=== PATIENT | female | born 1945 | race Caucasian/White ===

== ENCOUNTER → 2017-10-15 | Outpatient (CLI) | payer MEDICARE, SELFPAY | PROVIDERS: Family Provider Internal Medicine Adolescent Medicine; Visit Provider Nurse Practitioner Family | DX: Z11.1 Encounter for screening for respiratory tuberculosis (principal) | CPT/HCPCS: 86580 ==

== ENCOUNTER → 2018-02-21 11:27 | Outpatient (POV) | payer MEDICARE, SELFPAY ==
[2018-02-21 11:43] VITALS: BP 154/71; PULSE 79; RESP 18; TEMP 36.6; O2SAT 98
--- NOTE | 2018-02-21 12:06 | HMH.PMCON ---
Assessment and Plan (1) Sacroiliitis Current visit: Yes Status: Chronic Category: Medical Code(s): M46.1 - Sacroiliitis, not elsewhere classified (2) Bursitis Current visit: Yes Status: Chronic Category: Medical Code(s): M71.9 - Bursopathy, unspecified - Assessment and plan all Dx Assessment and Plan for all problems:: We will plan a right SI joint injection along with a right greater trochanteric bursa injection. I believe that this would be beneficial to give her long-term relief of her symptoms. Patient's tried and failed physical therapy, medications, anti-inflammatories. Patient is continuing to do home stretching activities along with being active and walking. I will follow-up with this patient after her injection. Patient is not on any anticoagulation therapy. This note was dictated using voice recognition software and may contain errors or omissions HPI - Data of Consult Consult date: 02/21/18 Requesting Physician: Desire Mcdaniel APRN Primary Care Provider: Jose Patel MD Family Provider: Jose Patel MD - Consult Narrative Reason for consult: Right hip pain History of present illness: Ms. Dotson is a 72 year old female sent today for consultation in regards to her right hip pain. Patient states the pain began about a month ago. Patient rates her pain a 5 out of 10 today. Patient has tried physical therapy without much relief. Patient has also tried anti-inflammatories without much relief. Patient states all activity increases her pain while heat decreases her pain. Patient states her pain is constant it is localized over the SI joint and the greater trochanteric bursa of the right hip. Is interested in injective therapy to help with some of her pain. CC: Desire Mcdaniel APRN [facility] History I have reviewed the patient's past medical history: Yes Medical History: Reports:: Hypertension Other Medical History: Reports: Thyroid Disease, Other Laterality Cases: Right: Total Hip Replacement Other Surgeries: Yes: Cardiac Surgery, Colon Resection Amputation: No Fractures: No - *Social History Smoking Status: Never smoker Alcohol Intake: never Occupational Status: retired - Psychiatric History Expresses thoughts of harming self/others: None Suicide Plan Description: No Plan *Family Hx:: Cancer Review of Systems - Review of Systems ROS General: no recent weight change, no fever, no sleep disturbances Respiratory: no cough, no shortness of air, no recurring pulmonary infections Cardiovascular/Peripheral Vascular: No chest pain, No palpitations, no edema, no shortness of breath. Gastrointestinal: no incontinence, normal bowel movements reported Genitourinary: no incontinence Musculoskeletal: Right hip pain Psychiatric: normal mood/ affect, Neurological: [denies weakness in extremities], [denies balance issues] Meds Home Medications Medication Instructions Recorded Confirmed Type clonidine HCl 0.1 mg tablet PO 90 Days 01/24/18 History esomeprazole magnesium 40 mg PO 90 Days 01/24/18 History capsule,delayed release levothyroxine 100 mcg tablet PO 90 Days 01/24/18 History milnacipran 50 mg tablet PO 90 Days 01/24/18 History nebivolol 5 mg tablet PO 90 Days 01/24/18 History rosuvastatin 10 mg tablet PO 90 Days 01/24/18 History Allergies Allergy/AdvReac Type Severity Reaction Status Date / Time milk [From MILK (FOOD/DRUG)] Allergy Intermediate I-HIVES Verified 02/06/18 16:02 strawberry Allergy Intermediate I-HIVES Verified 02/06/18 16:02 [From STRAWBERRIES (FOOD/DRUG)] tomato Allergy Intermediate I-HIVES Verified 02/06/18 16:02 [From TOMATOES (FOOD/DRUG)] oxycodone [OXYCODONE] Allergy Mild SHUT Verified 02/06/18 16:02 EVERYTHING DOWN tramadol [TRAMADOL] Allergy Mild SHUTS Verified 02/06/18 16:02 EVERYTHING DOWN prednisone AdvReac Intermediate ANXIOUS/EBEN Verified 02/06/18 16:02 EMILY From MILK
--- NOTE | 2018-02-21 12:09 | P.CONS_ITS ---
Assessment and Plan (1) Sacroiliitis Current visit: Yes Status: Chronic Category: Medical Code(s): M46.1 - Sacroiliitis, not elsewhere classified (2) Bursitis Current visit: Yes Status: Chronic Category: Medical Code(s): M71.9 - Bursopathy, unspecified - Assessment and plan all Dx Assessment and Plan for all problems:: We will plan a right SI joint injection along with a right greater trochanteric bursa injection. I believe that this would be beneficial to give her long-term relief of her symptoms. Patient's tried and failed physical therapy, medications, anti-inflammatories. Patient is continuing to do home stretching activities along with being active and walking. I will follow-up with this patient after her injection. Patient is not on any anticoagulation therapy. This note was dictated using voice recognition software and may contain errors or omissions HPI - Data of Consult Consult date: 02/21/18 Requesting Physician: Desire Mcdaniel APRN Primary Care Provider: Jose Patel MD Family Provider: Jose Patel MD - Consult Narrative Reason for consult: Right hip pain History of present illness: Ms. Dotson is a 72 year old female sent today for consultation in regards to her right hip pain. Patient states the pain began about a month ago. Patient rates her pain a 5 out of 10 today. Patient has tried physical therapy without much relief. Patient has also tried anti-inflammatories without much relief. Patient states all activity increases her pain while heat decreases her pain. Patient states her pain is constant it is localized over the SI joint and the greater trochanteric bursa of the right hip. Is interested in injective therapy to help with some of her pain. CC: Desire Mcdaniel APRN [facility] History I have reviewed the patient's past medical history: Yes Medical History: Reports:: Hypertension Other Medical History: Reports: Thyroid Disease, Other Laterality Cases: Right: Total Hip Replacement Other Surgeries: Yes: Cardiac Surgery, Colon Resection Amputation: No Fractures: No - *Social History Smoking Status: Never smoker Alcohol Intake: never Occupational Status: retired - Psychiatric History Expresses thoughts of harming self/others: None Suicide Plan Description: No Plan *Family Hx:: Cancer Review of Systems - Review of Systems ROS General: no recent weight change, no fever, no sleep disturbances Respiratory: no cough, no shortness of air, no recurring pulmonary infections Cardiovascular/Peripheral Vascular: No chest pain, No palpitations, no edema, no shortness of breath. Gastrointestinal: no incontinence, normal bowel movements reported Genitourinary: no incontinence Musculoskeletal: Right hip pain Psychiatric: normal mood/ affect, Neurological: [denies weakness in extremities], [denies balance issues] Meds Home Medications Medication Instructions Recorded Confirmed Type clonidine HCl 0.1 mg tablet PO 90 Days 01/24/18 History esomeprazole magnesium 40 mg PO 90 Days 01/24/18 History capsule,delayed release levothyroxine 100 mcg tablet PO 90 Days 01/24/18 History milnacipran 50 mg tablet PO 90 Days 01/24/18 History nebivolol 5 mg tablet PO 90 Days 01/24/18 History rosuvastatin 10 mg tablet PO 90 Days 01/24/18 History Allergies Allergy/AdvReac Type Severity Reaction Status Date / Time milk [From MILK (FOOD/DRUG)] Alli
== END ==
PROVIDERS: Family Provider Internal Medicine Adolescent Medicine; PCP Internal Medicine Adolescent Medicine; Visit Provider Clinical Nurse Specialist Family Health
DX: M71.9 Bursopathy, unspecified (principal); M46.1 Sacroiliitis, not elsewhere classified
CPT/HCPCS: 99202

== ENCOUNTER 2018-03-08 10:05 | Outpatient (CLI) | payer MEDICARE, SELFPAY ==
[2018-03-08 10:40] VITALS: BP 131/63; PULSE 71; RESP 18; TEMP 36.8; O2SAT 98
[2018-03-08 11:30] VITALS: BP 135/67; PULSE 62; RESP 18; TEMP 36.6; O2SAT 96
[2018-03-08 12:15] VITALS: BP 134/72; PULSE 69; RESP 18; TEMP 36.5; O2SAT 95
== END 2018-03-08 12:25 | disposition home or self-care (01) ==
LOC: INF 10:06
PROVIDERS: PCP Internal Medicine Adolescent Medicine; Visit Provider Nurse Practitioner Family
DX: K90.9 Intestinal malabsorption, unspecified (principal); D50.9 Iron deficiency anemia, unspecified
CPT/HCPCS: 96365; J1756

== ENCOUNTER 2018-03-17 09:00 | Outpatient (CLI) | payer MEDICARE, SELFPAY ==
[2018-03-17 09:45] VITALS: BP 111/55; PULSE 67; RESP 16; TEMP 36.6
[2018-03-17 10:15] VITALS: BP 114/61; PULSE 64; RESP 18
== END 2018-03-17 10:30 | disposition home or self-care (01) ==
LOC: INF 09:10
PROVIDERS: Family Provider Internal Medicine Adolescent Medicine; PCP Internal Medicine Adolescent Medicine; Visit Provider Nurse Practitioner Family
DX: D50.9 Iron deficiency anemia, unspecified (principal); K90.9 Intestinal malabsorption, unspecified
CPT/HCPCS: 96365; J1756

== ENCOUNTER 2018-03-24 10:10 | Outpatient (CLI) | payer MEDICARE, SELFPAY ==
[2018-03-24 10:35] VITALS: BP 115/63; PULSE 68; RESP 20; TEMP 36.8; O2SAT 96
[2018-03-24 11:20] VITALS: BP 126/76; PULSE 63; RESP 20; TEMP 36.4; O2SAT 98
== END 2018-03-24 11:35 | disposition home or self-care (01) ==
LOC: INF 10:13
PROVIDERS: Family Provider Internal Medicine Adolescent Medicine; PCP Internal Medicine Adolescent Medicine; Visit Provider Internal Medicine Adolescent Medicine
DX: K90.9 Intestinal malabsorption, unspecified (principal); D50.9 Iron deficiency anemia, unspecified
CPT/HCPCS: 96365; J1756

== ENCOUNTER 2018-04-01 10:00 | Outpatient (CLI) | payer MEDICARE, SELFPAY ==
[2018-04-01 10:30] VITALS: BP 147/89; PULSE 68; RESP 20; TEMP 36.9; O2SAT 96
[2018-04-01 11:00] VITALS: BP 134/78; PULSE 66; RESP 20; TEMP 36.9; O2SAT 96
[2018-04-01 11:15] VITALS: BP 135/70; PULSE 68; RESP 20; TEMP 36.9; O2SAT 96
== END 2018-04-01 11:25 | disposition home or self-care (01) ==
LOC: INF 10:03
PROVIDERS: Family Provider Internal Medicine Adolescent Medicine; PCP Internal Medicine Adolescent Medicine; Visit Provider Nurse Practitioner Family
DX: K90.9 Intestinal malabsorption, unspecified (principal); D50.9 Iron deficiency anemia, unspecified
CPT/HCPCS: 96365; J1756

== ENCOUNTER → 2018-04-04 11:49 | Outpatient (POV) | payer MEDICARE, SELFPAY ==
[2018-04-04 11:57] VITALS: BP 162/81; PULSE 82; RESP 18; O2SAT 98; BMI 25.4
--- NOTE | 2018-04-04 12:01 | HMH.PAINSOAP ---
[facility] Pain Management SOAP Note Subjective:: Patient is a pleasant 72-year-old white female who presents today for follow-up after right SI joint and right trochanteric bursa region. Patient states that after the injection she did extremely well. Patient had a vacation in [place] and she was able to walk around without as much discomfort. Patient states her pain is returning and she is quite comfortable today however she is been having issues with her hip replacement. Patient is seeing her surgeon tomorrow for an evaluation. I believe that this would be beneficial. I believe that some of her pain may stem from instability in her right hip. Patient rates her pain a 7 out of 10 today. ROS General: no recent weight change, no fever, no sleep disturbances Respiratory: no cough, no shortness of air, no recurring pulmonary infections Cardiovascular/Peripheral Vascular: No chest pain, No palpitations, no edema, no shortness of breath. Gastrointestinal: no incontinence, normal bowel movements reported Genitourinary: no incontinence Musculoskeletal: Right hip pain, right SI joint pain Psychiatric: normal mood/ affect Neurological: [denies weakness in extremities], [denies balance issues] Objective:: Physical Exam General: Alert and oriented x3, no acute distress, pleasant and cooperative, [on room air] Lungs: Resps E/U, Symmetrical chest expansion, Eyes: PERRL Musculoskeletal: Flexion and extension of lumbar spine somewhat guarded secondary to pain, deep tendon reflexes normal, strength in upper and lower extremities [5/5], [abnormal gait noted] Neurological: speech clear, 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 Patient is going to call us if she needs us in the future. This note was dictated using voice recognition software and may contain errors or omissions
--- NOTE | 2018-04-04 12:04 | P.CONS_ITS ---
[facility] Pain Management SOAP Note Subjective:: Patient is a pleasant 72-year-old white female who presents today for follow-up after right SI joint and right trochanteric bursa region. Patient states that after the injection she did extremely well. Patient had a vacation in [place] and she was able to walk around without as much discomfort. Patient states her pain is returning and she is quite comfortable today however she is been having issues with her hip replacement. Patient is seeing her surgeon tomorrow for an evaluation. I believe that this would be beneficial. I believe that some of her pain may stem from instability in her right hip. Patient rates her pain a 7 out of 10 today. ROS General: no recent weight change, no fever, no sleep disturbances Respiratory: no cough, no shortness of air, no recurring pulmonary infections Cardiovascular/Peripheral Vascular: No chest pain, No palpitations, no edema, no shortness of breath. Gastrointestinal: no incontinence, normal bowel movements reported Genitourinary: no incontinence Musculoskeletal: Right hip pain, right SI joint pain Psychiatric: normal mood/ affect Neurological: [denies weakness in extremities], [denies balance issues] Objective:: Physical Exam General: Alert and oriented x3, no acute distress, pleasant and cooperative, [ on room air] Lungs: Resps E/U, Symmetrical chest expansion, Eyes: PERRL Musculoskeletal: Flexion and extension of lumbar spine somewhat guarded secondary to pain, deep tendon reflexes normal, strength in upper and lower extremities [5/5], [abnormal gait noted] Neurological: speech clear, screen handler equal, no gross sensory deficits Assessment:: Sacroiliitis and right hip pain Plan:: Patient is going to be seen by her surgeon tomorrow. Patient is going to call us if she needs us in the future. This note was dictated using voice recognition software and may contain errors or omissions
== END ==
PROVIDERS: Family Provider Internal Medicine Adolescent Medicine; PCP Internal Medicine Adolescent Medicine; Visit Provider Clinical Nurse Specialist Family Health
DX: M25.551 Pain in right hip (principal); M46.1 Sacroiliitis, not elsewhere classified
CPT/HCPCS: 99212

== ENCOUNTER 2018-04-07 09:10 | Outpatient (CLI) | payer MEDICARE, SELFPAY ==
[2018-04-07 10:10] VITALS: BP 129/73; PULSE 65; RESP 18
[2018-04-07 10:40] VITALS: BP 142/65; PULSE 58; RESP 18
== END 2018-04-07 10:55 | disposition home or self-care (01) ==
LOC: INF 09:27
PROVIDERS: Family Provider Internal Medicine Adolescent Medicine; PCP Internal Medicine Adolescent Medicine; Visit Provider Internal Medicine
DX: K90.9 Intestinal malabsorption, unspecified (principal); D50.9 Iron deficiency anemia, unspecified
CPT/HCPCS: 96365; J1756

== ENCOUNTER → 2018-06-20 09:34 | Outpatient (CLI) | payer MEDICARE, SELFPAY ==
[2018-06-20 09:48] LABS: Basophils % 0.7 % (0.1-2.0); Eosinophils # 0.2 K/mm3 (0.0-0.4); Eosinophils % 3.9 % (0.1-12.0); Hematocrit 36.6 % (37.0-47.0); Hemoglobin 11.6 g/dL (12.2-16.2); Lymphocytes # 2.4 K/mm3 (0.7-4.5); Lymphocytes % 44.7 K/mm3 (10-50); Mean Corpuscular HGB Conc 31.7 g/dL (31.8-35.4); Mean Corpuscular Hemoglobin 28.8 pg (27.0-31.2); Mean Corpuscular Volume 90.9 fl (81-99); Mean Platelet Volume 6.7 fl (7.4-10.4); Monocytes # 0.5 K/mm3 (0.1-1.0); Monocytes % 8.3 % (1.7-9.3); Neutrophils # 2.3 K/mm3 (1.8-7.8); Neutrophils % 42.4 % (37.0-80.0); Platelet Count 228 K/mm3 (142-424); Red Blood Count 4.03 M/mm3 (4.20-5.40); Red Cell Distribution Width 16.7 % (11.5-17.5); White Blood Count 5.4 K/mm3 (4.8-10.8)
[2018-06-20 10:36] LABS: Alanine Aminotransferase 34 U/L (12-78); Albumin Level 3.4 gm/dL (3.4-5.0); Albumin/Globulin Ratio 1.2 (1.1-1.8); Alkaline Phosphatase 99 U/L (46-116); Aspartate Amino Transferase 28 U/L (15-37); Bilirubin,Total 0.2 mg/dL (0.2-1.0); Blood Urea Nitrogen 26 mg/dL (7-18); Carbon Dioxide 29 mmol/L (21.0-32.0); Chloride 110 mmol/L (98-107); Creatinine,Serum 1.38 mg/dL (0.55-1.02); Estimated Glomerular Filt Rate 37 ml/min (>60); GFR (African American) 45 ML/MIN (>60); Globulin 2.9 gm/dl (1.3-3.2); Glucose 100 mg/dL (74-106); Sodium 146 mmol/L (136-145); Total Protein,Serum 6.3 gm/dL (6.4-8.2)
[2018-06-20 10:47] LABS: C-Reactive Protein < 0.2 mg/L (0.0-0.9)
[2018-06-20 12:04] LABS: Erythrocyte Sedimentation Rate 24 mm/hr (0-30)
[2018-06-21 15:27] LABS: RA Latex Turbid. <10.0 IU/mL (0.0-13.9)
== END ==
PROVIDERS: PCP Internal Medicine Adolescent Medicine; Visit Provider Internal Medicine Rheumatology
DX: M06.9 Rheumatoid arthritis, unspecified (principal); Z79.899 Other long term (current) drug therapy
CPT/HCPCS: 36415; 80053; 85025; 85651; 86140; 86431

== ENCOUNTER → 2018-06-29 12:49 | Outpatient (CLI) | payer MEDICARE, SELFPAY ==
[2018-06-29 15:06] LABS: Thyroid Stimulating Hormone 0.02 uIU/ml (0.358-3.740)
== END ==
PROVIDERS: PCP Internal Medicine Adolescent Medicine; Visit Provider Nurse Practitioner Family
DX: E03.9 Hypothyroidism, unspecified (principal)
CPT/HCPCS: 36415; 84443

== ENCOUNTER → 2018-07-06 10:48 | Outpatient (CLI) | payer MEDICARE, SELFPAY ==
[2018-07-06 11:09] LABS: Microscopic, Urine URINE MICROSCOPIC (MICROSCOPIC)
--- NOTE | 2018-07-06 11:30 | XR_ITS ---
XR chest 2V HISTORY: ITS.REASON: CAD, ORDERING PHYSICIAN: Lyudmila Maldonado PATIENT AGE: 72 years COMPARISON: 08/12/2016 FINDINGS: The cardiomediastinal silhouette and pulmonary vascularity are within normal limits. There has been prior CABG. There is evidence of old granulomatous disease. No lobar consolidation. Chronic changes are present in the lung bases. There are coronary artery stents noted. Degenerative change thoracic spine. IMPRESSION: Chronic changes, no acute finding
[2018-07-06 11:31] LABS: Appearance,Urine CLEAR (Clear); Bilirubin,Urine Negative (Negative); Blood, Urine Negative (Negative); Color,Urine YELLOW (Yellow); Glucose,Urine (UA) Negative (Negative); Ketones,Urine Negative (Negative); Leukocyte Esterase,Urine Negative (Negative); Nitrate,Urine Negative (Negative); Protein,Urine Negative (Negative); Urobilinogen,Urine 0.2 EU/dl (0.2)
[2018-07-06 11:39] LABS: INR 0.96 (0.9-1.1); Prothrombin Time 9.9 seconds (9.4-11.8)
[2018-07-06 12:18] LABS: Bacteria,Urine Trace /lpf; Hyaline Casts,Urine Occasional #/lpf (0); Mucus,Urine 3+ /lpf; WBC,Urine Occasional #/hpf (0-3)
[2018-07-06 15:03] LABS: Activated Partial Thrombo Time 26.9 seconds (23.6-34.0)
== END ==
PROVIDERS: PCP Internal Medicine Adolescent Medicine; Visit Provider Nurse Practitioner Family
DX: Z01.818 Encounter for other preprocedural examination (principal); I25.10 Atherosclerotic heart disease of native coronary artery without angina pectoris; Z01.812 Encounter for preprocedural laboratory examination
CPT/HCPCS: 36415; 71046; 81001; 85610; 85730

== ENCOUNTER → 2018-07-08 06:04 | Outpatient (CLI) | payer MEDICARE, SELFPAY ==
--- NOTE | 2018-07-08 06:07 | NM_ITS ---
History and Indications: Coronary artery disease, history of MA, bypass surgery, hypertension, hyperlipidemia, preop cardiovascular risk assessment Procedure: Patient received a 0.4 mg of Lexiscan, resting heart rate was 63 beats prominent, resting blood pressure 154/78, with Lexiscan maximum heart rate achieved was 86 bpm which is less than 85% of the maximum predicted heart rate and a blood pressure 156/74. With Lexiscan patient denied any complained of chest pain or shortness of breath. Electrocardiogram: Resting electrocardiogram showed sinus rhythm, with Lexiscan there is less than 1.[address] segment depression noted from the baseline EKG. The EKG portion of the Lexiscan Myoview is nondiagnostic. Cardiac stress and resting SPECT images: Cardiac stress and rest SPECT images were obtained using technetium 99 Myoview 31.0 mCi at stress and 10.2 mCi at rest. Gated SPECT further analysis of segmental wall motion and calculation of the ejection fraction also done. Cardiac stress and rest SPECT images small area of fixed defect involving the anteroseptal and anteroapical wall consistent with area of prior myocardial scarring, either derived ejection fraction is 63% with moderate anteroseptal and anteroapical wall hypokinesis. Right ventricle is normal size and contractility. Conclusion: 1. The EKG portion of the Lexiscan Myoview is nondiagnostic. 2. Scintigraphic evidence of small area of myocardial scarring involving the anteroapical and anteroseptal wall as described above without significant vicky-infarct ischemia., Computer derived ejection fraction is 53% with segmental wall motion abnormality described above, right ventricle is normal size and contractility. 3. Abnormal Lexiscan Myoview study.
--- NOTE | 2018-07-08 06:07 | CA_ITS ---
PROCEDURE: 2-D M-mode and color Doppler study INDICATIONS FOR THE TEST: Chest pain COPD Heart Murmur Tobacco Smoking Palpitations Fatigue Syncope Edema Hypertension+Diabetes Mellitus Rheumatic Fever SOB STRANGE Obesity Hyperlipidemia+ Family History HD Additional History preop clearance for hip replacement, hx of CABG, hx PR 2002 1 cardiac stent PATIENT INFORMATION HEIGHT: 63 WEIGHT: 141 GENDER: Female B/P: 145/76 2-D/M-MODE INTERPRETATION: 2-D MEASUREMENTS OBSERVED VALUES IN CMS Right Ventricular Dimension (RVDd) 2.0 Interventricular Septum (Thickness)(IVsd) 0.5 Left Ventricular Internal Dimensions(LVIDd) 3.3 Left Ventricular Posterior Wall (Thickness)(LVPWd) 0.5 Aortic Root 2.7 Aortic Cusp Separation 2.0 Left Atrial Dimensions (LAD) 2.6 2D 1. Left atrium is qualitatively mildly enlarged, left ventricle is normal size, mild qualitative concentric left ventricular hypertrophy, visually estimated ejection fraction approximately 45-50%, there is mild hypokinesis involving the distal septum. 2. The right atrium and right ventricle are normal size and contractility. 3. The aortic valve is minimally thickened and fibrosed leaflet continue to display mobility. 4. The mitral valve has dense mitral annular calcification. 5. The tricuspid valve is grossly normal. 6. The pulmonic valve is poorly visualized. 7. No significant pericardial effusion noted. DOPPLER INTERROGATION: Doppler interrogation of the aortic, mitral and tricuspid valvular presence of mild mitral and tricuspid regurgitation, tricuspid regurgitation jet velocity insufficient for calculation of the right ventricular systolic pressure, grade 1 diastolic dysfunction seen with tissue Doppler evidence of raised left atrial pressure. CONCLUSION: 1. Mildly enlarged left atrium, normal left ventricular size, mild concentric left ventricular hypertrophy, visually estimated ejection fraction approximately 45-50% with segmental wall motion abnormality described above, grade 1 diastolic dysfunction seen with tissue Doppler evidence of raised left atrial pressure. 2. Mild mitral and tricuspid regurgitation 3. No significant pericardial effusion noted.
--- NOTE | 2018-07-08 09:23 | HMH.ITSHM ---
asa synthroid bystilic nexium vit d3 crestor
== END ==
PROVIDERS: Family Provider Internal Medicine Adolescent Medicine; PCP Internal Medicine Adolescent Medicine; Visit Provider Internal Medicine Cardiovascular Disease
DX: I25.10 Atherosclerotic heart disease of native coronary artery without angina pectoris (principal)
CPT/HCPCS: 78452; 93017; 93306; A9502; J2785

== ENCOUNTER → 2018-12-28 11:21 | Outpatient (CLI) | payer MEDICARE, SELFPAY ==
[2018-12-28 12:13] LABS: Basophils % 0.5 % (0.1-2.0); Eosinophils # 0.1 K/mm3 (0.0-0.4); Eosinophils % 1.7 % (0.1-12.0); Hematocrit 34.4 % (37.0-47.0); Hemoglobin 11.3 g/dL (12.2-16.2); Lymphocytes # 1.9 K/mm3 (0.7-4.5); Lymphocytes % 36.4 % (10-50); Mean Corpuscular HGB Conc 32.7 g/dL (31.8-35.4); Mean Corpuscular Hemoglobin 29.1 pg (27.0-31.2); Mean Platelet Volume 6.7 fl (7.4-10.4); Monocytes # 0.4 K/mm3 (0.1-1.0); Monocytes % 7.9 % (1.7-9.3); Neutrophils # 2.8 K/mm3 (1.8-7.8); Neutrophils % 53.5 % (37.0-80.0); Platelet Count 235 K/mm3 (142-424); Red Blood Count 3.87 M/mm3 (4.20-5.40); Red Cell Distribution Width 16.1 % (11.5-17.5); White Blood Count 5.2 K/mm3 (4.8-10.8)
[2018-12-28 12:58] LABS: Alanine Aminotransferase 28 U/L (12-78); Albumin Level 3.7 gm/dL (3.4-5.0); Albumin/Globulin Ratio 1.3 (1.1-1.8); Alkaline Phosphatase 114 U/L (46-116); Anion Gap 10.5 mEq/L (5-15); Aspartate Amino Transferase 32 U/L (15-37); Bilirubin,Total 0.3 mg/dL (0.2-1.0); Blood Urea Nitrogen 21 mg/dL (7-18); Calcium 8.9 mg/dL (8.5-10.1); Carbon Dioxide 30 mmol/L (21.0-32.0); Chloride 104 mmol/L (98-107); Creatinine,Serum 1.15 mg/dL (0.55-1.02); Estimated Glomerular Filt Rate 46 ml/min (>60); GFR (African American) 56 ML/MIN (>60); Globulin 2.9 gm/dl (1.3-3.2); Glucose 83 mg/dL (74-106); Potassium 4.5 mmoL/L (3.5-5.1); Sodium 140 mmol/L (136-145); Total Protein,Serum 6.6 gm/dL (6.4-8.2)
[2018-12-28 13:04] LABS: C-Reactive Protein < 0.2 mg/L (0.0-0.9)
[2018-12-28 14:28] LABS: Erythrocyte Sedimentation Rate 13 mm/hr (0-30)
[2018-12-31 03:42] LABS: QuantiFERON-TB Gold Plus Negative (Negative)
== END ==
PROVIDERS: Visit Provider Internal Medicine Rheumatology
DX: M06.00 Rheumatoid arthritis without rheumatoid factor, unspecified site (principal)
CPT/HCPCS: 36415; 80053; 85025; 85651; 86140; 86480

== ENCOUNTER → 2019-04-07 10:14 | Outpatient (CLI) | payer MEDICARE, SELFPAY ==
[2019-04-07 10:38] LABS: Basophils % 0.5 % (0.1-2.0); Eosinophils # 0.2 K/mm3 (0.0-0.4); Eosinophils % 3.3 % (0.1-12.0); Hematocrit 35.2 % (37.0-47.0); Hemoglobin 11.1 g/dL (12.2-16.2); Lymphocytes # 1.2 K/mm3 (0.7-4.5); Lymphocytes % 20.8 % (10-50); Mean Corpuscular HGB Conc 31.6 g/dL (31.8-35.4); Mean Corpuscular Volume 88.6 fl (81-99); Mean Platelet Volume 6.9 fl (7.4-10.4); Monocytes # 0.5 K/mm3 (0.1-1.0); Monocytes % 8.4 % (1.7-9.3); Platelet Count 288 K/mm3 (142-424); Red Blood Count 3.98 M/mm3 (4.20-5.40); Red Cell Distribution Width 13.4 % (11.5-17.5)
[2019-04-07 11:11] LABS: Erythrocyte Sedimentation Rate 69 mm/hr (0-30)
[2019-04-07 11:47] LABS: Alanine Aminotransferase 26 U/L (12-78); Albumin Level 3.4 gm/dL (3.4-5.0); Albumin/Globulin Ratio 1.2 (1.1-1.8); Alkaline Phosphatase 110 U/L (46-116); Anion Gap 14.6 mEq/L (5-15); Aspartate Amino Transferase 25 U/L (15-37); Bilirubin,Total 0.3 mg/dL (0.2-1.0); Blood Urea Nitrogen 12 mg/dL (7-18); Calcium 8.7 mg/dL (8.5-10.1); Carbon Dioxide 28 mmol/L (21.0-32.0); Chloride 105 mmol/L (98-107); Creatinine,Serum 1.12 mg/dL (0.55-1.02); Estimated Glomerular Filt Rate 48 ml/min (>60); GFR (African American) 58 ML/MIN (>60); Globulin 2.8 gm/dl (1.3-3.2); Glucose 97 mg/dL (74-106); Potassium 4.6 mmoL/L (3.5-5.1); Sodium 143 mmol/L (136-145); Total Protein,Serum 6.2 gm/dL (6.4-8.2)
[2019-04-07 11:50] LABS: C-Reactive Protein < 0.2 mg/L (0.0-0.9)
== END ==
PROVIDERS: Visit Provider Internal Medicine Rheumatology
DX: M06.9 Rheumatoid arthritis, unspecified (principal)
CPT/HCPCS: 36415; 80053; 85025; 85651; 86140

== ENCOUNTER → 2019-09-08 08:25 | Outpatient (CLI) | payer MEDICARE, SELFPAY ==
[2019-09-08 09:11] LABS: Basophils % 0.6 % (0.1-2.0); Eosinophils # 0.2 K/mm3 (0.0-0.4); Eosinophils % 4.3 % (0.1-12.0); Hematocrit 32.5 % (37.0-47.0); Hemoglobin 10.3 g/dL (12.2-16.2); Lymphocytes # 1.4 K/mm3 (0.7-4.5); Lymphocytes % 34.2 % (10-50); Mean Corpuscular HGB Conc 31.8 g/dL (31.8-35.4); Mean Corpuscular Hemoglobin 29.4 pg (27.0-31.2); Mean Corpuscular Volume 92.2 fl (81-99); Mean Platelet Volume 7.6 fl (7.4-10.4); Monocytes # 0.4 K/mm3 (0.1-1.0); Monocytes % 9.7 % (1.7-9.3); Neutrophils # 2.1 K/mm3 (1.8-7.8); Neutrophils % 51.2 % (37.0-80.0); Platelet Count 276 K/mm3 (142-424); Red Blood Count 3.52 M/mm3 (4.20-5.40); Red Cell Distribution Width 16.5 % (11.5-17.5); White Blood Count 4.1 K/mm3 (4.8-10.8)
[2019-09-08 09:41] LABS: Erythrocyte Sedimentation Rate 40 mm/hr (0-30)
[2019-09-08 10:58] LABS: Alanine Aminotransferase 24 U/L (12-78); Albumin Level 3.7 gm/dL (3.4-5.0); Albumin/Globulin Ratio 1.4 (1.1-1.8); Alkaline Phosphatase 90 U/L (46-116); Anion Gap 9.7 mEq/L (5-15); Aspartate Amino Transferase 28 U/L (15-37); Bilirubin,Total 0.3 mg/dL (0.2-1.0); Blood Urea Nitrogen 19 mg/dL (7-18); Calcium 8.7 mg/dL (8.5-10.1); Carbon Dioxide 30 mmol/L (21.0-32.0); Chloride 106 mmol/L (98-107); Creatinine,Serum 1.21 mg/dL (0.55-1.02); Estimated Glomerular Filt Rate 43 ml/min (>60); GFR (African American) 52 ML/MIN (>60); Globulin 2.7 gm/dl (1.3-3.2); Glucose 86 mg/dL (74-106); Potassium 4.7 mmoL/L (3.5-5.1); Sodium 141 mmol/L (136-145); Total Protein,Serum 6.4 gm/dL (6.4-8.2)
[2019-09-08 11:00] LABS: C-Reactive Protein < 0.2 mg/dL (0.0-0.9)
[2019-09-08 11:12] LABS: Chol/HDL Ratio 2.3 (1-3.5); Cholesterol 189 mg/dL (140-200); HDL Cholesterol 84 mg/dL (29-89); LDL Cholesterol 96 mg/dL (0-130); Thyroid Stimulating Hormone 10.02 uIU/ml (0.358-3.740); Triglycerides 47 mg/dL (30-200); VLDL Cholesterol 9 mg/dL (0-40)
[2019-09-11 06:36] LABS: Vitamin B12 329 pg/mL (232-1245)
== END ==
PROVIDERS: Visit Provider Nurse Practitioner Family
DX: I25.10 Atherosclerotic heart disease of native coronary artery without angina pectoris (principal); I10 Essential (primary) hypertension; E78.5 Hyperlipidemia, unspecified; E03.9 Hypothyroidism, unspecified; E53.8 Deficiency of other specified B group vitamins; D50.9 Iron deficiency anemia, unspecified; M06.00 Rheumatoid arthritis without rheumatoid factor, unspecified site; Z51.81 Encounter for therapeutic drug level monitoring
CPT/HCPCS: 36415; 80053; 80061; 82607; 84443; 85025; 85651; 86140

== ENCOUNTER → 2019-09-18 15:52 | Outpatient (CLI) | payer MEDICARE, SELFPAY ==
--- NOTE | 2019-09-18 15:56 | XR_ITS ---
PROCEDURE: XR CHEST 2V CLINICAL HISTORY: COUGH,RALES,FEVER,CHILLS, Cough, rales, fever, chills COMPARISON: CXR1 CHEST-PORTABLE from 08/12/2016 ABDPELW/O CT ABD PELVIS W/O CONTRAST from 09/24/2016 CXR2V XR chest 2V from 07/06/2018 FINDINGS: Prior CABG. Normal heart size Old granulomatous disease. Patchy density is present in the right infrahilar region. This had a similar appearance on 07/06/2018 somewhat more prominent on today's study and may represent an area of infiltrate superimposed upon chronic changes. No acute bony abnormalities. IMPRESSION: Patchy density right lung base slightly more prominent from the previous exam and may represent an area of infiltrate upon chronic changes. Dictated by: Luan Alexis MD 09/18/2019 17:12 Electronically signed by Luan Alexis MD in [place] 09/18/2019 17:12
== END ==
PROVIDERS: PCP Nurse Practitioner Family; Visit Provider Nurse Practitioner Family
DX: R05 Cough (principal); R09.89 Other specified symptoms and signs involving the circulatory and respiratory systems; R50.9 Fever, unspecified; D89.9 Disorder involving the immune mechanism, unspecified
CPT/HCPCS: 71046

== ENCOUNTER → 2019-10-04 10:23 | Outpatient (CLI) | payer MEDICARE, SELFPAY ==
--- NOTE | 2019-10-04 10:25 | MM_ITS ---
PROCEDURE: MM DIG SCREENING MAMM BI W/CAD CLINICAL INDICATION: SCREENING There is no personal or family history of breast cancer. COMPARISON: [facility]B DIGITAL MAMM-SCREEN BILATERAL from 06/14/2012 [facility]B DIG MAMM-SCREEN JAYE from 08/20/2014 DMSB DIG MAMM-SCREEN JAYE W/CAD from 05/04/2017 TECHNIQUE: Standard CC and MLO images were obtained. R2 CAD reviewed. FINDINGS: Prominent diffuse fibroglandular densities are seen throughout both breasts. There is a stable area of increased glandular elements axillary tail right breast. Otherwise the findings are bilateral and symmetrical. There is no new or suspicious lesion in either breast and no suspicious microcalcifications. IMPRESSION: Moderate diffuse breast density with no suspicious lesions seen BI-RAD Category: 2 Benign Finding(s) FOLLOW-UP: 1YR 1 Year Follow-up (A letter has been sent to the patient regarding results of the study.) Dictated by: Dr. Arthur Ferguson MD 10/05/2019 18:[address] Arthur Ferguson MD in [place] 10/05/2019 18:54
== END ==
PROVIDERS: PCP Internal Medicine Adolescent Medicine; Visit Provider Nurse Practitioner Family
DX: Z12.31 Encounter for screening mammogram for malignant neoplasm of breast (principal)
CPT/HCPCS: 77067

== ENCOUNTER → 2020-08-22 09:53 | Outpatient (CLI) | payer MEDICARE, SELFPAY ==
--- NOTE | 2020-08-22 09:56 | XR_ITS ---
PROCEDURE: XR DEXA AXIAL SKELETON CLINICAL HISTORY: POST-MENOPAUSAL COMPARISON: CR BONE3 BONE DENSITOMETRY(HIP:LT SPINE from 05/04/2017 FINDINGS: The left forearm BMD is 0.601 with a T-score of -1.5. The left hip BMD is 0.593 with a T-score of -2.3. The lumbar spine BMD is 1.097 with a T-score of 0.5. Previously the lowest density was in the left hip with T-score of -1.8. IMPRESSION: This patient is considered osteopenic according to the World Health Organization criteria. Bone density is between 10 and 25 percent below young normal. Fracture risk is moderate. Treatment is advised. Based on these results a follow-up exam is recommended in 2 year. Dictated by: Luan Alexis MD 08/23/2020 08:16 Luan Alexis MD in [place] 08/23/2020 08:16
== END ==
PROVIDERS: PCP Internal Medicine Adolescent Medicine; Visit Provider Internal Medicine Adolescent Medicine
DX: Z13.820 Encounter for screening for osteoporosis (principal); Z78.0 Asymptomatic menopausal state
CPT/HCPCS: 77080

== ENCOUNTER → 2020-09-06 15:47 | Outpatient (CLI) | payer MEDICARE, SELFPAY ==
--- NOTE | 2020-09-06 15:49 | MM_ITS ---
PROCEDURE: MM DIG SCREENING MAMM BI W/CAD Referring Doctor: Tyler Avelar Patient Age:75Y CLINICAL INDICATION: SCREENING 75-year-old female difficult position No hormones. No new complaints but noncontributory family history . 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 R2 CAD reviewed. Bilateral digital breast tomosynthesis included. Additional axillary CC views both breast included as well as a nipple profile MLO view left 75-year-old female difficult position MLO views due to arthritis. Patient could not tolerate leaning into the machine FINDINGS: Moderate density breast. No new dominant or new suspicious mass. No suspicious calcifications. CAD computer review highlights no new areas of concern. Areas of mild asymmetry appears similar to previous studies Right breast no new areas of significant concern Small area of density in the tail of the right breast is been seen on multiple previous studies dating back to 2013, 2012 appears reasonably stable. Most compatible with a small intramammary lymph node Left breast.: No new area of significant concern . Subtle and minor asymmetric areas of density appear stable IMPRESSION: Stable bilateral mammogram. No new areas of significant concern . Moderately dense breast Bilateral follow-up 1 year recommended BI-RAD Category: 2 Benign Finding(s) FOLLOW-UP: 1YR 1 Year Follow-up (A letter has been sent to the patient regarding results of the study.) Dictated by: Lenny Moreno MD 09/18/2020 10:40 Lenny Moreno MD in [place] 09/18/2020 10:40
== END ==
PROVIDERS: PCP Internal Medicine Adolescent Medicine; Visit Provider Internal Medicine Adolescent Medicine
DX: Z12.31 Encounter for screening mammogram for malignant neoplasm of breast (principal)
CPT/HCPCS: 77063; 77067

== ENCOUNTER 2021-06-16 08:58 | Emergency (ER) | payer MEDICARE, SELFPAY ==
[2021-06-16 09:00] VITALS: BP 137/82; PULSE 76; RESP 18; TEMP 36.9; O2SAT 99; BMI 23.3
--- NOTE | 2021-06-16 09:28 | HMH.EDUTC ---
[facility] [place] Disposition Clinical Impression: Canker sore, Encounter for laboratory testing for COVID-19 virus Disposition: Home, Self-Care Condition on Discharge: Good Instructions: DI for Aphthous Ulcers (Canker Sores), Aphthous Ulcers, Sore Throat, DI for COVID-19 (Suspected or Confirmed ), Preventing the Spread of Coronavirus Discharge Instructions Additional Instructions: *Monitor Temp, Over the counter Motrin or Tylenol as directed/as needed Tylenol every 4 hours and Motrin every 6 hours (as long as your family doctor has told you that you can take it) for fever or pa-in. and straight to ER if unable to lower temp less than 101.0 after medication given *Warm salt water gargles may help to soothe the throat *Throat Lozenges *Warm fluids like tea with honey may help to soothe the throat cstilwill PRACTICE BASIC PRECAUTIONS ?Wash your hands often with soap and water for at least 20 seconds. If soap and water are not available, cleanyour hands with an alcohol-based hand lawn service manager that contains at least 60% to 95% alcohol, covering all surfacesof your hands and rubbing them together until they feel dry. Soap and water should be used if hands are visiblydirty. Avoid touching your eyes, nose, and mouth with unwashed hands. ?Cover your coughs and sneezes. ?Cover your mouth and nose with a tissue when you cough or sneeze and throw used tissues in a lined trashcan; immediately wash your hands with soap and water for at least 20 seconds or clean your hands with analcohol-based hand lawn service manager that contains at least 60 to 95% alcohol, covering all surfaces of your hands andrubbing them together until they feel dry. Soap and water should be used if hands are visibly dirty. Your throat swab was sent for culture. Those results are typically sent to your primary care. Be sure to follow up in 2-3 days with your family doctor/primary care physician if no improvement so they can review those result and treat if necessary. If you don?t have a primary care doctor, I recommend you get one but in the mean time, you will have to return to a walk in clinic Follow up IMMEDIATELY for new or worsening symptoms or no Noticeable improvement over the next 48-72 hours. 911 for difficulty breathing or swallowing You were tested for today for COVID19 your test result should be back in the next 24-48 hours, Check the [facility] Portal to see if your test results are back in the next 48 it may say detected that means your result is positive and not detected if your results are Negative You was given handout instructions on how log on and see your results. If you do not have internet access you may call the [facility] for your results [phone] You was given a handout with instructions for Self Quarantine and Self isolation for while you wait on test results and what to do if they are positive If you are positive the Health Dept will be contacting you also Make sure to take your Vitamins Vit. C Vit D and Zinc if you can take them Referrals: Jose Patel MD [Primary Care Provider] - As needed Time of Disposition: 09:36 Medical Decision Making - Adrián Inquiry Pt receiving controlled substance: No Adrián was queried for this patient: No Vital Signs: 06/16/21 09:00 Temperature 98.4 F Temperature Source Oral Pulse Rate [Right Brachial] 76 Respiratory Rate 18 Blood Pressure [Right Arm] 137/82 Blood Pressure Mean [Right Arm] 100 Blood Pressure Source [Right Arm] Automatic Cuff Blood Pressure Position [Right Arm] Sitting 02 Sat by Pulse Oximetry 99 Oxygen Delivery Method Room Air - Lab Data Lab results reviewed: Yes: I reviewed the patient's lab results. Orders (Tests/Meds): ORDERS Category Date Time Status Covid-19 Nasal PCR ([facility]) Routine Lab 06/16/21 09:10 Received [facility] [place] HPI - General Stated complaint: covid test Time Seen by Provider: 06/16/21 09:28 Mode of Arrival: Ambulatory Source of Information: Patient Limitations: No Limitations Descr
[2021-06-16 09:38] VITALS: BP 137/82; PULSE 76; RESP 18; TEMP 36.9; O2SAT 99
[2021-06-16 21:17] LABS: UTC Strep Screen (Rapid) Negative (Negative)
== END 2021-06-16 09:42 | disposition home or self-care (01) ==
PROVIDERS: Emergency Provider Nurse Practitioner; PCP Internal Medicine Adolescent Medicine
DX: K12.0 Recurrent oral aphthae (principal); Z20.822 Contact with and (suspected) exposure to COVID-19; I25.10 Atherosclerotic heart disease of native coronary artery without angina pectoris; I10 Essential (primary) hypertension; Z96.641 Presence of right artificial hip joint
CPT/HCPCS: G0463; 87880; 99203; U0003

== ENCOUNTER → 2021-09-15 10:32 | Outpatient (CLI) | payer MEDICARE, SELFPAY ==
[2021-09-15 11:34] LABS: Basophils % 0.5 % (0.1-2.0); Eosinophils # 0.1 K/mm3 (0.0-0.4); Eosinophils % 1.4 % (0.1-12.0); Hematocrit 36.8 % (37.0-47.0); Hemoglobin 11.9 g/dL (12.2-16.2); Lymphocytes # 1.9 K/mm3 (0.7-4.5); Lymphocytes % 33.9 % (10-50); Mean Corpuscular HGB Conc 32.4 g/dL (31.8-35.4); Mean Corpuscular Hemoglobin 29.3 pg (27.0-31.2); Mean Corpuscular Volume 90.5 fl (81-99); Mean Platelet Volume 7.5 fl (7.4-10.4); Monocytes # 0.5 K/mm3 (0.1-1.0); Monocytes % 8.8 % (1.7-9.3); Neutrophils # 3.1 K/mm3 (1.8-7.8); Neutrophils % 55.4 % (37.0-80.0); Platelet Count 281 K/mm3 (142-424); Red Blood Count 4.06 M/mm3 (4.20-5.40); Red Cell Distribution Width 15.1 % (11.5-17.5); White Blood Count 5.5 K/mm3 (4.8-10.8)
[2021-09-15 12:29] LABS: Alanine Aminotransferase 7 U/L (12-78); Albumin Level 4.3 g/dl (3.5-5.0); Albumin/Globulin Ratio 1.9 (1.1-1.8); Alkaline Phosphatase 68 U/L (38-126); Anion Gap 10.2 mEq/L (5-15); Aspartate Amino Transferase 31 U/L (14-36); Bilirubin,Total 0.5 mg/dl (0.2-1.3); Blood Urea Nitrogen 16 mg/dl (7-17); Calcium 9.4 mg/dl (8.4-10.2); Carbon Dioxide 29 mmol/L (22.0-30.0); Chloride 101 mmol/L (98-107); Estimated Glomerular Filt Rate 54 ml/min (>60); GFR (African American) 65 ML/MIN (>60); Globulin 2.3 g/dL (1.3-3.2); Glucose 93 mg/dl (74-100); Potassium 4.2 mmoL/L (3.5-5.1); Sodium 136 mmol/L (136-145); Total Protein,Serum 6.6 g/dl (6.3-8.2)
[2021-09-15 12:31] LABS: Erythrocyte Sedimentation Rate 16 mm/hr (0-30)
[2021-09-15 12:35] LABS: C-Reactive Protein 1.3 mg/L (0-4)
[2021-09-15 12:42] LABS: Amphetamine/Metha Screen,Urine Negative ng/ml (<1000)
[2021-09-15 12:43] LABS: Barbiturates Screen,Urine Negative ng/ml (<200)
[2021-09-15 12:44] LABS: Benzodiazepines Screen,Urine Negative ng/ml (<200); Cannabinoid Screen,Urine Negative ng/ml (<50)
[2021-09-15 12:45] LABS: Cocaine Screen,Urine Negative ng/ml (<300)
[2021-09-15 12:46] LABS: Methadone Screen,Urine Negative ng/ml (<300); Opiate Screen,Urine Negative ng/ml (<300)
[2021-09-15 12:47] LABS: Phencyclidine Screen,Urine Negative ng/ml (<25)
== END ==
PROVIDERS: Visit Provider Internal Medicine Rheumatology
DX: M06.00 Rheumatoid arthritis without rheumatoid factor, unspecified site (principal); Z79.899 Other long term (current) drug therapy
CPT/HCPCS: 36415; 80053; 80305; 85025; 85651; 86140

== ENCOUNTER → 2021-10-02 10:37 | Outpatient (CLI) | payer MEDICARE, SELFPAY ==
--- NOTE | 2021-10-02 10:40 | MM_ITS ---
PROCEDURE INFORMATION: Exam: MG Bilateral Screening 3D Mammography Exam date and time: 10/02/2021 10:40 AM Age: 76 years old Clinical indication: Encounter for screening mammogram for malignant neoplasm of breast TECHNIQUE: Imaging protocol: Bilateral screening tomosynthesis and 2D mammography including computer-aided detection (CAD) when performed. COMPARISON: 1. MG MM DIG SCREENING MAMM BI W/CAD 09/06/2020 3:54 PM 2. MG MM DIG SCREENING MAMM BI W/CAD 10/04/2019 10:37 AM FINDINGS: MAMMOGRAPHY: Breast composition: The breast tissue is composed of scattered areas of fibroglandular density. Mass: None. Architectural distortion: None. Calcifications: No suspicious calcifications. Asymmetric density: None. Skin thickening: None. Axillary adenopathy: The left axilla is not visualized due to the patient's inability to cooperate with the examination. No axillary adenopathy on right IMPRESSION: No mammographic evidence of malignancy. Annual screening is recommended unless otherwise clinically indicated. ASSESSMENT: BI-RADS Category 1: Negative
== END ==
PROVIDERS: PCP Internal Medicine Adolescent Medicine; Visit Provider Internal Medicine Adolescent Medicine
DX: Z12.31 Encounter for screening mammogram for malignant neoplasm of breast (principal)
CPT/HCPCS: 77063; 77067

== ENCOUNTER → 2022-01-21 09:07 | Outpatient (CLI) | payer MEDICARE, SELFPAY ==
--- NOTE | 2022-01-21 09:20 | XR_ITS ---
FINAL REPORT TECHNIQUE: Bone mineral density was calculated of the lumbar spine, left hip and left forearm. CLINICAL HISTORY: . post menopausal FINDINGS: Using L1-4, the bone mineral density of the spine is 1.202 g/cm2, corresponding to T-score of 1.4. Note that these values may be falsely elevated secondary to hypertrophic change. Using the left hip, the bone mineral density of the femoral neck is 0.642 g/cm2, corresponding to a T-score of -1.9. Using the distal1/3 of the left forearm, the bone mineral density of the femoral neck is 0.586 g/cm2, corresponding to a T-score of -1.8. NOTE: T-score: Standard deviation compared with peak bone mass of young adult mean. *Following the recommendations of the International Society of Bone densitometry, classification of hip BMD is based on the lower of two T-scores; total hip or femoral neck. IMPRESSION: Diminished bone mineral density of the left hip and left forearm consistent with osteopenia. Reviewed, Interpreted and Dictated by Aquiles Deluca III, MD Transcribed by Grecia Chowdhury Authenticated by Aquiles Deluca III, MD on 01/21/2022 11:30:16 AM [facility]
== END ==
PROVIDERS: PCP Nurse Practitioner Family; Visit Provider Nurse Practitioner Family
DX: Z78.0 Asymptomatic menopausal state (principal)
CPT/HCPCS: 77080

== ENCOUNTER → 2022-04-09 10:01 | Outpatient (CLI) | payer MEDICARE, SELFPAY ==
[2022-04-09 10:24] LABS: Microscopic, Urine URINE MICROSCOPIC (MICROSCOPIC)
[2022-04-09 10:46] LABS: Basophils % 0.4 % (0.1-2.0); Eosinophils # 0.1 K/mm3 (0.0-0.4); Eosinophils % 1.4 % (0.1-12.0); Hematocrit 35.6 % (37.0-47.0); Hemoglobin 11.9 g/dL (12.2-16.2); Lymphocytes # 2.1 K/mm3 (0.7-4.5); Lymphocytes % 52.7 % (10-50); Mean Corpuscular HGB Conc 33.4 g/dL (31.8-35.4); Mean Corpuscular Volume 89.8 fl (81-99); Mean Platelet Volume 7.3 fl (7.4-10.4); Monocytes # 0.4 K/mm3 (0.1-1.0); Monocytes % 9.1 % (1.7-9.3); Neutrophils # 1.5 K/mm3 (1.8-7.8); Neutrophils % 36.4 % (37.0-80.0); Platelet Count 241 K/mm3 (142-424); Red Blood Count 3.96 M/mm3 (4.20-5.40); Red Cell Distribution Width 14.5 % (11.5-17.5); White Blood Count 4.1 K/mm3 (4.8-10.8)
[2022-04-09 10:48] LABS: MANUAL DIFFERENTIAL MANUAL DIFFERENTIAL (MANUAL DIFF)
[2022-04-09 11:05] LABS: Appearance,Urine CLEAR (Clear); Blood, Urine TRACE-I (Negative); Color,Urine YELLOW (Yellow); Glucose,Urine (UA) Negative (Negative); Ketones,Urine TRACE (Negative); Leukocyte Esterase,Urine TRACE (Negative); Nitrate,Urine Negative (Negative); Protein,Urine Negative (Negative); Specific Gravity, Urine >= 1.030 (1.005-1.030); Urobilinogen,Urine 0.2 EU/dl (0.2)
[2022-04-09 11:09] LABS: Alanine Aminotransferase 20 U/L (12-78); Albumin Level 3.9 g/dl (3.5-5.0); Albumin/Globulin Ratio 1.8 (1.1-1.8); Alkaline Phosphatase 79 U/L (38-126); Anion Gap 9.8 mEq/L (5-15); Aspartate Amino Transferase 44 U/L (14-36); Bilirubin,Total 0.2 mg/dl (0.2-1.3); Blood Urea Nitrogen 21 mg/dl (7-17); Calcium 9.6 mg/dl (8.4-10.2); Carbon Dioxide 30 mmol/L (22.0-30.0); Chloride 104 mmol/L (98-107); Estimated Glomerular Filt Rate 54 ml/min (>60); GFR (African American) 65 ML/MIN (>60); Globulin 2.2 g/dL (1.3-3.2); Glucose 79 mg/dl (74-100); Potassium 4.8 mmoL/L (3.5-5.1); Sodium 139 mmol/L (136-145); Total Protein,Serum 6.1 g/dl (6.3-8.2)
[2022-04-09 11:13] LABS: Bilirubin,Urine 1+ (Negative)
[2022-04-09 11:14] LABS: C-Reactive Protein 1.4 mg/L (0-4)
[2022-04-09 11:28] LABS: Erythrocyte Sedimentation Rate 19 mm/hr (0-30)
[2022-04-09 11:35] LABS: Bacteria,Urine 1+ /lpf; WBC,Urine Occasional #/hpf (0-3)
[2022-04-09 13:10] LABS: Eosinophils % 2 % (0-3); Lymphocytes % 52 % (10-50); Monocytes % 8 % (2-9); Neutrophils % 38 % (42-76); Platelet Estimate Normal; Total Cells Counted 50
[2022-04-09 13:11] LABS: RBC Morphology Normal
== END ==
PROVIDERS: PCP Internal Medicine Adolescent Medicine; Visit Provider Internal Medicine Rheumatology
DX: M06.00 Rheumatoid arthritis without rheumatoid factor, unspecified site (principal); R60.9 Edema, unspecified; Z51.81 Encounter for therapeutic drug level monitoring
CPT/HCPCS: 36415; 80053; 81001; 85007; 85025; 85651; 86140

== ENCOUNTER 2022-07-22 10:03 | Emergency (ER) | payer MEDICARE, SELFPAY ==
[2022-07-22 10:15] VITALS: BP 138/84; PULSE 97; RESP 18; TEMP 37; O2SAT 97; BMI 25.7
[2022-07-22 10:40] VITALS: BP 131/86; PULSE 103; RESP 19; TEMP 36.7; O2SAT 99; BMI 25.7
[2022-07-22 10:41] LABS: Adenovirus,PCR Not Detected (NotDetected); Bordetella Pertussis Not Detected (NotDetected); Chlamydophila Pneumoniae, PCR Not Detected (NotDetected); Coronavirus 229E Not Detected (NotDetected); Coronavirus NL63 Not Detected (NotDetected); Coronavirus OC43 Not Detected (NotDetected); Coronovirus HKU1,PCR Not Detected (NotDetected); Human Metapneumovirus Not Detected (NotDetected); Influenza A, PCR Not Detected (NotDetected); Influenza AH1, 2009 Not Detected (NotDetected); Influenza AH1, PCR Not Detected (NotDetected); Influenza AH3,PCR Not Detected (NotDetected); Influenza B, PCR Not Detected (NotDetected); Mycoplasma Pneumoniae, PCR Not Detected (NotDetected); Parainfluenza 1, PCR Not Detected (NotDetected); Parainfluenza 2, PCR Not Detected (NotDetected); Parainfluenza 3, PCR Not Detected (NotDetected); Parainfluenza 4, PCR Not Detected (NotDetected); Respiratory Syncytial Virus Not Detected (NotDetected); Rhinovirus/Enterovirus Not Detected (NotDetected)
--- NOTE | 2022-07-22 10:44 | EXP.UTC ---
Discharge Plan Disposition Patient Disposition: Home, Self-Care Condition: Good Prescriptions Prescriptions: New ondansetron 4 mg tablet,disintegrating 4 mg PO Q8H PRN (Reason: nausea and vomiting) Qty: 10 0RF cefdinir 300 mg capsule 300 mg PO BID 7 Days Qty: 14 0RF No Action levothyroxine 100 mcg tablet 100 mcg PO DAILY 90 Days Label Comments: esomeprazole magnesium 40 mg capsule,delayed release(DR/EC) 40 mg PO DAILY 90 Days Label Comments: rosuvastatin 10 mg tablet 10 mg PO DAILY 90 Days Label Comments: nebivolol 5 mg tablet 10 mg PO DAILY 90 Days Label Comments: cholecalciferol (vitamin D3) 1,000 unit capsule 1,000 unit PO DAILY calcium carbonate [Calcium 600] 600 mg calcium (1,500 mg) tablet 600 mg PO BID glucosamine-chondroitin 900 mg tablet PO cetirizine [Zyrtec] 10 MG tablet 10 mg PO DAILY Referrals Follow up/Referrals: Jose Patel MD [Primary Care Provider] - See instructions Activity Restrictions/Add. Instructions Additional Instructions/Restrictions: *Monitor Temp, Over the counter Motrin or Tylenol as directed/as needed Tylenol every 4 hours and Motrin every 6 hours (as long as your family doctor has told you that you can take it) for fever or pain. and straight to ER if unable to lower temp less than 101.0 after medication given *Warm salt water gargles may help to soothe the throat *Throat Lozenges? *Warm fluids like tea with honey may help to soothe the throat? *Sleep elevated *Humidifier/Vaporizer Drink extra fluids with and between meals. If you have difficulty drinking, try very small amounts of water or suck on ice chips. ? Avoid fruit juices, as these do not replace minerals and can actually increase diarrhea. ? Children and adults can use sports drinks to replenish electrolytes. Younger children and infants should use products formulated for children, like oral rehydration solutions. ? Eat food in small amounts and let your stomach recover. ? Get lots of rest. You may feel tired or weak. ? No greasy or fried foods for the next 24-48 hours BRAT diet Bananas Rice Apples and Pilger ? Make sure to drink plenty of liquids ? Return if needed ? Straight to ER if any life threatening symptoms ? Zofran as prescribed ? You was given an outpatient order for diarrhea panel, please collect specimen and bring back to outpatient lab then call back to the [facility] or follow up with family doctor for results ? Follow up with family doctor in the next 48-72 hours if no improvement or any worsening of symptoms Follow up IMMEDIATELY for new or worsening symptoms or no Noticeable improvement over the next 48-72 hours. 911 for difficulty breathing or swallowing You were tested for today for COVID19 your test result should be back in the next 24-48 hours, you may check your results on the [facility] My Health Portal Make sure to take your Vitamins Vit. C Vit D and Zinc if you can take them Clinical Impressions Clinical Impression: Sinusitis Qualifiers: Sinusitis location: unspecified location Chronicity: unspecified Qualified Code(s): J32.9 - Chronic sinusitis, unspecified Instructions Patient Instructions: DI for Sinusitis, DI for Viral Syndrome Discharge ED Provider: Val Shepard [facility] HPI General Stated complaint: Diarrea, bodyaches, nausea Mode of Arrival: Ambulatory Source of Information: Patient Limitations: No Limitations Time Seen by Provider: 07/22/22 10:45 Description of Symptoms (Recalled from Triage Doc. by RN): pt comes in today with c/o diarrhea, nausea, body aches, fever. symptoms began last night. HEENT Symptoms (Recalled from RN notes): Yes Resp Symptoms (Recalled from RN notes): No Skin Symptoms (Recalled from RN notes): No MS Symptoms (Recalled from RN notes): No Functional Status (Recalled
[2022-07-22 10:51] LABS: UTC Influenza A Antigen Negative (Negative); UTC Influenza B Antigen Negative (Negative)
[2022-07-22 11:19] VITALS: BP 131/86; PULSE 103; RESP 19; TEMP 36.7
[2022-07-22 15:56] LABS: Coronavirus 19, PCR Detected (NotDetected)
== END 2022-07-22 11:19 | disposition home or self-care (01) ==
PROVIDERS: Emergency Provider Nurse Practitioner; PCP Internal Medicine Adolescent Medicine
DX: J32.9 Chronic sinusitis, unspecified (principal); R19.7 Diarrhea, unspecified; R50.9 Fever, unspecified; M79.10 Myalgia, unspecified site; R11.2 Nausea with vomiting, unspecified; Z79.899 Other long term (current) drug therapy; Z88.5 Allergy status to narcotic agent; Z88.6 Allergy status to analgesic agent; Z88.8 Allergy status to other drugs, medicaments and biological substances; Z91.011 Allergy to milk products; Z91.012 Allergy to eggs; Z91.018 Allergy to other foods
CPT/HCPCS: 87581; 87632; 87798; 87804; 99213; C9803; G0463; U0003; U0005

== ENCOUNTER → 2022-07-24 09:45 | Outpatient (CLI) | payer MEDICARE, SELFPAY ==
[2022-07-24 09:54] LABS: Campylobacter Not Detected (NotDetected); Cryptosporidium Not Detected (NotDetected); Cyclospora Cayetanesis Not Detected (NotDetected); Entamoeba histolytica Not Detected (NotDetected); Enteroaggregative E coli Not Detected (NotDetected); Enteropathogenic E coli Not Detected (NotDetected); Enterotoxigenic E coli Not Detected (NotDetected); Giardia lamblia Not Detected (NotDetected); Plesimonas Shigalloides, PCR Not Detected (NotDetected); Salmonella, PCR Not Detected (NotDetected); Shiga-like toxin E coli Not Detected (NotDetected); Shigella Enterovasive E coli Not Detected (NotDetected); Vibrio Cholerae Not Detected (NotDetected); Vibrio, PCR Not Detected (NotDetected); Yersinia Entercolitica, PCR Not Detected (NotDetected)
[2022-07-24 09:55] LABS: Adenovirus F 40/41, stool Not Detected (NotDetected); Astrovirus Not Detected (NotDetected); Norovirus Not Detected (NotDetected); Rotavirus A Not Detected (NotDetected); Sapovirus Not Detected (NotDetected)
[2022-07-24 12:42] LABS: Clostridium Difficile A/B, PCR Detected (NotDetected)
== END ==
PROVIDERS: PCP Internal Medicine Adolescent Medicine; Visit Provider Nurse Practitioner
DX: R19.7 Diarrhea, unspecified (principal); A04.72 Enterocolitis due to Clostridium difficile, not specified as recurrent
CPT/HCPCS: 87506

== ENCOUNTER → 2022-08-24 12:21 | Outpatient (CLI) | payer MEDICARE, SELFPAY ==
[2022-08-24 12:38] LABS: Basophils # 0.1 K/mm3 (0-0.2); Basophils % 0.6 % (0.1-2.0); Eosinophils # 0.2 K/mm3 (0.0-0.4); Hematocrit 36.7 % (37.0-47.0); Lymphocytes # 1.4 K/mm3 (0.7-4.5); Lymphocytes % 16.4 % (10-50); Mean Corpuscular HGB Conc 32.6 g/dL (31.8-35.4); Mean Corpuscular Hemoglobin 30.2 pg (27.0-31.2); Mean Corpuscular Volume 92.6 fl (81-99); Mean Platelet Volume 7.6 fl (7.4-10.4); Monocytes # 0.5 K/mm3 (0.1-1.0); Neutrophils # 6.4 K/mm3 (1.8-7.8); Platelet Count 305 K/mm3 (142-424); Red Blood Count 3.96 M/mm3 (4.20-5.40); Red Cell Distribution Width 14.7 % (11.5-17.5); White Blood Count 8.5 K/mm3 (4.8-10.8)
[2022-08-24 12:58] LABS: Chloride 102 mmol/L (98-107); Potassium 4.8 mmoL/L (3.5-5.1); Sodium 139 mmol/L (136-145)
[2022-08-24 13:01] LABS: Alanine Aminotransferase 15 U/L (12-78); Albumin Level 4.2 g/dl (3.5-5.0); Albumin/Globulin Ratio 1.7 (1.1-1.8); Alkaline Phosphatase 106 U/L (38-126); Anion Gap 12.8 mEq/L (5-15); Aspartate Amino Transferase 41 U/L (14-36); Bilirubin,Total 0.2 mg/dl (0.2-1.3); Blood Urea Nitrogen 13 mg/dl (7-17); Carbon Dioxide 29 mmol/L (22.0-30.0); Estimated Glomerular Filt Rate 61 ml/min (>60); GFR (African American) 73 ML/MIN (>60); Globulin 2.5 g/dL (1.3-3.2); Total Protein,Serum 6.7 g/dl (6.3-8.2)
[2022-08-24 13:02] LABS: Calcium 9.6 mg/dl (8.4-10.2); Glucose 103 mg/dl (74-100)
[2022-08-24 13:14] LABS: Erythrocyte Sedimentation Rate 36 mm/hr (0-30)
== END ==
PROVIDERS: PCP Internal Medicine Adolescent Medicine; Visit Provider Internal Medicine Rheumatology
DX: M06.00 Rheumatoid arthritis without rheumatoid factor, unspecified site (principal)
CPT/HCPCS: 36415; 80053; 85025; 85651; 86140

== ENCOUNTER → 2022-10-02 13:07 | Outpatient (CLI) | payer MEDICARE, SELFPAY ==
--- NOTE | 2022-10-02 13:10 | XR_ITS ---
FINAL REPORT CLINICAL HISTORY: knee pain FINDINGS: RIGHT KNEE Three views of the right knee were obtained. There is mild irregularity of the lateral trochlea, a small fracture is not excluded. The bony alignment is normal. There are mild degenerative changes. There is a moderate joint effusion. No localized soft tissue abnormality is identified. IMPRESSION: Mild irregularity of the lateral trochlea, a small fracture is excluded. Mild degenerative change and a moderate joint effusion. Reviewed, Interpreted and Dictated by Aquiles Deluca III, MD Transcribed by Grecia Chowdhury Authenticated and [facility]
== END ==
PROVIDERS: PCP Internal Medicine Adolescent Medicine; Visit Provider Orthopaedic Surgery
DX: M25.561 Pain in right knee (principal)
CPT/HCPCS: 73562

== ENCOUNTER → 2023-01-16 11:31 | Outpatient (CLI) | payer MEDICARE, SELFPAY ==
[2023-01-16 12:06] LABS: Basophils % 0.3 % (0.1-2.0); Eosinophils # 0.1 K/mm3 (0.0-0.4); Eosinophils % 1.5 % (0.1-12.0); Hematocrit 37.2 % (37.0-47.0); Hemoglobin 11.8 g/dL (12.2-16.2); Lymphocytes # 1.4 K/mm3 (0.7-4.5); Lymphocytes % 19.3 % (10-50); Mean Corpuscular HGB Conc 31.8 g/dL (31.8-35.4); Mean Corpuscular Volume 94.4 fl (81-99); Mean Platelet Volume 7.4 fl (7.4-10.4); Monocytes # 0.5 K/mm3 (0.1-1.0); Monocytes % 6.5 % (1.7-9.3); Neutrophils # 5.1 K/mm3 (1.8-7.8); Neutrophils % 72.4 % (37.0-80.0); Platelet Count 282 K/mm3 (142-424); Red Blood Count 3.94 M/mm3 (4.20-5.40); Red Cell Distribution Width 14.1 % (11.5-17.5); White Blood Count 7.1 K/mm3 (4.8-10.8)
[2023-01-16 12:24] LABS: Chloride 101 mmol/L (98-107)
[2023-01-16 12:25] LABS: Potassium 4.3 mmoL/L (3.5-5.1); Sodium 136 mmol/L (136-145)
[2023-01-16 12:27] LABS: Blood Urea Nitrogen 19 mg/dl (7-17); Estimated Glomerular Filt Rate 48 ml/min (>60); GFR (African American) 58 ML/MIN (>60)
[2023-01-16 12:34] LABS: C-Reactive Protein 1.8 mg/L (0-4)
[2023-01-16 13:04] LABS: Erythrocyte Sedimentation Rate 45 mm/hr (0-30)
[2023-01-16 14:41] LABS: Alanine Aminotransferase 23 U/L (12-78); Albumin Level 4.1 g/dl (3.5-5.0); Albumin/Globulin Ratio 1.7 (1.1-1.8); Alkaline Phosphatase 82 U/L (38-126); Anion Gap 11.3 mEq/L (5-15); Aspartate Amino Transferase 43 U/L (14-36); Bilirubin,Total 0.4 mg/dl (0.2-1.3); Carbon Dioxide 28 mmol/L (22.0-30.0); Globulin 2.4 g/dL (1.3-3.2); Glucose 82 mg/dl (74-100); Total Protein,Serum 6.5 g/dl (6.3-8.2)
[2023-01-16 14:42] LABS: Calcium 8.9 mg/dl (8.4-10.2)
== END ==
PROVIDERS: PCP Internal Medicine Adolescent Medicine; Visit Provider Internal Medicine Rheumatology
DX: M06.00 Rheumatoid arthritis without rheumatoid factor, unspecified site (principal)
CPT/HCPCS: 36415; 80053; 85025; 85651; 86140

== ENCOUNTER → 2023-02-17 10:28 | Outpatient (CLI) | payer MEDICARE, SELFPAY ==
[2023-02-17 10:55] LABS: Basophils % 0.4 % (0.1-2.0); Eosinophils # 0.1 K/mm3 (0.0-0.4); Eosinophils % 1.2 % (0.1-12.0); Hematocrit 35.5 % (37.0-47.0); Hemoglobin 11.4 g/dL (12.2-16.2); Lymphocytes # 1.9 K/mm3 (0.7-4.5); Lymphocytes % 27.6 % (10-50); Mean Corpuscular HGB Conc 32.2 g/dL (31.8-35.4); Mean Corpuscular Hemoglobin 30.3 pg (27.0-31.2); Mean Corpuscular Volume 93.9 fl (81-99); Mean Platelet Volume 8.2 fl (7.4-10.4); Monocytes # 0.7 K/mm3 (0.1-1.0); Monocytes % 9.6 % (1.7-9.3); Neutrophils # 4.3 K/mm3 (1.8-7.8); Neutrophils % 61.2 % (37.0-80.0); Platelet Count 353 K/mm3 (142-424); Red Blood Count 3.78 M/mm3 (4.20-5.40); Red Cell Distribution Width 16.3 % (11.5-17.5); White Blood Count 7.1 K/mm3 (4.8-10.8)
[2023-02-17 11:19] LABS: Alanine Aminotransferase 26 U/L (12-78); Albumin/Globulin Ratio 1.7 (1.1-1.8); Alkaline Phosphatase 70 U/L (38-126); Anion Gap 11.6 mEq/L (5-15); Aspartate Amino Transferase 40 U/L (14-36); Bilirubin,Total 0.5 mg/dl (0.2-1.3); Blood Urea Nitrogen 26 mg/dl (7-17); Calcium 9.1 mg/dl (8.4-10.2); Carbon Dioxide 29 mmol/L (22.0-30.0); Chloride 101 mmol/L (98-107); Estimated Glomerular Filt Rate 31 ml/min (>60); GFR (African American) 38 ML/MIN (>60); Globulin 2.3 g/dL (1.3-3.2); Glucose 73 mg/dl (74-100); Potassium 3.6 mmoL/L (3.5-5.1); Sodium 138 mmol/L (136-145); Total Protein,Serum 6.3 g/dl (6.3-8.2)
[2023-02-17 11:30] LABS: Erythrocyte Sedimentation Rate 35 mm/hr (0-30)
[2023-02-17 11:50] LABS: C-Reactive Protein 1.4 mg/L (0-4)
== END ==
PROVIDERS: PCP Internal Medicine Adolescent Medicine; Visit Provider Internal Medicine Rheumatology
DX: Z51.81 Encounter for therapeutic drug level monitoring (principal)
CPT/HCPCS: 36415; 80053; 80306; 85025; 85651; 86140

== ENCOUNTER → 2023-02-25 06:44 | Outpatient (CLI) | payer MEDICARE, SELFPAY ==
--- NOTE | 2023-02-25 | CA_ITS ---
APPROVED REPORT Exam: Pharmacologic Technologist: Yaquelin Henson, Ht: 5 ft 2 in Wt: 146 lbs BSA: 1.67 m2 HR: 54 bpm BP: 167/65 mmHg Indications: CP, CAD Medical History Medications: Calcium,,,,, ZYRTEC,,,,, Vit D3,,,,, Cefdinir,,,,, Esomeprazole,,,,, RoSUVASTATIN,,,,, LevothROXINE,,,,, ONdansetron,,,,, NeBivolol,,,,, GlUCOsamine-CHONDROITIN,,,,, Stress Test Details Test: LEXISCAN Reason for pharmacologic stress test: physical limitation. HR Resting HR: 59 bpm Max Heart Rate (APMHR): 142.058864 bpm Max HR Achieved: 79 bpm Target HR (85% APMHR): 120.730594 bpm % of APMHR: 55.63 Recovery HR: 67 bpm BP Resting BP: 167.0/65.0 mmHg Max BP: 177.0/79.0 mmHg Recovery BP: 170.0/72.0 mmHg ECG Resting ECG: sinus lucrecia non-specific ST abns Clinical Exercise duration: 04:00 min Highest Stage Achieved: Exercise capacity: 1.0 METs Stress ECG Conclusion Symptoms: SOA, stomach pain, head discomfort. No CP. Arrhythmias/Ectopy: None ST-T Changes: No significant changes. Conclusion: Unremarkable Lexiscan stress. Myoview images reported separately. Test Summary REST . . . . . . . Resting REST 04:04 . . 59 . 167/ 65 . . Stage 1 01:00 . . 71 . . . . Stage 2 01:00 . . 77 . 175/ 87 . . Stage 3 01:00 . . 75 . 175/ 86 . . Stage 4 01:00 . . 73 . 168/ 77 . Stop exercise at 04:00 RECOVERY 01:00 . . 69 . . . . RECOVERY 02:00 . . 73 . 177/ 79 . . RECOVERY 03:00 . . 66 . 170/ 72 . . RECOVERY 03:18 . . 72 . 170/ 72 . . Electronically signed by : John Betancourt MD 02/25/2023 10:29:43
--- NOTE | 2023-02-25 07:09 | NM_ITS ---
APPROVED REPORT Exam: Nuclear Stress Test Indication: chest pain Patient Location: Outpatient Stress Tech: Yaquelin Reinoso [place] Tech:Moira Curtis JARRETTNarayan RT(R)(N) Ht: 5 ft 2 in Wt: 146 lbs Bra Size: 36b HR: 59 bpm BP: 167/65 mmHg BSA: 1.67 m2 TID: 0.90 BMI: 26.7 History: chest pain Procedure: Patient received 0.4 mg of intravenous Lexiscan, resting heart rate 59 bpm, resting blood pressure 167/65 mmHg, with Lexiscan maximum heart rate achieved was 79 bpm which is 85 % of the maximum predicted heart rate and blood pressure was 177/79 mmHg. With Lexiscan, patient denied any complaint of chest pain. The patient was not able to lay on her belly for the prone images. Cardiac Stress and Resting SPECT Images: Cardiac Stress and Resting SPECT images were obtained using technetium 99m Myoview 32.9 mCi stress and 10.98 mCi at rest. Stress images reveal severely decreased myocardial activity in the anterior apical wall while rest images reveal no significant change Gated images calculated ejection fraction of 68% with normal wall motion Conclusion: Large anterior wall defect which does not reverse however appears to be well beyond that of breast attenuation Normal ejection fraction with normal wall motion Medical correlation is advised due to the discordance in the large anterior defect and the normal wall motion Electronically signed by : John Betancourt MD 02/25/2023 13:53:18
== END ==
PROVIDERS: PCP Internal Medicine Adolescent Medicine; Visit Provider Nurse Practitioner Family
DX: I20.8 Other forms of angina pectoris (principal)
CPT/HCPCS: 78452; 93017; A9502; J2785

== ENCOUNTER → 2023-04-28 13:09 | Outpatient (CLI) | payer MEDICARE, SELFPAY ==
[2023-04-28 13:36] LABS: Basophils % 0.3 % (0.1-2.0); Eosinophils # 0.2 K/mm3 (0.0-0.4); Eosinophils % 2.8 % (0.1-12.0); Hematocrit 35.4 % (37.0-47.0); Hemoglobin 11.1 g/dL (12.2-16.2); Lymphocytes # 1.1 K/mm3 (0.7-4.5); Lymphocytes % 14.1 % (10-50); Mean Corpuscular HGB Conc 31.4 g/dL (31.8-35.4); Mean Corpuscular Hemoglobin 28.4 pg (27.0-31.2); Mean Corpuscular Volume 90.4 fl (81-99); Mean Platelet Volume 7.6 fl (7.4-10.4); Monocytes # 0.5 K/mm3 (0.1-1.0); Neutrophils % 76.7 % (37.0-80.0); Platelet Count 271 K/mm3 (142-424); Red Blood Count 3.91 M/mm3 (4.20-5.40); Red Cell Distribution Width 14.5 % (11.5-17.5); White Blood Count 7.8 K/mm3 (4.8-10.8)
[2023-04-28 13:52] LABS: Chloride 108 mmol/L (98-107)
[2023-04-28 13:53] LABS: Sodium 139 mmol/L (136-145)
[2023-04-28 13:55] LABS: Alanine Aminotransferase 25 U/L (12-78); Alkaline Phosphatase 89 U/L (38-126); Aspartate Amino Transferase 54 U/L (14-36); Bilirubin,Total 0.6 mg/dl (0.2-1.3); Blood Urea Nitrogen 21 mg/dl (7-17); Carbon Dioxide 22 mmol/L (22.0-30.0); Estimated Glomerular Filt Rate 48 ml/min (>60); GFR (African American) 58 ML/MIN (>60)
[2023-04-28 13:56] LABS: Albumin Level 4.3 g/dl (3.5-5.0); Albumin/Globulin Ratio 1.7 (1.1-1.8); Calcium 9.3 mg/dl (8.4-10.2); Globulin 2.5 g/dL (1.3-3.2); Glucose 101 mg/dl (74-100); Total Protein,Serum 6.8 g/dl (6.3-8.2)
[2023-04-28 14:01] LABS: C-Reactive Protein 0.4 mg/L (0-4)
[2023-04-28 15:14] LABS: Erythrocyte Sedimentation Rate 16 mm/hr (0-30)
== END ==
PROVIDERS: PCP Internal Medicine Adolescent Medicine; Visit Provider Internal Medicine Rheumatology
DX: Z79.899 Other long term (current) drug therapy (principal); M06.00 Rheumatoid arthritis without rheumatoid factor, unspecified site
CPT/HCPCS: 36415; 80053; 85025; 85651; 86140

== ENCOUNTER → 2023-08-18 08:35 | Outpatient (CLI) | payer MEDICARE, SELFPAY ==
--- NOTE | 2023-08-18 08:39 | XR_ITS ---
FINAL REPORT CLINICAL HISTORY: hetal knee pain COMPARISON: None FINDINGS: Three views of the right knee reveal no evidence of fracture or dislocation. The bony alignment is normal. There is moderate degenerative change with moderate narrowing of the lateral compartment. A small joint effusion is present. No localized soft tissue abnormality is identified. IMPRESSION: Moderate degenerative change with moderate narrowing of the lateral compartment and a small joint effusion. Reviewed, Interpreted and Dictated by Aquiles Deluca III, MD Transcribed by Marlys George Authenticated and [facility]
--- NOTE | 2023-08-18 08:39 | XR_ITS ---
FINAL REPORT CLINICAL HISTORY: hetal knee pain COMPARISON: None FINDINGS: Three views of the right knee reveal no evidence of fracture or dislocation. The bony alignment is normal. Mild degenerative changes present. There is a small joint effusion present. Mild vascular calcifications are noted. IMPRESSION: Mild degenerative change of the right knee with a small joint effusion. Reviewed, Interpreted and Dictated by Aquiles Deluca III, MD Transcribed by Marlys George Authenticated and [facility]
== END ==
PROVIDERS: PCP Internal Medicine Adolescent Medicine; Visit Provider Orthopaedic Surgery
DX: G89.29 Other chronic pain (principal); M25.561 Pain in right knee; M25.562 Pain in left knee
CPT/HCPCS: 73562

== ENCOUNTER → 2023-09-14 13:41 | Outpatient (CLI) | payer MEDICARE, SELFPAY ==
[2023-09-14 14:41] LABS: Basophils % 0.1 % (0.1-2.0); Eosinophils # 0.1 K/mm3 (0.0-0.4); Eosinophils % 1.5 % (0.1-12.0); Hematocrit 28.6 % (37.0-47.0); Hemoglobin 9.1 g/dL (12.2-16.2); Lymphocytes % 14.7 % (10-50); Mean Corpuscular HGB Conc 31.8 g/dL (31.8-35.4); Mean Corpuscular Hemoglobin 26.4 pg (27.0-31.2); Mean Platelet Volume 8.3 fl (7.4-10.4); Monocytes # 0.4 K/mm3 (0.1-1.0); Monocytes % 6.3 % (1.7-9.3); Neutrophils # 5.3 K/mm3 (1.8-7.8); Neutrophils % 77.4 % (37.0-80.0); Platelet Count 300 K/mm3 (142-424); Red Blood Count 3.45 M/mm3 (4.20-5.40); White Blood Count 6.9 K/mm3 (4.8-10.8)
[2023-09-14 15:22] LABS: Iron 38 ug/dL (37-170)
[2023-09-14 15:31] LABS: Total Iron Binding Capacity 508 ug/dL (265-497)
[2023-09-14 15:57] LABS: Ferritin 13.3 ng/ml (11.1-264)
== END ==
PROVIDERS: PCP Internal Medicine Adolescent Medicine; Visit Provider Internal Medicine Medical Oncology
DX: D50.0 Iron deficiency anemia secondary to blood loss (chronic) (principal)
CPT/HCPCS: 36415; 82728; 83540; 83550; 85025

== ENCOUNTER 2023-09-20 10:23 | Outpatient (CLI) | payer MEDICARE, SELFPAY ==
[2023-09-20 10:39] VITALS: BP 160/65; PULSE 68; RESP 18; TEMP 36.6; O2SAT 100
[2023-09-20 11:20] VITALS: BP 161/84; PULSE 63; RESP 18
== END 2023-09-20 11:20 | disposition home or self-care (01) ==
LOC: INF 10:24
PROVIDERS: PCP Internal Medicine Adolescent Medicine; Visit Provider Internal Medicine Medical Oncology
DX: D50.9 Iron deficiency anemia, unspecified (principal)
CPT/HCPCS: 96365; J1756

== ENCOUNTER 2023-09-27 09:45 | Outpatient (CLI) | payer MEDICARE, SELFPAY ==
[2023-09-27 10:15] VITALS: BP 154/84; PULSE 72; RESP 18; O2SAT 99
[2023-09-27 10:45] VITALS: BP 151/85; PULSE 76; RESP 18; O2SAT 97
== END 2023-09-27 11:00 | disposition home or self-care (01) ==
LOC: INF 09:46
PROVIDERS: PCP Internal Medicine Adolescent Medicine; Visit Provider Internal Medicine Medical Oncology
DX: D50.9 Iron deficiency anemia, unspecified (principal)
CPT/HCPCS: 96365; J1756

== ENCOUNTER 2023-09-29 11:17 | Day surgery (SDC) | payer MEDICARE, SELFPAY ==
[2023-09-29] VITALS (8 sets, daily range): BP systolic 117–175; BP diastolic 53–83; PULSE 56–81; RESP 16–19; TEMP 36.7; O2SAT 95–100; BMI 26.5
--- NOTE | 2023-09-29 13:33 | P.PNANES_ITS ---
[facility] Disclaimer: The information contained in this section may have been updated after the patient was seen, as this information can be updated by other users. 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 Family History Other No significant family history Social History Smoking Status: Never smoker alcohol intake: never substance use type: denies use current occupational status: retired Travel in the last 8 weeks: None household members: family housing: house current occupational exposures/hazards: No caffeine: No [facility] Anesthesia Checklist Patient Identification Patient Identification: Arm Band and Verbal (Name & ) Structural Data Admitted From: Home Planned Operative Procedure/s: egd/Colonoscopy Consent for Planned Operative Procedure(s) Verified: Yes Verified Documents: Surgical Consent and History and Physical NPO Status Verified Time NPO: 08:00 Chart Verification Results Verified: CBC, BMP and ECG (STEVO Persusion study) Additional verifications Patient : No Anesthesia Reactions: No Hx Blood Transfusions: No Blood Transfusion Reaction: No Cardiovascular Assessment Heart Sounds: S1 & S2 Pulse Rhythm: Irregular Peripheral Edema: No Airway Assessment Mallampati Score:: Class II C-Spine Mobility Assessed: Yes TMJ Mobility Assessed: Yes Dentition: Good Dentition (Nothing loose per pt.) Neurological Assessment Level of Consciousness: Awake, Alert, Appropriate and Follows Commands Hx Seizures: No Numbness or tingling in extremities: No Anesthesia Plan Anesthesia Risk discussed: Yes Anesthesia Plan: Verified ASA Class: III Anesthesia Type: MAC
--- NOTE | 2023-09-29 14:06 | HMH.SCOPE ---
Procedure: Date: 09/29/23 Patient Date of :: 1945 Procedure Performed:: Colonoscopy Indications:: Anemia Performing Provider:: Santy Covington MD Referring Provider:: MD Kaushik Oliver MD (hematology) Sedation:: See RN records Procedure:: After placing the patient in the left lateral decubitus position, the colonoscopy was gently inserted into the rectum and under direct visualization advanced to the sigmoid colon. Color, texture, mucosa, and anatomy of the colon were carefully examined with the scope. Findings:: At 45-50 cm there was diffusely spreading adenomatous appearing mucosa. The anatomy within this area seemed unusual and the mucosa also had an edematous appearance creating a smaller caliber lumen. The pediatric colonoscope was unable to pass through this area. Biopsies were obtained. Recommendations:: Await pathology results CT abdomen and pelvis with po and iv contrast Complications:: See RN records Estimated blood obtained (mL): 0 Colonoscopy Component Colonoscopy Component Was a colonoscopy performed during today's procedure?: Yes Recommended follow up colonoscopy of at least 10 years?: No If no, follow up colonoscopy recommended in ___ years?: n/a Reason for not recommending >/= 10 yr follow-up interval?: n/a. Colonoscopy was diagnostic
--- NOTE | 2023-09-29 14:12 | HMH.SCOPE ---
Procedure: Date: 09/29/23 Patient Date of :: 1945 Procedure Performed:: EGD Indications:: Anemia Performing Provider:: Santy Covington MD Referring Provider:: MD Kaushik Oliver MD (hematology) Sedation:: See RN records Procedure:: The gastroscope was gently passed through the incisoral orifice into the oral cavity and under direct visualization the esophagus was intubated. The endoscope was passed down the esophagus, through the stomach, and into the duodenum. Color, texture, mucosa, and anatomy of the esophagus, stomach, and duodenum were carefully examined with the scope. Findings:: Oropharynx: normal Esophagus: normal EG Junction: intact at 32 cm Cardia: small hiatal hernia Fundus: normal Body: minimal gastritis. biopsies obtained Antrum: minimal gastritis. biopsies obtained Duodenal bulb: normal Duodenum (second and third portion): normal. Biopsies obtained Recommendations:: Await pathology results Move forward to colonoscopy for evaluation of anemia Complications:: None Estimated blood obtained (mL): 0 Colonoscopy Component Colonoscopy Component Was a colonoscopy performed during today's procedure?: No
--- NOTE | 2023-09-29 14:13 | EXP.ANES.I ---
[facility] Anesthesia Record Part I Anesthesia Record I Intake, IV Amount: 400 Hydration: Adequate Estimated blood loss (mL): 1 Urine output (mL): 0 Blood Products used (#): none Blood Pressure: 117/53 SaO2: 98 Pulse Rate: 80 Airway Patency: Patent Respiratory Rate: 16 Temperature: 98.0 F Patient is:: Drowsy and Stable Stable to PACU at:: 14:09
--- NOTE | 2023-09-29 14:50 | P.PNANES_ITS ---
[facility] Anesthesia Record Part I Anesthesia Record I Intake, IV Amount: 400 Hydration: Adequate Estimated blood loss (mL): 1 Urine output (mL): 0 Blood Products used (#): none Blood Pressure: 117/53 SaO2: 98 Pulse Rate: 80 Airway Patency: Patent Respiratory Rate: 16 Temperature: 98.0 F Patient is:: Awake, Drowsy and Stable Stable to PACU at:: 14:09
== END 2023-09-29 14:45 | disposition home or self-care (01) ==
PROVIDERS: PCP Internal Medicine Adolescent Medicine; Visit Provider Internal Medicine
PROC: 0DJ08ZZ Inspection of Upper Intestinal Tract, Via Natural or Artificial Opening Endoscopic (ICD-10-PCS; CPT 43235; principal; 2023-09-29 12:30)
DX: D64.9 Anemia, unspecified (principal); K44.9 Diaphragmatic hernia without obstruction or gangrene; K31.9 Disease of stomach and duodenum, unspecified; K56.699 Other intestinal obstruction unspecified as to partial versus complete obstruction
CPT/HCPCS: 43239; 45378; 88305

== ENCOUNTER 2023-10-04 09:35 | Outpatient (CLI) | payer MEDICARE, SELFPAY ==
--- NOTE | 2023-10-04 09:41 | CT_ITS ---
FINAL REPORT TECHNIQUE: After the administration of oral and intravenous contrast, axial images were obtained through the abdomen and pelvis by computed tomography. The study was performed with techniques to keep radiation dose as low as reasonably achievable, (ALARA). Individual dose reduction techniques using automated exposure control or adjustment of mA and/or kV according to the patient's size were employed. CLINICAL HISTORY: abn colonoscopy( at 40-45 cm there was diffusely spreading adenomatous appearing mucosa, The anatomy within the area seemed unusual and the mucosa also had an edematous appearance creating a smaller caliber lumen, The pediatric colonscope was unable to pass through this area. LLQ abd pain COMPARISON: None. FINDINGS: Abdomen: There is scarring at the lung bases. The liver parenchyma is homogeneous. The gallbladder is present. The spleen, pancreas, adrenals and kidneys appear unremarkable. The aorta is normal in caliber. There is no free fluid or adenopathy. There is a large amount of stool in the sigmoid colon. Normally positioned of the colon is not seen. There are several loops of stool impacted distal colon seen. The proximal colon is not well-visualized. Impacted loops measure up to 6.3 cm in diameter. Pelvis: The appendix is not identified. The urinary bladder is unremarkable. There is no free fluid or adenopathy. Right hip prosthesis is noted. IMPRESSION: Impacted distal colon and more proximal colon not well-visualized. Anatomy is unclear. Gastrografin contrasted enema may be of value to better define the underlying anatomy. Reviewed, Interpreted and Dictated by Bertrand Madera MD Transcribed by Dina Castillo Authenticated and [facility]
[2023-10-04 10:46] LABS: Blood Urea Nitrogen 16 mg/dl (7-17); Estimated Glomerular Filt Rate 48 ml/min (>60); GFR (African American) 58 ML/MIN (>60)
[2023-10-04 11:31] VITALS: BP 150/51; PULSE 68; RESP 18; TEMP 36.6; O2SAT 98
[2023-10-04 12:15] VITALS: BP 151/69; PULSE 71; RESP 18; O2SAT 98
== END 2023-10-04 12:15 | disposition home or self-care (01) ==
PROVIDERS: PCP Internal Medicine Adolescent Medicine; Visit Provider Internal Medicine
DX: R10.32 Left lower quadrant pain (principal); R93.3 Abnormal findings on diagnostic imaging of other parts of digestive tract
CPT/HCPCS: 36415; 74177; 82565; 84520; 96365; J1756; Q9967

== ENCOUNTER 2023-10-08 09:57 | Outpatient (CLI) | payer MEDICARE, SELFPAY ==
[2023-10-08] MEDS: SODIUM CHLORIDE 0.9% 50ML BAG 50 ML IV (10:08)
[2023-10-08] MEDS: SODIUM CHLORIDE 0.9% 10ML FLUSH SYRINGE 10 ML IV (10:08)
[2023-10-08] MEDS: IRON SUCROSE COMPLEX 200 MG in 0.9 % SODIUM CHLORIDE 100 ML 220 MG IV (10:08)
[2023-10-08 10:15] VITALS: BP 138/74; PULSE 72; RESP 18; TEMP 36.8; O2SAT 98
[2023-10-08 10:45] VITALS: BP 141/68; PULSE 75
== END 2023-10-08 10:50 | disposition home or self-care (01) ==
LOC: INF 09:57
PROVIDERS: PCP Nurse Practitioner Family; Visit Provider Internal Medicine Medical Oncology
DX: D50.9 Iron deficiency anemia, unspecified (principal)
CPT/HCPCS: 96365; J1756

== ENCOUNTER 2023-10-13 10:37 | Outpatient (CLI) | payer MEDICARE, SELFPAY ==
[2023-10-13] MEDS: IRON SUCROSE COMPLEX 200 MG in 0.9 % SODIUM CHLORIDE 100 ML 220 MG IV (10:57)
[2023-10-13] MEDS: SODIUM CHLORIDE 0.9% 50ML BAG 50 ML IV (10:57)
[2023-10-13] MEDS: SODIUM CHLORIDE 0.9% 10ML FLUSH SYRINGE 10 ML IV (10:58)
[2023-10-13 11:19] VITALS: BP 129/62; PULSE 72; RESP 16; TEMP 36.7; O2SAT 98
[2023-10-13 11:35] VITALS: BP 139/70; PULSE 75; RESP 16; TEMP 36.7; O2SAT 98
== END 2023-10-13 11:40 | disposition home or self-care (01) ==
LOC: INF 10:38
PROVIDERS: Visit Provider Internal Medicine Medical Oncology
DX: D50.9 Iron deficiency anemia, unspecified (principal)
CPT/HCPCS: 96365; J1756

== ENCOUNTER 2024-01-19 09:04 | Outpatient (CLI) | payer MEDICARE, SELFPAY ==
--- NOTE | 2024-01-19 09:08 | XR_ITS ---
FINAL REPORT CLINICAL HISTORY: Rt Hip Pain-- hip replaced on Rt side in 2002 FINDINGS: Right hip Three views were obtained. There is no acute fracture or dislocation. Patient is status post right hip arthroplasty and ORIF of the proximal femur. There is a chronic fracture of the greater trochanter. IMPRESSION: Degenerative and postsurgical changes. Reviewed, Interpreted and Dictated by Aquiles Deluca III, MD Transcribed by Christina Chaudhari Authenticated and . [facility]
== END 2024-01-19 23:59 ==
LOC: RAD 09:06
PROVIDERS: PCP Internal Medicine Adolescent Medicine; Visit Provider Orthopaedic Surgery
DX: M25.551 Pain in right hip (principal)
CPT/HCPCS: 73502

== ENCOUNTER 2024-03-02 16:00 | Outpatient (RCR) | payer MEDICARE, SELFPAY ==
--- NOTE | 2024-01-28 10:53 | HMH.PTOPEV ---
PT Outpatient Evaluation Rehab PT Outpatient Evaluation Start: 01/28/24 09:31 Freq: Status: Active Protocol: Document 01/28/24 09:31 JAMAL (Rec: 01/28/24 10:52 JAMAL [id number]) E-signed By Blaine Cowan, PT Outpatient Therapy Subjective History Subjective History Patient is a 78 year old female presenting to outpatient PT with reports R hip pain radiating to R gastroc starting approx 3 months ago. Referred with the diagnosis of R hip greater trochanteric bursitis. No specific mechanism of injury to report. Symptoms also consistent with RLE sciatica. Patient S/P R hip proximal femur fracture requiring R TREE approx 21 years ago. Comorbidities include hx of RA /OA, stent placement and colon resection cancer relatated. New diagnosis of cancer in past 12 Yes months? Chief Complaint Pain Symptom Type Throb,Sharp Symptoms Relieved By Rest/Positioning,Heat,Ice,OTC Meds Symptoms Aggravated By Sitting,Standing,Bending/ Stooping,Physical Activity, Walking,Lifting Prior Functional Limitations Standing,Walking Current Functional Limitations Lifting,Housework,Standing, Walking,Bending/Stooping Symptom Description Constant but Variable Level of pain today (0-10) 0 Pain scale - at its best (0-10) 0 Pain scale - at its worst (0-10) 7 Hip/Knee Eval Gait Observation General Gait Pattern Observation Antalgic Gait,Decrease Weight Bear (R) Palpation Tenderness right Knee Palpation Overall Comment R greater trochanter 3/4 Hip Palpation Findings Tenderness MMT Hip Flexion Strength Grade 4 Good Hip Abduction Strength Grade 4 Good Hip Adduction Strength Grade 4 Good Hip Extension Strength Grade 4- Good- Hip External Rotation Strength Grade 3+ Fair+ Hip Internal Rotation Strength Grade 3+ Fair+ Knee Extension Strength Grade 5 Normal Knee Flexion Strength Grade 5 Normal ROM Hip Flexion w/Knee Flexed Active Range 93 of Motion (degrees) Hip Abduction Active Range of Motion ( 34 degrees) Hip Extension Active Range of Motion ( 6 degrees) Hip External Rotation Passive Range of WNL Motion (degrees) Hip Internal Rotation Passive Range of 6 Motion (degrees) Hip ROM Limitations Soft Tissue Tightness Knee ROM Reason Not Measured Within Functional Limits Special Tests Hip 90-90 Straight Leg Raise Test Positive Right Sciatic Nerve Tension Test Positive Right Hip Trendelenburg Test Negative Right Lower Extremity Functional Index Activities Today, do you or would you have any difficulty at all with: a.Any of your usual work, housework or No difficulty school activities b. Your usual hobbies, recreational or A little bit of difficulty sporting activities c. Getting into or out of the bath Moderate difficulty d. Walking between rooms No difficulty e. Putting on your shoes or socks Moderate difficulty f. Squatting A little bit of difficulty g. Lifting an object, like a bag of A little bit of difficulty groceries from the floor h. Performing light activities around A little bit of difficulty your home i. Performing heavy activities around Moderate difficulty your home j. Getting into or out of a car A little bit of difficulty k. Walking 2 blocks Moderate difficulty l. Walking a mile Quite a bit of difficulty m. Going up or down 10 stairs (about 1 Quite a bit of difficulty flight of stairs) n. Standing for 1 hour Quite a bit of difficulty o. Sitting for 1 hour A little bit of difficulty p. Running on even ground Moderate difficulty q. Running on uneven ground Quite a bit of difficulty r. Making sharp turns while running fast Quite a bit of difficulty s. Hopping Quite a bit of difficulty t. Rolling over in bed No difficulty LEFI Score Lower Extremity Functional Index Score 46 Outpatient Therapy Assessment Impairments Problems/Impairmments Palpation Tenderness,Impaired Range of Motion,Impaired Strength,Impaired Gait Pattern ,Impaired Walking,Impaired Standing,Impaired Driving, Impaired Lifting,Impaired Household Care,Impaired Stair Climbing,Impaired Incline Stepping,Impaired Stepping on Uneven Surface,Impaired Squatting,Impaired Balance, Subjective C/O Pain Prognosis Rehab Potential Good Clinical Impression Consistent with Diagnosis Yes Consistent with R GT bursitis Short Term Goals Number of Weeks 2 Decrease Subjective C/O Pain Yes Patient to be Ind w/ HEP Yes Correction Goals Number of Weeks 4-6 Decreased Palpation Tenderness Yes: 1/4 Increase Range of Motion Yes: R hip WNL Increase Strength Yes: 5/5 grossly R hip Increase Ability to Walk Yes: 30 min without difficulty Increase Ability to Stand Yes: Improve Ability For Household Care Yes Improve Ability to Climb Stairs Yes: 1 flight without difficulty Improve LEFI Score Yes: >60 Decrease Subjective C/O Pain Yes: 2/10 at worst Outpatient Therapy Plan of Care Treatment Plan May Include Therapeutic Exercise Including Home Yes Exercise Program Manual Therapy Techniques Yes Neuromuscular Re-education Yes Therapeutic Activities to Return to Yes Previous Functional/Work Level Gait Training Yes ADL/Self Care Education Yes Mechanical Traction Yes Dry Needling Yes Thermal Modalities Yes Electrical Stimulation Yes Ultrasound/Phonophoresis Yes Iontophoresis Yes Massage Yes Eval/Re-Eval Yes Aquatic Therapy Yes Frequency Times per week 2x/week Duration Number of Weeks 4-6 Addendums This patient is a candidate for social No or vocational rehab? Patient/Guardian verbally acknowledges Yes understanding of treatment program and consents to further treatment? Patient/Guardian verbally acknowledges Yes understanding of diagnosis, prognosis and goals for treatment? Eval Complexity PT Charges 82640 - Moderate Complexity Shoulder/Elbow Eval Shoulder Objective Measurements Elbow Objective Measurements PHYSICIAN CERTIFICATION: I certify the specified therapy services for Bibiana Dotson are required, authorized, and reviewed every 30 days.
== END 2024-03-02 17:00 | disposition home or self-care (01) ==
LOC: PT 16:00
PROVIDERS: Visit Provider Orthopaedic Surgery
DX: M70.61 Trochanteric bursitis, right hip (principal)
CPT/HCPCS: 97010; 97035; 97110; 97163; 97530

== ENCOUNTER 2024-05-08 09:16 | Outpatient (CLI) | payer MEDICARE, SELFPAY ==
[2024-05-08 09:41] LABS: Basophils % 0.3 % (0.1-2.0); Eosinophils # 0.3 K/mm3 (0.0-0.4); Eosinophils % 3.2 % (0.1-12.0); Hematocrit 39.8 % (37.0-47.0); Lymphocytes # 1.3 K/mm3 (0.7-4.5); Mean Corpuscular HGB Conc 32.6 g/dL (31.8-35.4); Mean Corpuscular Hemoglobin 33.2 pg (27.0-31.2); Mean Platelet Volume 8.3 fl (7.4-10.4); Monocytes # 0.4 K/mm3 (0.1-1.0); Monocytes % 5.2 % (1.7-9.3); Neutrophils # 6.5 K/mm3 (1.8-7.8); Neutrophils % 76.4 % (37.0-80.0); Platelet Count 310 K/mm3 (142-424); Red Cell Distribution Width 15.3 % (11.5-17.5); White Blood Count 8.5 K/mm3 (4.8-10.8)
[2024-05-08 10:17] LABS: Alanine Aminotransferase 33 U/L (12-78); Albumin Level 4.1 g/dl (3.5-5.0); Albumin/Globulin Ratio 1.7 (1.1-1.8); Alkaline Phosphatase 85 U/L (38-126); Anion Gap 9.8 mEq/L (5-15); Aspartate Amino Transferase 41 U/L (14-36); Bilirubin,Total 0.6 mg/dl (0.2-1.3); Blood Urea Nitrogen 21 mg/dl (7-17); Calcium 9.6 mg/dl (8.4-10.2); Carbon Dioxide 26 mmol/L (22.0-30.0); Chloride 108 mmol/L (98-107); Estimated Glomerular Filt Rate 60 ml/min (>60); GFR (African American) 73 ML/MIN (>60); Globulin 2.4 g/dL (1.3-3.2); Glucose 108 mg/dl (74-100); Potassium 3.8 mmoL/L (3.5-5.1); Sodium 140 mmol/L (136-145); Total Protein,Serum 6.5 g/dl (6.3-8.2)
[2024-05-08 12:44] LABS: Erythrocyte Sedimentation Rate 23 mm/hr (0-30)
[2024-05-08 15:33] LABS: C-Reactive Protein < 0.3 mg/L (0-4)
== END 2024-05-08 23:59 | disposition home or self-care (01) ==
LOC: LAB 09:17
PROVIDERS: PCP Internal Medicine Adolescent Medicine; Visit Provider Internal Medicine Rheumatology
DX: D84.821 Immunodeficiency due to drugs (principal); I73.89 Other specified peripheral vascular diseases; M06.09 Rheumatoid arthritis without rheumatoid factor, multiple sites; M19.90 Unspecified osteoarthritis, unspecified site; M54.31 Sciatica, right side; M06.00 Rheumatoid arthritis without rheumatoid factor, unspecified site
CPT/HCPCS: 36415; 80053; 85025; 85651; 86140

== ENCOUNTER 2024-10-14 11:24 | Outpatient (CLI) | payer MEDICARE, SELFPAY ==
[2024-10-14 11:49] LABS: Basophils # 0.1 K/mm3 (0-0.2); Basophils % 0.8 % (0.1-2.0); Eosinophils # 0.3 K/mm3 (0.0-0.4); Eosinophils % 3.8 % (0.1-12.0); Hematocrit 34.4 % (37.0-47.0); Hemoglobin 10.9 g/dL (12.2-16.2); Lymphocytes # 2.1 K/mm3 (0.7-4.5); Lymphocytes % 24.7 % (10-50); Mean Corpuscular HGB Conc 31.7 g/dL (31.8-35.4); Mean Corpuscular Hemoglobin 26.9 pg (27.0-31.2); Mean Corpuscular Volume 84.9 fl (81-99); Mean Platelet Volume 8.5 fl (7.4-10.4); Monocytes # 0.9 K/mm3 (0.1-1.0); Monocytes % 10.8 % (1.7-9.3); Neutrophils % 59.7 % (37.0-80.0); Platelet Count 300 K/mm3 (142-424); Red Blood Count 4.05 M/mm3 (4.20-5.40); Red Cell Distribution Width 13.5 % (11.5-17.5); White Blood Count 8.3 K/mm3 (4.8-10.8)
[2024-10-14 12:14] LABS: Erythrocyte Sedimentation Rate 47 mm/hr (0-30)
[2024-10-14 13:29] LABS: Chloride 103 mmol/L (98-107); Potassium 4.5 mmoL/L (3.5-5.1); Sodium 136 mmol/L (136-145)
[2024-10-14 13:32] LABS: Alanine Aminotransferase 18 U/L (12-78); Albumin/Globulin Ratio 1.6 (1.1-1.8); Alkaline Phosphatase 105 U/L (38-126); Anion Gap 10.5 mEq/L (5-15); Aspartate Amino Transferase 40 U/L (14-36); Bilirubin,Total 0.4 mg/dl (0.2-1.3); Blood Urea Nitrogen 20 mg/dl (7-17); Calcium 9.8 mg/dl (8.4-10.2); Carbon Dioxide 27 mmol/L (22.0-30.0); Estimated Glomerular Filt Rate 43 ml/min (>60); GFR (African American) 52 ML/MIN (>60); Globulin 2.5 g/dL (1.3-3.2); Glucose 118 mg/dl (74-100); Total Protein,Serum 6.5 g/dl (6.3-8.2)
[2024-10-14 13:37] LABS: C-Reactive Protein 1.2 mg/L (0-4)
== END 2024-10-14 23:59 | disposition home or self-care (01) ==
LOC: LAB 11:25
PROVIDERS: PCP Internal Medicine Adolescent Medicine; Visit Provider Internal Medicine Rheumatology
DX: M06.09 Rheumatoid arthritis without rheumatoid factor, multiple sites (principal)
CPT/HCPCS: 36415; 80053; 85025; 85651; 86140

== ENCOUNTER 2025-02-22 11:41 | Observation (INO) | payer MEDICARE, SELFPAY ==
[2025-02-22] VITALS (16 sets, daily range): BP systolic 106–174; BP diastolic 42–96; PULSE 70–100; RESP 12–20; TEMP 36.4–37.4; O2SAT 94–100; BMI 26.5
--- NOTE | 2025-02-22 11:45 | ECG_ITS ---
APPROVED REPORT Exam: Resting ECG HR:95 bpm ECG Measurements Heart Rate 95 AXES IL 143 P 65 QRSd 94 QRS 41 QT 374 T 28 QTc 426 Conclusion SINUS RHYTHM POSSIBLE LEFT ATRIAL ENLARGEMENT [-0.1mV P-WAVE IN V1/V2] POSSIBLE SEPTAL MYOCARDIAL INFARCTION , OF INDETERMINATE AGE [30 ms Q WAVE IN V1/V2] MODERATE T-WAVE ABNORMALITY, CONSIDER ANTERIOR ISCHEMIA [-0.1+ mV T-WAVE IN V3/V4] No acute STEMI Electronically signed by : DAMARI BENNETT, 02/23/2025 09:55:38
[2025-02-22 12:07] LABS: Immature Granulocytes # 0.03 10^3uL; Immature Granulocytes % 0.3 %; Lymphocytes # 1.1 K/mm3 (0.7-4.5); Lymphocytes % 11.4 % (10-50); Mean Corpuscular HGB Conc 33.3 g/dL (31.8-35.4); Mean Corpuscular Hemoglobin 29.1 pg (27.0-31.2); Mean Corpuscular Volume 87.4 fl (81-99); Monocytes # 1.4 K/mm3 (0.1-1.0); Neutrophils # 7.4 K/mm3 (1.8-7.8); Neutrophils % 74.3 % (37.0-80.0); Nucleated Red Blood Cells # 0 10^3/uL; Nucleated Red Blood Cells % 0 %; Platelet Count 282 K/mm3 (142-424); Red Blood Count 4.12 M/mm3 (4.20-5.40); Red Cell Distribution Width 14.5 % (11.5-17.5); Red Cell Distribution Width-SD 45.7 fL
--- NOTE | 2025-02-22 12:07 | PC.NURSE ---
on the phone with Dr. Betancourt. Dr. Betancourt stated it wasnt a STEMI but he did want the laboratory veterinarian activated at this time for a cath.
[2025-02-22] MEDS: ACETAMINOPHEN 500MG TAB 1000 MG PO (12:13)
[2025-02-22] MEDS: ASPIRIN 81MG CHEWABLE TABLET 324 MG PO (12:13)
[2025-02-22] MEDS: NITROGLYCERIN 0.4MG SL TABLET 0.4 MG SL (12:13)
[2025-02-22 12:14] LABS: Alanine Aminotransferase 34 U/L (12-78); Albumin Level 4.8 g/dl (3.5-5.0); Albumin/Globulin Ratio 1.9 (1.1-1.8); Alkaline Phosphatase 92 U/L (38-126); Aspartate Amino Transferase 44 U/L (14-36); Bilirubin,Total 0.4 mg/dl (0.2-1.3); Blood Urea Nitrogen 34 mg/dl (7-17); Calcium 9.1 mg/dl (8.4-10.2); Carbon Dioxide 27 mmol/L (22.0-30.0); Chloride 102 mmol/L (98-107); Creatinine Clearance Estimated 26 mL/min (50-200); Estimated Glomerular Filt Rate 27 ml/min (>60); GFR (African American) 33 ML/MIN (>60); Globulin 2.5 g/dL (1.3-3.2); Glucose 82 mg/dl (74-100); Lipase 275 U/L (23-300); Sodium 139 mmol/L (136-145); Total Protein,Serum 7.3 g/dl (6.3-8.2)
[2025-02-22] MEDS: BELLADONNA ALKALOIDS 60 ML ML PO (12:14)
--- NOTE | 2025-02-22 12:15 | PC.NURSE ---
pt placed in a gown and shaved at this time.
[2025-02-22 12:28] LABS: Troponin I < 0.01 ng/ml (0.00-0.034)
--- NOTE | 2025-02-22 12:46 | IR_ITS ---
APPROVED REPORT Patient Location: Inpatient Area Captain: Kaushik Fajardo, RT (R) PROCEDURES Left heart catheterization Left ventriculogram Selective coronary angiogram Left internal mammary angiography INDICATION History of coronary bypass surgery, Acute coronary syndrome Informed consent was obtained prior to the procedure. COMPLICATIONS NONE Estimated Blood Loss: LESS THAN 10 ML TECHNIQUE One percent lidocaine used to anesthetize the right groin. The right femoral artery was accessed via the Seldinger technique and a 5 Greek sheath was placed in the right femoral artery. A JL 4, JR4 catheter were used to perform left heart catheterization, left ventriculogram selective coronary angiography as well as left internal mammary artery. At the end the procedure the apparatus was removed the groin is reprepped closure change sheath was removed and hemostasis was achieved using Perclose device patient was transferred to the postop putting in stable addition ANGIOGRAPHIC RESULTS The left main artery Widely patent The left anterior descending artery Has a stent in the ostial proximal segment which has concentric 50% in-stent restenosis followed by additional 70% mid vessel stenoses. Competitive flow was identified from the left internal mammary artery The circumflex artery Large codominant tortuous with minimal 10 and 20% plaque The right coronary artery Codominant with proximal 20 and 30% stenoses mid vessel 30% stenosis The HALL ventriculogram reveals Normal 65% The left ventricular end-diastolic pressure 10 mmHg Left internal mammary artery is widely patent into a large and widely patent LAD IMPRESSION Patent coronary arteries as described above Normal ejection fraction Normal LVEDP PLAN 1. Evaluation of noncardiac symptoms 2. IV fluids to reduce risk of contrast nephropathy Electronically signed by : John Betancourt MD 02/22/2025 13:22:01
[2025-02-22 12:58] LABS: Activated Partial Thrombo Time 22.8 seconds (22.8-30.6); INR 0.94 (0.9-1.1); Prothrombin Time 10.6 seconds (10.1-12.5)
[2025-02-22] MEDS: HEPARIN 1,000 UNITS/500ML NS (CATH LAB) 3000 UNIT IV (13:01)
[2025-02-22] MEDS: 0.9 % SODIUM CHLORIDE 500 ML 25 ML IV (13:01)
[2025-02-22] MEDS: LIDOCAINE 1% 10ML MDV 10 ML IJ (13:01)
[2025-02-22] MEDS: diphenhydrAMINE 50MG/ML VIAL 50 MG IV (13:02)
[2025-02-22 13:09] LABS: D-Dimer 0.98 ug/mL (0.0-0.5)
[2025-02-22] MEDS: MIDAZOLAM HCL 1MG/ML 5ML VIAL 1 MG IV (13:13)
--- NOTE | 2025-02-22 13:41 | P.CONCA_ITS ---
History of Present Illness History of Present Illness Consult date: 02/22/25 Requesting physician: Caren Valenzuela Consult reason: chest pain Chief complaint: chest pain History of present illness: This patient is an 87-year-old female with a history of hypertension, hyperlipidemia, CAD status post stenting and CABG presenting to the emergency department for evaluation with complaints of chest pain. Patient had severe, crushing chest pain that started about 10 minutes prior to arrival. This is in the substernal aspect of the chest. It is worse with bending over and got worse on the way here to the hospital. Associated with shortness of breath. Denies nausea, vomiting or clamminess. She took nitro before coming to the ED with some improvement in chest pain but it has not resolved. Denies edema. Denies fever, chills, nausea, vomiting, diarrhea, PND or orthopnea. [facility] Disclaimer: The information contained in this section may have been updated after the patient was seen, as this information can be updated by other users. Medical History Abnormal electrocardiogram [ECG] [EKG] Unstable angina Abnormal colonoscopy Arthritis Vitamin D deficiency Hyperlipemia Hypertension Primary osteoarthritis of left knee Chronic pain of left knee Primary osteoarthritis of right knee Chronic pain of right knee Bursitis Surgical History H/O total shoulder replacement History of total hip replacement Family History Other No significant family history Social History Smoking Status: Never smoker alcohol intake: never substance use type: denies use current occupational status: retired Travel in the last 8 weeks?: None household members: family housing: house current occupational exposures/hazards: No caffeine: No Have you lived/traveled outside [place] in past 30 days?: No Contact w/someone who lives/traveled outside US past 30 days?: No Exposure to someone with infectious disease in past 14 days?: No Do you have a fever (greater than 100.4 F or 38 C)?: No Have you tested positive for COVID-19?: No Exposed to someone with COVID-19 in past 14 days?: No Do you have a sore throat?: No Do you have a cough?: No Do you have any weakness?: No Do you have any diarrhea?: No Are you experiencing any unusual bleeding?: No Do you have any muscle aches/pain?: No Do you have any abdominal pain?: No Are you experiencing loss of taste or smell?: No Review of Systems Review of Systems Review of systems:: pertinent systems reviewed and negative unless documented below Constitutional Constitutional: Reports system reviewed and no additional complaints, except as documented Eyes Eyes: Reports system reviewed and no additional complaints, except as documented ENT Ears, Nose, Mouth, and Throat: Reports system reviewed and no additional complaints, except as documented *Cardiovascular Cardiovascular: Reports system reviewed and no additional complaints, except as documented, Reports chest pain, Reports chest pain at rest, Reports chest pain with activity, Reports dyspnea, Reports dyspnea on exertion and Denies leg edema *Respiratory Respiratory: Reports system reviewed and no additional complaints, except as documented, Reports dyspnea and Reports dyspnea on exertion *Gastrointestinal Gastrointestinal: Reports system reviewed and no additional complaints, except as documented *Genitourinary Genitourinary: Reports system reviewed and no additional complaints, except as documented *Musculoskeletal Musculoskeletal: Reports system reviewed and no additional complaints, except as documented Integumentary/Breasts Skin/Breast: Reports system reviewed and no additional complaints, except as documented *Neurologic Neurologic: Reports system reviewed and no additional complaints, except as documented Psychiatric Psychiatric: Reports system reviewed and no additional complaints, except as documented Endocrine Endocrine: Reports system reviewed and no additional complaints, except as documented Hematologic/Lymphatic Hematologic/Lymphatic: Reports system reviewed and no additional complaints, except as documented Allergic/Immunologic Allergic/Immunologic: Reports system reviewed and no additional complaints, except as documented Exam Data for Last 24 hours Vital signs and Labs for Last 24 Hours: Temp Pulse Resp BP Pulse Ox O2 Del Method 98.0 F 92 H 18 156/90 H 99 Room Air 02/22/25 12:41 02/22/25 13:25 02/22/25 13:25 02/22/25 13:25 02/22/25 13:25 02/22/25 13:25 Laboratory Results - last 24 hr 02/22/25 11:53: WBC 10.0, RBC 4.12 L, Hgb 12.0 L, Hct 36.0 L, MCV 87.4, MCH 29.1, MCHC 33.3, RDW 14.5, Plt Count 282, MPV 9.0, Neut % (Auto) 74.3, Lymph % (Auto) 11.4, [place] % (Auto) 14.0 H, Eos % (Auto) 0.0 L, Baso % (Auto) 0.0 L, Neut # (Auto) 7.4, Lymph # (Auto) 1.1, [place] # (Auto) 1.4 H, Eos # (Auto) 0.0, Baso # (Auto) 0.0, PT 10.6, INR 0.94, APTT 22.8, D-Dimer 0.98 H, Sodium 139, Potassium 3.0 L, Chloride 102, Carbon Dioxide 27, Anion Gap 13.0, BUN 34 H, Creatinine 1.80 H, Estimated Creat Clear 26, Estimated GFR 27 L, Est GFR ( Amer) 33 L, Glucose 82, Calcium 9.1, Total Bilirubin 0.4, AST 44 H, ALT 34, Alkaline Phos phatase 92, Troponin I < 0.01, Total Protein 7.3, Albumin 4.8, Globulin 2.5, Albumin/Globulin Ratio 1.9 H, Lipase 275 I & O for Last 24 hours: Intake & Output 02/19/25 02/20/25 02/21/25 02/22/25 23:59 23:59 23:59 23:59 Weight 145 lb Constitutional Constitutional: no acute distress and average body habitus *Routine HEENT Exam Head: Present normocephalic and atraumatic ENT: Present mucous membranes moist *Routine Neck Exam Neck: Present supple, full ROM and normal carotid upstroke; Absent JVD, carotid bruit or lymphadenopathy *Routine Respiratory Exam Respiratory: Present CTA bilaterally, normal respiratory effort, able to speak in complete sentences and symmetric chest movement *Routine Cardiovascular Exam Cardiovascular: Present RRR, Normal S1 and Normal S2; Absent murmur or gallop *Routine Abdominal Exam Abdominal: Present soft and normoactive bowel sounds; Absent tenderness, distended or organomegaly *Routine Extremities Exam Extremities: Present full ROM, pulses intact and normal capillary refill; Absent cyanosis, clubbing or edema *Routine Skin Exam Skin: Present intact and warm; Absent erythema *Routine Neurological Exam Neurological: Present alert, oriented X3 and CN II-XII intact; Absent sensory deficit or motor deficit Routine Psychiatric Exam Psychiatric: Present normal affect Meds Home Medications and Allergies Home Medications ?Medication ?Instructions ?Recorded ?Confirmed ?Type esomeprazole magnesium 40 mg 40 mg PO DAILY GERD 90 days 01/24/18 02/22/25 Hi story capsule,delayed release nebivolol 5 mg tablet 10 mg PO DAILY blood pressure 90 01/24/18 02/22/25 History days calcium carbonate 500 mg PO BID GERD 06/29/18 02/22/25 History cholecalciferol (vitamin D3) 25 1,000 unit PO DAILY Supplement 06/29/18 02/22/25 History mcg (1,000 unit) capsule levothyroxine 75 mcg tablet 1 mcg PO DAILY 09/14/23 02/22/25 History (Synthroid) ascorbic acid (vitamin C) 1,000 mg 1 g PO DAILY 09/22/23 02/22/25 History capsule aspirin 81 mg tablet,delayed 81 mg PO DAILY 09/22/23 02/22/25 History release (Adult Aspirin Regimen) amlodipine 2.5 mg tablet 2.5 mg PO DAILY 02/22/25 02/22/25 History methylprednisolone 4 mg tablets in 4 mg PO BID 02/22/25 02/22/25 History a dose pack (Medrol (Oziel)) milnacipran 50 mg tablet (Savella) 50 mg PO DAILY 02/22/25 02/22/25 History tramadol 50 mg tablet 50 mg PO Q6 no 02/22/25 02/22/25 History New Prescriptions to Start Prescriptions: Allergies Allergy/AdvReac Type Severity Reaction Status Date / Time hydrocodone Allergy Intermediate Hives Verified 02/22/25 14:31 milk (From MILK (FOOD/DRUG)) Allergy Intermediate I-HIVES Verified 09/28/24 10:25 strawberry (From Allergy Intermediate I-HIVES Verified 09/28/24 10:25 STRAWBERRIES (FOOD/DRUG)) tomato (From TOMATOES Allergy Intermediate I-HIVES Verified 09/28/24 10:25 (FOOD/DRUG)) oxycodone (OXYCODONE) Allergy Mild SHUT Verified 09/28/24 10:25 EVERYTHING DOWN hydroxychloroquine (From Allergy Other Verified 02/22/25 14:32 Plaquenil) pregabalin (From Lyrica) Allergy Swelling Verified 02/22/25 14:32 of Lip/Tongue/Throat prednisone AdvReac Intermediate ANXIOUS/EBEN Verified 09/28/24 10:25 EMILY clopidogrel AdvReac Migraine Verified 02/22/25 14:32 From MILK (FOOD/DRUG) Allergy Intermediate I-HIVES Uncoded 09/28/24 10:25 From STRAWBERRIES (FOOD/DRUG) Allergy Intermediate I-HIVES Uncoded 09/28/24 10:25 From TOMATOES (FOOD/DRUG) Allergy Intermediate I-HIVES Uncoded 09/28/24 10:25 EGGS (FOOD) Allergy Unknown I-HIVES Uncoded 09/28/24 10:25 Assessment and Plan *Assessment and plan (1) Unstable angina: Status: Acute Category: Medical Code(s): I20.0 - Unstable angina (2) Abnormal electrocardiogram [ECG] [EKG]: Status: Acute Category: Medical Code(s): R94.31 - Abnormal electrocardiogram [ECG] [EKG] (3) Hyperlipemia: Status: Acute Qualifiers: Hyperlipidemia type: mixed hyperlipidemia Qualified Code(s): E78.2 - Mixed hyperlipidemia Category: Medical Code(s): E78.5 - Hyperlipidemia, unspecified (4) Hypertension: Status: Acute Qualifiers: Hypertension type: primary hypertension Qualified Code(s): I10 - Essential (primary) hypertension Category: Medical Code(s): I10 - Essential (primary) hypertension (5) CAD in [place] artery: Status: Acute Category: Medical Code(s): I25.10 - Atherosclerotic heart disease of [place] coronary artery without angina pectoris Plan Plan: 1. The patient is having CP consistent with unstable angina. EKG is highly abnormal worrisome for left main disease. Will plan to proceed with left heart cath with R radial access to evaluate for CAD. 2. The patient is educated on the risks and benefits of proceeding with LHC with R radial access. The patient verbalized understanding and is agreeable in proceeding with the procedure. 3. NPO in preparation for LHC. 4. BP is high. restart Bystolic 10 mg daily. 5. Add norvasc 5 mg daily for HTN. 6. start Aspirin 81 mg daily. 7. LDL goal is < 55. increase crestor to 20 mg PO QHS. lipid panel in the morning. 8. echo to evaluate LV function due to CP. 9. further recommendations will be made pending reesults of [facility]. Thank you for the opportunity to help participate in the care of this patient. All recommendations and orders are per Dr Betancourt. Addendum: [facility] shows: The left main artery Widely patent The left anterior descending artery Has a stent in the ostial proximal segment which has concentric 50% in-stent restenosis followed by additional 70% mid vessel stenoses. Competitive flow was identified from the left internal mammary artery The circumflex artery Large codominant tortuous with minimal 10 and 20% plaque The right coronary artery Codominant with proximal 20 and 30% stenoses mid vessel 30% stenosis The HALL ventriculogram reveals Normal 65% The left ventricular end-diastolic pressure 10 mmHg Left internal mammary artery is widely patent into a large and widely patent LAD IMPRESSION Patent coronary arteries as described above Normal ejection fraction Normal LVEDP PLAN 1. Evaluation of noncardiac symptoms 2. IV fluids to reduce risk of contrast nephropathy non cardiac CP. elevated d-dimer. CTA chest to rule out PE.
--- NOTE | 2025-02-22 13:49 | CA_ITS ---
APPROVED REPORT EXAM: Comprehensive 2D, Doppler, and color-flow Echocardiogram Short Piece Handler: Lynette Ziegler RT(R) Ht: 5 ft 2 in Wt: 145lbs BSA: 1.67 BP: 156/90 mmHg Indications: angina, abn EKG, HTN, hyperlipidemia, CAD, hgb 12, hx CABG. Had left heart cath today with right groin access, unable to roll or move from supine position. Limited scanning 2D Dimensions LA Volume 29.60 mL LA Volume Index 17.72 mL/m2 (M/F) 16-34 M-Mode Dimensions RVDd 2.14 cm (0.9-2.6) LA Diam 3.70 cm (1.9-4.0) LVDd 5.14 cm (3.5-5.7) LVDs 3.60 cm (3.5-5.7) IVSd 0.46 cm (0.6-1.1) PWd 0.57 cm (0.6-1.1) EF (Teich) 56.90% FS 30.00% EDV (Teich) 126.10 mL ESV (Teich) 54.40 mL LV Diastology E Decel Time 160 (160-240 msec) E/A Ratio 0.8 Aortic Valve AO VTI 40.7 (18-25 cm) Mitral Valve MV E Max Joseph. 111.0 (40-130 cm/s) MV A Velocity 147.0 (40-130 cm/s) E/A Ratio 0.76 MV PHT 47.0 ms Tricuspid Valve TR P. Velocity 271.00 cm/s Left Ventricle The left ventricle is normal size. The left ventricular systolic function is normal. The left ventricular ejection fraction is within the normal range. There is increased overall thickness. There is normal LV segmental wall motion. Diastolic function is indeterminate. LVEF is 60%. Right Ventricle The right ventricle is normal size. The right ventricular systolic function is normal. Atria Left atrium is moderately dilated. Right atrium is mildly dilated. There is no Doppler evidence of interatrial shunt. Aortic Valve The aortic valve is mildly thickened. Trace aortic regurgitation. There is no aortic valvular stenosis. Mitral Valve The mitral valve is normal in structure. No evidence of mitral valve stenosis. Mild mitral regurgitation. Tricuspid Valve Tricuspid valve is grossly normal in structure and function. Mild tricuspid regurgitation. RVSP is 30-35 mmHg. Pulmonic Valve The pulmonary valve is not well-visualized. Great Vessels The aortic root is normal in size. IVC is normal in size and collapses >50% with inspiration. Pericardium There is no pericardial effusion. Other Information Study Quality: Technically Difficult Conclusion Technically difficult study due to poor acoustic windows. Normal biventricular systolic function. Biatrial dilation. Mild MR, mild TR. Electronically signed by : Delia Lam MD 02/25/2025 20:26:41
[2025-02-22] MEDS: IOPAMIDOL-370 (76%);100ML BOTTLE 50 ML IV (13:56)
--- NOTE | 2025-02-22 13:56 | [facility].EDCP ---
Discharge Plan Disposition Patient Disposition: Admitted Condition: Fair Clinical Impressions Clinical Impression: ACS (acute coronary syndrome), ABBY (acute kidney injury), Hypertension Discharge ED Provider: Caren Valenzuela HPI General Chief Complaint: Chest Pain Stated Complaint: chest pain Time Seen by Provider: 02/22/25 11:45 Mode of Arrival: Ambulatory Source of Information: Patient Description of Symptoms (Recalled from ER Triage Doc. by RN): Patient reports chest pain that started approx 10 minutes prior to arrival. States that she did take two nitro sprays and had relief with that but then the pain came back. History of Present Illness HPI narrative: This patient is an 87-year-old female with a history of hypertension, hyperlipidemia, CAD status post stenting and CABG presenting to the emergency department for evaluation with concern for chest pain. Patient had severe crushing chest pain that started 10 minutes prior to arrival when bending over and got worse on the way here. She took nitro with some improvement and now feels little bit better, but the pain is still there. She was well prior to this with no concerns or complaints. No other symptoms noted at this time. Related Data Home Medications ?Medication ?Instructions ?Recorded ?Confirmed esomeprazole magnesium 40 mg 40 mg PO DAILY GERD 90 days 01/24/18 09/28/24 capsule,delayed release nebivolol 5 mg tablet 10 mg PO DAILY blood pressure 90 01/24/18 09/28/24 days rosuvastatin 10 mg tablet 10 mg PO DAILY Cholesterol 90 days 01/24/18 09/28/24 cetirizine 10 mg tablet (Zyrtec) 10 mg PO DAILY ALLERGIES 03/17/18 09/28/24 antiarthritic combination no.2 900 1 mg PO DAILY 06/29/18 09/28/24 mg tablet (glucosamine-chondroitin) calcium carbonate (Calcium 600) 600 mg PO BID GERD 06/29/18 09/28/24 cholecalciferol (vitamin D3) 25 1,000 unit PO DAILY Supplement 06/29/18 09/28/24 mcg (1,000 unit) capsule empagliflozin 10 mg tablet 10 mg PO DAILY 06/23/23 09/28/24 (Jardiance) upadacitinib 15 mg tablet,extended 1 mg PO DAILY 06/23/23 09/28/24 release 24 hr (Rinvoq) levothyroxine 75 mcg tablet 1 mcg PO DAILY 09/14/23 09/28/24 (Synthroid) ascorbic acid (vitamin C) 1,000 mg 1 g PO DAILY 09/22/23 09/28/24 capsule aspirin 81 mg tablet,delayed 81 mg PO DAILY 09/22/23 09/28/24 release (Adult Aspirin Regimen) clonidine HCl 0.2 mg tablet 0.2 mg PO HS PRN * 09/22/23 09/28/24 mecobalamin (vitamin B12) 1,000 1,000 mcg sublingual DAILY 09/22/23 09/28/24 mcg disintegrating tablet,sublingual Previous Rx's ?Medication ?Instructions ?Recorded azithromycin 250 mg tablet See Rx Instructions PO .COMPLEX #6 09/22/23 tabs methylprednisolone 4 mg tablets in 4 mg PO DAILY #21 tabs 10/13/23 a dose pack (Medrol (Oziel)) cyclobenzaprine 10 mg tablet 10 mg PO TID PRN muscle spasm #30 11/10/23 tabs Allergies Allergy/AdvReac Type Severity Reaction Status Date / Time milk (From MILK (FOOD/DRUG)) Allergy Intermediate I-HIVES Verified 09/28/24 10:25 strawberry (From Allergy Intermediate I-HIVES Verified 09/28/24 10:25 STRAWBERRIES (FOOD/DRUG)) tomato (From TOMATOES Allergy Intermediate I-HIVES Verified 09/28/24 10:25 (FOOD/DRUG)) oxycodone (OXYCODONE) Allergy Mild SHUT Verified 09/28/24 10:25 EVERYTHING DOWN prednisone AdvReac Intermediate ANXIOUS/EBEN Verified 09/28/24 10:25 EMILY From MILK (FOOD/DRUG) Allergy Intermediate I-HIVES Uncoded 09/28/24 10:25 From STRAWBERRIES (FOOD/DRUG) Allergy Intermediate I-HIVES Uncoded 09/28/24 10:25 From TOMATOES (FOOD/DRUG) Allergy Intermediate I-HIVES Uncoded 09/28/24 10:25 EGGS (FOOD) Allergy Unknown I-HIVES Uncoded 09/28/24 10:25 [facility] [facility] [facility] Disclaimer: The information contained in this section may have been updated after the patient was seen, as this information can be updated by other users. Medical History Abnormal electrocardiogram [ECG] [EKG] Unstable angina Abnormal colonoscopy Arthritis Vitamin D deficiency Hyperlipemia Hypertension Primary osteoarthritis of left knee Chronic pain of left knee Primary osteoarthritis of right knee Chronic pain of right knee Bursitis Surgical History H/O total shoulder replacement History of total hip replacement Family History Other No significant family history Social History Smoking Status: Never smoker alcohol intake: never substance use type: denies use current occupational status: retired Travel in the last 8 weeks?: None household members: family housing: house current occupational exposures/hazards: No caffeine: No Have you lived/traveled outside [place] in past 30 days?: No Contact w/someone who lives/traveled outside US past 30 days?: No Exposure to someone with infectious disease in past 14 days?: No Do you have a fever (greater than 100.4 F or 38 C)?: No Have you tested positive for COVID-19?: No Exposed to someone with COVID-19 in past 14 days?: No Do you have a sore throat?: No Do you have a cough?: No Do you have any weakness?: No Do you have any diarrhea?: No Are you experiencing any unusual bleeding?: No Do you have any muscle aches/pain?: No Do you have any abdominal pain?: No Are you experiencing loss of taste or smell?: No Other Medical History Have you received the Flu Vaccine for this season: Yes Have you received the Pneumonia Vaccine: Yes ROS Obtained: Yes All systems reviewed & no additional complaints except as documented Physical Exam General General appearance: alert and in no apparent distress Head Head exam: atraumatic and normocephalic Eye Eye exam: Present normal appearance, PERRL and EOMI ENT ENT exam: Present normal exam, normal oropharynx, mucous membranes moist and normal external ear exam Neck Neck exam: Present normal inspection, full ROM and trachea midline; Absent tenderness Chest Chest inspection: Present normal inspection and symmetric chest wall rise; Absent tenderness Respiratory Respiratory exam: Present normal lung sounds bilaterally; Absent respiratory distress, wheezes, stridor or accessory muscle use Cardiovascular Cardiovascular exam: Present regular rate and normal rhythm Abdominal Exam Abdominal exam: Present soft; Absent distention, tenderness or guarding Extremities Exam Extremities exam: Present normal inspection, full ROM and normal capillary refill; Absent tenderness or edema Back Exam Back exam: Present normal inspection and full ROM; Absent tenderness Neurological Exam Neurological exam: Present alert, oriented X3, CN II-XII intact and normal gait; Absent motor sensory deficit Psychiatric Psychiatric exam: Present normal affect and normal mood Skin Skin exam: Present warm and dry HEART Score HEART Score HEART Score assessment performed?: Yes History (anamnesis): Highly suspicious ECG: Significant ST-deviation Age: >65 years Risk factors: Atherosclerosis history Troponin: </= normal limit HEART Score: 8 Critical Care Critical Care Time Critical Care Time: Yes Attestation: On 02/22/25, the high probability of a clinically significant, sudden or life threatening deterioration of the following system(s) required my full and direct attention, intervention and personal management. The time I documented below is in addition to time spent performing reported procedures but includes the following listed in this critical care notation. Total Time Total Critical Care Time: 35 Medical Decision Making Adrián Inquiry Pt receiving controlled substance: No Vital Signs Vital Signs: 02/22/25 11:46 02/22/25 11:57 02/22/25 12:00 Temperature 98.0 F Temperature Source Oral Pulse Rate 82 81 Pulse Rate [Radial] 100 H Respiratory Rate 18 16 12 Blood Pressure 156/87 H 145/83 H Blood Pressure [Right Arm] 174/96 H Blood Pressure Mean [Right Arm] 122 Blood Pressure Source Blood Pressure Source [Right Arm] Automatic Cuff Blood Pressure Position Blood Pressure Position [Right Arm] Sitting 02 Sat by Pulse Oximetry 97 97 98 Oxygen Delivery Method Room Air Room Air Room Air 02/22/25 12:41 Temperature 98.0 F Temperature Source Oral Pulse Rate 100 H Pulse Rate [Radial] Respiratory Rate 18 Blood Pressure 174/96 H Blood Pressure [Right Arm] Blood Pressure Mean [Right Arm] Blood Pressure Source Automatic Cuff Blood Pressure Source [Right Arm] Blood Pressure Position Sitting Blood Pressure Position [Right Arm] 02 Sat by Pulse Oximetry Oxygen Delivery Method Room Air Lab Data Labs: Lab Results 02/22/25 11:53: WBC 10.0, RBC 4.12 L, Hgb 12.0 L, Hct 36.0 L, MCV 87.4, MCH 29.1, MCHC 33.3, RDW 14.5, Plt Count 282, MPV 9.0, Neut % (Auto) 74.3, Lymph % (Auto) 11.4, [place] % (Auto) 14.0 H, Eos % (Auto) 0.0 L, Baso % (Auto) 0.0 L, Neut # (Auto) 7.4, Lymph # (Auto) 1.1, [place] # (Auto) 1.4 H, Eos # (Auto) 0.0, Baso # (Auto) 0.0, PT 10.6, INR 0.94, APTT 22.8, D-Dimer 0.98 H, Sodium 139, Potassium 3.0 L, Chloride 102, Carbon Dioxide 27, Anion Gap 13.0, BUN 34 H, Creatinine 1.80 H, Estimated Creat Clear 26, Estimated GFR 27 L, Est GFR ( Amer) 33 L, Glucose 82, Calcium 9.1, Total Bilirubin 0.4, AST 44 H, ALT 34, Alkaline Phosphatase 92, Troponin I < 0.01, Total Protein 7.3, Albumin 4.8, Globulin 2.5, Albumin/Globulin Ratio 1.9 H, Lipase 275 02/22/25 11:53 02/22/25 11:53 Response Orders (Tests/Meds): ED MEDICATIONS Generic Name Dose Route Start Last Admin Trade Name Freq PRN Reason Stop Dose Admin Amlodipine Besylate 5 mg 02/22/25 14:00 Amlodipine 5mg Tablet PO 03/24/25 13:59 DAILY [facility] Aspirin 81 mg 02/23/25 09:00 Aspirin Ec 81mg Tablet PO 03/25/25 08:59 DAILY [facility] Atorvastatin Calcium 40 mg 02/22/25 21:00 Atorvastatin 40mg Tablet PO 03/24/25 20:59 HS [facility] Carvedilol 12.5 mg 02/22/25 14:00 Carvedilol 12.5mg Tablet PO 03/24/25 13:59 BID [facility] Diazepam 5 mg 02/22/25 12:51 Diazepam 5mg Tablet PO 02/23/25 00:51 ONCE PRN Anxiety Fentanyl Citrate 50 mcg 02/22/25 12:51 Fentanyl 100mcg/2ml Vial IV 02/23/25 00:51 Q3MINP PRN Sedation Fentanyl Citrate 25 mcg 02/22/25 12:51 Fentanyl 100mcg/2ml Vial IV 02/23/25 00:51 Q3MINP PRN Sedation Flumazenil 0.2 mg 02/22/25 12:51 Flumazenil 0.1mg/Ml 5ml Vial IV 02/23/25 00:51 NEEDED PRN Sedation Heparin Sodium (Porcine) 5,000 unit 02/22/25 12:51 Heparin 1,000 Units/Ml 10ml Vial ([facility]) IV 02/22/25 16:51 NEEDED PRN [facility] [employer] Hydralazine HCl 20 mg 02/22/25 12:51 Hydralazine 20mg/Ml Vial IV 02/22/25 16:51 ONCE PRN sbp>160 Adenosine 180 mg/ Sodium 90 mls @ 355.163 mls/hr 02/22/25 12:51 Chloride IV 02/22/25 16:51 ONCE PRN fractional flow reserve 180 MCG/KG/MIN Adenosine 90 mg/ Sodium 90 mls @ 710.327 mls/hr 02/22/25 12:51 Chloride IV 02/22/25 16:51 ONCE PRN fractional flow reserve 180 MCG/KG/MIN Sodium Chloride 1,000 mls @ 25 mls/hr 02/22/25 13:00 02/22/25 13:01 Sod Chloride 0.9% 500ml Bag IV 02/23/25 12:51 25 mls/hr .Q25H SHAB[facility]IR Administration Iopamidol 50 ml 02/22/25 13:55 02/22/25 13:56 Iopamidol-370 (76%);100ml Bottle IV 02/22/25 13:56 50 ml ONCE ONE Administration Labetalol HCl 20 mg 02/22/25 12:51 Labetalol 20mg/4ml Syringe IV 02/22/25 16:51 ONCE PRN sbp>160 Lorazepam 1 mg 02/22/25 12:51 Lorazepam 2mg/Ml Vial IV 02/23/25 00:51 ONCE PRN Anxiety Midazolam HCl 1 mg 02/22/25 12:51 Midazolam 2mg/2ml Vial IV 02/23/25 00:51 Q3MINP PRN Sedation Midazolam HCl 1 mg 02/22/25 12:51 02/22/25 13:13 Midazolam Hcl 1mg/Ml 5ml Vial IV 02/23/25 00:51 4 mg Q3MINP PRN Administration Sedation Naloxone HCl 0.4 mg 02/22/25 12:51 Naloxone 0.4mg/Ml Vial IV 02/23/25 00:51 Q5MINP PRN Decreased Respirations Nitroglycerin 800 mcg 02/22/25 12:51 Nitroglycerin 800mcg/8ml Syr ([facility]) IA 02/22/25 16:51 NEEDED PRN [facility] [employer] Ondansetron HCl 4 mg 02/22/25 12:51 Ondansetron 4mg/2ml Vial IV 02/23/25 00:51 NEEDED PRN Nausea Promethazine HCl 25 mg 02/22/25 12:51 Promethazine Hcl 25mg/Ml 1ml Vial IV 02/23/25 00:51 NEEDED PRN Nausea And Vomiting Protamine Sulfate 50 mg 02/22/25 12:51 Protamine Sulfate 50mg/5ml Vial ([facility]) IV 02/22/25 16:51 ONCE PRN act>200 Sodium Chloride 10 ml 02/22/25 12:51 Sodium Chloride 0.9% 10ml Flush Syringe IV 03/24/25 12:50 NEEDED PRN Maintain IV Site Sodium Chloride 10 ml 02/22/25 12:51 Sodium Chloride 0.9% 10ml Vial IV 03/24/25 12:50 NEEDED PRN to Dilute Lorazepam inj Discontinued Medications Generic Name Dose Route Start Last Admin Trade Name Freq PRN Reason Stop Dose Admin Acetaminophen 1,000 mg 02/22/25 11:48 02/22/25 12:13 Acetaminophen 500mg Tab PO 02/22/25 11:49 1,000 mg ONCE ONE Administration Aspirin 324 mg 02/22/25 11:47 02/22/25 12:13 Aspirin 81mg Chewable Tablet PO 02/22/25 11:48 324 mg ONCE ONE Administration Belladonna Alkaloids 60 ml 02/22/25 11:48 02/22/25 12:14 Belladonna Alkaloids 60 Ml Ml PO 02/22/25 11:49 60 ml ONCE ONE Administration Diphenhydramine HCl 50 mg 02/22/25 12:51 02/22/25 13:02 Diphenhydramine 50mg/Ml Vial IV 02/22/25 12:52 50 mg ONCE ONE Administration Heparin Sodium/Sodium Chloride 3,000 unit 02/22/25 12:51 02/22/25 13:01 Heparin 1,000 Units/500ml Ns ([facility]) IV 02/22/25 12:52 3,000 unit ONCE ONE Administration Lidocaine HCl 10 ml 02/22/25 12:51 02/22/25 13:01 Lidocaine 1% 10ml Mdv IJ 02/22/25 12:52 10 ml ONCE ONE Administration Lidocaine HCl 10 ml 02/22/25 12:51 Lidocaine 1% 5ml Pf Vial IJ 02/22/25 12:52 ONCE ONE Morphine Sulfate 4 mg 02/22/25 12:51 Morphine 4mg/Ml Syringe IV 02/22/25 12:52 ONCE ONE Nitroglycerin 0.4 mg 02/22/25 11:48 02/22/25 12:13 Nitroglycerin 0.4mg Sl Tablet SL 02/22/25 11:49 0.4 mg ONCE ONE Administration Sodium Chloride 25 ml 02/22/25 12:51 Sodium Chloride 0.9% 25ml Bag IV 02/22/25 12:52 ONCE ONE Verapamil HCl 2.5 mg 02/22/25 12:51 Verapamil 2.5mg/Ml 2ml Vial IV 02/22/25 12:52 ONCE ONE ORDERS Category Date Time Status Cardiology Consult [Consult to Cardiology] [CONS] Cons 02/22/25 12:10 Active Routine Basic Metabolic Panel Stat Lab 02/22/25 12:51 Ordered Complete Blood Count Auto Diff Stat Lab 02/22/25 11:53 Completed Complete Blood Count Auto Diff Stat Lab 02/22/25 12:51 Ordered Comprehensive Metabolic Panel Stat Lab 02/22/25 11:53 Completed D-Dimer Stat Lab 02/22/25 11:53 Completed HIV Combo Stat Lab 02/22/25 11:53 Received Hepatitis C Ab Qual. W/ RFX Stat Lab 02/22/25 11:53 Received Lipase Stat Lab 02/22/25 11:53 Completed PT INR [Prothrombin Time INR] Stat Lab 02/22/25 11:53 Completed PTT [Activated Partial Thrombo Time] Stat Lab 02/22/25 11:53 Completed Trop I [Troponin I] Stat Lab 02/22/25 11:53 Completed Troponin I Q3H Lab 02/22/25 15:00 Ordered Troponin I Q3H Lab 02/22/25 18:00 Ordered ECG Data Tracing #1: Attestation: I reviewed this ECG and interpreted as documented below: ECG Narrative: Normal sinus rhythm with ventricular rate of [address] depressions in the anteroseptal leads with reciprocal change in lead II. ECG initial impression date: 05/08/25 ECG initial impression time: 11:45 MDM Narrative Medical Decision Narrative: In summary, this patient is a 79-year-old female presenting to the Emergency Department for evaluation of chest pain. Differential diagnoses considered include but are not limited to ACS, NV, PE, costochondritis, esophagitis, hypertensive urgency. Ruling out the most morbid conditions drove assessment. It should be noted patient's history includes extensive cardiovascular history which may or may not be at goal therapy. This complicates all aspects of care by increasing patient's risk for morbidity. On exam, the patient is lying in bed in no acute distress. Vitals are reassuring on cardiac telemetry with the exception of hypertension. Cardiopulmonary exam is benign. EKG obtained demonstrates significant ST deviation without STEMI, but I did send immediately to Dr. Betancourt for recommendations. He recommended after interactive discussion based on symptoms and EKG that the patient go emergently for catheterization. She was given oral aspirin and nitro, lab work was sent, and she was transported to [facility] in stable condition. Workup was pending at time of transportation to [facility]. I had an interactive discussion with the hospitalist who accepted the patient for admission post cath
--- NOTE | 2025-02-22 15:27 | P.HP_ITS ---
History of Present Illness *History of present illness: Bibiana Dotson is a 79-year-old female with medical history significant for CABG/CAD with stent, hypertension, hypothyroidism, rheumatoid arthritis, GERD who presented with midsternal chest pain with radiation to the left chest. She was taken to the [facility] without needing a stent. Of note, patient started amlodipine 2.5 mg 2 days ago prior to chest pain starting. She has not had chest pains like this in more than a year. Denies shortness of breath, fever/chills, abdominal pain, diarrhea constipation. D-dimer 0.98. Other workup unremarkable. Case discussed with ED provider and decision was made to admit patient for further monitoring of chest pain. [facility] Disclaimer: The information contained in this section may have been updated after the patient was seen, as this information can be updated by other users. Medical History (Updated 02/24/25 @ 13:15 by Jeremy Zimmerman MD) Elevated d-dimer CAD in [place] artery Abnormal electrocardiogram [ECG] [EKG] Unstable angina Abnormal colonoscopy Arthritis Vitamin D deficiency Hyperlipemia Hypertension Primary osteoarthritis of left knee Chronic pain of left knee Primary osteoarthritis of right knee Chronic pain of right knee Bursitis Surgical History (Updated 02/22/25 @ 16:22 by Jackie Ortiz RN) Hx of CABG H/O total shoulder replacement History of total hip replacement Family History Other No significant family history Social History Smoking Status: Never smoker alcohol intake: never substance use type: denies use current occupational status: retired Travel in the last 8 weeks?: None household members: family housing: house current occupational exposures/hazards: No caffeine: No Other Medical History Have you received the Flu Vaccine for this season: Yes Have you received the Pneumonia Vaccine: Yes Review of Systems *Neurologic Neurologic: Reports system reviewed and no additional complaints, except as documented Meds Home Medications and Allergies Home Medications ?Medication ?Instructions ?Recorded ?Confirmed ?Type esomeprazole magnesium 40 mg 40 mg PO DAILY 90 days 01/24/18 02/22/25 History capsule,delayed release calcium carbonate 500 mg PO BID GERD 06/29/18 02/22/25 History cholecalciferol (vitamin D3) 25 1,000 unit PO DAILY Supplement 06/29/18 02/22/25 History mcg (1,000 unit) capsule ascorbic acid (vitamin C) 1,000 mg 1 g PO DAILY 09/22/23 02/22/25 History capsule aspirin 81 mg tablet,delayed 81 mg PO DAILY 09/22/23 02/22/25 History release (Adult Aspirin Regimen) furosemide 20 mg tablet 20 mg PO BIDP PRN Fluid 02/22/25 02/22/25 History hydroxyzine pamoate 25 mg capsule 25 mg PO TID 02/22/25 02/22/25 History levothyroxine 100 mcg tablet 100 mcg PO DAILY 02/22/25 02/22/25 History (Synthroid) methylprednisolone 4 mg tablets in 4 mg PO BID 02/22/25 02/22/25 History a dose pack (Medrol (Oziel)) milnacipran 50 mg tablet (Savella) 50 mg PO DAILY 02/22/25 02/22/25 History rosuvastatin 20 mg tablet 20 mg PO HS 02/22/25 02/22/25 History tramadol 50 mg tablet 50 mg PO Q6HP PRN Pain, Moderate 02/22/25 02/22/25 History carvedilol 12.5 mg tablet 12.5 mg PO BID 30 days #60 tabs 02/23/25 Rx doxycycline hyclate 100 mg tablet 100 mg PO BID 5 days #9 tabs 02/23/25 Rx New Prescriptions to Start Prescriptions: carvedilol Jeremy Zimmerman doxycycline hyclate Jeremy Zimmerman Allergies Allergy/AdvReac Type Severity Reaction Status Date / Time hydrocodone Allergy Intermediate Hives Verified 02/22/25 14:31 milk (From MILK (FOOD/DRUG)) Allergy Intermediate I-HIVES Verified 09/28/24 10:25 strawberry (From Allergy Intermediate I-HIVES Verified 09/28/24 10:25 STRAWBERRIES (FOOD/DRUG)) tomato (From TOMATOES Allergy Intermediate I-HIVES Verified 09/28/24 10:25 (FOOD/DRUG)) oxycodone (OXYCODONE) Allergy Mild SHUT Verified 09/28/24 10:25 EVERYTHING DOWN egg Allergy Hives Verified 02/22/25 15:32 hydroxychloroquine (From Allergy Other Verified 02/22/25 14:32 Plaquenil) Milk Containing Products Allergy Hives Verified 02/22/25 15:32 (Dairy) pregabalin (From Lyrica) Allergy Swelling Verified 02/22/25 14:32 of Lip/Tongue/Throat prednisone AdvReac Intermediate ANXIOUS/EBEN Verified 09/28/24 10:25 EMILY clopidogrel AdvReac Migraine Verified 02/22/25 14:32 Exam Data for Last 24 hours Vital signs and Labs for Last 24 Hours: Temp Pulse Resp BP Pulse Ox O2 Del Method 97.6 F 78 16 146/89 H 96 Room Air 02/22/25 14:10 02/22/25 14:40 02/22/25 14:40 02/22/25 14:40 02/22/25 14:53 02/22/25 14:57 Laboratory Results - last 24 hr 02/22/25 11:53: WBC 10.0, RBC 4.12 L, Hgb 12.0 L, Hct 36.0 L, MCV 87.4, MCH 29.1, MCHC 33.3, RDW 14.5, Plt Count 282, MPV 9.0, Neut % (Auto) 74.3, Lymph % (Auto) 11.4, [place] % (Auto) 14.0 H, Eos % (Auto) 0.0 L, Baso % (Auto) 0.0 L, Neut # (Auto) 7.4, Lymph # (Auto) 1.1, [place] # (Auto) 1.4 H, Eos # (Auto) 0.0, Baso # (Auto) 0.0, PT 10.6, INR 0.94, APTT 22.8, D-Dimer 0.98 H, Sodium 139, Potassium 3.0 L, Chloride 102, Carbon Dioxide 27, Anion Gap 13.0, BUN 34 H, Creatinine 1.80 H, Estimated Creat Clear 26, Estimated GFR 27 L, Est GFR ( Amer) 33 L, Glucose 82, Calcium 9.1, Total Bilirubin 0.4, AST 44 H, ALT 34, Alkaline Phosphatase 92, Troponin I < 0.01, Total Protein 7.3, Albumin 4.8, Globulin 2.5, Albumin/Globulin Ratio 1.9 H, Lipase 275 I & O for Last 24 hours: Intake & Output 02/19/25 02/20/25 02/21/25 02/22/25 23:59 23:59 23:59 23:59 Weight 65.9 kg Constitutional Constitutional: no acute distress *Routine HEENT Exam Head: Present normocephalic Eye: Present EOMI and PERRL ENT: Present mucous membranes moist *Routine Neck Exam Neck: Present supple; Absent lymphadenopathy *Routine Respiratory Exam Respiratory: Present CTA bilaterally *Routine Cardiovascular Exam Cardiovascular: Present RRR *Routine Abdominal Exam Abdominal: Present soft and normoactive bowel sounds; Absent tenderness *Routine Rectal Exam Rectal:: deferred *Routine Genitalia Exam Genitalia:: deferred *Routine Extremities Exam Extremities: Absent cyanosis, clubbing or edema *Routine Skin Exam Skin: Present warm; Absent rash *Routine Neurological Exam Neurological: Present alert and oriented X3 Assessment and Plan *Assessment and plan (1) Chest pain: Status: Acute Category: Medical Code(s): R07.9 - Chest pain, unspecified Plan Bibiana Dotson is a 79-year-old female with medical history significant for CABG/CAD with stent, hypertension, hypothyroidism, rheumatoid arthritis, GERD who presented with midsternal chest pain with radiation to the left chest. She was taken to the [facility] without needing a stent. Of note, patient started amlodipine 2.5 mg 2 days ago prior to chest pain starting. She has not had chest pains like this in more than a year. Denies shortness of breath, fever/chills, abdominal pain, diarrhea constipation. D-dimer 0.98, TSH less than 0.02. Other workup unremarkable. Case discussed with ED provider and decision was made to admit patient for further monitoring of chest pain. #Chest pain #Suspected coronary steal syndrome #History of CABG, CAD with stent #Elevated D-dimer ? Patient presented with midsternal chest pain with radiation to left chest. Improved with nitroglycerin. ? Troponins normal, EKG without acute ischemic changes. ? Cardiology consulted, s/p LHC without need for stent. There was noted to be competitive flow in the LAD. ? Symptoms and findings on LHC raise concern for coronary steal syndrome in the setting of recent start of vasodilatory effects of amlodipine. For may be further supported by improvement with nitroglycerin. ? Will hold off on amlodipine for now and discuss further with cardiology tomorrow. ? D-dimer elevated, cardiology consulted for CTA chest tomorrow. ? Continue carvedilol 12.5 mg twice daily, Protonix 40 mg, rosuvastatin 20 mg. Follow-up ECHO. ? Continuous cardiac telemetry. #ABBY on CKD ? Initial creatinine 1.8, improved to 1.3 after gentle fluids. Baseline around 1.0. ? Caution with nephrotoxins, and renally dose meds. #Hypothyroidism ? Continue home levothyroxine 100 mcg. ? Follow-up TFTs. Full code DVT prophylaxis: Lovenox 40 mg
[2025-02-22 15:38] LABS: Hematocrit 31.7 % (37.0-47.0); Immature Granulocytes # 0.02 10^3uL; Immature Granulocytes % 0.4 %; Lymphocytes # 0.6 K/mm3 (0.7-4.5); Lymphocytes % 11.8 % (10-50); Mean Corpuscular HGB Conc 33.1 g/dL (31.8-35.4); Mean Corpuscular Hemoglobin 29.1 pg (27.0-31.2); Mean Corpuscular Volume 87.8 fl (81-99); Mean Platelet Volume 8.8 fl (7.4-10.4); Monocytes # 0.6 K/mm3 (0.1-1.0); Monocytes % 10.5 % (1.7-9.3); Neutrophils # 4.2 K/mm3 (1.8-7.8); Neutrophils % 77.3 % (37.0-80.0); Nucleated Red Blood Cells # 0 10^3/uL; Nucleated Red Blood Cells % 0 %; Platelet Count 198 K/mm3 (142-424); Red Blood Count 3.61 M/mm3 (4.20-5.40); Red Cell Distribution Width 14.4 % (11.5-17.5); White Blood Count 5.4 K/mm3 (4.8-10.8)
[2025-02-22 15:54] LABS: Anion Gap 5.9 mEq/L (5-15); Blood Urea Nitrogen 33 mg/dl (7-17); Calcium 8.1 mg/dl (8.4-10.2); Carbon Dioxide 29 mmol/L (22.0-30.0); Chloride 106 mmol/L (98-107); Creatinine Clearance Estimated 29 mL/min (50-200); Estimated Glomerular Filt Rate 31 ml/min (>60); GFR (African American) 38 ML/MIN (>60); Glucose 99 mg/dl (74-100); Sodium 138 mmol/L (136-145)
[2025-02-22 16:06] LABS: Potassium 2.9 mmoL/L (3.5-5.1)
[2025-02-22] MEDS: POTASSIUM CHLORIDE 20MEQ TAB 40 MEQ PO ×3 (16:29→23:51)
[2025-02-22 16:57] LABS: Hemoglobin 10.7 g/dL (12.2-16.2)
[2025-02-22 19:49] LABS: HIV Combo NEGATIVE (Negative)
[2025-02-22 19:51] LABS: Hepatitis C Ab Qual. W/ RFX NEGATIVE (Negative)
[2025-02-22] MEDS: ATORVASTATIN 40MG TABLET 40 MG PO (21:24)
[2025-02-22] MEDS: CARVEDILOL 12.5MG TABLET 12.5 MG PO (21:24)
[2025-02-23] VITALS: PULSE 65
[2025-02-23 04:00] VITALS: BP 147/66; PULSE 65; RESP 18; TEMP 36.6; O2SAT 98; BMI 27.5
--- NOTE | 2025-02-23 04:56 | PC.NURSE ---
Pt is A&Ox4. Pt cath site dressing to right groin remains intact and no bleeding noted to gauze. Pt has a NSR on telemetry. Pt denies pain and needs when asked and has slept well this shift.
[2025-02-23 06:15] LABS: Basophils % 0.2 % (0.1-2.0); Eosinophils % 0.2 % (0.1-12.0); Hematocrit 30.8 % (37.0-47.0); Hemoglobin 10.1 g/dL (12.2-16.2); Immature Granulocytes # 0.02 10^3uL; Immature Granulocytes % 0.3 %; Lymphocytes # 1.1 K/mm3 (0.7-4.5); Lymphocytes % 18.8 % (10-50); Mean Corpuscular HGB Conc 32.8 g/dL (31.8-35.4); Mean Corpuscular Hemoglobin 29.3 pg (27.0-31.2); Mean Corpuscular Volume 89.3 fl (81-99); Mean Platelet Volume 9.3 fl (7.4-10.4); Monocytes # 0.9 K/mm3 (0.1-1.0); Monocytes % 14.7 % (1.7-9.3); Neutrophils % 65.8 % (37.0-80.0); Nucleated Red Blood Cells # 0 10^3/uL; Nucleated Red Blood Cells % 0 %; Platelet Count 186 K/mm3 (142-424); Red Blood Count 3.45 M/mm3 (4.20-5.40); Red Cell Distribution Width 14.7 % (11.5-17.5); Red Cell Distribution Width-SD 47.3 fL; White Blood Count 6.1 K/mm3 (4.8-10.8)
[2025-02-23 06:17] LABS: Hemoglobin A1C 5.4 % (4.0-6.0)
--- NOTE | 2025-02-23 06:21 | PC.NURSE ---
Pt dressing was reinforced due to bleeding at drain site. Pt c/o increased incision pain. Contacted Dr. Pires, new orders for Morphine 1mg IV.
[2025-02-23 06:24] LABS: Alanine Aminotransferase 24 U/L (12-78); Alkaline Phosphatase 67 U/L (38-126); Anion Gap 5.9 mEq/L (5-15); Aspartate Amino Transferase 36 U/L (14-36); Bilirubin,Total 0.3 mg/dl (0.2-1.3); Calcium 8.5 mg/dl (8.4-10.2); Carbon Dioxide 25 mmol/L (22.0-30.0); Chloride 114 mmol/L (98-107); Glucose 98 mg/dl (74-100); HDL Cholesterol 64 mg/dl (40-60); Magnesium 1.7 mg/dl (1.6-2.3); Potassium 4.9 mmoL/L (3.5-5.1); Sodium 140 mmol/L (136-145)
[2025-02-23 06:25] LABS: Albumin Level 3.4 g/dl (3.5-5.0); Albumin/Globulin Ratio 1.5 (1.1-1.8); Blood Urea Nitrogen 34 mg/dl (7-17); Chol/HDL Ratio 1.9 (1-3.5); Cholesterol 124 mg/dl (140-200); Creatinine Clearance Estimated 37 mL/min (50-200); Estimated Glomerular Filt Rate 39 ml/min (>60); GFR (African American) 48 ML/MIN (>60); Globulin 2.3 g/dL (1.3-3.2); Total Protein,Serum 5.7 g/dl (6.3-8.2); Triglycerides 65 mg/dl (30-150); VLDL Cholesterol 13 mg/dL (0-40)
[2025-02-23 06:34] LABS: Direct LDL Cholesterol 43.62 mg/dL (100-129)
[2025-02-23 06:40] LABS: T4 (Thyroxine) 7.6 ug/dl (5.53-11.0)
[2025-02-23 06:54] LABS: Thyroid Stimulating Hormone < 0.02 uIU/mL (0.465-4.68)
[2025-02-23 08:00] VITALS: BP 136/53; PULSE 70; PULSE 76; RESP 16; TEMP 36.7
--- NOTE | 2025-02-23 08:09 | EXP.CARD.PN ---
Subjective Subjective Date: 02/23/25 Time: 07:40 Principal diagnosis: chest pain Interval history: This is an 79-year-old female who presented to the emergency department with chest pain. She also had an abnormal EKG. The patient was taken to the [facility] and found to have widely patent coronary artery disease, normal LVEDP and normal EF. Her chest pain is noncardiac in nature. This morning she states that her chest pain and pressure have resolved. She denies any shortness of breath. She denies any fever, chills, nausea, vomiting, diarrhea, PND or orthopnea. She states she is unsure why she had the chest pain but she is feeling much better today and she is ready to be discharged home. Exam Data for Last 24 hours Vital signs and Labs for Last 24 Hours: Temp Pulse Resp BP Pulse Ox O2 Del Method 97.9 F 65 18 147/66 H 98 Room Air 02/23/25 04:00 02/23/25 04:00 02/23/25 04:00 02/23/25 04:00 02/23/25 04:00 02/23/25 06:39 Laboratory Results - last 24 hr 02/22/25 11:53: WBC 10.0, RBC 4.12 L, Hgb 12.0 L, Hct 36.0 L, MCV 87.4, MCH 29.1, MCHC 33.3, RDW 14.5, Plt Count 282, MPV 9.0, Neut % (Auto) 74.3, Lymph % (Auto) 11.4, [place] % (Auto) 14.0 H, Eos % (Auto) 0.0 L, Baso % (Auto) 0.0 L, Neut # (Auto) 7.4, Lymph # (Auto) 1.1, [place] # (Auto) 1.4 H, Eos # (Auto) 0.0, Baso # (Auto) 0.0, PT 10.6, INR 0.94, APTT 22.8, D-Dimer 0.98 H, Sodium 139, Potassium 3.0 L, Chloride 102, Carbon Dioxide 27, Anion Gap 13.0, BUN 34 H, Creatinine 1.80 H, Estimated Creat Clear 26, Estimated GFR 27 L, Est GFR ( Amer) 33 L, Glucose 82, Calcium 9.1, Total Bilirubin 0.4, AST 44 H, ALT 34, Alkaline Phosphatase 92, Troponin I < 0.01, Total Protein 7.3, Albumin 4.8, Globulin 2.5, Albumin/Globulin Ratio 1.9 H, Lipase 275, HCV Ab BETTY w/Rflx PCR Qn Negative, HIV Ag/Ab Combo Qual Negative 02/22/25 15:31: WBC 5.4 D, RBC 3.61 L, Hgb 10.7 L D, Hct 31.7 L, MCV 87.8, MCH 29.1, MCHC 33.1, RDW 14.4, Plt Count 198 D, MPV 8.8, Neut % (Auto) 77.3, Lymph % (Auto) 11.8, [place] % (Auto) 10.5 H, Eos % (Auto) 0.0 L, Baso % (Auto) 0.0 L, Neut # (Auto) 4.2, Lymph # (Auto) 0.6 L, [place] # (Auto) 0.6, Eos # (Auto) 0.0, Baso # (Auto) 0.0, Sodium 138, Potassium 2.9 L*, Chloride 106, Carbon Dioxide 29, Anion Gap 5.9, BUN 33 H, Creatinine 1.60 H, Estimated Creat Clear 29, Estimated GFR 31 L, Est GFR ( Amer) 38 L, Glucose 99 D, Calcium 8.1 L 02/23/25 05:18: WBC 6.1, RBC 3.45 L, Hgb 10.1 L, Hct 30.8 L, MCV 89.3, MCH 29.3, MCHC 32.8, RDW 14.7, Plt Count 186, MPV 9.3, Neut % (Auto) 65.8, Lymph % (Auto) 18.8, [place] % (Auto) 14.7 H, Eos % (Auto) 0.2, Baso % (Auto) 0.2, Neut # (Auto) 4.0, Lymph # (Auto) 1.1, [place] # (Auto) 0.9, Eos # (Auto) 0.0, Baso # (Auto) 0.0, Sodium 140, Potassium 4.9 D, Chloride 114 H, Carbon Dioxide 25, Anion Gap 5.9, BUN 34 H, Creatinine 1.30 H, Estimated Creat Clear 37, Estimated GFR 39 L, Est GFR ( Amer) 48 L D, Glucose 98, Hemoglobin A1c 5.4, Calcium 8.5, Magnesium 1.7, Total Bilirubin 0.3, AST 36, ALT 24 D, Alkaline Phosphatase 67, Total Protein 5.7 L, Albumin 3.4 L D, Globulin 2.3, Albumin/Globulin Ratio 1.5, Triglycerides 65, Cholesterol 124 L, LDL Cholesterol Direct 43.62 L, VLDL Cholesterol 13, HDL Cholesterol 64 H, Cholesterol/HDL Ratio 1.9, TSH < 0.02 L, Thyroxine (T4) 7.6 I & O for Last 24 hours: Intake & Output 02/20/25 02/21/25 02/22/25 02/23/25 23:59 23:59 23:59 23:59 Intake Total 240 / 240 Output Total 0 / 0 0 / 0 Balance 240 / 240 0 / 0 Weight 145 lb 4.554 oz 149 lb 11.2 oz Constitutional Constitutional: no acute distress and average body habitus *Routine HEENT Exam Head: Present normocephalic and atraumatic ENT: Present mucous membranes moist *Routine Neck Exam Neck: Present supple, full ROM and normal carotid upstroke; Absent JVD, carotid bruit or lymphadenopathy *Routine Respiratory Exam Respiratory: Present CTA bilaterally, normal respiratory effort, able to speak in complete sentences and symmetric chest movement *Routine Cardiovascular Exam Cardiovascular: Present RRR, Normal S1 and Normal S2; Absent murmur or gallop *Routine Abdominal Exam Abdominal: Present soft and normoactive bowel sounds; Absent tenderness, distended or organomegaly *Routine Extremities Exam Extremities: Present full ROM, pulses intact and normal capillary refill; Absent cyanosis, clubbing or edema *Routine Skin Exam Skin: Present intact and warm; Absent erythema *Routine Neurological Exam Neurological: Present alert, oriented X3 and CN II-XII intact; Absent sensory deficit or motor deficit Routine Psychiatric Exam Psychiatric: Present normal affect Progress Note: A&P Assessment and plan (1) CAD in [place] artery: Status: Acute (2) Abnormal electrocardiogram [ECG] [EKG]: Status: Acute (3) Hyperlipemia: Status: Acute (4) Hypertension: Status: Acute (5) Elevated d-dimer: Status: Acute Assessment and Plan Assessment and Plan for All Diagnoses:: Plan: 1. The patient was having chest pain and underwent left cardiac catheterization she was found to have patent coronary artery disease. Continue aspirin 81 mg daily. 2. The patient's blood pressure was elevated on admission. We have changed her Bystolic to carvedilol. Her blood pressure is under better control today. Continue carvedilol for hypertension. 3. The patient states that she had been started on amlodipine approximately 2 days prior to the onset of symptoms. It is unlikely that the amlodipine is the cause of her chest pain but it could be so we will discontinue the amlodipine for now. 4. Her LDL goal is less than 55. Her LDL is 43. She is on a statin. 5. Her renal function is improved today. Her creatinine is down to 1.3. 6. The patient's potassium was low on admission but this is now normal. 7. The patient is anemic. We do recommend follow-up with hematology. Can be done on an outpatient basis. 8. The patient has an elevated D-dimer. Will get a CTA of the chest to rule out PE. 9. The patient is stable for discharge home today from a cardiac standpoint as long as CTA chest is negative for PE. She will need to follow-up in cardiology clinic in 1 to 2 weeks on an outpatient basis. 10. The patient can be discharged on the following cardiac medications once she is stable for discharge: Aspirin 81 mg daily, Nexium 40 mg p.o. daily, Lasix 20 mg twice daily as needed for fluid, carvedilol 12.5 mg p.o. twice daily, Crestor 20 mg p.o. nightly. Thank you for the opportunity to help participate in the care of this patient. All recommendations and orders are per Dr. Lam.
--- NOTE | 2025-02-23 08:26 | HMH.PHAINT1 ---
Pharmacy Intervention Comments: HOME MEDICATION LIST VERIFIED USING LIST FROM OUTPATIENT PHARMACY AND PT INTERVIEW
--- NOTE | 2025-02-23 08:27 | CT_ITS ---
FINAL REPORT TECHNIQUE: Axial imaging of the chest is obtained after the administration of contrast. 3-D MIP reformatted images were also obtained and reviewed per PE protocol. CLINICAL HISTORY: elevated d dimer FINDINGS: The pulmonary arteries are well filled. There is no evidence of pulmonary embolus. There is no aortic dissection. Heart size is normal. There is no mediastinal, hilar, or axillary lymphadenopathy. There is bilateral lower lobe atelectasis. There is a 4 mm left upper lobe nodule well-seen on series 3, image 29. Right middle lobe nodule measures 11 mm well-seen on series 3, image 44. Patchy groundglass right lower lobe opacities are identified. There is a 4 mm right lower lobe nodule on image 59. There is no pleural or pericardial effusion. Limited evaluation of the upper abdomen is without acute abnormality. No acute osseous abnormality. IMPRESSION: No evidence of pulmonary embolism or aortic dissection. Patchy groundglass right lower lobe opacities, could be infectious or inflammatory. Bilateral noncalcified nodules. Right middle lobe nodule is greater than 1 cm. Consider PET/CT. Reviewed, Interpreted and Dictated by aBrbara Platt MD Transcribed by Christina Chaudhari Authenticated and [facility]
[2025-02-23] MEDS: 0.9 % SODIUM CHLORIDE 50 ML VIAL IV (09:03)
[2025-02-23] MEDS: IOPAMIDOL-370 (76%);100ML BOTTLE 80 ML IV (09:03)
[2025-02-23] MEDS: SODIUM CHLORIDE 0.9% 10ML SYR (RAD ONLY) 10 ML IV (09:03)
[2025-02-23] MEDS: LEVOTHYROXINE 100MCG (0.1MG) TAB 100 MCG PO (09:14)
[2025-02-23] MEDS: CARVEDILOL 12.5MG TABLET 12.5 MG PO (09:14)
[2025-02-23] MEDS: MAGNESIUM SULFATE IN WATER 2 GM/50 ML PIGGYBACK IV ×2 (09:14→10:05)
[2025-02-23] MEDS: ASPIRIN EC 81MG TABLET 81 MG PO (09:14)
[2025-02-23 10:17] LABS: Free T4 (Free Thyroxine) 1.41 ng/dl (0.78-2.19)
[2025-02-23 10:36] LABS: Ferritin 20.5 ng/ml (11.1-264)
--- NOTE | 2025-02-23 11:51 | EXP.DC.SUM ---
General Admission date:: 02/22/25 HPI HPI HPI: Bibiana Dotson is a 79-year-old female with medical history significant for CABG/CAD with stent, hypertension, hypothyroidism, rheumatoid arthritis, GERD who presented with midsternal chest pain with radiation to the left chest. She was taken to the [facility] without needing a stent. Of note, patient started amlodipine 2.5 mg 2 days ago prior to chest pain starting. She has not had chest pains like this in more than a year. Denies shortness of breath, fever/chills, abdominal pain, diarrhea constipation. D-dimer 0.98. Other workup unremarkable. Case discussed with ED provider and decision was made to admit patient for further monitoring of chest pain. Hospital Course Hospital Course Hospital Course: Bibiana Dotson is a 79-year-old female with medical history significant for CABG/CAD with stent, hypertension, hypothyroidism, rheumatoid arthritis, GERD who presented with midsternal chest pain with radiation to the left chest. She was taken to the [facility] without needing a stent. Of note, patient started amlodipine 2.5 mg 2 days ago prior to chest pain starting. She has not had chest pains like this in more than a year. Denies shortness of breath, fever/chills, abdominal pain, diarrhea constipation. D-dimer 0.98. Other workup unremarkable. Case discussed with ED provider and decision was made to admit patient for further monitoring of chest pain. #Chest pain #History of CABG, CAD with stent #Elevated D-dimer #Suspected bibasilar community-acquired pneumonia ? Patient presented with midsternal chest pain with radiation to left chest. Improved with nitroglycerin. ? Troponins normal, EKG without acute ischemic changes. ? Cardiology consulted, s/p [facility] without need for stent. There was noted to be competitive flow in the LAD. ? Patient started amlodipine 2 days prior to chest pain started, initially raising concern for coronary steal syndrome in the setting competitive flow in LAD. Discussed with Dr. Betancourt, he stated there was good flow down the [place] graft so this would not suggest coronary steal syndrome. ? CTA chest did not show PE, but did show bibasilar opacities concerning for pneumonia. Discharged with doxycycline for 5 days. ? ECHO did not show acute findings. ? Discontinue amlodipine. Started carvedilol 12.5 mg twice daily (discontinued Nebivolol), Protonix 40 mg, rosuvastatin 20 mg. #ABBY on CKD ? Initial creatinine 1.8, improved to 1.3 after gentle fluids. Baseline around 1.0. ? Caution with nephrotoxins, and renally dose meds. #Hypothyroidism #Low TSH ? TSH very less than 0.02, will hold off on changing levothyroxine 100 mcg as patient has had thyroid ablation now dependent on levothyroxine. TSH may be artificially low due to acute stress in the hospital. Recommended following up with PCP repeating TSH. ? Continue home levothyroxine 100 mcg. ? Will need repeat TFTs in 1 to 2 weeks. Total time spent on discharge: 32 minutes on chart review, counseling, documentation, and direct care with patient. Exam Data for Last 24 hours Vital signs and Labs for Last 24 Hours: Temp Pulse Resp BP Pulse Ox O2 Del Method 98.1 F 76 16 136/53 L 98 Room Air 02/23/25 08:00 02/23/25 08:00 02/23/25 08:00 02/23/25 08:00 02/23/25 04:00 02/23/25 10:37 Laboratory Results - last 24 hr 02/22/25 11:53: WBC 10.0, RBC 4.12 L, Hgb 12.0 L, Hct 36.0 L, MCV 87.4, MCH 29.1, MCHC 33.3, RDW 14.5, Plt Count 282, MPV 9.0, Neut % (Auto) 74.3, Lymph % (Auto) 11.4, [place] % (Auto) 14.0 H, Eos % (Auto) 0.0 L, Baso % (Auto) 0.0 L, Neut # (Auto) 7.4, Lymph # (Auto) 1.1, [place] # (Auto) 1.4 H, Eos # (Auto) 0.0, Baso # (Auto) 0.0, PT 10.6, INR 0.94, APTT 22.8, D-Dimer 0.98 H, Sodium 139, Potassium 3.0 L, Chloride 102, Carbon Dioxide 27, Anion Gap 13.0, BUN 34 H, Creatinine 1.80 H, Estimated Creat Clear 26, Estimated GFR 27 L, Est GFR ( Amer) 33 L, Glucose 82, Calcium 9.1, Total Bilirubin 0.4, AST 44 H, ALT 34, Alkaline Phosphatase 92, Troponin I < 0.01, Total Protein 7.3, Albumin 4.8, Globulin 2.5, Albumin/Globulin Ratio 1.9 H, Lipase 275, HCV Ab BETTY w/Rflx PCR Qn Negative, HIV Ag/Ab Combo Qual Negative 02/22/25 15:31: WBC 5.4 D, RBC 3.61 L, Hgb 10.7 L D, Hct 31.7 L, MCV 87.8, MCH 29.1, MCHC 33.1, RDW 14.4, Plt Count 198 D, MPV 8.8, Neut % (Auto) 77.3, Lymph % (Auto) 11.8, [place] % (Auto) 10.5 H, Eos % (Auto) 0.0 L, Baso % (Auto) 0.0 L, Neut # (Auto) 4.2, Lymph # (Auto) 0.6 L, [place] # (Auto) 0.6, Eos # (Auto) 0.0, Baso # (Auto) 0.0, Sodium 138, Potassium 2.9 L*, Chloride 106, Carbon Dioxide 29, Anion Gap 5.9, BUN 33 H, Creatinine 1.60 H, Estimated Creat Clear 29, Estimated GFR 31 L, Est GFR ( Amer) 38 L, Glucose 99 D, Calcium 8.1 L 02/23/25 05:18: WBC 6.1, RBC 3.45 L, Hgb 10.1 L, Hct 30.8 L, MCV 89.3, MCH 29.3, MCHC 32.8, RDW 14.7, Plt Count 186, MPV 9.3, Neut % (Auto) 65.8, Lymph % (Auto) 18.8, [place] % (Auto) 14.7 H, Eos % (Auto) 0.2, Baso % (Auto) 0.2, Neut # (Auto) 4.0, Lymph # (Auto) 1.1, [place] # (Auto) 0.9, Eos # (Auto) 0.0, Baso # (Auto) 0.0, Sodium 140, Potassium 4.9 D, Chloride 114 H, Carbon Dioxide 25, Anion Gap 5.9, BUN 34 H, Creatinine 1.30 H, Estimated Creat Clear 37, Estimated GFR 39 L, Est GFR ( Amer) 48 L D, Glucose 98, Hemoglobin A1c 5.4, Calcium 8.5, Magnesium 1.7, Ferritin 20.5 D, Total Bilirubin 0.3, AST 36, ALT 24 D, Alkaline Phosphatase 67, Total Protein 5.7 L, Albumin 3.4 L D, Globulin 2.3, Albumin/Globulin Ratio 1.5, Triglycerides 65, Cholesterol 124 L, LDL Cholesterol Direct 43.62 L, VLDL Cholesterol 13, HDL Cholesterol 64 H, Cholesterol/HDL Ratio 1.9, TSH < 0.02 L, Free T4 1.41, Thyroxine (T4) 7.6 I & O for Last 24 hours: Intake & Output 02/20/25 02/21/25 02/22/25 02/23/25 23:59 23:59 23:59 23:59 Intake Total 240 / 240 340 / 340 Output Total 0 / 0 0 / 0 Balance 240 / 240 340 / 340 Weight 65.9 kg 67.903 kg Constitutional Constitutional: no acute distress and average body habitus *Routine HEENT Exam Head: Present normocephalic and atraumatic ENT: Present mucous membranes moist *Routine Neck Exam Neck: Present supple, full ROM and normal carotid upstroke; Absent JVD, carotid bruit or lymphadenopathy *Routine Respiratory Exam Respiratory: Present CTA bilaterally, normal respiratory effort, able to speak in complete sentences and symmetric chest movement *Routine Cardiovascular Exam Cardiovascular: Present RRR, Normal S1 and Normal S2; Absent murmur or gallop *Routine Abdominal Exam Abdominal: Present soft and normoactive bowel sounds; Absent tenderness, distended or organomegaly *Routine Extremities Exam Extremities: Present full ROM, pulses intact and normal capillary refill; Absent cyanosis, clubbing or edema *Routine Skin Exam Skin: Present intact and warm; Absent erythema *Routine Neurological Exam Neurological: Present alert, oriented X3 and CN II-XII intact; Absent sensory deficit or motor deficit Routine Psychiatric Exam Psychiatric: Present normal affect Results Data Completed and Pending Labs on day of discharge: Labs from last 24 hours 02/23/25 02/22/25 02/22/25 05:18 15:31 11:53 WBC 6.1 5.4 D 10.0 RBC 3.45 L 3.61 L 4.12 L Hgb 10.1 L 10.7 L D 12.0 L Hct 30.8 L 31.7 L 36.0 L MCV 89.3 87.8 87.4 MCH 29.3 29.1 29.1 MCHC 32.8 33.1 33.3 RDW 14.7 14.4 14.5 Plt Count 186 198 D 282 MPV 9.3 8.8 9.0 Neut % (Auto) 65.8 77.3 74.3 Lymph % (Auto) 18.8 11.8 11.4 [place] % (Auto) 14.7 H 10.5 H 14.0 H Eos % (Auto) 0.2 0.0 L 0.0 L Baso % (Auto) 0.2 0.0 L 0.0 L Neut # (Auto) 4.0 4.2 7.4 Lymph # (Auto) 1.1 0.6 L 1.1 [place] # (Auto) 0.9 0.6 1.4 H Eos # (Auto) 0.0 0.0 0.0 Baso # (Auto) 0.0 0.0 0.0 PT 10.6 INR 0.94 APTT 22.8 D-Dimer 0.98 H Sodium 140 138 139 Potassium 4.9 D 2.9 L* 3.0 L Chloride 114 H 106 102 Carbon Dioxide 25 29 27 Anion Gap 5.9 5.9 13.0 BUN 34 H 33 H 34 H Creatinine 1.30 H 1.60 H 1.80 H Estimated Creat Clear 37 29 26 Estimated GFR 39 L 31 L 27 L Est GFR ( Amer) 48 L D 38 L 33 L Glucose 98 99 D 82 Hemoglobin A1c 5.4 Calcium 8.5 8.1 L 9.1 Magnesium 1.7 Ferritin 20.5 D Total Bilirubin 0.3 0.4 AST 36 44 H ALT 24 D 34 Alkaline Phosphatase 67 92 Troponin I < 0.01 Total Protein 5.7 L 7.3 Albumin 3.4 L D 4.8 Globulin 2.3 2.5 Albumin/Globulin Ratio 1.5 1.9 H Triglycerides 65 Cholesterol 124 L LDL Cholesterol Direct 43.62 L VLDL Cholesterol 13 HDL Cholesterol 64 H Cholesterol/HDL Ratio 1.9 Lipase 275 TSH < 0.02 L Free T4 1.41 Thyroxine (T4) 7.6 HCV Ab BETTY w/Rflx PCR Qn Negative HIV Ag/Ab Combo Qual Negative DS: Diagnosis Discharge Diagnosis (1) CAD in [place] artery: Status: Acute Code(s): I25.10 - Atherosclerotic heart disease of [place] coronary artery without angina pectoris (2) Abnormal electrocardiogram [ECG] [EKG]: Status: Acute Code(s): R94.31 - Abnormal electrocardiogram [ECG] [EKG] (3) Hyperlipemia: Status: Acute Code(s): E78.5 - Hyperlipidemia, unspecified Qualifiers: Hyperlipidemia type: mixed hyperlipidemia Qualified Code(s): E78.2 - Mixed hyperlipidemia (4) Hypertension: Status: Acute Code(s): I10 - Essential (primary) hypertension Qualifiers: Hypertension type: primary hypertension Qualified Code(s): I10 - Essential (primary) hypertension (5) Elevated d-dimer: Status: Acute Code(s): R79.89 - Other specified abnormal findings of blood chemistry Meds Home Medications and Allergies Home Medications ?Medication ?Instructions ?Recorded ?Confirmed ?Type esomeprazole magnesium 40 mg 40 mg PO DAILY 90 days 01/24/18 02/22/25 History capsule,delayed release calcium carbonate 500 mg PO BID GERD 06/29/18 02/22/25 History cholecalciferol (vitamin D3) 25 1,000 unit PO DAILY Supplement 06/29/18 02/22/25 History mcg (1,000 unit) capsule ascorbic acid (vitamin C) 1,000 mg 1 g PO DAILY 09/22/23 02/22/25 History capsule aspirin 81 mg tablet,delayed 81 mg PO DAILY 09/22/23 02/22/25 History release (Adult Aspirin Regimen) furosemide 20 mg tablet 20 mg PO BIDP PRN Fluid 02/22/25 02/22/25 History hydroxyzine pamoate 25 mg capsule 25 mg PO TID 02/22/25 02/22/25 History levothyroxine 100 mcg tablet 100 mcg PO DAILY 02/22/25 02/22/25 History (Synthroid) methylprednisolone 4 mg tablets in 4 mg PO BID 02/22/25 02/22/25 History a dose pack (Medrol (Oziel)) milnacipran 50 mg tablet (Savella) 50 mg PO DAILY 02/22/25 02/22/25 History rosuvastatin 20 mg tablet 20 mg PO HS 02/22/25 02/22/25 History tramadol 50 mg tablet 50 mg PO Q6HP PRN Pain, Moderate 02/22/25 02/22/25 History carvedilol 12.5 mg tablet 12.5 mg PO BID 30 days #60 tabs 02/23/25 Rx doxycycline hyclate 100 mg tablet 100 mg PO BID 5 days #9 tabs 02/23/25 Rx New Prescriptions to Start Prescriptions: carvedilol Jeremy Zimmerman doxycycline hyclate RosieJeremy leblanc Allergies Allergy/AdvReac Type Severity Reaction Status Date / Time hydrocodone Allergy Intermediate Hives Verified 02/22/25 14:31 milk (From MILK (FOOD/DRUG)) Allergy Intermediate I-HIVES Verified 09/28/24 10:25 strawberry (From Allergy Intermediate I-HIVES Verified 09/28/24 10:25 STRAWBERRIES (FOOD/DRUG)) tomato (From TOMATOES Allergy Intermediate I-HIVES Verified 09/28/24 10:25 (FOOD/DRUG)) oxycodone (OXYCODONE) Allergy Mild SHUT Verified 09/28/24 10:25 EVERYTHING DOWN egg Allergy Hives Verified 02/22/25 15:32 hydroxychloroquine (From Allergy Other Verified 02/22/25 14:32 Plaquenil) Milk Containing Products Allergy Hives Verified 02/22/25 15:32 (Dairy) pregabalin (From Lyrica) Allergy Swelling Verified 02/22/25 14:32 of Lip/Tongue/Throat prednisone AdvReac Intermediate ANXIOUS/EBEN Verified 09/28/24 10:25 EMILY clopidogrel AdvReac Migraine Verified 02/22/25 14:32 Discharge Plan Disposition Patient Disposition: Home, Self-Care Condition: Fair Follow up Plan Follow up with: Sherron Browne APRN [Nurse Practitioner] - 03/08/25 10:30 am () Jose Patel MD [Primary Care Provider] - 02/28/25 2:30 pm Prescriptions/Medication Reconciliation: New carvedilol 12.5 mg Tablet 12.5 mg PO BID 30 Days Qty: 60 0RF doxycycline hyclate 100 mg Tablet 100 mg PO BID 5 Days Qty: 9 0RF Continued esomeprazole magnesium 40 mg capsule,delayed release(DR/EC) 40 mg PO DAILY 90 Days Patient Comments: cholecalciferol (vitamin D3) 1,000 unit capsule 1,000 unit PO DAILY calcium carbonate 600 mg calcium (1,500 mg) tablet 500 mg PO BID aspirin [Adult Aspirin Regimen] 81 mg tablet,delayed release (DR/EC) 81 mg PO DAILY ascorbic acid (vitamin C) 1,000 mg capsule 1 g PO DAILY tramadol 50 mg tablet 50 mg PO Q6HP PRN (Reason: Pain, Moderate) Savella 50 mg Tablet 50 mg PO DAILY methylprednisolone [Medrol (Oziel)] 4 mg tablets,dose pack 4 mg PO BID Rx Instructions: Take as directed. one at breakfast and one at bedtime levothyroxine [Synthroid] 100 mcg tablet 100 mcg PO DAILY rosuvastatin 20 mg tablet 20 mg PO HS furosemide 20 mg tablet 20 mg PO BIDP PRN (Reason: Fluid) hydroxyzine pamoate 25 mg capsule 25 mg PO TID Patient Comments: TAKE ONE CAPSULE BY MOUTH THREE TIMES DAILY FOR ITCHING Discontinued amlodipine 2.5 mg Tablet 2.5 mg PO DAILY nebivolol [Bystolic] 20 mg tablet 20 mg PO DAILY Problem Reconciliation Problems Reviewed?: Yes Patient Discharge Instructions Additional Instructions: Please follow-up with your PCP within 2 weeks to recheck thyroid labs. Print Language: Wolof Providers Primary Care Provider: Jose Patel Admvi Provider: John Betancourt Attending Provider: Jeremy Zimmerman
[2025-02-23] MEDS: DOXYCYCLINE HYCL 100 MG TABLET PO (11:55)
[2025-02-23 12:00] VITALS: BP 145/72; PULSE 68; RESP 18; TEMP 36.5; O2SAT 97
--- NOTE | 2025-02-26 10:58 | SW/DCPLANNER ---
Spoke with patient on the phone. Patient stated that she is doing well. Patient stated that she is aware of her upcoming appointments. Patient stated that she was able to get her new medicine picked up from clinic pharmacy. Patient stated that she has no concerns or questions at this time. Dona Cr
== END 2025-02-23 13:30 | disposition home or self-care (01) ==
LOC: ER 12:20 → CATHLAB 12:28 → 2ND 13:26
PROVIDERS: Admitting Provider Internal Medicine; Emergency Provider Emergency Medicine; PCP Internal Medicine Adolescent Medicine; Visit Provider Student in an Organized Health Care Education/Training Program
PROC: 4A023N7 Measurement of Cardiac Sampling and Pressure, Left Heart, Percutaneous Approach (ICD-10-PCS; CPT 93452; principal; 2025-02-22 12:35)
DX: I25.110 Atherosclerotic heart disease of native coronary artery with unstable angina pectoris (principal); I12.9 Hypertensive chronic kidney disease with stage 1 through stage 4 chronic kidney disease, or unspecified chronic kidney disease; R94.31 Abnormal electrocardiogram [ECG] [EKG]; R79.89 Other specified abnormal findings of blood chemistry; R07.9 Chest pain, unspecified; Z95.1 Presence of aortocoronary bypass graft; E55.9 Vitamin D deficiency, unspecified; N17.9 Acute kidney failure, unspecified; N18.9 Chronic kidney disease, unspecified; E03.9 Hypothyroidism, unspecified; J18.9 Pneumonia, unspecified organism; E78.5 Hyperlipidemia, unspecified; Z79.899 Other long term (current) drug therapy; Z88.5 Allergy status to narcotic agent; Z88.8 Allergy status to other drugs, medicaments and biological substances; Z95.5 Presence of coronary angioplasty implant and graft; Z79.82 Long term (current) use of aspirin; Z91.011 Allergy to milk products; Z91.018 Allergy to other foods; Z91.012 Allergy to eggs
CPT/HCPCS: 36415; 71275; 80048; 80053; 80061; 82728; 83036; 83690; 83735; 84436; 84439; 84443; 84484; 85025; 85378; 85610; 85730; 86803; 87389; 93005; 93306; 93459; 99152; 99291; C1725; C1760; C1769; C1894; G0378; J1200; J1644; J3475; Q9967

== ENCOUNTER 2025-02-27 17:22 | Outpatient (CLI) | payer MEDICARE, SELFPAY ==
--- NOTE | 2025-02-27 17:30 | MR_ITS ---
PROCEDURE INFORMATION: Exam: MR Lumbar Spine Without Contrast Exam date and time: 02/27/2025 5:29 PM Age: 79 years old Clinical indication: Low back pain; Lower back pain with pain going into right hip and knee; Additional info: Lumbar forminal stenosis TECHNIQUE: Imaging protocol: Magnetic resonance imaging of the lumbar spine without contrast. COMPARISON: CT ABDOMEN PELVIS W CON 04/10/2023 10:56 FINDINGS: Bones/joints: Bone marrow edema in the endplates of L2-L4 are most likely related to [place] type degenerative changes. Spinal cord: Visualized cord, conus medullaris and cauda equina are unremarkable without compression. L1-L2: Disc bulge combines with facet hypertrophy to produce moderate spinal stenosis, moderate left subarticular recess stenosis, mild right and moderate left neural foraminal stenosis. L2-L3: Disc bulge combines with facet and ligamentum flavum hypertrophy to produce moderate spinal stenosis, moderate left subarticular recess stenosis, and moderate left neural foraminal stenosis. L3-L4: Disc bulge combines with ligamentum flavum and facet hypertrophy to produce severe spinal stenosis, moderate to severe bilateral subarticular recess stenosis, and bilateral severe neural foraminal stenosis. L4-L5: Disc bulge combines with ligamentum flavum and facet hypertrophy to produce severe spinal stenosis, severe bilateral subarticular recess stenosis, and moderate bilateral neural foraminal stenosis. Bilateral facet joint effusions, likely degenerative. L5-S1: Disc bulge effacing the ventral aspect of the thecal sac. Mild right neural foraminal stenosis. Bilateral facet joint effusions, likely degenerative. Soft tissues: Unremarkable. IMPRESSION: No acute findings. Multilevel degenerative changes producing up to severe spinal stenosis at L3-L4 and L4-L5. Please see details above.
== END 2025-02-27 23:59 | disposition home or self-care (01) ==
LOC: RAD 17:23
PROVIDERS: PCP Internal Medicine Adolescent Medicine; Visit Provider Internal Medicine Adolescent Medicine
DX: M48.061 Spinal stenosis, lumbar region without neurogenic claudication (principal); M47.816 Spondylosis without myelopathy or radiculopathy, lumbar region; M99.73 Connective tissue and disc stenosis of intervertebral foramina of lumbar region; M99.63 Osseous and subluxation stenosis of intervertebral foramina of lumbar region
CPT/HCPCS: 72148

== ENCOUNTER 2025-02-28 11:01 | Outpatient (POV) | payer MEDICARE, SELFPAY ==
[2025-02-28 12:05] VITALS: BP 154/70; PULSE 70; RESP 18; O2SAT 97; BMI 26.6
--- NOTE | 2025-02-28 12:52 | EXP.PAIN.OV ---
HPI Data of Consult Patient: new to practice Consult date: 02/28/25 Requesting Physician: Caren Otero APRN Primary Care Provider: Jose Patel MD Reason for consult: Low back pain, right hip pain, right knee pain History of present illness: Ms. Dotson is a 79 year old female who presents today as a new patient. She is a referral from Dr. Patel's office. Today she rates her pain an 8 out of 10. Patient states her pain is all across her low back and right hip as well as some chronic right knee pain. Patient does state that she had a right hip replacement in the past. Patient states this is a fairly constant aching, throbbing sensation that does interfere with her ability perform activities of daily living such as cooking and cleaning. Patient states she has had this pain for about 2 years unrelated to any specific trauma or injury. Patient has tried oral medication, heat and ice and topicals with minimal relief. Patient has been to physical therapy but felt like it made no difference. Patient has also been seeing chiropractor therapy over the last 2 years however has not noticed much improvement. Patient does state the pain is worse with prolonged positioning such as sitting or standing and that she frequently has to change positions due to the worsening pain. Patient denies any injections in the back or surgery in the back. Patient has had some injections for her hip and right knee including gel injections. Patient does state that she has recently had an MRI however she has not been given the results of it. Patient is asking if we can review over the findings at today's visit. Patient does state that she is not having any radiating symptoms into her legs currently. Her Adrián has been reviewed and is appropriate. Pain at rest (0-10 scale): 8 Has patient had previous pain injection?: No Conservative treatment options previously tried: Home exercise plan (Longer than 12 weeks), Physical Therapy (Previous no change) and Chiropractor (Previous no change) cc:: CC: Caren Otero APRN [facility] Disclaimer: The information contained in this section may have been updated after the patient was seen, as this information can be updated by other users. 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: No Exposed to someone with COVID-19 in past 14 days?: No Do you have a sore throat?: No Do you have a cough?: No Do you have any weakness?: No Are you experiencing any nausea/vomitting?: No Do you have any diarrhea?: No Are you experiencing any unusual bleeding?: No Do you have any muscle aches/pain?: No Do you have any abdominal pain?: No Are you experiencing loss of taste or smell?: No Review of Systems Review of Systems Review of systems:: pertinent systems reviewed and negative unless documented below Review of systems (narrative): Review of Systems: General: No recent weight changes, no fever, no sleep disturbances Respiratory: No cough, no shortness of air, no recurring pulmonary infections Cardiovascular/peripheral vascular: No chest pain, no palpitations, no edema, no shortness of breath Gastrointestinal: No new onset incontinence, normal bowel movements reported Genitourinary: No new onset incontinence Musculoskeletal: Low back pain, right hip pain, right knee pain Psychiatric: [Normal mood/affect] Neurological: [Denies weakness in extremities], [denies balance issues] Meds Home Medications and Allergies Home Medications ?Medication ?Instructions ?Recorded ?Confirmed ?Type esomeprazole magnesium 40 mg 40 mg PO DAILY 90 days 01/24/18 02/28/25 History capsule,delayed release calcium carbonate 500 mg PO BID GERD 06/29/18 02/28/25 History cholecalciferol (vitamin D3) 25 1,000 unit PO DAILY Supplement 06/29/18 02/28/25 History mcg (1,000 unit) capsule ascorbic acid (vitamin C) 1,000 mg 1 g PO DAILY 09/22/23 02/28/25 History capsule aspirin 81 mg tablet,delayed 81 mg PO DAILY 09/22/23 02/28/25 History release (Adult Aspirin Regimen) furosemide 20 mg tablet 20 mg PO BIDP PRN Fluid 02/22/25 02/28/25 History hydroxyzine pamoate 25 mg capsule 25 mg PO TID 02/22/25 02/28/25 History levothyroxine 100 mcg tablet 100 mcg PO DAILY 02/22/25 02/28/25 History (Synthroid) milnacipran 50 mg tablet (Savella) 50 mg PO DAILY 02/22/25 02/28/25 History rosuvastatin 20 mg tablet 20 mg PO HS 02/22/25 02/28/25 History tramadol 50 mg tablet 50 mg PO Q6HP PRN Pain, Moderate 02/22/25 02/28/25 History carvedilol 12.5 mg tablet 12.5 mg PO BID 30 days #60 tabs 02/23/25 02/28/25 Rx doxycycline hyclate 100 mg tablet 100 mg PO BID 5 days #9 tabs 02/23/25 02/28/25 Rx New Prescriptions to Start Prescriptions: Allergies Allergy/AdvReac Type Severity Reaction Status Date / Time hydrocodone Allergy Intermediate Hives Verified 02/22/25 14:31 milk (From MILK (FOOD/DRUG)) Allergy Intermediate I-HIVES Verified 09/28/24 10:25 strawberry (From Allergy Intermediate I-HIVES Verified 09/28/24 10:25 STRAWBERRIES (FOOD/DRUG)) tomato (From TOMATOES Allergy Intermediate I-HIVES Verified 09/28/24 10:25 (FOOD/DRUG)) oxycodone (OXYCODONE) Allergy Mild SHUT Verified 09/28/24 10:25 EVERYTHING DOWN egg Allergy Hives Verified 02/22/25 15:32 hydroxychloroquine (From Allergy Other Verified 02/22/25 14:32 Plaquenil) Milk Containing Products Allergy Hives Verified 02/22/25 15:32 (Dairy) pregabalin (From Lyrica) Allergy Swelling Verified 02/22/25 14:32 of Lip/Tongue/Throat prednisone AdvReac Intermediate ANXIOUS/EBEN Verified 09/28/24 10:25 EMILY clopidogrel AdvReac Migraine Verified 02/22/25 14:32 Objective Vital signs: Pulse Resp BP Pulse Ox O2 Del Method 70 18 154/70 H 97 Room Air 02/28/25 12:05 02/28/25 12:05 02/28/25 12:05 02/28/25 12:05 02/28/25 12:05 Narrative: Physical Exam: General: Alert and oriented x3, no acute distress, pleasant and cooperative Lungs: Respirations even and unlabored, symmetrical chest expansion Eyes: PERRL Musculoskeletal: Flexion and extension of lumbar [spine] somewhat guarded secondary to pain, [antalgic gait noted] point tenderness along right SI with positive right Helene's, Edgar's, Gaenslen's, compression and distraction exam Neurological: Speech clear, no gross sensory deficit Assessment and Plan *Assessment and plan (1) Degenerative disc disease: Status: Acute Category: Medical (2) Sacroiliitis: Status: Acute Category: Medical Code(s): M46.1 - Sacroiliitis, not elsewhere classified (3) Chronic pain of right knee: Status: Acute Category: Medical Code(s): M25.561 - Pain in right knee; G89.29 - Other chronic pain (4) Right hip pain: Status: Resolved Category: Medical Code(s): M25.551 - Pain in right hip Plan Patient is experiencing worsening pain along the low back and right hip. They did have limited range of motion of the lumbar spine along with point tenderness along her right SI joint and a positive right Helene's, Edgar's, Gaenslen's, compression and distraction exam. I did discuss with the patient that I do believe they would benefit from right SI injections. Risk and benefits were discussed with the patient and they would like to proceed forward with this option. Patient has tried and failed conservative therapy including, oral medications, heat and ice, topicals, and continued at home stretching exercise for longer than 12 weeks that was physician guided. Patient has had this pain for longer than 2 years. Patient has also done physical therapy and chiropractor therapy with no additional changes. If the patient does get significant relief following these injections we will see in the future if they would benefit from a second set with the possibility of SI fusion at a later date. This will be a diagnostic injection with less than 1 mL solution to be injected. Patient will be scheduled for right SI injection under fluoroscopy. I will order the patient a compounded cream. I did also review of her her most up-to-date MRI and send her with a copy. Patient has been instructed to contact the clinic with any concerns before the next appointment. Dr. Rodriguez has reviewed this note and agrees with this plan of care. This note was dictated using voice recognition software and make contain errors or omissions. All injections are used with Lidocaine or Bupivacaine and dexamethasone.
== END 2025-02-28 23:59 | disposition home or self-care (01) ==
PROVIDERS: PCP Internal Medicine Adolescent Medicine; Visit Provider Nurse Practitioner Family
DX: M46.1 Sacroiliitis, not elsewhere classified (principal); M25.561 Pain in right knee; G89.29 Other chronic pain; M25.551 Pain in right hip; Z96.641 Presence of right artificial hip joint; Z73.89 Other problems related to life management difficulty
CPT/HCPCS: 99202; G0463

== ENCOUNTER 2025-03-16 11:11 | Outpatient (CLI) | payer MEDICARE, SELFPAY ==
--- NOTE | 2025-03-16 11:17 | XR_ITS ---
FINAL REPORT CLINICAL HISTORY: KNEE PAIN,RIGHT COMPARISON: 08/18/2023 FINDINGS: RIGHT KNEE: There is no acute fracture or dislocation. There is mild narrowing of the lateral compartment. Small osteophytes are present on the posterior aspect of the patella. A small joint effusion is present. IMPRESSION: Mild degenerative change without acute bony abnormality. Reviewed, Interpreted and Dictated by Bretrand Madera MD Transcribed by Marlys George Authenticated and [facility]
== END 2025-03-16 23:59 | disposition home or self-care (01) ==
LOC: RAD 11:11
PROVIDERS: PCP Internal Medicine Adolescent Medicine; Visit Provider Internal Medicine Adolescent Medicine
DX: M17.11 Unilateral primary osteoarthritis, right knee (principal)
CPT/HCPCS: 73562

== ENCOUNTER 2025-03-27 10:22 | Day surgery (SDC) | payer MEDICARE, SELFPAY ==
[2025-03-27 10:35] VITALS: BP 145/71; PULSE 68; RESP 16; O2SAT 93; BMI 26.3
[2025-03-27] MEDS: LIDOCAINE 1% 5ML PF VIAL 5 ML (10:47)
[2025-03-27] MEDS: DEXAMETHASONE 10MG/ML 1ML VIAL 10 MG (10:47)
[2025-03-27] MEDS: BUPIVACAINE 0.25% 10ML INJ 25 MG IJ (10:47)
[2025-03-27 10:51] VITALS: BP 145/71; PULSE 68; RESP 18; O2SAT 93
[2025-03-27 10:53] VITALS: BP 145/71; PULSE 68; RESP 18; O2SAT 93
--- NOTE | 2025-03-27 10:56 | P.PCN_ITS ---
Procedure Date: 03/27/25 Time: 10:45 Anesthesiologist:: Radu Light CRNA Complications:: None Pre-procedure Diagnosis:: Right sacroiliitis Post-procedure Diagnosis:: Same Indications for Procedure:: Patient very pleasant 79-year-old female who comes our clinic today for right sacroiliac joint injection cortisone local anesthetic. Patient describes low lumbar back pain off the midline to the right. Right posterior hip pain. Difficulty transitioning from sitting to standing. She also reports difficulty with ambulation due to the right posterior hip pain. She rates her pain 7/10. Procedure Details:: Procedure: Right sacroliliac joint injection under fluoroscopy Informed consent was obtained and the risk and benefits of the procedure were explained to the patient.~ The patient was taken to the procedure room and noninvasive monitors were placed including noninvasive blood pressure cuff and pulse oximeter.~ The patient was placed prone on the procedure table.~ The~ right hip was cleansed using Betadine as a cleansing solution.~ C-arm fluorosocpy was used to view the right SI joint.~ The skin and subcutaneous tissues were anesthetized using Lidocaine 1.5% and a 25-gauge needle.~ After this, a 22-gauge spinal needle was inserted under fluoroscopic guidance into the inferior aspect of the right SI joint.~ Omnipaque dye was injected and a good spread was seen throughout the joint.~ After this, approximately 5 mL of bupi vacaine 0.25% and Depo-Medrol 40 mg was incrementally injected into the sacroiliac joint.~ The patient tolerated the procedure well with no complications.~ The patient was observed in the Pain Clinic, then discharged home neurologically intact.~ Plan and Disposition:: Patient was discharged without incident.
[2025-03-27 11:01] VITALS: BP 133/66; PULSE 63; RESP 16; O2SAT 95
== END 2025-03-27 11:01 | disposition home or self-care (01) ==
PROVIDERS: PCP Internal Medicine Adolescent Medicine; Visit Provider Nurse Anesthetist, Certified Registered
DX: M46.1 Sacroiliitis, not elsewhere classified (principal); I25.10 Atherosclerotic heart disease of native coronary artery without angina pectoris; I25.110 Atherosclerotic heart disease of native coronary artery with unstable angina pectoris; E55.9 Vitamin D deficiency, unspecified; I10 Essential (primary) hypertension; E78.5 Hyperlipidemia, unspecified; G89.29 Other chronic pain; M25.562 Pain in left knee; M25.561 Pain in right knee; Z95.1 Presence of aortocoronary bypass graft; Z96.619 Presence of unspecified artificial shoulder joint; Z96.649 Presence of unspecified artificial hip joint; Z79.899 Other long term (current) drug therapy; Z79.82 Long term (current) use of aspirin; Z79.890 Hormone replacement therapy; Z88.6 Allergy status to analgesic agent; Z91.012 Allergy to eggs; Z91.011 Allergy to milk products; Z88.8 Allergy status to other drugs, medicaments and biological substances; Z91.018 Allergy to other foods
CPT/HCPCS: G0260; J0665; J1100; J2003

== ENCOUNTER 2025-04-12 13:08 | Outpatient (POV) | payer MEDICARE, SELFPAY ==
--- OUTSIDE RECORDS SUMMARY | 2025-04-12 13:14 | XMS_ITS | Encounter Summary ---
Author Organization Healthcare Address [address] [place] [address] Care Team Providers Care Telegraph Service Clerk Name Role Phone Jose Patel MD Primary Care Provider [phone] Encounter Details Date Type Department Care Team (Latest Contact Info) Description 03/12/2025 Travel Social History Tobacco Use Types Packs/Day Years Used Date Smoking Tobacco: Never Assessed Comments Unknown Sex and Gender Information Value Date Recorded Sex Assigned at Not on file Legal Sex Female 7:39 PM EDT Gender Identity Not on file Sexual Orientation Not on file documented as of this encounter Plan of Treatment Upcoming Encounters Date Type Department Care Team (Late st Contact Info) Description 03/26/2026 2:00 PM EDT Ovarian Cancer Screening [facility] [address] [facility] [address] [place] [id number] documented as of this encounter Visit Diagnoses Not on filedocumented in this encounter Care Teams Telegraph Service Clerk Relationship Specialty Start Date End Date Jose Patel MD [address] [place] [address] [place] [address] PCP - General 05/27/21 documented as of this encounter
--- OUTSIDE RECORDS SUMMARY | 2025-04-12 13:14 | XMS_ITS | Data Portability ---
Author Organization [facility] Address [address] [place] [id number] Assessment Encounter Date Assessment Date Assessment LastModified by Organization Details LastModified Time 07/11/2024 07/11/2024 Ms. Dotson is a 78-year-old female referred to us for: 1) chronic idiopathic constipation 2) flatulence - continue fiber supplement but switch to something less bloating such as Citrucel to bulk stool and help alleviate straining - prescribed Linzess 72 mcg ( samples given) instructed patient that she may initially have diarrhea up until about 2 weeks after starting it. I recommend MiraLax bowel cleanse prior to starting to help alleviate some of the initial constipation (5 packet samples of MiraLax given 2 mixed in 32 oz Gatorade) -Ingest 20 to 30 g of insoluble fiber per day -Drink 6-8 glasses of water daily to ensure adequate hydration -Refrain from straining or lingering (eg reading) on the toilet. -Practice regular physical exercise -Limit intake of fatty foods and alcohol, which can exacerbate constipation 3) colorectal cancer screening - last colonoscopy 3 years ago without polyps - guidelines do not recommend any more screening colonoscopies after age 75 f/u 4-8 weeks [email or web address] Not available 07/11/2024 23:18:50 10/03/2024 10/03/2024 Colorectal cancer screening - last colonoscopy 3 years ago without polyps - guidelines do not recommend any more screening colonoscopies after age 75 She would like to follow up as needed. [email or web address] Not available 10/03/2024 16:51:27 Plan of Treatment Reminders Order Date Submit Date Provider Last Modified By Organization Details Last Modified Time Details Appointments None recorded. Lab None recorded. Referral None recorded. Procedures None recorded. Surgeries None recorded. Imaging None recorded. Medication Orders Linzess 72 mcg capsule 024 024 [facility], [address] [place] [address], [phone], 4 12:00:51 Patient TargetsNo targets recorded. Patient InstructionsNo instructions recorded. Reason for Referral None Reported. Medical Equipment None Reported. Allergies Allergen ID Allergen Name Allergen Category Reaction Reaction Severity Criticality Documentation Date Start Date Code Code System Note Provider Name and Address Organization Details Recorded Time 856218 Lyrica medicatio n Not available Not available Not available 07/11/2024 22676 1 RxNorm Sanna Covarrubias man RUSTAM [facility] & [place] 4 11:16:58 [id number] prednison e medicatio n Not available Not available Not available 07/11/2024 8640 RxNorm Sanna Covarrubias man RUSTAM Mccord [facility] & [place] 4 11:17:23 [id number] Oxycontin medicatio n Not available Not available Not available 07/11/2024 96541 6 RxNorm Sanna conway RUSTAM [facility] & [place] 4 11:17:32 [id number] Xeljanz medicatio n Not available Not available Not available 07/11/2024 88762 42 RxNorm Sanna conway RUSTAM [facility] & [place] 4 11:17:58 Medications Name Sig Start Date Stop Date Status Note LastModified by Organization Details LastModified Time cyclobenzap rine 10 mg tablet TAKE 1 TABLET BY MOUTH THREE TIMES DAILY NEEDED FOR MUSCLE SPASM active Not Available Not Available No t Available clonidine HCl 0.1 mg tablet TAKE ONE TABLET BY MOUTH TWICE DAILY 10/01 completed Not Available Not Available Not Available cetirizine 10 mg tablet TAKE ONE TABLET BY MOUTH EVERY DAY active Not Available Not Available No t Available Synthroid 100 mcg tablet TAKE ONE TABLET BY MOUTH EVERY DAY active Not Available Not Available No t Available methylpredn isolone 4 mg tablet TAKE ONE TABLET BY MOUTH EVERY DAY --TAKE WITH FOOD-- 10/01 completed Not Available Not Available Not Available clindamycin HCl 150 mg capsule TAKE ONE CAPSULE BY MOUTH EVERY 6 HOURS FOR 7 DAYS -- FINISH ALL MEDICINE -- 10/01 completed Not Available Not Available Not Available cyanocobala min (vit B-12) 1,000 mcg tablet TAKE ONE TABLET BY MOUTH EVERY DAY 10/01 completed Not Available Not Available Not Available valsartan 80 mg tablet TAKE ONE TABLET BY MOUTH EVERY DAY 10/01 completed Not Available Not Available Not Available Nexium 40 mg capsule,del ayed release Take 1 capsule every day by oral route. active Not Available Not Available No t Available amlodipine 2.5 mg tablet TAKE ONE TABLET BY MOUTH EVERY DAY 10/01 completed Not Available Not Available Not Available potassium chloride ER 10 mEq tablet,exte nded release TAKE ONE TABLET BY MOUTH EVERY DAY active Not Available Not Available No t Available acetaminoph en 300 mg-codeine 30 mg tablet TAKE ONE TABLET BY MOUTH EVERY 4 TO 6 HOURS NEEDED MAY CAUSE DROWSINES S active Not Available Not Available No t Available clopidogrel 75 mg tablet TAKE ONE TABLET BY MOUTH EVERY DAY 10/01 completed Not Available Not Available Not Available chlorthalid one 25 mg tablet TAKE ONE TABLET BY MOUTH EVERY DAY 10/01 completed Not Available Not Available Not Available amlodipine 5 mg tablet TAKE ONE TABLET BY MOUTH EVERY DAY 10/01 completed Not Available Not Available Not Available aspirin 81 mg tablet,karen yed release TAKE ONE TABLET BY MOUTH EVERY DAY active Not Available Not Available No t Available tramadol 50 mg tablet TAKE ONE TABLET BY MOUTH EVERY 6 HOURS NEEDED MAY CAUSE DROWSINES S active Not Available Not Available No t Available meclizine 25 mg tablet TAKE ONE TABLET BY MOUTH ONCE DAILY NEEDED active Not Available Not Available No t Available lidocaine 5 % topical patch APPLY 1 PATCH TOPICALLY TO THE AFFECTED AREA ONCE DAILY AND LEAVE IN PLACE FOR 12 HOURS, THEN REMOVE AND LEAVE OFF FOR 12 HOURS active Not Available Not Available No t Available Synthroid 75 mcg tablet TAKE ONE TABLET BY MOUTH EVERY DAY active Not Available Not Available No t Available betamethaso ne dipropionat e 0.05 % topical cream APPLY TOPICALLY TO THE AFFECTED AREA(S) TWICE DAILY active Not Available Not Available No t Available Tylenol 325 mg tablet Take 2 tablets every 6 hours by oral route. active Not Available Not Available No t Available furosemide 20 mg tablet TAKE ONE TABLET BY MOUTH TWICE DAILY NEEDED active Not Available Not Available No t Available gabapentin 100 mg capsule TAKE 1 CAPSULE BY MOUTH THREE TIMES DAILY MAXIMUM DAILY AMOUNT 300 MG 10/01 completed Not Available Not Available Not Available methylpredn isolone 4 mg tablets in a dose pack TAKE ACCORDING TO PACKAGE INSTRUCTI ONS --TAKE WITH FOOD-- -- FINISH ALL MEDICINE -- 10/01 completed Not Available Not Available Not Available diltiazem 60 mg tablet TAKE ONE TABLET BY MOUTH TWICE DAILY 10/01 completed Not Available Not Available Not Available Asprin Ec Low Dose 81 mg tablet,karen yed release Take 1 tablet every day by oral route. active Not Available Not Available No t Available valsartan 40 mg tablet TAKE ONE TABLET BY MOUTH EVERY DAY 10/01 completed Not Available Not Available Not Available rosuvastati n 20 mg tablet TAKE ONE TABLET BY MOUTH EVERY DAY AT BEDTIME active Not Available Not Available No t Available Crestor 10 mg tablet Take 1 tablet every day by oral route. active Not Available Not Available No t Available chlorhexidi ne gluconate 0.12 % mouthwash FILL SUPPLIED CUP (1/2 OUNCE); SWISH IN MOUTH FOR 30 SECONDS TWICE DAILY (AFTER BREAKFAST & BEFORE BEDTIME). SWISH THEN EXPEL REMAINDER OR USE DIRECTED 10/01 completed Not Available Not Available Not Available Synthroid active Not Available Not Apurva ilable Not Available FeroSul 325 mg (65 mg iron) tablet TAKE ONE TABLET BY MOUTH EVERY DAY active Not Available Not Available No t Available Bystolic 20 mg tablet TAKE ONE TABLET BY MOUTH EVERY DAY active Not Available Not Available No t Available Savella 100 mg tablet TAKE ONE TABLET BY MOUTH TWICE DAILY active Not Available Not Available No t Available Jardiance 10 mg tablet TAKE ONE TABLET BY MOUTH EVERY DAY 10/01 completed Not Available Not Available Not Available vit C 1,000 mg-multivit -minerals-M SM 1,000 mg oral efferv powder pack Take by oral route. 10/01 completed Not Available Not Available Not Available Metamucil 0.4 gram capsule Take by oral route. 10/01 completed Not Available Not Available Not Available Linzess 72 mcg capsule TAKE ONE CAPSULE BY MOUTH EVERY DAY 10/01 completed Not Available Not Available Not Available Rinvoq 15 mg tablet,exte nded release 10/03 completed Not Available Not Available Not Available Vitals Date Recorded Body weight Body mass index (BMI) Body height Body temperature Oxygen saturation Oxygen saturation in Arterial blood by Pulse oximetry Heart rate Heart rate Systolic blood pressure Diastolic blood pressure Provider Name and Address Organization Details Last Updated DateTime 4 24489.6 4 g 26.8 kg/m2 157.48 cm 97.6 [degF] 100 % 100 % 61 /min 68 /min 128 mm[Hg] 73 mm[Hg] Sanna Covarrubias [facility] & [place] 11:16:02 Date Recorded Body height Body mass index (BMI) Body weight Oxygen saturation Oxygen saturation in Arterial blood by Pulse oximetry Heart rate Heart rate Body temperature Systolic blood pressure Diastolic blood pressure Provider Name and Address Organization Details Last Updated DateTime 4 157.48 cm 26.4 kg/m2 52110.1 g 100 % 100 % 79 /min 78 /min 97.6 [degF] 156 mm[Hg] 82 mm[Hg] [facility] [place] [facility] [place] 11:20:17 Social History Question Answer Notes LastModified by [employer] Details LastModified Time Tobacco Smoking Status Never Smoker Sanna Covarrubias [facility] & [place] 07/11/2024 11:20:27 What Is Your Level Of Caffeine Consumption? Moderate [email or web address] Information not available 07/11/2024 Sex: Female Functional Status Question Answer Note LastModified by [employer] Details LastModified Time Do you use any illicit or recreational drugs? No [email or web address] Information not available 07/11/2024 Do you or have you ever used any other forms of tobacco or nicotine? No [email or web address] Information not available 07/11/2024 What is your level of alcohol consumption? None [email or web address] Information not available 07/11/2024 Mental Status None recorded. Family History Nothing Reported. Medical History No medical history recorded. Gynecological HistoryNo gynecological history recorded. Obstetrics History GPAL:G 0 P 0 0 0 0 Past Encounters Encounter ID Performer Location Encounter Start Date Encounter Closed Date Diagnosis/Indication Diagnosis SNOMED-CT Code Diagnosis ICD10 Code Diagnosis Note [id number] JUANI MILAN NP [facility] [address] [place] [address] 07/11/2024 10:56:44 07/11/2024 11:55:31 Chronic idiopathic constipation 35565359 K59.04 Flatulence symptom 29421 8004 R14.3 Screening for malignant neoplasm of colon 419926436 Z12.11 [id number] ELLI CAREY NP [facility] [address] [place] [address] 10/03/2024 11:05:29 10/03/2024 11:39:35 Chronic idiopathic constipation 65597817 K59.04 Recommend docusate sodium OTC daily to twice daily, adjusting to avoid loose stools. Advised she adjust citrucel dose as well. Stressed adequate water intake. Health Concerns Section Related Observation LastModified by Organization Detai ls LastModified Time None Recorded Concern Status LastModified by Organization Details LastModified Time None Recorded Advance Directives Directive None Recorded Payers Insurance Date Sequence Insurance Name Policy Number Policy Rios Covered Member ID Rios Member ID Guarantor Name 07/11/2024 2 [employer] (PPO) Bibiana Dotson [id number] Bibiana Dotson 09/30/2024 1 [employer] (MEDICARE REPLACEMENT/A DVANTAGE - PPO) Bibiana Dotson [id number] Bibiana Dotson Notes Date Note Type Note Provider Name and Address Organization Details Recorded Time 07/11/2024 text/html Current ( Gama Milan): Ms. Dotson is a 78-year-old female referred to us by Dr. Mccarthy for inflammatory bowel Syndrome. patient reports she saw Dr. Yo in the past for constipation and was prescribed a medication. On review of different constipation medication she thinks that it was Linzess. she reports multiple days without bowel movements, increased flatulence with foul odor and hard pebble stool. She does have occasional diarrhea that we will leave it occur at night. She is currently taking Metamucil. She denies any blood in her stool. No issues with dysphagia, abdominal pain, unintentional weight loss, nausea or vomiting. JUANI MILAN NP [address] [facility], [place], [address], [place] - [facility] - [place] & [place] 07/11/2024 23:19:20 10/03/2024 text/html PREVIOUS (07/11/2024 Rachel Milan): Ms. Dotson is a 78-year-old female referred to us by Dr. Mccarthy for inflammatory bowel Syndrome. patient reports she saw Dr. Yo in the past for constipation and was prescribed a medication. On review of different constipation medication she thinks that it was Linzess. she reports multiple days without bowel movements, increased flatulence with foul odor and hard pebble stool. She does have occasional diarrhea that we will leave it occur at night. She is currently taking Metamucil. She denies any blood in her stool. No issues with dysphagia, abdominal pain, unintentional weight loss, nausea or vomiting. CURRENT: Ms. Dotson is a 79 yr old female here today for follow up.At her last visit it was recommended she complete Miralax bowel cleanse prior to starting Linzess 72 mcg daily. She says 3 days into using Linzess she was experiencing severe diarrhea, including nocturnal symptoms. She restarted 1 week later with the same outcome. She occasionally takes a small dose of Miralax, but is very sensitive and prone to diarrhea. She takes Citrucel every other day. her bowels currently move daily. She reports hard pieces of stool that are painful to pass and require straining. No abdominal pain or blood in stool. She recently increased her water intake to 5 glasses per day. She is leaving for [place] and will be gone for 3 months. ELLI CAREY, MARY [address] [facility], [place], [address], [place] - [facility] - [place] & [place] 10/03/2024 16:51:41 OBGyn Episode No OBEpisode recorded.
--- OUTSIDE RECORDS SUMMARY | 2025-04-12 13:14 | XMS_ITS | Clinical Summary ---
Author Organization [facility] Address [address] [place] [address] Care Team Providers Care Handbag Operator Name Role Phone Jose Patel MD Primary Care Provider [phone] Encounters Date Type Department Care Team Description 03/12/2025 Travel from Last 3 Months Social History Tobacco Use Types Packs/Day Years Used Date Smoking Tobacco: Never Assessed Comments Unknown Sex and Gender Information Value Date Recorded Sex Assigned at Not on file Legal Sex Female 7:39 PM EDT Gender Identity Not on file Sexual Orientation Not on file Plan of Treatment Upcoming Encounters Date Type Department Care Team (Late st Contact Info) Description 03/26/2026 2:00 PM EDT Ovarian Cancer Screening [facility] [address] [place] [id number] Health Maintenance Due Date Last Done Comments [facility]-Bone Density Scan 1944 [facility]-Depression Screening 1944 [facility]-Medicare Annual Wellness (AWV) 1945 [facility]-/Child/Adol SDOH Screenings 1944 [facility]- SDOH Screenings 1962 [facility]-Adult SDOH Screenings 1962 [facility]-Pneumococcal Vaccine: 50+ Years (1 of 1 - PCV) 1994 [facility]-DTaP,Tdap,and Td Vaccines (1 - Tdap) 12/20/1996 12/19/1996 [id number] Vaccine (2023- season) 2024 09/08/2022, 12/10/2020, 11/14/2020 [facility]-Hepatitis A Vaccines Aged Out 09/28/2018 No longer eligible based on patient's age to complete this topic [facility]-Zoster Vaccines Completed 12/28/2018, 8 [facility]-Diabetes: Hemoglobin A1C Discontinued 03/25/2023, 07/08/2020 [facility]-RSV Vaccine: 60+ Years or Completed 09/01/2023 [facility]-Influenza Vaccine Completed 08/30/2024 , 08/26/2023, 07/03/2022, Additional history exists HPV Vaccines Aged Out No longer eligi ble based on patient's age to complete this topic [facility]-HIB Vaccines Aged Out No longer e ligible based on patient's age to complete this topic [facility]-IPV Vaccines Aged Out No longer e ligible based on patient's age to complete this topic [facility]-Rotavirus Vaccines Aged Out No lo nger eligible based on patient's age to complete this topic Insurance [facility] MEDICARE Care Teams Handbag Operator Relationship Specialty Start Date End Date Jose Patel MD [address] [place] [address] [place] [id number] PCP - General 05/27/21
[2025-04-12 13:18] VITALS: BP 134/81; PULSE 66; RESP 14; O2SAT 96; BMI 25.6
--- NOTE | 2025-04-12 14:03 | EXP.PAIN.SOA ---
[facility] Disclaimer: The information contained in this section may have been updated after the patient was seen, as this information can be updated by other users. 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 Today she rates her pain a 7 out of 10. Patient states that it did help with this injection however she did not notice a huge amount of improvement. She states she is still having right hip pain however does state the back is a little bit better. Patient denies any new falls or injuries. She does state the pain is worse with certain positions and that it is interfering with her ability perform activities of daily living such as cooking and cleaning. Patient was ordered compounded cream at our last visit however she states she never heard anything additionally from this pharmacy. She states that she had tried calling them back but never got another phone call. Her Adrián has been reviewed and is appropriate. Review of Systems: General: No recent weight changes, no fever, no sleep disturbances Respiratory: No cough, no shortness of air, no recurring pulmonary infections Cardiovascular/peripheral vascular: No chest pain, no palpitations, no edema, no shortness of breath Gastrointestinal: No new onset incontinence, normal bowel movements reported Genitourinary: No new onset incontinence Musculoskeletal: Right hip pain Psychiatric: [Normal mood/affect] Neurological: [Denies weakness in extremities], [denies balance issues] Pain at rest (0-10 scale): 7 Objective Objective:: Physical Exam: General: Alert and oriented x3, no acute distress, pleasant and cooperative Lungs: Respirations even and unlabored, symmetrical chest expansion Eyes: PERRL Musculoskeletal: Flexion and extension of right hip somewhat guarded secondary to pain, [antalgic gait noted] point tenderness along right greater trochanteric bursa Neurological: Speech clear, no gross sensory deficit Has patient had previous pain injection?: Yes Percent improvement in pain since last injection: Moderate Conservative treatment options previously tried: Home exercise plan Length of treatment: Longer than 12 weeks Meds Home Medications and Allergies Home Medications ?Medication ?Instructions ?Recorded ?Confirmed ?Type esomeprazole magnesium 40 mg 40 mg PO DAILY 90 days 01/24/18 04/12/25 History capsule,delayed release calcium carbonate 500 mg PO BID GERD 06/29/18 04/12/25 History cholecalciferol (vitamin D3) 25 1,000 unit PO DAILY Supplement 06/29/18 04/12/25 History mcg (1,000 unit) capsule ascorbic acid (vitamin C) 1,000 mg 1 g PO DAILY 09/22/23 04/12/25 History capsule aspirin 81 mg tablet,delayed 81 mg PO DAILY 09/22/23 04/12/25 History release (Adult Aspirin Regimen) furosemide 20 mg tablet 20 mg PO BIDP PRN Fluid 02/22/25 04/12/25 History hydroxyzine pamoate 25 mg capsule 25 mg PO TID 02/22/25 04/12/25 History levothyroxine 100 mcg tablet 100 mcg PO DAILY 02/22/25 04/12/25 History (Synthroid) milnacipran 50 mg tablet (Savella) 50 mg PO DAILY 02/22/25 04/12/25 History rosuvastatin 20 mg tablet 20 mg PO HS 02/22/25 04/12/25 History tramadol 50 mg tablet 50 mg PO Q6HP PRN Pain, Moderate 02/22/25 04/12/25 History carvedilol 12.5 mg tablet 12.5 mg PO BID 30 days #60 tabs 02/23/25 04/12/25 Rx doxycycline hyclate 100 mg tablet 100 mg PO BID 5 days #9 tabs 02/23/25 04/12/25 Rx New Prescriptions to Start Prescriptions: Allergies Allergy/AdvReac Type Severity Reaction Status Date / Time hydrocodone Allergy Intermediate Hives Verified 04/05/25 10:17 milk (From MILK (FOOD/DRUG)) Allergy Intermediate I-HIVES Verified 04/05/25 10:17 strawberry (From Allergy Intermediate I-HIVES Verified 04/05/25 10:17 STRAWBERRIES (FOOD/DRUG)) tomato (From TOMATOES Allergy Intermediate I-HIVES Verified 04/05/25 10:17 (FOOD/DRUG)) oxycodone (OXYCODONE) Allergy Mild SHUT Verified 04/05/25 10:17 EVERYTHING DOWN egg Allergy Hives Verified 04/05/25 10:17 hydroxychloroquine (From Allergy Other Verified 04/05/25 10:17 Plaquenil) Milk Containing Products Allergy Hives Verified 04/05/25 10:17 (Dairy) pregabalin (From Lyrica) Allergy Swelling Verified 04/05/25 10:17 of Lip/Tongue/Throat prednisone AdvReac Intermediate ANXIOUS/EBEN Verified 04/05/25 10:17 EMILY clopidogrel AdvReac Migraine Verified 04/05/25 10:17 Assessment and Plan *Assessment and plan (1) Greater trochanteric bursitis of right hip: Status: Acute Category: Medical Code(s): M70.61 - Trochanteric bursitis, right hip Plan Patient did not have point tenderness along her SI joint during today's visit. I did discuss however that she did have very limited range of motion of her right hip with point tenderness along her bursa that is consistent with bursitis. I did discuss risk and benefits of proceeding forward with a greater trochanteric bursa injection. She does state that she would be interested in this option. Patient has continued conservative therapy including oral medication, heat and ice, topicals, at home stretching exercise for longer than 12 weeks. Patient will be scheduled for a right bursa injection under fluoroscopy. Patient has had chronic low back and hip pain for longer than 3 months. I will also reach out to the pharmacy and see about getting the compound cream ordered for her. Patient agrees with this plan of care. Patient has been instructed to contact the clinic with any concerns before the next appointment. Dr. Rodriguez has reviewed this note and agrees with this plan of care. This note was dictated using voice recognition software and make contain errors or omissions. All injections are used with Lidocaine, Bupivacaine and dexamethasone. Occasionally urine drug screen is needed to verify patient's compliance with our office pain contract. This is ordered based off specific treatments related to chronic pain with the potential to abuse certain medications.
== END 2025-04-12 23:59 | disposition home or self-care (01) ==
LOC: SC.PAIN 13:10
PROVIDERS: PCP Internal Medicine Adolescent Medicine; Visit Provider Nurse Practitioner Family
DX: M70.61 Trochanteric bursitis, right hip (principal); Z96.641 Presence of right artificial hip joint
CPT/HCPCS: 99212; G0463

== ENCOUNTER 2025-04-19 14:47 | Outpatient (CLI) | payer MEDICARE, SELFPAY ==
--- NOTE | 2025-04-19 14:50 | MR_ITS ---
PROCEDURE INFORMATION: Exam: MR Right Lower Extremity Joint Without Contrast; Hip Exam date and time: 04/19/2025 3:34 PM Age: 79 years old Clinical indication: Prior surgery; Surgery date: 6+ months; Surgery type: Tang; Right hip pain when walking; Additional info: RT knee osteo/rt hip pain TECHNIQUE: Imaging protocol: Magnetic resonance imaging of the right lower extremity joint without contrast. Exam focused on the hip. COMPARISON: MR LUMBAR SPINE WO CON 02/27/2025 5:29 PM FINDINGS: Bones/joints: Orthopedic hardware in the right hip severely limits evaluation. Osseous alignment of the right hip appears grossly normal. Partially visualized lumbar scoliosis. Degenerative changes noted in the lower lumbar spine. Mild degenerative changes of the left hip. Labrum: Not adequately visualized TENDONS: Tendons of iliopsoas group: Grossly unremarkable Tendons of medial compartment of thigh: Grossly unremarkable Tendons of lateral rotators of hip: Grossly unremarkable Tendons of gluteal group: Grossly unremarkable Soft tissues: Grossly unremarkable IMPRESSION: Studies poorly limited by the presence of orthopedic hardware of the right hip. No gross abnormality demonstrated about the hip. Scoliosis and degenerative changes of the lower lumbar spine partially visualized.
--- OUTSIDE RECORDS SUMMARY | 2025-04-19 14:50 | XMS_ITS | Encounter Summary ---
Author Organization [employer] ([place], [place], [place], [place]) Address [address] [place] [address] Care Team Providers Care Scaling Machine Operator Name Role Phone Jose Patel MD Primary Care Provider [phone] Encounter Details Date Type Department Care Team (Late st Contact Info) Description 03/17/2019 Transcribed Document [facility] Family Medicine [address] [place] [address] ProviderJudi MD [address] [place] [address] Social History Tobacco Use Types Packs/Day Years Used Date Smoking Tobacco: Never Assessed Comments Unknown Sex and Gender Information Value Date Recorded Sex Assigned at Not on file Legal Sex Female 5:32 PM CDT Gender Identity Not on file Sexual Orientation Not on file documented as of this encounter Miscellaneous Notes * Cerner Conversion Note - Judi ProviderMD - 03/17/2019 10:00 AM CDT Pain Assessment Entered On: 03/17/2019 14:34 EDT Performed On: 03/17/2019 10:30 EDT by ERBECCA ARAGON RN Intervention Information: acetaminophen Performed by REBECCA ARAGON RN on 03/17/2019 09:30:00 EDT acetaminophen,650mg Oral Pain Assessment Pain Comment : pre-med REBECCA ARAGON RN - 03/17/2019 14:33 EDT documented in this encounter Plan of Treatment Not on file documented as of this encounter Visit Diagnoses Not on filedocumented in this encounter Care Teams Scaling Machine Operator Relationship Specialty Start Date End Date Jose Patel MD [address] [place] [address] PCP - General Adolescent Medicine 08/03/22 documented as of this encounter
--- OUTSIDE RECORDS SUMMARY | 2025-04-19 14:50 | XMS_ITS | Clinical Summary ---
Author Organization Healthcare Address [address] [place] [address] Care Team Providers Care Dopster Name Role Phone Jose Patel MD Primary Care Provider [phone] Encounters Date Type Department Care Team Description [...] Care Team (Late st Contact Info) Description 04/23/2025 1:00 PM EDT Office Visit [facility] [address] [place] [address] Edmond Hayden MD [address] [place] [address] 03/26/2026 2:00 PM EDT Ovarian Cancer Screening [facility] [address] [facility] [place] [address] Health Maintenance Due Date Last Done Comments [facility]-Bone Density Scan 1944 [facility]-Depression Screening 1944 [facility]-Medicare Annual Wellness (AWV) 1944 [facility]-/Child/Adol SDOH Screenings 1944 [facility]- SDOH Screenings 1962 [facility]-Adult SDOH Screenings 1962 [facility]-Pneumococcal Vaccine: 50+ Years (1 of 1 - PCV) 1994 [facility]-DTaP,Tdap,and Td Vaccines (1 - Tdap) 12/20/1996 12/19/1996 [id number] Vaccine (4 - season) 2024 09/08/2022, 12/10/2020, 11/14/2020 [facility]-Influenza Vaccine (#1) 06/18/202508/30, 08/26/2023, 07/03/2022, Additional history exists [facility]-Hepatitis A Vaccines Aged Out 09/28/2018 No longer eligible based on patient's age to complete this topic [facility]-Zoster Vaccines Completed 12/28/2018, 8 [facility]-Diabetes: Hemoglobin A1C Discontinued 03/25/2023, 07/08/2020 [facility]-RSV Vaccine: 60+ Years or Completed 09/01/2023 HPV Vaccines Aged Out No longer eligi [...] patient's age to complete this topic Insurance [facility] MEDICARE Care Teams Dopster Relationship Specialty Start Date End Date Jose Patel MD [address] [facility] [address] [place] [address] PCP - General 05/27/21
--- OUTSIDE RECORDS SUMMARY | 2025-04-19 14:50 | XMS_ITS | Referral Summary ---
Author Organization [employer] ([place], [place], [place], [place]) Address [address] [place] [address] Care Team Providers Care Licensed Practical Nurse Name Role Phone Jose Patel MD Primary Care Provider [phone] Allergies Active Allergy Reactions Criticality Noted Date Comments Hydrocodone Other (See Comments) 07/28/2017 Oxycodone Other (See Comments),Hives High 7 Prednisone Other (See Comments) 07/28/2017 Pregabalin Swelling High 07/08/2020 Medications cholecalciferol, vitamin D3, 25 mcg (1,000 unit) capsule Take 3 capsules (3,000 Units total) by mouth daily. Active acetaminophen (TYLENOL) 325 MG tablet Take 2 tablets (650 mg total) by mouth. Active aspirin 81 MG EC tablet Take 1 tablet (81 mg total) by mouth. Active calcium carbonate/vitamin D3 (CALTRATE 600 + D ORAL) Take by mouth. Active cloNIDine HCL (CATAPRES) 0.1 MG tablet Take 1 tablet (0.1 mg total) by mouth daily. Active esomeprazole (NexIUM) 40 MG capsule Take 1 capsule (40 mg total) by mouth daily. Active meclizine (ANTIVERT) 25 MG tablet Take 1 tablet (25 mg total) by mouth 3 (three) times daily as needed. Active milnacipran (Savella) 100 mg Tab Take 1 tablet (100 mg total) by mouth 2 (two) times daily. Active chlorthalidone (HYGROTON) 25 MG tablet Take by mouth. 3 Active clopidogreL (PLAVIX) 75 mg tablet Take 1 tablet (75 mg total) by mouth daily. 3 Active Jardiance 10 mg tablet Take 1 tablet (10 mg total) by mouth daily. 3 Active valsartan (DIOVAN) 40 MG tablet Take 1 tablet (40 mg total) by mouth daily. 3 Active Synthroid 75 mcg tablet Take 1 tablet (75 mcg total) by mouth daily. 3 Active Bystolic 20 mg Tab Take 1 tablet (20 mg total) by mouth daily. 3 Active rosuvastatin (CRESTOR) 20 MG tablet Take 1 tablet (20 mg total) by mouth daily. 3 Active amoxicillin-clavula john (AUGMENTIN) 875-125 mg per tablet Take 1 tablet by mouth. 3 Active traMADoL (ULTRAM) 50 mg tabletIndications:F ibromyalgia,Other osteoarthritis involving multiple joints Take 1 tablet (50 mg total) by mouth 2 (two) times daily as needed for Pain. Max Daily Amount: 100 mg 60 tablet 4 Active Rinvoq 15 mg [id number]:Oth er specified rheumatoid arthritis, multiple sites (HCC) TAKE 1 TABLET BY MOUTH DAILY 30 tablet 5 4 Active Active Problems No known active problems Social History Tobacco Use Types Packs/Day Years Used Date Smoking Tobacco: Never Smokeless Tobacco: Never Tobacco Cessation:Counseling Given: Not Answered Alcohol Use Standard Drinks/Week Comments Not Currently 0 (1 standard drink = 0.6 oz pur e alcohol) Food Insecurity Answer Date Recorded Food run out past 12 months Not on file 10/18 Food did not last past 12 months Not on file 10/28/2023 Employment Answer Date Recorded Help finding and keeping a job Not on file 0 10/28/2023 Family and Community Support Answer Kirk e Recorded Help with Day to Day Activities Not on file 10/28/2023 Feeling Lonely or Isolated Not on file 10/28 Educational Attainment Answer Date Tomasz rded Speak language other than Telugu at home Not on file 10/28/2023 Want help with school or training Not on file 10/28/2023 Substance Use Answer Date Recorded Used prescription meds for non-medical reasons N ot on file 10/28/2023 Used illegal drugs past 12 months Not on file 10/28/2023 Comments Unknown Sex and Gender Information Value Date Recorded Sex Assigned at Not on file Legal Sex Female 5:32 PM CDT Gender Identity Not on file Sexual Orientation Not on file Last Filed Vital Signs Vital Sign Reading Time Taken Comments Blood Pressure 144/84 07/27/2023 4:05 PM EDT Pulse 75 07/27/2023 4:05 PM EDT Temperature 36.6 C (97.9 F) 01/19/2023 11:34 AM EDT Respiratory Rate 16 07/27/2023 4:05 PM EDT Oxygen Saturation 96% 07/27/2023 4:05 PM EDT Inhaled Oxygen Concentration - - Weight 65.8 kg (145 lb) 10/28/2023 2:11 PM EST Height 157.5 cm (5' 2 ) 10/28/2023 2:11 PM EST Body Mass Index 26.52 10/28/2023 2:11 PM EST Plan of Treatment Not on file Insurance [address] MEDICARE PFFS [facility] MEDICARE PPO Care Teams Licensed Practical Nurse Relationship Specialty Start Date End Date Jose Patel MD [address] [facility] [address] [place] [address] (work) PCP - General Adolescent Medicine 08/03/22
--- OUTSIDE RECORDS SUMMARY | 2025-04-19 14:50 | XMS_ITS | Encounter Summary ---
Author Organization [employer] ([place], [place], [place], [place]) Address [address] [place] [address] Care Team Providers Care Spanish Speaking Nanny Name Role Phone Jose Patel MD Primary Care Provider [phone] Reason for Visit * Reason Comments Medication Refill Encounter Details Date Type Department Care Team (Late st Contact Info) Description 02/01/2024 Refill [facility] Rheumatology [address] [place] [address] Sheree Reese MD [address] [place] [address] [address] [place] [address] Fibromyalgia; Other osteoarthritis involving multiple joints Social History Tobacco Use Types Packs/Day Years Used Date Smoking Tobacco: Never Smokeless Tobacco: Never Alcohol Use Standard Drinks/Week Comments Not Currently [...] Date Tomasz rded Speak language other than Kenyan at home Not on file 10/28/2023 Want [...] as of this encounter Plan of Treatment Not on file documented as of this encounter Visit Diagnoses Diagnosis Fibromyalgia Unspecified myalgia and myositis Other osteoarthritis involving multiple joints documented in this encounter Care Teams Spanish Speaking Nanny Relationship Specialty Start Date End Date Jose Patel MD [address] [place] [address] PCP - General Adolescent Medicine 08/03/22 documented as of this encounter
--- OUTSIDE RECORDS SUMMARY | 2025-04-19 14:50 | XMS_ITS | Encounter Summary ---
Author Organization [facility] [facility] ([place], [place], [place], [place]) Address [address] [place] [address] Care Team Providers Care Equipment Validation Engineer Name Role Phone Jose Patel MD Primary Care Provider [phone] Encounter Details Date Type Department Care Team (Late st Contact Info) Description 03/17/2019 Transcribed Document [facility] Family Medicine [facility] [place] [address] ProviderJudi MD [address] [place] [id number] Social History Tobacco Use Types Packs/Day Years Used Date Smoking Tobacco: Never Assessed Comments Unknown Sex and Gender Information Value Date Recorded Sex Assigned at Not on file Legal Sex Female 5:32 PM CDT Gender Identity Not on file Sexual Orientation Not on file documented as of this encounter Miscellaneous Notes * Cerner Conversion Note - Historical ProviderMD - 03/17/2019 2:47 PM CDT Nursing Discharge Summary Entered On: 03/17/2019 14:48 EDT Performed On: 03/17/2019 14:47 EDT by REBECCA ARAGON RN Discharge Documentation Discharge Date/Time : 03/17/2019 14:47 EDT Patient Disposition, General : Discharge Discharge To : Home with ambulatory/outpatient follow-up Mode Of Departure, General Discharge : Ambulatory Accompanied By, Discharge : Unaccompanied IV Discontinued : Yes IV Therapy Comment : no complications Personal Belongings With Patient : Yes Discharge Instructions Reviewed With, Opportunity For Questions Given : Patient Teaching Method : Printed materials Teaching Evaluation : Verbalizes understanding Education Comment : Return in 2 weeks. Force fluids. Take Tylenol and Benadryl as needed for achiness. Call 911 for any chest pain, shortnes of breath, signs of a stroke or syncope REBECCA ARAGON RN - 03/17/2019 14:47 EDT documented in this encounter Plan of Treatment Not on file documented as of this encounter Visit Diagnoses Not on filedocumented in this encounter Care Teams Equipment Validation Engineer Relationship Specialty Start Date End Date Jose Patel MD [address] [place] [address] PCP - General Adolescent Medicine 08/03/22 documented as of this encounter
--- OUTSIDE RECORDS SUMMARY | 2025-04-19 14:50 | XMS_ITS | Encounter Summary ---
Author Organization [employer] ([place], [place], [place], [place]) Address [address] [place] [address] Care Team Providers Care Beaming Machine Operator Name Role Phone Jose Patel MD Primary Care Provider [phone] Encounter Details Date Type Department Care Team (Late st Contact Info) Description 03/31/2019 Transcribed Document [facility] [place] [facility] [place] [address] ProviderJudi MD [address] [place] [id number] Social History Tobacco Use Types Packs/Day Years Used Date Smoking Tobacco: Never Assessed Comments Unknown Sex and Gender Information Value Date Recorded Sex Assigned at Not on file Legal Sex Female 5:32 PM CDT Gender Identity Not on file Sexual Orientation Not on file documented as of this encounter Miscellaneous Notes * Cerner Conversion Note - Historical ProviderMD - 03/31/2019 1:20 PM CDT Nursing Discharge Summary Entered On: 03/31/2019 13:21 EDT Performed On: 03/31/2019 13:20 EDT by REBECCA ARAGON lead software developer Documentation Discharge Date/Time : 03/31/2019 13:20 EDT Patient Disposition, General : Discharge Discharge To : Home with ambulatory/outpatient follow-up Mode Of Departure, General Discharge : Ambulatory Accompanied By, Discharge : Unaccompanied IV Discontinued : Yes IV Therapy Comment : no complications Personal Belongings With Patient : Yes Discharge Instructions Reviewed With, Opportunity For Questions Given : Patient Teaching Evaluation : Verbalizes understanding Education Comment : Return in 6 months REBECCA ARAGON RN - 03/31/2019 13:20 EDT Electronically signed by [facility] Conversion Compensation Manager Cerner at 02/03/2023 6:34 PM CDT documented in this encounter Plan of Treatment Not on file documented as of this encounter Visit Diagnoses Not on filedocumented in this encounter Care Teams Beaming Machine Operator Relationship Specialty Start Date End Date Jose Patel MD [address] [place] [address] PCP - General Adolescent Medicine 08/03/22 documented as of this encounter
--- OUTSIDE RECORDS SUMMARY | 2025-04-19 14:50 | XMS_ITS | Clinical Summary ---
Author Organization [employer] ([place], [place], [place], [place]) Address [address] [place] [address] Care Team Providers Care Molding Process Technician Name Role Phone Jose Patel MD Primary Care Provider [phone] Allergies Active Allergy Reactions Criticality Noted Date [...] 60 tablet 4 Active Rinvoq 15 mg [id number]:Oth er specified rheumatoid arthritis, multiple sites (HCC) TAKE 1 TABLET BY MOUTH DAILY 30 tablet 5 4 Active Active Problems No known active problems Family History Medical History Relation Name Comments COPD Father Cancer Mother Arthritis Other family history Asthma Other family history Diabetes Other family history Hypertension Other family history Relation Name Status Comments Father Mother Other family history Social History Tobacco Use Types Packs/Day Years [...] Date Tomasz rded Speak language other than Tamazight at home Not on file 10/28/2023 Want [...] 10/28/2023 2:11 PM EST Plan of Treatment Health Maintenance Due Date Last Done Comments Medicare Initial AWV [id number] DXA SCAN 1945 Depression Screening (12+) 1956 Pneumococcal 50+ years (1 of 1 - PCV) 1994 DTAP/TDAP/TD VACCINES (2 - T d or Tdap) 12/19/2006 12/19/1996 Respiratory Syncytial Virus (RSV) Adult or (1 - 1-dose 75+ series) 2019 COVID-19 VACCINE (4 - 2023-2 5 season) 2024 09/08/2022, 12/10/2020, 11/14/2020 Falls Risk Screening 10/18/2024 Tobacco Cessation Counseling and Screening (12+) 10/28/2024 10/28/2023 Influenza Vaccine (#1) 2025 3, 07/03/2022, 07/03/2022, Additional history exists Shingles Vaccine (Zoster) Completed 12/28/2018, 08/2018 Insurance [facility] MEDICARE PFFS [employer] MEDICARE PPO Care Teams Molding Process Technician Relationship Specialty Start Date End Date Jose Patel MD [address] [facility] [address] [place] [address] PCP - General Adolescent Medicine 08/03/22
--- OUTSIDE RECORDS SUMMARY | 2025-04-19 14:50 | XMS_ITS | Data Portability ---
Author Organization [place] [facility] Address [address] [place] [address] Assessment Encounter Date Assessment Date Assessment LastModified [...] would like to follow up as needed. [email or web address] Not available 10/03/2024 16:51:27 Plan of Treatment Reminders Order Date Submit Date Provider Last Modified By Organization Details Last Modified Time Details Appointments None recorded. Lab None recorded. Referral None recorded. Procedures None recorded. Surgeries None recorded. Imaging None recorded. Medication Orders Linzess 72 mcg capsule 024 024 [facility], [address] [place] [address], [id number], 4 12:00:51 Patient TargetsNo targets recorded. Patient InstructionsNo instructions recorded. Reason for Referral None Reported. Medical Equipment None Reported. Allergies Allergen ID Allergen Name Allergen Category Reaction Reaction Severity Criticality Documentation Date Start Date Code Code System Note Provider Name and Address Organization Details Recorded Time 272564 Lyrica medicatio n Not available Not available Not available 07/11/2024 24308 1 RxNorm Sanna Covarrubias man [place] [facility] & [place] 4 11:16:58 362012 prednison e medicatio n Not available Not available Not available 07/11/2024 8640 RxNorm Sanna Covarrubias man [place] [facility] & [place] 4 11:17:23 218326 Oxycontin medicatio n Not available Not available Not available 07/11/2024 86216 6 RxNorm Sanna conway [place] [facility] & [place] 4 11:17:32 [id number] Xeljanz medicatio n Not available Not available Not available 07/11/2024 65565 42 RxNorm Sanna conway [place] [facility] & [place] 4 11:17:58 Medications Name Sig Start Date [...] Pulse oximetry Heart rate Heart rate Systolic And Diastolic Provider Name and Address Organization Details Last Updated DateTime 4 86184.6 4 g 26.8 kg/m2 157.48 cm 97.6 [degF] 100 % 100 % 61 /min 68 /min 128/73 mm[Hg] Sanna Covarrubias [facility] 11:16:02 Date Recorded Body height Body mass index (BMI) Body weight Oxygen saturation Oxygen saturation in Arterial blood by Pulse oximetry Heart rate Heart rate Body temperature Systolic And Diastolic Provider Name and Address Organization Details Last Updated DateTime 4 157.48 cm 26.4 kg/m2 94239.1 g 100 % 100 % 79 /min 78 /min 97.6 [degF] 156/82 mm[Hg] Hanane Bangura [facility] & [place] 4 11:20:17 Social History Question Answer Notes LastModified by [employer] Details LastModified Time Tobacco Smoking Status Never Smoker Sanna Covarrubias [facility] 07/11/2024 11:20:27 What Is Your Level Of Caffeine Consumption? Moderate [email or web address] Information not available 07/11/2024 Sex: Female Functional Status Question Answer Note LastModified by [employer] Details LastModified Time Do you use any illicit or recreational drugs? No [email or web address] Information not available 07/11/2024 Do you or have you ever used any other forms of tobacco or nicotine? No [email or web address] Information not available 07/11/2024 What is your level of alcohol consumption? None [email or web address] Information not available 07/11/2024 Mental Status None recorded. Family History Nothing Reported. Medical History No medical history recorded. Gynecological HistoryNo gynecological history recorded. Obstetrics History GPAL:G 0 P 0 0 0 0 Past Encounters Encounter ID Performer Location Encounter Start Date Encounter Closed Date Diagnosis/Indication Diagnosis SNOMED-CT Code Diagnosis ICD10 Code Diagnosis Note [id number] JUANI MILAN NP [facility] [address] [place] [address] 07/11/2024 10:56:44 07/11/2024 11:55:31 Chronic idiopathic constipation 51006901 K59.04 Flatulence symptom 00445 8004 R14.3 Screening for malignant neoplasm of colon 935256396 Z12.11 [id number] ELLI CAREY NP [facility] [address] [place] [address] 10/03/2024 11:05:29 10/03/2024 11:39:35 Chronic idiopathic constipation 09238292 K59.04 Recommend docusate sodium OTC daily to [...] Name 07/11/2024 2 [employer] (PPO) Bibiana Dotson [id number] Bibiana Dotson 09/30/2024 1 [employer] (MEDICARE REPLACEMENT/A DVANTAGE - PPO) Bibiana Dotson [id number] Bibiana Dotson Notes Date Note Type Note [...] nausea or vomiting. JUANI MILAN NP [address] [facility], [place], [address], [facility] 07/11/2024 23:19:20 10/03/2024 text/html PREVIOUS (07/11/2024 VNaomie Milan): Ms. Dotson is a 78-year-old female [...] glasses per day. She is leaving for [place] and will be gone for 3 months. ELLI CAREY, MARY [address], [place], [address], [place] - [facility] - [place] & [place] 10/03/2024 16:51:41 OBGyn Episode No OBEpisode recorded.
--- OUTSIDE RECORDS SUMMARY | 2025-04-19 14:50 | XMS_ITS | Encounter Summary ---
Author Organization [employer] ([place], [place], [place], [place]) Address [address] [place] [address] Care Team Providers Care Flood Control Engineer Name Role Phone Jose Patel MD Primary Care Provider [phone] Encounter Details Date Type Department Care Team (Late st Contact Info) Description 03/31/2019 Transcribed Document [facility] [place] [address] ProviderJudi MD [address] [place] [address] Social History Tobacco Use Types Packs/Day Years Used Date Smoking Tobacco: Never Assessed Comments Unknown Sex and Gender Information Value Date Recorded Sex Assigned at Not on file Legal Sex Female 5:32 PM CDT Gender Identity Not on file Sexual Orientation Not on file documented as of this encounter Miscellaneous Notes * Cerner Conversion Note - Historical ProviderMD - 03/31/2019 8:00 AM CDT Outpatient Visit History Entered On: 03/31/2019 8:38 EDT Performed On: 03/31/2019 8:00 EDT by REBECCA ARAGON RN Vital Measurements Temperature Source : Temporal artery scanning Temperature Mode : Fahrenheit Temperature, Fahrenheit : 98.9 Deg F Clinical Temperature, C : 37.2 Deg C Peripheral Pulse Rate : 73 bpm Respiratory Rate : 20 Breaths/Min Blood Pressure Location : Arm, right upper Blood Pressure Source : Non-Invasive BP Device Blood Pressure Position : Sitting Systolic Blood Pressure : 119 mmHg Diastolic Blood Pressure : 60 mmHg Oxygen Saturation : 98 % Oxygen Therapy Mode : Room air REBECCA ARAGON RN - 03/31/2019 8:34 EDT Height and Weight, Clinical Dosing Height Source : Chart Height Entry Format : [place] Height, Feet : 5 ft(Converted to: 152 cm, 60 Inch) Height, Inches : 3 Inch(Converted to: 0 ft 3 Inch, 7.62 cm) Clinical Height : 160.02 cm Weight Source : Standing scale Weight Entry Format : [place] Clinical Dosing Weight : 64.55 kg Weight, Pounds : 142 lb Body Surface Area (BSA) : 1.67 m2 Body Mass Index : 25.2 kg/m2 (HI) [place] Body Weight : 52 kg REBECCA ARAGON RN - 03/31/2019 8:34 EDT Quick Look Assessment Level of Consciousness : Alert Affect/Behavior : Calm Orientation : Oriented x 4 Skin Temperature : Warm Skin Description : Dry REBECCA ARAGON RN - 03/31/2019 8:34 EDT Health Histories Smoking Status : Never (less than 100 in lifetime; none in last 30 days) Smokeless Tobacco Status : Never REBECCA ARAGON RN - 03/31/2019 8:34 EDT Social History (As Of: 03/31/2019 08:38:25 EDT) Tobacco: Never (less than 100 in lifetime) Smoking Status. (Last Updated: 07/08/2018 16:42:31 EDT by Christine Lomax Rn) Alcohol: Alcohol Use History No. (Last Updated: 07/08/2018 16:42:35 EDT by Christine Lomax Rn) Substance Abuse: Drug Use Hx: No. (Last Updated: 07/08/2018 16:42:39 EDT by Christine Lomax Rn) Advance Directive Patient has Advance Directive *Q : Yes, Advance Directive on file Advance Directive Type : Living will Copy Advance Directive Verified/on Chart : No REBECCA ARAGON RN - 03/31/2019 8:34 EDT Psychosocial History Does Someone Depend on You for Care? : No Do You Have a History of the Following? : Patient denies history Currently in Unsafe Situation : No Tried to Harm Yourself in the Past? : No Thoughts of Harming/Killing Yourself : No REBECCA ARAGON RN - 03/31/2019 8:34 EDT Fall Risk Scales ABCs Fall Injury Risk Identification : None CARMICHAEL Hx Falls Immediate/Within 3 Months : No Carmichael Secondary Diagnosis : No CARMICHAEL Use of Ambulatory Aid : None CARMICHAEL IV Therapy or IV Access : No Carmichael Gait/Transferring : Normal, bedrest, immobile Carmichael Mental Status : Oriented to own ability Carmichael Fall Risk Score : 0 CARMICHAEL Fall Scale Risk Level : 0-24 Low Risk [place] Fall Interventions : Adequate lighting, Bed in low position, Call device within reach, Frequent orientation to call device, Frequent orientation to surroundings, Hourly comfort/safety rounds, Non-slip footwear, Personal items within reach, Reinforced to call for assistance before getting out of bed, Room free of clutter/spills, Wheels locked, Wires/Cords secured REBECCA ARAGON RN - 03/31/2019 8:34 EDT Pain Assessment Pain Assessment : Initial assessment Intensity : 8 Location : Other: all over' REBECCA ARAGON RN - 03/31/2019 8:34 EDT Electronically signed by Valentina [facility] Conversion 3D Animator Cerner at 02/03/2023 6:32 PM CDT documented in this encounter Plan of Treatment Not on file documented as of this encounter Visit Diagnoses Not on filedocumented in this encounter Care Teams Flood Control Engineer Relationship Specialty Start Date End Date Jose Patel MD [address] [place] [address] PCP - General Adolescent Medicine 08/03/22 documented as of this encounter
--- OUTSIDE RECORDS SUMMARY | 2025-04-19 14:50 | XMS_ITS | Encounter Summary ---
Author Organization [employer] ([place], [place], [place], [place]) Address [address] [place] [address] Care Team Providers Care Heavy Equipment Sales Associate Name Role Phone Jose Patel MD Primary Care Provider [phone] Encounter Details Date Type Department Care Team (Late st Contact Info) Description 03/17/2019 Transcribed Document [facility] Family Medicine [address] [place] [address] ProviderJudi MD [address] [place] [address] Social History Tobacco Use Types Packs/Day Years Used Date Smoking Tobacco: Never Assessed Comments Unknown Sex and Gender Information Value Date Recorded Sex Assigned at Not on file Legal Sex Female 5:32 PM CDT Gender Identity Not on file Sexual Orientation Not on file documented as of this encounter Miscellaneous Notes * Cerner Conversion Note - Historical ProviderMD - 03/17/2019 9:02 AM CDT Outpatient Visit History Entered On: 03/17/2019 9:04 EDT Performed On: 03/17/2019 9:02 EDT by REBECCA ARAGON RN Vital Measurements Temperature Source : Temporal artery scanning Temperature Mode : Fahrenheit Temperature, Fahrenheit : 97.2 Deg F Clinical Temperature, C : 36.2 Deg C Peripheral Pulse Rate : 61 bpm Respiratory Rate : 20 Breaths/Min Blood Pressure Location : Arm, right upper Blood Pressure Source : Non-Invasive BP Device Blood Pressure Position : Supine Systolic Blood Pressure : 131 mmHg Diastolic Blood Pressure : 61 mmHg Oxygen Saturation : 100 % Oxygen Therapy Mode : Room air REBECCA ARAGON RN - 03/17/2019 9:02 EDT Height and Weight, Clinical Dosing Height Source : Chart Height Entry Format : [place] Height, Feet : 5 ft(Converted to: 152 cm, 60 Inch) Height, Inches : 3 Inch(Converted to: 0 ft 3 Inch, 7.62 cm) Clinical Height : 160.02 cm Weight Source : Standing scale Weight Entry Format : [place] Clinical Dosing Weight : 65 kg Weight, Pounds : 143 lb Body Surface Area (BSA) : 1.68 m2 Body Mass Index : 25.4 kg/m2 (HI) [place] Body Weight : 52 kg REBECCA ARAGON RN - 03/17/2019 9:02 EDT Quick Look Assessment Level of Consciousness : Alert Affect/Behavior : Calm Orientation : Oriented x 4 Skin Temperature : Warm Skin Description : Dry REBECCA ARAGON RN - 03/17/2019 9:02 EDT Health Histories Smoking Status : Never (less than 100 in lifetime; none in last 30 days) Smokeless Tobacco Status : Never REBECCA ARAGON RN - 03/17/2019 9:02 EDT Social History (As Of: 03/17/2019 09:04:57 EDT) Tobacco: Never (less than 100 in lifetime) Smoking Status. (Last Updated: 07/08/2018 16:42:31 EDT by Christine Lomax Rn) Alcohol: Alcohol Use History No. (Last Updated: 07/08/2018 16:42:35 EDT by Christine Lomax Rn) Substance Abuse: Drug Use Hx: No. (Last Updated: 07/08/2018 16:42:39 EDT by Christine Lomax Rn) Advance Directive Patient has Advance Directive *Q : Yes, Advance Directive not with the patient Advance Directive Type : Living will Copy Advance Directive Verified/on Chart : No REBECCA ARAGON RN - 03/17/2019 9:02 EDT Psychosocial History Does Someone Depend on You for Care? : No Do You Have a History of the Following? : Patient denies history Currently in Unsafe Situation : No Tried to Harm Yourself in the Past? : No Thoughts of Harming/Killing Yourself : No REBECCA ARAGON RN - 03/17/2019 9:02 EDT Fall Risk Scales ABCs Fall Injury [...] Scale Risk Level : 0-24 Low Risk [place] Fall Interventions : Adequate lighting, Assistive devices within reach, Bed in low position, Call device within reach, Frequent orientation to call device, Frequent orientation to surroundings, Hourly comfort/safety rounds, Non-slip footwear, Personal items within reach, Reinforced to call for assistance before getting out of bed, Room free of clutter/spills, Wheels locked, Wires/Cords secured REBECCA ARAGON RN - 03/17/2019 9:02 EDT Pain Assessment Pain Assessment : Initial assessment Intensity : 6 Location : Hands, bilateral REBECCA ARAGON RN - 03/17/2019 9:02 EDT documented in this encounter Plan of Treatment Not on file documented as of this encounter Visit Diagnoses Not on filedocumented in this encounter Care Teams Heavy Equipment Sales Associate Relationship Specialty Start Date End Date Jose Patel MD [address] [place] [address] PCP - General Adolescent Medicine 08/03/22 documented as of this encounter
--- OUTSIDE RECORDS SUMMARY | 2025-04-19 14:50 | XMS_ITS | Encounter Summary ---
Author Organization Healthcare Address [address] [place] [address] Care Team Providers Care Hairspring Assembler Name Role Phone Jose Patel MD Primary Care Provider [phone] Encounter Details Date Type Department Care Team [...] [facility] [address] [place] [place] [address] Edmond Hayden MD [address] [place] [address] 03/26/2026 2:00 PM EDT Ovarian Cancer Screening [facility] [address] [place] [address] documented as of this encounter Visit Diagnoses Not on filedocumented in this encounter Care Teams Hairspring Assembler Relationship Specialty Start Date End Date Jose Patel MD [address] [place] [address] PCP - General 05/27/21 documented as of this encounter
== END 2025-04-19 23:59 | disposition home or self-care (01) ==
LOC: RAD 14:48
PROVIDERS: PCP Internal Medicine Adolescent Medicine; Visit Provider Internal Medicine Adolescent Medicine
DX: M41.86 Other forms of scoliosis, lumbar region (principal); M47.816 Spondylosis without myelopathy or radiculopathy, lumbar region; Z98.890 Other specified postprocedural states; M25.551 Pain in right hip; M17.11 Unilateral primary osteoarthritis, right knee
CPT/HCPCS: 73721

== ENCOUNTER 2025-04-24 08:22 | Outpatient (CLI) | payer MEDICARE, SELFPAY ==
--- OUTSIDE RECORDS SUMMARY | 2025-04-23 13:00 | XMS_ITS | Encounter Summary ---
Author Organization [facility] Address [address] [place] [address] Care Team Providers Care Sports Athletic Trainer Name Role Phone Jose Patel MD Primary Care Provider [phone] Reason for Visit * Consultation (Routine) - Closed Specialty Diagnoses / Procedures Referred By Contact Referred To Contact Physical Medicine and Rehabilitation Diagnoses Osteoarthritis of right knee Leona Null [address] [place] [address] Phone: tel:[phone] fax:[phone] [facility] [address] [place] [address] Phone: tel: fax: Referral ID Status Reason Start Date Expiration Date V isits Requested Visits Authorized [id number] Closed Specialty Services Required 04/11/2025 10/11/2026 1 1 Encounter Details Date Type Department Care Team (Late st Contact Info) Description 04/23/2025 1:00 PM EDT Office Visit [facility] [address] [place] [place] [address] Edmond Hayden MD [address] [place] [address] Chronic pain of right knee (Primary Dx) Social History Tobacco Use Types Packs/Day Years Used Date Smoking Tobacco: Never Assessed PHQ-2 Answer Date Recorded Patient Health Questionnaire-2 Score 0 04/23/2025 Comments Unknown Sex and Gender Information Value Date Recorded Sex Assigned at Not on file Legal Sex Female 7:39 PM EDT Gender Identity Not on file Sexual Orientation Not on file documented as of this encounter Last Filed Vital Signs Vital Sign Reading Time Taken Comments Blood Pressure 181/72 04/23/2025 12:45 PM EDT Pulse 62 04/23/2025 12:45 PM EDT Temperature - - Respiratory Rate 12 04/23/2025 12:45 PM EDT Oxygen Saturation 99% 04/23/2025 12:45 PM EDT Inhaled Oxygen Concentration - - Weight 64.4 kg (142 lb) 04/23/2025 12:45 PM EDT Height 157.5 cm (5' 2 ) 04/23/2025 12:45 PM EDT Body Mass Index 25.97 04/23/2025 12:45 PM EDT documented in this encounter Functional Status * Over the past 2 weeks, how often have you been bothered by any of the following problems? Question Answer Date of Assessment Author Little interest or pleasure in doing things Not at all 04/23/2025 12:55 PM DREAT Yaquelin Ivey Feeling down, depressed, or hopeless Not at all 04/23/2025 12:55 PM EDT Yaquelin Ivey Patient Health Questionnaire -2 Score 0 04/23/2025 12:55 PM EDT Yaquelin Ivey * Calculated C-SSRS Risk Score (Lifetime/Recent) Answer Date of Assessment Author No Risk Indicated 04/23/2025 12:55 PM DREAT Yaquelin Ivey * Question Answer Date of Assessment Author 1. Wish to be (Past 1 Month) No 025 12:55 PM EDYaquelin Sevilla 2. Non-Specific Active Suici miguel Thoughts (Past 1 Month) No 04/23/2025 12:55 PM EDT Edwina Ivey 6. Suicidal Behavior (Lifetime) No 12:55 PM EDT Yaquelin Ivey documented as of this encounter Miscellaneous Notes * Patient Instructions - Edmond Hayden MD - 04/23/2025 1:00 PM EDT Bring the radiologist's report of your right knee MRI at a follow-up appointment with Dr. Hayden * Progress Notes - Edmond Hayden MD - 04/23/2025 1:00 PM EDT [facility] Physical Medicine and Rehabilitation Patient Identifiers Name: Bibiana Falcon (Age): 1945 (79 y.o.) Sex: Female Visit Information Physician: Edmond Hayden MD Date of Service: 04/23/2025 Location: [facility] Encounter Type: New HPI Chronic, progressive R knee pain: Onset approximately 2 years ago without an inciting event. Standing, walking, stairs are painful. PT at [facility] ? increased pain. s/p CSI x 2 and NATY x 2 without lasting relief. Tylenol, tramadol, diclofenac have not provided relief. Believes pain is elevating blood pressure. MR R Knee scheduled for 04/24/2025. Also with chronic LBP and chronic R hip pain for which she sees other providers, has had injections. The patient's [id number]-[id number] was present and acted as independent historian. History Medications: Current Outpatient Medications Medication Instructions acetaminophen (Tylenol) 325 MG tablet Take 2 tablets every 6 hours by oral route. aspirin 81 mg, Daily betamethasone dipropionate 0.05 % EX cream APPLY TOPICALLY TO THE AFFECTED AREA(S) TWICE DAILY Bystolic 20 mg, Daily cetirizine (ZYRTEC) 10 mg, Daily chlorthalidone (HYGROTON) 25 mg, Daily cholecalciferol (VITAMIN D-3) 3,000 Units, ZZ Daily RT furosemide (LASIX) 20 mg, 2 times daily PRN hydrALAZINE (Apresoline) 25 MG tablet take one tablet by mouth three times daily with food lidocaine (Lidoderm) 5 % patch APPLY 1 PATCH TOPICALLY TO THE AFFECTED AREA ONCE DAILY AND LEAVE INPLACE FOR 12 HOURS, THEN REMOVE AND LEAVE OFF FOR 12 HOURS meclizine (Antivert) 25 MG tablet TAKE ONE TABLET BY MOUTH ONCE DAILY NEEDED NexIUM 40 mg nitroglycerin (NitrolinguaL) 0.4 MG/SPRAY spray 1 spray ondansetron ODT (Zofran-ODT) 4 MG disintegrating tablet DISSOLVE ONE TABLET BY MOUTH THREE TIMES DAILY FOR 5 DAYS NEEDED Rinvoq 15 MG tablet sustained-release 24 hour rosuvastatin (CRESTOR) 10 mg Savella 100 mg, 2 times daily Synthroid 100 mcg, Daily traMADol (Ultram) 50 MG tablet TAKE ONE TABLET BY MOUTH EVERY 6 HOURS NEEDED MAY CAUSE DROWSINESS Medical: Past Medical History[1] Surgical: Surgical History[2] Allergies: Hydrocodone, Oxycodone, Pregabalin, Prednisone, Amlodipine, Hydrocodone- acetaminophen, and Tofacitinib Family: Family History[3] Physical Examination Vitals: HR: 62 bpm BP: (!) 181/72 mmHg RR: 12 breaths/min SaO2: 99 % Height: 157.5 cm (5' 2 ) Weight: 64.4 kg (142 lb) BMI: 25.97 No gross deformity or asymmetry. Sensation to light touch intact B. Patellar reflex 2+ B. Achilles reflex trace B. KE, KF, ADF, APF 4/5 B. Palpation of medial joint line painful R. Palpation of lateral joint painful R. Palpation of periarticular soft tissue painful R. Periarticular soft tissue without hypertrophy B. Effusion or edema absent B. Valgus stress negative R. Varus stress with laxity on R. Passive knee flexion with notable grinding at lateral aspect near lateral joint line and fibular head. Data I reviewed an outpatient clinical note dated 04/05/2025 by AZUL Ramesh of [facility]. It pertains to the primary complaint. I reviewed the radiologist's report of a XR R Knee dated 03/16/2025 performed at [facility]. Selected findings: There is mild narrowing of the lateral compartment. Small osteophytes are present on the posterior aspect of the patella. A small joint effusion is present. Assessment & Plan Chronic, progressive R knee pain of unknown etiology - suspecting fibular head dislocation / subluxation vs severe lateral compartment OA (although not evidenced on XR 03/16/2025). -- f/u after obtaining MR R Knee 04/24/2025. Notice The purpose of this document is for inter-professional communication (i.e., the patient is not the intended audience). [1] No past medical history on file. [2] No past surgical history on file. [3] No family history on file. documented in this encounter Plan of Treatment Upcoming Encounters Date Type Department Care Team (Late st Contact Info) Description 03/26/2026 2:00 PM EDT Ovarian Cancer Screening [facility] [address] [facility] [place] [address] documented as of this encounter Visit Diagnoses Diagnosis Chronic pain of right knee- Primary documented in this encounter Additional Health Concerns Assessment Noted Time A Body Mass Index follow-up plan has been documented for the patient 04/23/2025 1:18 PM EDT documented as of this encounter Care Teams Sports Athletic Trainer Relationship Specialty Start Date End Date Jose Patel MD [address] [place] [address] PCP - General 05/27/21 documented as of this encounter
--- NOTE | 2025-04-24 08:25 | MR_ITS ---
FINAL REPORT CLINICAL HISTORY: RT KNEE OSTEO/RT HIP PAIN. pain lateral and anterior around patella. symptoms [id number]. no injury. instability and pops COMPARISON: None FINDINGS: Multi planar MR imaging was performed of the right knee. There is edema noted throughout the anterior cruciate ligament, although the fibers of the ACL appear intact. The posterior cruciate ligament is intact. The quadriceps and patellar tendons are intact. There are complex tears of the posterior and the anterior horn of the lateral meniscus, with a tear of the posterior horn of the medial meniscus as well which extends to the margin. The medial and lateral collateral ligaments appear intact. The medial and lateral retinacula appear intact. There are multiple osteochondral lesions noted in the lateral femoral condyle and lateral tibial plateau, measuring up to 5 mm in size. A small to moderate joint effusion is noted. IMPRESSION: Edema is noted throughout the anterior cruciate ligament, although the fibers appear intact. Complex tears of the posterior and anterior horns of the lateral meniscus, as well as a tear of the posterior horn of the medial meniscus which extends to the joint margin. Multiple medial compartment osteochondral lesions as described. Reviewed, Interpreted and Dictated by Bertrand Madera MD Transcribed by Marlys George Authenticated and [facility]
--- OUTSIDE RECORDS SUMMARY | 2025-04-24 08:26 | XMS_ITS | Encounter Summary ---
Author Organization Healthcare Address [address] [id number] Care Team Providers Care Human Resources Vice President Name Role Phone Jose Patel MD Primary Care Provider [phone] Encounter Details Date Type Department Care Team (Latest Contact Info) Description 04/23/2025 Travel Social History Tobacco Use Types Packs/Day Years Used Date Smoking Tobacco: Never Assessed PHQ-2 Answer Date Recorded Patient Health Questionnaire-2 Score 0 04/23/2025 Comments Unknown Sex and Gender Information Value Date Recorded Sex Assigned at Not on file Legal Sex Female 7:39 PM EDT Gender Identity Not on file Sexual Orientation Not on file documented as of this encounter Functional Status * Over the past 2 weeks, how often have you been bothered by any of the following problems? Question Answer Date of Assessment Author Little interest or pleasure in doing things Not at all 04/23/2025 12:55 PM Yaquelin Caruso Feeling down, depressed, or hopeless Not at all 04/23/2025 12:55 PM Yaquelin Caruso Patient Health Questionnaire -2 Score 0 04/23/2025 12:55 PM Yaquelin Caruso * Calculated C-SSRS Risk Score (Lifetime/Recent) Answer Date of Assessment Author No Risk Indicated 04/23/2025 12:55 PM Yaquelin Caruso * Question Answer Date of Assessment Author 1. Wish to be (Past 1 Month) No 025 12:55 PM Yaquelin Caruso 2. Non-Specific Active Suici miguel Thoughts (Past 1 Month) No 04/23/2025 12:55 PM Edwina Caruso 6. Suicidal Behavior (Lifetime) No 12:55 PM EDT Yaquelin Ivey documented as of this encounter Plan of Treatment Upcoming Encounters Date Type Department Care Team (Late st Contact Info) Description 03/26/2026 2:00 PM EDT Ovarian Cancer Screening [facility] [address] [facility] [place] [address] documented as of this encounter Visit Diagnoses Not on filedocumented in this encounter Additional Health Concerns Assessment Noted Time A Body Mass Index follow-up plan has been documented for the patient 04/23/2025 1:18 PM EDT documented as of this encounter Care Teams Human Resources Vice President Relationship Specialty Start Date End Date Jose Patel MD [address] [place] [address] PCP - General 05/27/21 documented as of this encounter
--- OUTSIDE RECORDS SUMMARY | 2025-04-24 08:26 | XMS_ITS | Clinical Summary ---
Author Organization [employer] ([place], [place], [place], [place]) Address [address] [place] [address] Care Team Providers Care Psychiatry Teacher Name Role Phone Jose Patel MD Primary Care Provider [phone] Allergies Active Allergy Reactions Criticality Noted Date [...] 60 tablet 4 Active Rinvoq 15 mg [id number]:Oth er specified rheumatoid arthritis, multiple sites (HCC) [...] Date Tomasz rded Speak language other than Turkmen at home Not on file 10/28/2023 Want [...] Shingles Vaccine (Zoster) Completed 12/28/2018, 08/2018 Insurance [facility] MEDICARE PFFS [employer] MEDICARE PPO Care Teams Psychiatry Teacher Relationship Specialty Start Date End Date Jose Patel MD [address] [facility] [address] [place] [address] PCP - General Adolescent Medicine 08/03/22
--- OUTSIDE RECORDS SUMMARY | 2025-04-24 08:27 | XMS_ITS | Clinical Summary ---
Author Organization [facility] Address [address] [place] [address] Care Team Providers Care Brim Stretcher Name Role Phone Jose Patel MD Primary Care Provider [phone] Allergies Active Allergy Reactions Criticality Noted Date Comments Amlodipine Nausea 06/01/2024 Hydrocodone Hallucinations,Other - please document in the comment field High 07/28/2017 Hydrocodone-Acetaminoph en Rash Low 08/14/2016 Per patient and family, patient had a rash reaction after taking APAP-hydrocodone Oxycodone Hives,Other - please document in the comment field High 07/28/2017 Prednisone Hallucinations,Other - please document in the comment field,Unknown - Patient states they do not know rxn details Medium 08/13/2016 agitation Pregabalin Other - please document in the comment field,Swelling High 07/08/2020 Tofacitinib Other - please document in the comment field Low 04/23/2025 Medications acetaminophen (Tylenol) 325 MG tablet Take 2 tablets every 6 hours by oral route. Active aspirin 81 MG EC tablet Take 1 tablet by mouth daily. Active betamethasone dipropionate 0.05 % EX cream APPLY TOPICALLY TO THE AFFECTED AREA(S) TWICE DAILY Active cetirizine (ZyrTEC) 10 MG tablet Take 1 tablet by mouth daily. Active chlorthalidone (Hygroton) 25 MG tablet Take 1 tablet by mouth daily. 4 Active cholecalciferol (Vitamin D3) 25 MCG (1000 UT) capsule Take 3 capsules by mouth 1 time each day. Active NexIUM [address] capsule Take 1 capsule by mouth. Active furosemide (Lasix) 20 MG tablet Take 1 tablet by mouth 2 times a day as needed. Active hydrALAZINE (Apresoline) 25 MG tablet take one tablet by mouth three times daily with food 5 Active Synthroid 100 MCG tablet Take 1 tablet by mouth daily. Active lidocaine (Lidoderm) 5 % patch APPLY 1 PATCH TOPICALLY TO THE AFFECTED AREA ONCE DAILY AND LEAVE IN PLACE FOR 12 HOURS, THEN REMOVE AND LEAVE OFF FOR 12 HOURS Active meclizine (Antivert) 25 MG tablet TAKE ONE TABLET BY MOUTH ONCE DAILY NEEDED Active milnacipran (Savella) 100 mg tablet Take 1 tablet by mouth 2 times a day. Active Bystolic 20 MG tablet Take 1 tablet by mouth daily. Active nitroglycerin (NitrolinguaL) 0.4 MG/SPRAY spray Place 1 spray under the tongue. 4 Active ondansetron ODT (Zofran-ODT) 4 MG disintegrating tablet DISSOLVE ONE TABLET BY MOUTH THREE TIMES DAILY FOR 5 DAYS NEEDED 5 Active rosuvastatin (Crestor) 10 MG tablet Take 1 tablet by mouth. Active traMADol (Ultram) 50 MG tablet TAKE ONE TABLET BY MOUTH EVERY 6 HOURS NEEDED MAY CAUSE DROWSINESS Active Rinvoq 15 MG tablet sustained-release 24 hour 5 Active Active Problems Problem Noted Date Diagnosed Date Chronic pain of right knee 04/23/2025 Encounters Date Type Department Care Team Description 04/23/2025 1:00 PM EDT Office Visit [facility] [address] [place] [address] Edmond Hayden MD Chronic pain of right knee (Primary Dx) 04/23/2025 Travel 03/12/2025 Travel from Last 3 Months Social [...] Mass Index 25.97 04/23/2025 12:45 PM EDT Plan of Treatment Upcoming Encounters Date Type Department Care Team (Late st Contact Info) Description 03/26/2026 2:00 PM EDT Ovarian Cancer Screening [facility] [address] [facility] [place] [address] Health Maintenance Due Date Last Done Comments [facility]-Bone Density Scan 1944 [facility]-Medicare Annual Wellness (AWV) 1944 [facility]-/Child/Adol SDOH Screenings 1944 [facility]- SDOH Screenings 1962 [facility]-Adult SDOH Screenings 1962 [facility]-Pneumococcal Vaccine: 50+ Years (1 of 1 - PCV) 1994 [facility]-DTaP,Tdap,and Td Vaccines (1 - Tdap) 12/20/1996 12/19/1996 [id number] Vaccine (2023- season) 2024 09/08/2022, 12/10/2020, 11/14/2020 [facility]-Influenza Vaccine (#1) 06/18/202508/30, 08/26/2023, 07/03/2022, Additional history exists [facility]-Depression Screening 04/23/2026 04/23/2025 [facility]-Hepatitis A Vaccines Aged Out 09/28/2018 No longer eligible based on patient's age to complete this topic [facility]-Zoster Vaccines Completed 12/28/2018, 8 [facility]-Diabetes: Hemoglobin A1C Discontinued 03/25/2023, 07/08/2020 [facility]-RSV Vaccine: 60+ Years or Completed 09/01/2023 [facility]-Obesity Intervention Completed 04/23/2025 HPV Vaccines Aged Out No longer eligi [...] patient's age to complete this topic Insurance [facility] MEDICARE Care Teams Brim Stretcher Relationship Specialty Start Date End Date Jose Patel MD [address] [facility] [address] [place] [address] PCP - General 05/27/21
--- OUTSIDE RECORDS SUMMARY | 2025-04-24 08:27 | XMS_ITS | Encounter Summary ---
Author Organization [employer] ([place], [place], [place], [place]) Address [address] [place] [address] Care Team Providers Care Broom Stitcher Name Role Phone Jose Patel MD Primary Care Provider [phone] Encounter Details Date Type Department Care Team (Late st Contact Info) Description 03/17/2019 Transcribed Document [facility] [place] [address] [place] [address] ProviderJudi MD [address] [place] [address] Social History Tobacco Use Types [...] Source : Chart Height Entry Format : [place] Height, Feet : 5 ft(Converted to: 152 cm, 60 Inch) Height, Inches : 3 Inch(Converted to: 0 ft 3 Inch, 7.62 cm) Clinical Height : 160.02 cm Weight Source : Standing scale Weight Entry Format : [place] Clinical Dosing Weight : 65 kg Weight, Pounds : 143 lb Body Surface Area (BSA) : 1.68 m2 Body Mass Index : 25.4 kg/m2 (HI) [place] Body Weight : 52 kg REBECCA ARAGON [...] Scale Risk Level : 0-24 Low Risk [place] Fall Interventions : Adequate lighting, Assistive devices [...] on filedocumented in this encounter Care Teams Broom Stitcher Relationship Specialty Start Date End Date Jose Patel MD [address] [place] [address] PCP - General Adolescent Medicine 08/03/22 documented as of this encounter
--- OUTSIDE RECORDS SUMMARY | 2025-04-24 08:27 | XMS_ITS | Encounter Summary ---
Author Organization [employer] ([place], [place], [place], [place]) Address [address] [place] [address] Care Team Providers Care Advertising Material Distributor Name Role Phone Jose Patel MD Primary Care Provider [phone] Encounter Details Date Type Department Care Team (Late st Contact Info) Description 03/17/2019 Transcribed Document [facility] [place] [facility] [address] ProviderJudi MD [address] [place] [id number] Social History Tobacco Use Types Packs/Day Years [...] on filedocumented in this encounter Care Teams Advertising Material Distributor Relationship Specialty Start Date End Date Jose Patel MD [address] [place] [address] PCP - General Adolescent Medicine 08/03/22 documented as of this encounter
--- OUTSIDE RECORDS SUMMARY | 2025-04-24 08:27 | XMS_ITS | Encounter Summary ---
Author Organization Healthcare Address [address] [place] [address] Care Team Providers Care Electric Crane Operator Name Role Phone Jose Patel MD Primary Care Provider [phone] Encounter Details Date Type Department Care Team [...] 03/26/2026 2:00 PM EDT Ovarian Cancer Screening [facility] [address] [facility] [place] [address] documented as of this encounter Visit Diagnoses Not on filedocumented in this encounter Care Teams Electric Crane Operator Relationship Specialty Start Date End Date Jose Patel MD [address] [place] [address] PCP - General 05/27/21 documented as of this encounter
--- OUTSIDE RECORDS SUMMARY | 2025-04-24 08:27 | XMS_ITS | Encounter Summary ---
Author Organization [employer] ([place], [place], [place], [place]) Address [address] [place] [address] Care Team Providers Care Applications Programmer Name Role Phone Jose Patel MD Primary Care Provider [phone] Reason for Visit * Reason Comments Medication Refill Encounter Details Date Type Department Care Team (Late st Contact Info) Description 02/01/2024 Refill [facility] Rheumatology [address] [place] [address] Sheree Reese MD [address] [place] [address] [address] [place] [address] Fibromyalgia; Other osteoarthritis involving multiple joints Social [...] Date Tomasz rded Speak language other than Congolese at home Not on file 10/28/2023 Want [...] joints documented in this encounter Care Teams Applications Programmer Relationship Specialty Start Date End Date Jose Patel MD [address] [place] [address] PCP - General Adolescent Medicine 08/03/22 documented as of this encounter
--- OUTSIDE RECORDS SUMMARY | 2025-04-24 08:27 | XMS_ITS | Encounter Summary ---
Author Organization [employer] ([place], [place], [place], [place]) Address [address] [place] [address] Care Team Providers Care Environmental Resource Specialist Name Role Phone Jose Patel MD Primary Care Provider [phone] Encounter Details Date Type Department Care Team (Late st Contact Info) Description 03/31/2019 Transcribed Document [facility] [place] [facility] [place] [address] ProviderJudi MD [address] [place] [address] Social History Tobacco Use Types Packs/Day [...] Source : Chart Height Entry Format : [place] Height, Feet : 5 ft(Converted to: 152 cm, 60 Inch) Height, Inches : 3 Inch(Converted to: 0 ft 3 Inch, 7.62 cm) Clinical Height : 160.02 cm Weight Source : Standing scale Weight Entry Format : [place] Clinical Dosing Weight : 64.55 kg Weight, Pounds : 142 lb Body Surface Area (BSA) : 1.67 m2 Body Mass Index : 25.2 kg/m2 (HI) [place] Body Weight : 52 kg REBECCA ARAGON [...] Scale Risk Level : 0-24 Low Risk Bypro Fall Interventions : Adequate lighting, Bed in [...] 03/31/2019 8:34 EDT Electronically signed by Valentina [facility] Conversion Lens Blank Gauger Cerner at 02/03/2023 6:32 PM CDT documented in this encounter Plan of Treatment Not on file documented as of this encounter Visit Diagnoses Not on filedocumented in this encounter Care Teams Environmental Resource Specialist Relationship Specialty Start Date End Date Jose Patel MD [address] [place] [address] PCP - General Adolescent Medicine 08/03/22 documented as of this encounter
--- OUTSIDE RECORDS SUMMARY | 2025-04-24 08:27 | XMS_ITS | Encounter Summary ---
Author Organization [employer] ([place], [place], [place], [place]) Address [address] [place] [address] Care Team Providers Care Nba Player Name Role Phone Jose Patel MD Primary Care Provider [phone] Encounter Details Date Type Department Care Team (Late st Contact Info) Description 03/17/2019 Transcribed Document [facility] [place] [address] [place] [address] ProviderJudi MD [address] [place] [address] Social History Tobacco Use Types Packs/Day [...] EDT Performed On: 03/17/2019 10:30 EDT by REBECCA ARAGON RN Intervention Information: acetaminophen Performed by REBECCA ARAGON RN on 03/17/2019 09:30:00 EDT acetaminophen,650mg Oral Pain Assessment Pain Comment : pre-med REBECCA ARAGON RN - 03/17/2019 14:33 EDT documented in this encounter Plan of Treatment Not on file documented as of this encounter Visit Diagnoses Not on filedocumented in this encounter Care Teams Nba Player Relationship Specialty Start Date End Date Jose Patel MD [address] [place] [address] PCP - General Adolescent Medicine 08/03/22 documented as of this encounter
--- OUTSIDE RECORDS SUMMARY | 2025-04-24 08:27 | XMS_ITS | Data Portability ---
Author Organization [place] [facility] Address [address] [place] [id number] Assessment Encounter Date Assessment Date Assessment LastModified [...] would like to follow up as needed. [email or web address] Not available 10/03/2024 16:51:27 Plan of Treatment Reminders Order Date Submit Date Provider Last Modified By Organization Details Last Modified Time Details Appointments None recorded. Lab None recorded. Referral None recorded. Procedures None recorded. Surgeries None recorded. Imaging None recorded. Medication Orders Linzess 72 mcg capsule 024 024 [facility], [address] [place] [address], [id number], 4 12:00:51 Patient TargetsNo targets recorded. Patient InstructionsNo instructions recorded. Reason for Referral None Reported. Medical Equipment None Reported. Allergies Allergen ID Allergen Name Allergen Category Reaction Reaction Severity Criticality Documentation Date Start Date Code Code System Note Provider Name and Address Organization Details Recorded Time 587585 Lyrica medicatio n Not available Not available Not available 07/11/2024 60612 1 RxNorm Sanna Covarrubias man [place] [facility] & [place] 4 11:16:58 258352 prednison e medicatio n Not available Not available Not available 07/11/2024 8640 RxNorm Sanna Covarrubias man [place] [facility] & [place] 4 11:17:23 029402 Oxycontin medicatio n Not available Not available Not available 07/11/2024 04361 6 RxNorm Sanna conway [place] [facility] & [place] 4 11:17:32 856971 Xeljanz medicatio n Not available Not available Not available 07/11/2024 53766 42 RxNorm Sanna conway [place] [facility] & [place] 4 11:17:58 Medications Name Sig Start Date [...] Address Organization Details Last Updated DateTime 4 70138.6 4 g 26.8 kg/m2 157.48 cm 97.6 [degF] 100 % 100 % 61 /min 68 /min 128/73 mm[Hg] Sanna Covarrubias [facility] 11:16:02 Date Recorded Body height Body mass index (BMI) Body weight Oxygen saturation Oxygen saturation in Arterial blood by Pulse oximetry Heart rate Heart rate Body temperature Systolic And Diastolic Provider Name and Address Organization Details Last Updated DateTime 4 157.48 cm 26.4 kg/m2 99405.1 g 100 % 100 % 79 /min 78 /min 97.6 [degF] 156/82 mm[Hg] Hanane Bangura [facility] & [place] 4 11:20:17 Social History Question Answer Notes LastModified by [employer] Details LastModified Time Tobacco Smoking Status Never Smoker Sanna Covarrubias [facility] 07/11/2024 11:20:27 What Is Your Level Of Caffeine Consumption? Moderate [email or web address] Information not available 07/11/2024 Sex: Female Functional Status Question Answer Note LastModified by [employer] Details LastModified Time Do you use any illicit or recreational drugs? No [email or web address] Information not available 07/11/2024 Do you or have you ever used any other forms of tobacco or nicotine? No Information not available 07/11/2024 What is your level of alcohol consumption? None [email or web address] Information not available 07/11/2024 Mental Status None recorded. Family History Nothing Reported. Medical History No medical history recorded. Gynecological HistoryNo gynecological history recorded. Obstetrics History GPAL:G 0 P 0 0 0 0 Past Encounters Encounter ID Performer Location Encounter Start Date Encounter Closed Date Diagnosis/Indication Diagnosis SNOMED-CT Code Diagnosis ICD10 Code Diagnosis Note [id number] JUANI MILAN NP [facility] [address] [place] [address] 07/11/2024 10:56:44 07/11/2024 11:55:31 Chronic idiopathic constipation 34297386 K59.04 Flatulence symptom 04046 8004 R14.3 Screening for malignant neoplasm of colon 989206713 Z12.11 [id number] ELLI CAREY NP [facility] [address] [place] [address] 10/03/2024 11:05:29 10/03/2024 11:39:35 Chronic idiopathic constipation 76886086 K59.04 Recommend docusate sodium OTC daily to [...] Name 07/11/2024 2 [employer] (PPO) Bibiana Dotson [id number] Bibiana Dotson 09/30/2024 1 [employer] (MEDICARE REPLACEMENT/A DVANTAGE - PPO) Bibiana Dotson [id number] Bibiana Dotson Notes Date Note Type Note [...] nausea or vomiting. JUANI MILAN NP [address] [facility], [place], [address], [facility] 07/11/2024 23:19:20 10/03/2024 text/html PREVIOUS (07/11/2024 VNaomie [...] glasses per day. She is leaving for [place] and will be gone for 3 months. ELLI CAREY, MARY [address], [place], [address], [place] - [facility] - [place] & [place] 10/03/2024 16:51:41 OBGyn Episode No OBEpisode recorded.
--- OUTSIDE RECORDS SUMMARY | 2025-04-24 08:27 | XMS_ITS | Encounter Summary ---
Author Organization [employer] ([place], [place], [place], [place]) Address [address] [place] [address] Care Team Providers Care Postmaster Name Role Phone Jose Patel MD Primary Care Provider [phone] Encounter Details Date Type Department Care Team (Late st Contact Info) Description 03/31/2019 Transcribed Document [facility] [place] [facility] Medicine [facility] [address] ProviderJudi MD [address] [place] [id number] Social History Tobacco Use Types Packs/Day Years [...] On: 03/31/2019 13:20 EDT by REBECCA ARAGON database marketing manager Documentation Discharge Date/Time : 03/31/2019 13:20 EDT [...] 03/31/2019 13:20 EDT Electronically signed by Valentina [facility] Conversion System Support Administrator Cerner at 02/03/2023 6:34 PM CDT documented in this encounter Plan of Treatment Not on file documented as of this encounter Visit Diagnoses Not on filedocumented in this encounter Care Teams Postmaster Relationship Specialty Start Date End Date Jose Patel MD [address] [place] [address] PCP - General Adolescent Medicine 08/03/22 documented as of this encounter
== END 2025-04-24 23:59 | disposition home or self-care (01) ==
LOC: RAD 08:23
PROVIDERS: PCP Internal Medicine Adolescent Medicine; Visit Provider Internal Medicine Adolescent Medicine
DX: S83.281A Other tear of lateral meniscus, current injury, right knee, initial encounter (principal); S83.241A Other tear of medial meniscus, current injury, right knee, initial encounter; M89.9 Disorder of bone, unspecified; R60.0 Localized edema; M25.551 Pain in right hip; M17.11 Unilateral primary osteoarthritis, right knee
CPT/HCPCS: 73721

== ENCOUNTER 2025-05-08 14:22 | Day surgery (SDC) | payer MEDICARE, SELFPAY ==
[2025-05-08 14:27] VITALS: BP 128/56; PULSE 80; RESP 18; O2SAT 98; BMI 25.6
--- NOTE | 2025-05-08 14:33 | P.PCN_ITS ---
Procedure Date: 05/08/25 Time: 14:30 Anesthesiologist:: Radu Light CRNA Complications:: None Pre-procedure Diagnosis:: Right trochanteric bursitis Post-procedure Diagnosis:: Same Indications for Procedure:: Patient is a pleasant 79-year-old female comes our clinic today for right trochanteric bursa injection of cortisone local anesthetic. Patient describes right lateral hip pain as constant, dull, sharp, stabbing. She is having difficulty lying on her right side. Difficulty with ambulation due to the right lateral hip pain. Upon examination she has extreme point tenderness over the right trochanteric bursa area. She rates her pain 7/10. Procedure Details:: Procedure: Right trochanteric bursa injection under fluoroscopy We then moved to the right trochanteric bursa.~ C-arm fluoroscopy was used to view the left greater trochanter.~ The skin and subcutaneous tissues overlying the right greater trochanter were anesthetized using lidocaine, 1.5% and a 25- gauge needle.~ After this, a 22-gauge spinal needle was inserted and advanced until it contacted the right greater trochanter.~ Dye was injected and good spread was seen throughout the right trochanteric bursa. After this, approximately 5 mL of bupivacaine, 0.25% and dexamethasone 10 mg was incrementally injected into the right right trochanteric bursa.~ The patient tolerated the procedure well with no complications. Plan and Disposition:: Patient was discharged without incident.
[2025-05-08] MEDS: LIDOCAINE 1% 5ML PF VIAL 5 ML (14:34)
[2025-05-08] MEDS: BUPIVACAINE 0.25% 10ML INJ 25 MG IJ (14:34)
[2025-05-08] MEDS: DEXAMETHASONE 10MG/ML 1ML VIAL 10 MG (14:34)
[2025-05-08 14:35] VITALS: BP 139/53; PULSE 64; RESP 18; O2SAT 94
[2025-05-08 14:39] VITALS: BP 139/53; PULSE 64; RESP 18; O2SAT 94
[2025-05-08 14:40] VITALS: BP 119/58; PULSE 64; RESP 18; O2SAT 95
== END 2025-05-08 14:40 | disposition home or self-care (01) ==
PROVIDERS: PCP Internal Medicine Adolescent Medicine; Visit Provider Nurse Anesthetist, Certified Registered
DX: M70.61 Trochanteric bursitis, right hip (principal); I25.10 Atherosclerotic heart disease of native coronary artery without angina pectoris; E78.5 Hyperlipidemia, unspecified; I10 Essential (primary) hypertension; Z95.1 Presence of aortocoronary bypass graft; Z79.82 Long term (current) use of aspirin; Z79.899 Other long term (current) drug therapy; Z79.890 Hormone replacement therapy; Z91.011 Allergy to milk products; Z88.8 Allergy status to other drugs, medicaments and biological substances; Z91.018 Allergy to other foods; Z91.012 Allergy to eggs; E55.9 Vitamin D deficiency, unspecified
CPT/HCPCS: 20610; J0665; J1100; J2003

== ENCOUNTER 2025-05-30 09:09 | Outpatient (POV) | payer MEDICARE, SELFPAY ==
--- OUTSIDE RECORDS SUMMARY | 2025-04-23 13:00 | XMS_ITS | Encounter Summary ---
Author Organization [facility] Address [address] [place] [address] Care Team Providers Care Parachute Inspector Name Role Phone Jose Patel MD Primary Care Provider [phone] Reason for Visit * Consultation (Routine) - Closed Specialty Diagnoses / Procedures Referred By Contact Referred To Contact Physical Medicine and Rehabilitation Diagnoses Osteoarthritis of right knee Leona Null [address] [place] [address] Phone: tel:[phone] fax:[phone] [facility] [address] [place] [address] Phone: tel: fax: Referral ID Status Reason Start Date Expiration Date V isits Requested Visits Authorized [id number] Closed Specialty Services Required 04/11/2025 10/11/2026 1 1 Encounter Details Date Type Department Care Team (Late st Contact Info) Description 04/23/2025 1:00 PM EDT Office Visit [facility] [address] [place] [address] Edmond Hayden MD [address] [place] [address] Chronic pain of right knee [...] things Not at all 04/23/2025 12:55 PM Yaquelin Caruso Feeling down, depressed, or hopeless Not at all 04/23/2025 12:55 PM EDT Yaquelin Ivey Patient Health Questionnaire -2 Score 0 04/23/2025 12:55 PM EDT Yaquelin Ivye * Calculated C-SSRS Risk Score (Lifetime/Recent) Answer Date of Assessment Author No Risk Indicated 04/23/2025 12:55 PM Yaquelin Caruso * Question Answer Date of Assessment Author 1. Wish to be (Past 1 Month) No 025 12:55 PM Yaquelin Caruso 2. Non-Specific Active Suici miguel Thoughts (Past 1 Month) No 04/23/2025 12:55 PM EDT Edwina Ivey 6. Suicidal Behavior (Lifetime) No 12:55 PM EDYaquelin Sevilla documented as of this encounter Miscellaneous Notes * Patient Instructions - Edmond Hayden MD - 04/23/2025 1:00 PM EDT Bring the radiologist's report of your right knee MRI at a follow-up appointment with Dr. Hayden * Progress Notes - Edmond Hayden MD - 04/23/2025 1:00 PM EDT [facility] Patient Identifiers Name: Bibiana Dotson DoB (Age): 1945 (79 y.o.) Sex: Female Visit Information Physician: Edmond Hayden MD Date of Service: 04/23/2025 Location: [facility] Encounter Type: New HPI Chronic, progressive R knee pain: Onset approximately 2 years ago without an inciting event. Standing, walking, stairs are painful. PT at [facility] ? increased pain. s/p CSI x 2 and NATY x 2 without lasting relief. Tylenol, tramadol, diclofenac have not provided relief. Believes pain is elevating blood pressure. MR R Knee scheduled for 04/24/2025. Also with chronic LBP and chronic R hip pain for which she sees other providers, has had injections. The patient's uvilgsso-ab-ngy was present and acted as independent historian. [...] note dated 04/05/2025 by AZUL Ramesh of [facility]. It pertains to the primary complaint. I reviewed the radiologist's report of a XR R Knee dated 03/16/2025 performed at [facility]. Selected findings: There is mild narrowing of [...] Care Team (Late st Contact Info) Description 06/05/2025 1:20 PM EDT Office Visit [facility] [address] [place] [address] Elvis Yost MD [address] [facility] [address] [place] [address] 03/26/2026 2:00 PM EDT Ovarian Cancer Screening [facility] [address] [place] [address] documented as of this encounter Visit Diagnoses Diagnosis Chronic pain of right knee- Primary documented in this encounter Additional Health Concerns Assessment Noted Time A Body Mass Index follow-up plan has been documented for the patient 04/23/2025 1:18 PM EDT documented as of this encounter Care Teams Parachute Inspector Relationship Specialty Start Date End Date Jose Patel MD [address] [place] [address] PCP - General 05/27/21 documented as of this encounter
--- OUTSIDE RECORDS SUMMARY | 2025-05-21 11:40 | XMS_ITS | Encounter Summary ---
Author Organization [facility] Address [address] [place] [address] Care Team Providers Care Client Success Manager Name Role Phone Jose Patel MD Primary Care Provider [phone] Reason for Referral * Consultation (Routine) - Authorized Specialty Diagnoses / Procedures Referred By Contac t Referred To Contact Orthopaedic Surgery Diagnoses Derangement of lateral meniscus, right Derangement of medial meniscus, right Edmond Hayden MD [address] [place] [address] Phone: tel: fax: [facility] Orthopaedic Surgery & Sports Medicine [address] [place] [address] Phone: tel: fax: Referral ID Status Reason Start Date Expiration Date Visits Requested Visits Authorized [id number] Authorized Specialty Services Required 05/21/2025 11/20/2026 1 1 Encounter Details Date Type Department Care Team (Late st Contact Info) Description 05/21/2025 11:40 AM EDT Office Visit Physical Medicine & Rehabilitation Clinic at [facility] [address] [place] [address] Edmond Hayden MD [address] [place] [address] Derangement of lateral meniscus, right (Primary Dx); Derangement of medial meniscus, right Social History Tobacco Use Types Packs/Day Years [...] Sign Reading Time Taken Comments Blood Pressure 148/83 05/21/2025 11:35 AM EDT Pulse 58 05/21/2025 11:14 AM EDT Temperature - - Respiratory Rate - - Oxygen Saturation 99% 05/21/2025 11:14 AM EDT Inhaled Oxygen Concentration - - Weight 64.4 kg (142 lb) 05/21/2025 11:14 AM EDT Height 157.5 cm (5' 2 ) 05/21/2025 11:14 AM EDT Body Mass Index 25.97 05/21/2025 11:14 AM EDT documented in this encounter Miscellaneous Notes * Patient Instructions - Edmond Hayden MD - 05/21/2025 11:40 AM EDT You were referred to Orthopaedic Surgery to discuss options for your right knee. They will call youto schedule an appointment. At this time, Dr. Hayden does not recommend nerve ablation procedure because this places you at riskfor further knee damage and falls. * Progress Notes - Edmond Hayden MD - 05/21/2025 11:40 AM EDT [facility] Physical Medicine and Rehabilitation Patient Identifiers Name: Bibiana Dotson DoB (Age): 1945 (79 y.o.) Sex: Female Visit Information Physician: Edmond Hayden MD Date of Service: 05/21/2025 Location: [facility] Encounter Type: Established HPI 04/26/2025: Chronic, progressive R knee pain of unknown etiology - suspecting fibular head dislocation / subluxation vs severe lateral compartment OA (although not evidenced on XR 03/16/2025). 05/21/2025: HTN (180s/80s on initial measurement) was asymptomatic. Took anti-hypertensive medication this morning and BP at home was 145/88. R knee pain is stable. MR Najma Knee at [facility] 04/24/2025. Dr. Otero, orthopedic surgery at [facility], reportedly recommended nerve ablation procedure. Had ÁNGELA a few weeks ago. History Medications: Current Outpatient Medications Medication Instructions [...] Family: Family History[3] Physical Examination Vitals: HR: 58 bpm BP: (!) 148/83 mmHg SaO2: 99 % Height: 157.5 cm (5' 2 ) Weight: 64.4 kg (142 lb) BMI: 25.97 No effusion. Antalgic gait with single-point cane. Data I reviewed the radiologist's report of a MR R Knee dated 04/24/2025 performed at [facility]. Impression: Edema is noted throughout the anterior cruciate ligament, although the fibers appear intact. Complex tears of the posterior and anterior horns of the lateral meniscus, as well as tear of the posterior horn of the medial meniscus which extends to the joint margin. Multiple medial compartment osteochondral lesions as described. Assessment & Plan Chronic, progressive R knee pain due to lateral meniscus tears, medial meniscus tears, and OA. Painis at baseline today. -- Referred to Orthopaedic Surgery. -- Pain has been refractory to multiple rounds of PT -- not amenable to Rx at this time. -- Spinal epidural steroid injections a few weeks ago -- will consider CSI at follow-up, however has had before with limited and brief improvement. -- Recommended against genicular nerve ablation as this will place her at risk for fall and furthersoft tissue injury. -- f/u PRN. Notice The purpose of this document is for inter-professional communication (i.e., the patient is not the intended audience). [1] No past medical history on file. [2] No past surgical history on file. [3] No family history on file. documented in this encounter Plan of Treatment Upcoming Encounters Date Type Department Care Team (Late st Contact Info) Description 06/05/2025 1:20 PM EDT Office Visit [facility] Orthopaedic Surgery & Sports Medicine [address] [place] [address] Elvis Yost MD [address] [place] [address] 03/26/2026 2:00 PM EDT Ovarian Cancer Screening [facility] [address] [facility] [place] [address] Scheduled Referrals Name Type Priority Associated Diagnoses Order Schedule Ambulatory referral to Orthopaedic Surgery Outpatient Referral Routine Derangement of lateral meniscus, right Derangement of medial meniscus, right 1 Occurrences starting 05/21/2025 until 11/22/2026 documented as of this encounter Visit Diagnoses Diagnosis Derangement of lateral meniscus, right- Primary Derangement of medial meniscus, right documented in this encounter Additional Health Concerns Assessment Noted Time A fall risk assessment has been complete d for the patient 05/21/2025 11:15 AM EDT A Body Mass Index follow-up plan has been documented for the patient 05/21/2025 11:44 AM EDT documented as of this encounter Care Teams Client Success Manager Relationship Specialty Start Date End Date Jose Patel MD [address] [place] [address] PCP - General 05/27/21 documented as of this encounter
--- OUTSIDE RECORDS SUMMARY | 2025-05-30 09:12 | XMS_ITS | Encounter Summary ---
Author Organization [facility] Address [address] [place] [address] Care Team Providers Care Sports Complex Attendant Name Role Phone Jose Patel MD Primary Care Provider [phone] Reason for Visit * Reason Onset Date Comments HCN Status Update Call #1 05/01/2025 Encounter Details Date Type Department Care Team (Late st Contact Info) Description 05/01/2025 Telephone Physical Medicine & Rehabilitation Clinic at [facility] [address] [place] [address] Edmond Hayden MD [address] [place] [address] HCN Status Update Call #1 Social History Tobacco Use Types Packs/Day Years Used Date Smoking Tobacco: Never Assessed PHQ-2 Answer Date Recorded Patient Health Questionnaire-2 Score 0 04/23/2025 Comments Unknown Sex and Gender Information Value Date Recorded Sex Assigned at Not on file Legal Sex Female 7:39 PM EDT Gender Identity Not on file Sexual Orientation Not on file documented as of this encounter Miscellaneous Notes * Telephone Encounter - Ni Dickerson - 05/03/2025 12:25 PM EDT Status Update Call #1 1st call regarding the status of the initial request. Best contact number: [phone] (mobile) Optimal time of day to reach caller: ANYTIME Additional comments/information from caller: Pt is calling back to see if the clinic has received the MRI results and imaging. Note: Please do not reply to this message. Follow-up communication and further actions as a result of this message need to be communicated with the patient directly, if the patient is not active onMyChart. If the patient is active on MyChart, they will receive notification of the communication/outcome via MyChart. * Telephone Encounter - Yaquelin Ivey - 05/02/2025 8:06 AM EDT Returned patient call. No MRI results yet. Done at [facility]. Will call and have them faxed. Told patient Catracho will call her as soon as he has results and reviews them * Telephone Encounter - Kaelyn Amador - 05/01/2025 3:51 PM EDT Clinical Concern/Question Reason for Call: Catracho patient calling regarding if her MRI results have been reviewed and if she is able to be scheduled for an ablation Best contact number: [phone] (mobile) Optimal time of day to reach caller: ANYTIME Additional comments/information from caller: None Note: Please do not reply to this message. Follow-up communication and further actions as a result of this message need to be communicated with the patient directly, if the patient is not active onMyChart. If the patient is active on MyChart, they will receive notification of the communication/outcome via [employer]. documented in this encounter Plan of Treatment Upcoming Encounters Date Type Department Care Team (Late st Contact Info) Description 06/05/2025 1:20 PM EDT Office Visit [facility] Orthopaedic Surgery & Sports Medicine [address], [address] [place] [address] Elvis Yost MD [address] [place] [address] 03/26/2026 2:00 PM EDT Ovarian Cancer Screening [facility] [address] [facility] [place] [address] documented as of this encounter Visit Diagnoses Not on filedocumented in this encounter Additional Health Concerns Assessment Noted Time A Body Mass Index follow-up plan has been documented for the patient 04/23/2025 1:18 PM EDT documented as of this encounter Care Teams Sports Complex Attendant Relationship Specialty Start Date End Date Jose Patel MD [address] [place] [address] PCP - General 05/27/21 documented as of this encounter
--- OUTSIDE RECORDS SUMMARY | 2025-05-30 09:12 | XMS_ITS | Encounter Summary ---
Author Organization [employer] ([place], [place], [place], [place]) Address [address] [place] [address] Care Team Providers Care Card Boxer Name Role Phone Jose Patel MD Primary Care Provider [phone] Encounter Details Date Type Department Care Team (Late st Contact Info) Description 03/17/2019 Transcribed Document [facility] [place] [address] ProviderJudi MD [address] [place] [id number] Social History Tobacco Use Types Packs/Day Years [...] on filedocumented in this encounter Care Teams Card Boxer Relationship Specialty Start Date End Date Jose Patel MD [address] [place] [address] PCP - General Adolescent Medicine 08/03/22 documented as of this encounter
--- OUTSIDE RECORDS SUMMARY | 2025-05-30 09:12 | XMS_ITS | Encounter Summary ---
Author Organization [employer] ([place], [place], [place], [place]) Address [address] [place] [address] Care Team Providers Care Front Services Agent Name Role Phone Jose Patel MD Primary Care Provider [phone] Encounter Details Date Type Department Care Team (Late st Contact Info) Description 03/17/2019 Transcribed Document [facility] [address] [place] [address] ProviderJudi MD [address] [place] [address] Social History Tobacco Use Types [...] Source : Chart Height Entry Format : Hewitt Height, Feet : 5 ft(Converted to: 152 cm, 60 Inch) Height, Inches : 3 Inch(Converted to: 0 ft 3 Inch, 7.62 cm) Clinical Height : 160.02 cm Weight Source : Standing scale Weight Entry Format : Hewitt Clinical Dosing Weight : 65 kg Weight, Pounds : 143 lb Body Surface Area (BSA) : 1.68 m2 Body Mass Index : 25.4 kg/m2 (HI) [place] Body Weight : 52 kg REBECCA ARAGON [...] Scale Risk Level : 0-24 Low Risk [place] Fall Interventions : Adequate lighting, Assistive devices [...] on filedocumented in this encounter Care Teams Front Services Agent Relationship Specialty Start Date End Date Jose Patel MD [address] [place] [address] PCP - General Adolescent Medicine 08/03/22 documented as of this encounter
--- OUTSIDE RECORDS SUMMARY | 2025-05-30 09:12 | XMS_ITS | Encounter Summary ---
Author Organization [employer] ([place], [place], [place], [place]) Address [address] [place] [address] Care Team Providers Care Concrete Grinder Operator Name Role Phone Jose Patel MD Primary Care Provider [phone] Encounter Details Date Type Department Care Team (Late st Contact Info) Description 03/17/2019 Transcribed Document [facility] Family Medicine [address] [place] [address] ProviderJudi MD [address] [place] [address] Social History Tobacco Use Types Packs/Day [...] on filedocumented in this encounter Care Teams Concrete Grinder Operator Relationship Specialty Start Date End Date Jose Patel MD [address] [place] [address] PCP - General Adolescent Medicine 08/03/22 documented as of this encounter
--- OUTSIDE RECORDS SUMMARY | 2025-05-30 09:12 | XMS_ITS | Referral Summary ---
Author Organization [employer] ([place], [place], [place], [place]) Address [address] [place] [address] Care Team Providers Care Computer Operator Name Role Phone Jose Patel MD Primary Care Provider [phone] Allergies Active Allergy Reactions Criticality Noted Date [...] 60 tablet 4 Active Rinvoq 15 mg Ne60Bnailvwyjsf:Oth er specified rheumatoid arthritis, multiple sites (HCC) [...] Date Tomasz rded Speak language other than [place] at home Not on file 10/28/2023 Want [...] of Treatment Not on file Insurance [address] MEDICARE PFFS [facility] MEDICARE PPO Care Teams Computer Operator Relationship Specialty Start Date End Date Jose Patel MD [address] [facility] [address] [place] [address] (work) PCP - General Adolescent Medicine 08/03/22
--- OUTSIDE RECORDS SUMMARY | 2025-05-30 09:12 | XMS_ITS | Clinical Summary ---
Author Organization [facility] Address [address] [place] [address] Care Team Providers Care Cataract Lens Generator Name Role Phone Jose Patel MD Primary Care Provider [phone] Allergies Active Allergy Reactions Criticality Noted Date Comments Amlodipine Nausea Only 06/01/2024 Hydrocodone Hallucinations High 07/28/2017 Pregabalin Swelling Medium 07/08/2020 Oxycodone Hives Medium 07/28/2017 Prednisone Mental Status Change Medium 07/28/2017 Medications esomeprazole (nexIUM) 40 MG capsule Take 1 capsule by mouth Daily. 7 Active meclizine (ANTIVERT) 25 MG tablet Take 1 tablet by mouth As Needed. 7 Active milnacipran (SAVELLA) 50 MG tablet tablet Take 1 tablet by mouth Daily. 7 Active levothyroxine (SYNTHROID, LEVOTHROID) 100 MCG tablet Take 1 tablet by mouth Daily. Active Cholecalciferol (VITAMIN D3) 3000 units tablet Take 3,000 Units by mouth Daily. Active acetaminophen (TYLENOL) 325 MG tablet Take 2 tablets by mouth Every 6 (Six) Hours As Needed for Mild Pain. Active traMADol (ULTRAM) 50 MG tabletIndications :Status post reverse arthroplasty of right shoulder Take 1 tablet by mouth Every 4 (Four) Hours As Needed for Moderate Pain . 30 tablet 0 Active Rinvoq 15 MG tablet sustained-release 24 hour Daily. 3 Active nitroglycerin (Nitrolingual) 0.4 MG/SPRAY sprayIndications: Coronary artery disease involving [place] coronary artery of [place] heart without angina pectoris Place 1 spray under the tongue Every 5 (Five) Minutes As Needed for Chest Pain. 4.9 g 5 4 Active rosuvastatin (CRESTOR) 20 MG tabletIndications :Hyperlipidemia LDL goal <70 Take 1 tablet by mouth Daily. 90 tablet 3 4 Active aspirin 81 MG EC tabletIndications :Coronary artery disease involving port gam[place] coronary artery of [place] heart without angina pectoris Take 1 tablet by mouth Daily. 90 tablet 3 4 Active potassium chloride 10 MEQ CR tabletIndications :Bilateral leg edema Take 1 tablet by mouth Daily. 90 tablet 1 4 Active gabapentin (NEURONTIN) 100 MG capsule Take 1 capsule by mouth 3 times a day. 4 Active amLODIPine (NORVASC) 2.5 MG tablet Take 1 tablet by mouth Daily. 30 tablet 1 5 Active furosemide (LASIX) 20 MG tabletIndications :Bilateral leg edema TAKE ONE TABLET BY MOUTH TWICE DAILY 90 tablet 5 Active Active Problems Problem Noted Date Diagnosed Date Raynaud's disease without gangrene 05/23/2024 Assessment & Plan (01/30/2025 2:09 PM EDT): Raynaud's on toes bilaterally Discontinue Nebivolol and start amlodipine 2.5 mg daily Assessment & Plan (05/23/2024 3:28 PM EDT): Raynaud's appearing toes bilaterally Diltiazem is causing bradycardia. Will discontinue Start amlodipine 2.5 mg daily Stop nebivolol as this may be exacerbating Raynaud's Chronic heart failure with p reserved ejection fraction (HFpEF) 03/25/2023 Overview (03/25/2023): NYHA III shortness of breath, 2022 Moderately elevated LV filling pressure (LVEDP 28 mmHg) on [facility], 03/25/2023 Assessment & Plan (01/30/2025 2:11 PM EDT): Stable NYHA class I symptoms Continue Jardiance 10 mg daily Continue Lasix 20 mg twice daily Assessment & Plan (04/27/2023 2:41 PM EDT): Stable NYHA class I symptoms Continue Jardiance 10 mg daily Continue Bystolic 5 mg daily Essential hypertension 07/28/2017 Overview (03/16/2023): Target blood pressure <130/80 mmHg Assessment & Plan (01/30/2025 2:10 PM EDT): Discontinue Nebivolol and start amlodipine 2.5 mg daily Patient to monitor blood pressures and if consistently greater than 130/80 will uptitrate amlodipine Assessment & Plan (05/23/2024 3:27 PM EDT): Reasonably controlled Discontinue nebivolol and diltiazem due to bradycardia Resume valsartan at 80 mg daily Discontinue clonidine Start amlodipine 2.5 mg daily for hypertension and Raynaud's Assessment & Plan (04/27/2023 2:42 PM EDT): Hypertension is controlled Continue chlorthalidone 25 mg daily Continue Bystolic 5 mg daily Continue valsartan 40 mg daily Continue clonidine 0.1 mg daily Assessment & Plan (03/16/2023 10:43 AM EDT): Controlled Continue chlorthalidone, nebivolol Hyperlipidemia LDL goal <70 07/28/2017 Overview (03/16/2023): High intensity statin therapy indicated given the presence of CAD Assessment & Plan (01/30/2025 2:09 PM EDT): Continue Crestor 20 mg daily Assessment & Plan (05/23/2024 3:26 PM EDT): Lipids per PCP If LDL >70, recommend adding ezetimibe 10 mg daily Assessment & Plan (04/27/2023 2:42 PM EDT): Continue Crestor 20 mg daily Repeat lipid panel at next visit and if LDL greater than 70 would uptitrate Crestor Assessment & Plan (03/16/2023 10:44 AM EDT): Obtain lipids at the time of [facility] Coronary artery disease invo lving port gamble coronary artery of port [place] heart without angina pectoris 07/28/2017 Overview (03/25/2023): Anterior OR s/p PCI of LAD, 2003 CABG by Jamal Salamanca (2004): WALTON to LAD Nuclear stress test (10/16/2015): fixed defect involving the anterior and septal aspect of the apex consistent with old infarction, no reversible defects. LVEF 61%. Nuclear stress test (02/25/2023): Large anterior wall defect which does not reverse however appears to be well beyond that of breat attenuation. Normal LVEF. Cardiac catheterization (03/25/2023): Severe 2-vessel CAD (proximal LAD ISR, mid RCA). Patent WALTON to mid LAD. Status post PCI of mid RCA requiring intravascular lithotripsy and placement of Xience 4 x 18 mm JAY. Moderately elevated LV filling pressure (LVEDP 28 mmHg) Assessment & Plan (01/30/2025 2:10 PM EDT): No angina symptoms Continue aspirin 81 mg daily Assessment & Plan (05/23/2024 3:26 PM EDT): No angina since PCI Continue low-dose aspirin Discontinue nebivolol due to bradycardia Continue statin Assessment & Plan (04/27/2023 2:41 PM EDT): Dyspnea on exertion and chest pain is resolved status post PCI Continue dual antiplatelet therapy with aspirin and Plavix Continue Bystolic 5 mg daily Assessment & Plan (03/16/2023 10:43 AM EDT): Recent chest discomfort and exertional dyspnea, possible anginal equivalent Nuclear stress test performed this month suggest prior anterior infarct, consistent with previous stress test and her history of anterior OR With new and ongoing symptoms, I recommend cardiac catheterization to assess coronary and graft anatomy Continue aspirin, beta-reece, statin Resolved Problems Problem Noted Date Diagnosed Date Resolved Date Abnormal nuclear stress test 03/16/2023 03/25/2023 Encounters Date Type Department Care Team Description 04/25/2025 Refill [facility] [address] [place] [address] Vero Stock APRN Med Refill from Last 3 Months Family History Medical History Relation Name Comments Emphysema Father Cancer Mother Relation Name Status Comments Father Mother Social History Tobacco Use Types Packs/Day Years Used Date Smoking Tobacco: Never Smokeless Tobacco: Never Tobacco Cessation:Counseling Given: Not Answered Alcohol Use Standard Drinks/Week Comments No 0 (1 standard drink = 0.6 oz pur e alcohol) AUDIT-C Answer Date Recorded Q1: How often do you have a drink containing alcohol? Never 03/25/2023 Q2: How many drinks containi ng alcohol do you have on a typical day when you are drinking? Patient does not drink Q3: How often do you have si x or more drinks on one occasion? Never 03/25/2023 Abuse Screen Answer Date Recorded Feels Unsafe at Home or Work/School no 03/25/2023 Feels Threatened by Someone no 05/2023 Does Anyone Try to Keep You From Having Contact with Others or Doing Things Outside Your Home? no 03/25/2023 Physical Signs of Abuse Present no 03/25/2023 Disabilities Answer Date Recorded Difficulty Concentrating, Remembering or Making Decisions no 03/25/2023 Difficulty Managing Errands Independently no 03/25/2023 Comments No Sex and Gender Information Value Date Recorded Sex Assigned at Female 07/12/2020 12:48 PM EDT Legal Sex Female 12:02 PM EDT Gender Identity Female 07/12/2020 12:48 PM EDT Sexual Orientation Straight 07/12/2020 12 :48 PM EDT Last Filed Vital Signs Vital Sign Reading Time Taken Comments Blood Pressure 118/50 01/30/2025 1:16 PM EDT Pulse 70 01/30/2025 1:16 PM EDT Temperature 36.4 C (97.5 F) 03/25/2023 9:09 AM EDT Respiratory Rate 12 03/25/2023 12:20 PM EDT Oxygen Saturation 94% 01/30/2025 1:16 PM EDT Inhaled Oxygen Concentration - - Weight 68.8 kg (151 lb 9.6 oz) 01/30/2025 1:16 P M EDT Height 160 cm (5' 3 ) 01/30/2025 1:16 PM EDT Body Mass Index 26.85 01/30/2025 1:16 PM EDT Plan of Treatment Upcoming Encounters Date Type Department Care Team (Late st Contact Info) Description 08/07/2025 2:15 PM EDT Office Visit [facility] [address] [place] [id number] Loco Levine IV, MD [address] [facility] [address] [place] [address] Health Maintenance Due Date Last Done Comments DXA SCAN 1944 Pneumococcal Vaccine 50+ (1 of 2 - PCV) 1963 COLOGUARD 1989 COLON CANCER SCREENING 5 YEA R SIGMOIDOSCOPY 1989 COLONOSCOPY 1989 [address]AL CANCER SCREENING 1989 CT COLONOGRAPHY 1989 FECAL OCCULT BLOOD TEST 1989 FIT Testing (1 year) 1989 TDAP/TD VACCINES (2 - Tdap) 12/19/2006 12/19/1996 ANNUAL WELLNESS VISIT 07/28/2017 RSV Vaccine - Adults (1 - 1- dose 75+ series) 2019 LIPID PANEL 03/25/2024 03/25/2023 COVID-19 Vaccine (4 - 2023-2 5 season) 2024 09/08/2022, 12/10/2020, 11/14/2020 INFLUENZA VACCINE 07/18/2025 08/30/2024, , 07/03/2022, Additional history exists ZOSTER VACCINE Completed 12/28/2018, 08/28/2018 Medical Devices Implanted Type Area Amphibious Operations Officer Device Identifier Shelf Expiration Date Model / Serial / Lot Scrw Compr Equinoxe Lk 4.5x26mm - [id number] - [id number] Implanted:Qt y: 1 on 07/22/2020 by Orlando Valencia MD at [facility] Implant Right: Shoulder EXACTECH [id number] 11/06/2024 [id number] / [id number] / N/A Scrw Equinx Glenosphere Lk - [id number] Implanted:Qt y: 1 on 07/22/2020 by Orlando Valencia MD at [facility] Implant Right: Shoulder EXACTECH [id number] / / N/A Liner Hum Equinoxe Rev Shldr Pls0 36mm - [id number] - [id number] Implanted:Qt y: 1 on 07/22/2020 by Orlando Valencia MD at [facility] Implant Right: Shoulder EXACTECH [id number] 06/04/2025 [id number] / [id number] / N/A Try Hum Equinoxe Adpt Rev Shldr Pls0 - [id number] - [id number] Implanted:Qt y: 1 on 07/22/2020 by Orlando Valencia MD at [facility] Implant Right: Shoulder EXACTECH [id number] 04/21/2028 [id number] / [id number] / N/A Scrw Equinoxe Torq Define Rev Shldr Kt - [id number] - [id number] Implanted:Qt y: 1 on 07/22/2020 by Orlando Valencia MD at [facility] Implant Right: Shoulder EXACTECH [id number] 06/09/2025 [id number] / [id number] / N/A Totl Shldr Rev Aug - [id number] Implanted:Qt y: 1 on 07/22/2020 by Orlando Valencia MD at [facility] Implant Right: Shoulder EXACTECH CAPSHOULDREVAUGE X AC / / Sut Fw #2 W/Tpr Ndl 10/19 Cir 38in 97cm 26.5mm Geronimo - [id number] Implanted:Qt y: 1 on 07/22/2020 by Orlando Valencia MD at [facility] Implant Right: Shoulder ARTHREX 11/17/2024 [id number] / / [id number] Stem Hum Sanna Equinoxe Pressfit 12mm Sht - [id number] - [id number] Implanted:Qt y: 1 on 07/22/2020 by Orlando Valencia MD at [facility] Implant Right: Shoulder EXACTECH [id number] 09/14/2028 [id number] / [id number] / N/A Plt Aug Tyrone Equinoxe Post Rev 8deg Sm Rt - [id number] Implanted:Qt y: 1 on 07/22/2020 by Orlando Valencia MD at [facility] Implant Right: Shoulder EXACTECH 03/12/2030 [id number] / / [id number] Scrw Compr Equinoxe Lk 4.5x26mm - [id number] - [id number] Implanted:Qt y: 1 on 07/22/2020 by Orlando Valencia MD at [facility] Implant Right: Shoulder EXACTECH [id number] 04/24/2025 [id number] / [id number] / N/A Scrw Compr Equinoxe Lk 4.5x26mm - [id number] - [id number] Implanted:Qt y: 1 on 07/22/2020 by Orlando Valencia MD at [facility] Implant Right: Shoulder EXACTECH [id number] 04/08/2025 [id number] / [id number] / N/A Scrw Compr Equinoxe Lk 4.5x26mm - [id number] - [id number] Implanted:Qt y: 1 on 07/22/2020 by Orlando Valencia MD at [facility] Implant Right: Shoulder EXACTECH [id number] 11/06/2024 [id number] / [id number] / N/A Glenosphere Rev Shldr Equinoxe Sm - [id number] - [id number] Implanted:Qt y: 1 on 07/22/2020 by Orlando Valencia MD at [facility] Implant Right: Shoulder EXACTECH [id number] 04/11/2030 [id number] / [id number] / N/A Imiplant Description:BILATERAL CATARA CT LENS RIGHT HIP REPLACEMENT Stnt Cornry Rx Xience/Skypo int Rapdxng 4x18mm - [id number] Implanted:Qt y: 1 on 03/25/2023 by Loco Levine IV, MD at [facility]MAN[facility]ULAR [id number] / / [id number] Procedures Procedure Name Priority Date/Time Associated Diagnosis Comments SCANNED - LABS 04/02/2025 LIPID PANEL STAT 03/25/2023 9:25 AM EDT from Last 3 Months or Most Recently Relevant to Health Maintenance Results * LABS SCANNED (04/02/2025) Vero Stock FILM PROCESSING SHIFT SUPERVISOR LAB BLOOD ORDERABLES Re l Result * Lipid Panel (03/25/2023 9:25 AM EDT) Total Cholesterol 166 0 - 200 mg/dL 03/25/2023 10:06 AM EDT LABORATORY Triglycerides 96 0 - 150 mg/dL 03/25/2023 10:06 AM EDT LABORATORY HDL Cholesterol 59 40 - 60 mg/dL 03/25/2023 10:06 AM EDT LABORATORY LDL Cholesterol 89 0 - 100 mg/dL 03/25/2023 10:06 AM EDT LABORATORY VLDL Cholesterol 18 5 - 40 mg/dL 03/25/2023 10:06 AM EDT LABORATORY LDL/HDL Ratio 1.49 03/25/2023 10:06 AM EDT LABORATORY Blood Line / Unknown 03/25/2023 9: 25 AM EDT 03/25/2023 9:38 AM EDT Narrative LABORATORY - 03/25/2023 10:06 AM EDT Cholesterol Reference Ranges (U.S. Department of Health and Human Services ATP III Classifications) Desirable <200 mg/dL Borderline High 200-239 mg/dL High Risk >240 mg/dL Triglyceride Reference Ranges (U.S. Department of Health and Human Services ATP III Classifications) Normal <150 mg/dL Borderline High 150-199 mg/dL High 200-499 mg/dL Very High >500 mg/dL HDL Reference Ranges (U.S. Department of Health and Human Services ATP III Classifications) Low <40 mg/dl (major risk factor for CHD) High >60 mg/dl ('negative' risk factor for CHD) LDL Reference Ranges (U.S. Department of Health and Human Services ATP III Classifications) Optimal <100 mg/dL Near Optimal 100-129 mg/dL Borderline High 130-159 mg/dL High 160-189 mg/dL Very High >189 mg/dL Loco Levine IV, MD LAB BLOOD ORDERA BLES Final Result LABORATORY
[address] [place] [address], from Last 3 Months or Most Recently Relevant to Health Maintenance Insurance [facility] Medicare Advant[employer] PPO Advance Directives Documents on File Type Date Recorded Patient Rod Piler Expl anation LIVING WILL - SCAN 07/24/2020 6:59 AM GURDEEP CABAN, 09/19/2014 POWER OF BEAMING MACHINE OPERATOR - SCAN 07/24/2020 6:59 AM POWER OF BEAMING MACHINE OPERATORGURDEEP, 09/19/2014 * CPR (Attempt to Resuscitate) (Latest Code Status on File) Date Activated Date Inactivated Comments 03/25/2023 12:36 PM 03/25/2023 6:27 PM Question Answer Comments Code Status (Patient has no pulse and is not breathing): CPR (Attempt to Resuscitate) Medical Interventions (Patie nt has pulse or is breathing): Full Support Release to patient: Routine Release Care Teams Cataract Lens Generator Relationship Specialty Start Date End Date Jose Patel MD [address] [place], [place] [address] PCP - General Adolescent Medicine 04/23/17
--- OUTSIDE RECORDS SUMMARY | 2025-05-30 09:12 | XMS_ITS | Encounter Summary ---
Author Organization [facility] Address [address] [place] [address] Care Team Providers Care Printing Grey Cloth Tender Name Role Phone Jose Patel MD Primary Care Provider [phone] Reason for Visit * Reason Onset Date Comments HCN Status Update Call #1 04/26/2025 Encounter Details Date Type Department Care Team (Late st Contact Info) Description 04/26/2025 Telephone Physical Medicine & Rehabilitation [facility] at [facility] [address] [place] [address] Edmond Hayden MD [address] [place] [address] HCN Status Update Call #1 [...] encounter Miscellaneous Notes * Telephone Encounter - Yaquelin Ivey - 04/27/2025 8:[address] Hayden out until Wednesday * Telephone Encounter - Ella Thomas - 04/26/2025 11:48 AM EDT Status Update Call #1 1st call regarding the status of the initial request. Best contact number: [phone] (mobile) Optimal time of day to reach caller: ANYTIME Additional comments/information from caller: Patient states they sent the wrong MRI results. They will be sending the most recent results today. Please advise. Note: Please do not reply to this message. Follow-up communication and further actions as a result of this message need to be communicated with the patient directly, if the patient is not active onMyChart. If the patient is active on MyChart, they will receive notification of the communication/outcome via MyChart. * Telephone Encounter - Ella Thomas - 04/26/2025 11:27 AM EDT Clinical Concern/Question Reason for Call: Dr Hayden patient is calling. She is wanting to let him know that Dr Patel will befaxing the Mri results. She had it on 04/23/25 or 04/24/25. Please advise. Best contact number: [phone] (mobile) Optimal time of day to reach caller: ANYTIME Additional comments/information from caller: None Note: Please do not reply to this message. Follow-up communication and further actions as a result of this message need to be communicated with the patient directly, if the patient is not active onMyChart. If the patient is active on MyChart, they will receive notification of the communication/outcome via [employer]. documented in this encounter Plan of Treatment Upcoming Encounters Date Type Department Care Team (Late st Contact Info) Description 06/05/2025 1:20 PM EDT Office Visit [facility] Orthopaedic Surgery & Sports Medicine [address] [place] [address] Elvis Yost MD [address] [place] [address] 03/26/2026 2:00 PM EDT Ovarian Cancer Screening [facility] [address] [facility] [place] [address] documented as of this encounter Visit Diagnoses Not on filedocumented in this encounter Additional Health Concerns Assessment Noted Time A Body Mass Index follow-up plan has been documented for the patient 04/23/2025 1:18 PM EDT documented as of this encounter Care Teams Printing Grey Cloth Tender Relationship Specialty Start Date End Date Jose Patel MD [address] [place] [address] PCP - General 05/27/21 documented as of this encounter
--- OUTSIDE RECORDS SUMMARY | 2025-05-30 09:12 | XMS_ITS | Encounter Summary ---
Author Organization [employer] ([place], [place], [place], [place]) Address [address] [place] [address] Care Team Providers Care Senior Asic Design Engineer Name Role Phone Jose Patel MD Primary Care Provider [phone] Reason for Visit * Reason Comments Medication Refill Encounter Details Date Type Department Care Team (Late st Contact Info) Description 02/01/2024 Refill [facility] Rheumatology [address] [place] [address] Sheree Reese MD [address] [place] [address] [address] [place] [address] Fibromyalgia; Other osteoarthritis involving multiple joints Social [...] Date Tomasz rded Speak language other than Monegasque at home Not on file 10/28/2023 Want [...] joints documented in this encounter Care Teams Senior Asic Design Engineer Relationship Specialty Start Date End Date Jose Patel MD [address] [place] [address] PCP - General Adolescent Medicine 08/03/22 documented as of this encounter
--- OUTSIDE RECORDS SUMMARY | 2025-05-30 09:12 | XMS_ITS | Clinical Summary ---
Author Organization [employer] ([place], [place], [place], [place]) Address [address] [place] [address] Care Team Providers Care Catering Truck Operator Name Role Phone Jose Patel MD Primary Care Provider [phone] Allergies Active Allergy Reactions Criticality Noted Date [...] 60 tablet 4 Active Rinvoq 15 mg [id number]:Oth er specified rheumatoid arthritis, multiple sites (HCC) [...] Date Tomasz rded Speak language other than [place] at home Not on file 10/28/2023 Want [...] Shingles Vaccine (Zoster) Completed 12/28/2018, 08/2018 Insurance [facility] MEDICARE PFFS [employer] MEDICARE PPO Care Teams Catering Truck Operator Relationship Specialty Start Date End Date Jose Patel MD [address] [facility] [address] [place] [address] PCP - General Adolescent Medicine 08/03/22
--- OUTSIDE RECORDS SUMMARY | 2025-05-30 09:12 | XMS_ITS | Encounter Summary ---
Author Organization [facility] Address [address] [place] [address] Care Team Providers Care Insecticide Mixer Name Role Phone Jose Patel MD Primary Care Provider [phone] Encounter Details Date Type Department Care Team [...] Description 06/05/2025 1:20 PM EDT Office Visit [facility] Orthopaedic Surgery & Sports Medicine [address] [place] [address] Elvis Yost MD [address] [facility] [address] [place] [address] 03/26/2026 2:00 PM EDT Ovarian Cancer Screening [facility] [address] [facility] [place] [address] documented as of this encounter Visit Diagnoses Not on filedocumented in this encounter Additional Health Concerns Assessment Noted Time A Body Mass Index follow-up plan has been documented for the patient 04/23/2025 1:18 PM EDT documented as of this encounter Care Teams Insecticide Mixer Relationship Specialty Start Date End Date Jose Patel MD [address] [place] [address] PCP - General 05/27/21 documented as of this encounter
--- OUTSIDE RECORDS SUMMARY | 2025-05-30 09:12 | XMS_ITS | Encounter Summary ---
Author Organization [facility] Address [address] [place] [address] Care Team Providers Care Rag Shredder Name Role Phone Jose Patel MD Primary Care Provider [phone] Encounter Details Date Type Department Care Team (Latest Contact Info) Description 05/21/2025 Travel Social History Tobacco Use Types Packs/Day [...] 1:20 PM EDT Office Visit [facility] Orthopaedic Surgery & Sports Medicine [address] [facility], [address] [place] [address] Elvis Yost MD [address] [facility] [address] [place] [address] 03/26/2026 2:00 PM EDT Ovarian Cancer Screening [facility] [address] [facility] [place] [address] documented as of this encounter Visit Diagnoses Not on filedocumented in this encounter Additional Health Concerns Assessment Noted Time A fall risk assessment has been complete d for the patient 05/21/2025 11:15 AM EDT A Body Mass Index follow-up plan has been documented for the patient 05/21/2025 11:44 AM EDT documented as of this encounter Care Teams Rag Shredder Relationship Specialty Start Date End Date Jose Patel MD [address] [place] [address] PCP - General 05/27/21 documented as of this encounter
--- OUTSIDE RECORDS SUMMARY | 2025-05-30 09:12 | XMS_ITS | Encounter Summary ---
Author Organization [employer] ([place], [place], [place], [place]) Address [address] [place] [address] Care Team Providers Care Cnc Mechanic Name Role Phone Jose Patel MD Primary Care Provider [phone] Encounter Details Date Type Department Care Team (Late st Contact Info) Description 03/31/2019 Transcribed Document [facility] [facility] Family Medicine [facility] [place] [address] ProviderJudi MD [address] [place] [address] Social History Tobacco Use Types Packs/Day [...] Source : Chart Height Entry Format : [employer] Height, Feet : 5 ft(Converted to: 152 cm, 60 Inch) Height, Inches : 3 Inch(Converted to: 0 ft 3 Inch, 7.62 cm) Clinical Height : 160.02 cm Weight Source : Standing scale Weight Entry Format : [employer] Clinical Dosing Weight : 64.55 kg Weight, Pounds : 142 lb Body Surface Area (BSA) : 1.67 m2 Body Mass Index : 25.2 kg/m2 (HI) [place] Body Weight : 52 kg REBECCA ARAGON [...] ability Carmichael Fall Risk Score : 0 CARMICHALE Fall Scale Risk Level : 0-24 Low Risk [place] Fall Interventions : Adequate lighting, Bed in [...] 03/31/2019 8:34 EDT Electronically signed by Valentina [facility] Conversion Cloth Grader Cerner at 02/03/2023 6:32 PM CDT documented in this encounter Plan of Treatment Not on file documented as of this encounter Visit Diagnoses Not on filedocumented in this encounter Care Teams Cnc Mechanic Relationship Specialty Start Date End Date Jose Patel MD [address] [place] [address] PCP - General Adolescent Medicine 08/03/22 documented as of this encounter
--- OUTSIDE RECORDS SUMMARY | 2025-05-30 09:12 | XMS_ITS | Encounter Summary ---
Author Organization [facility] Address [address] [place] [address] Care Team Providers Care Burial Needs Salesperson Name Role Phone Jose Patel MD Primary Care Provider [phone] Reason for Visit * Reason Onset Date Comments HCN - Patient Message 05/23/2025 Encounter Details Date Type Department Care Team (Late st Contact Info) Description 05/23/2025 Telephone Physical Medicine & Rehabilitation [facility] at [facility] [address] [place] [address] Edmond Hayden MD [address] [place] [address] HCN - Patient Message Social History Tobacco Use Types Packs/Day Years [...] encounter Miscellaneous Notes * Telephone Encounter - Cheryl Goode S - 05/23/2025 10:28 AM EDT Clinical Concern/Question Reason for Call: Catracho archuleta. Pt was supposed to get a name and fax number for DR. Nino Otero . Please call to advise Best contact number: [phone] (mobile) Optimal time of day to reach [...] receive notification of the communication/outcome via MyChart. documented in this encounter Plan of Treatment Upcoming Encounters Date Type Department Care Team (Late st Contact Info) Description 06/05/2025 1:20 PM EDT Office Visit [facility] Orthopaedic Surgery & Sports Medicine [address] [place] [address] Elvis Yost MD [address] [place] [address] 03/26/2026 2:00 PM EDT Ovarian Cancer Screening [facility] [address] [facility] [place] [address] documented as of this encounter Visit Diagnoses Not on filedocumented in this encounter Additional Health Concerns Assessment Noted Time A fall risk assessment has been complete d for the patient 05/21/2025 11:15 AM EDT A Body Mass Index follow-up plan has been documented for the patient 05/21/2025 11:44 AM EDT documented as of this encounter Care Teams Burial Needs Salesperson Relationship Specialty Start Date End Date Jose Patel MD [address] [place] [address] PCP - General 05/27/21 documented as of this encounter
--- OUTSIDE RECORDS SUMMARY | 2025-05-30 09:12 | XMS_ITS | Encounter Summary ---
Author Organization [facility] Address [address] [place] [address] Care Team Providers Care Supervisory Geographer Name Role Phone Jose Patel MD Primary Care Provider [phone] Reason for Visit * Reason Comments Med Refill Encounter Details Date Type Department Care Team (Late st Contact Info) Description 04/25/2025 Refill [facility] CARDIOLOGY [address] [facility] [address] [place] [address] Vero Stock APRN [address] [facility] [address] [place] [address] Med Refill Social History Tobacco Use Types Packs/Day Years Used Date Smoking Tobacco: Never Smokeless Tobacco: Never Alcohol Use Standard Drinks/Week Comments No 0 [...] Orientation Straight 07/12/2020 12 :48 PM EDT documented as of this encounter Miscellaneous Notes * Telephone Encounter - Tayla King RN - 04/25/2025 3:39 PM EDT Labs requested from PCP. documented in this encounter Plan of Treatment Upcoming Encounters Date Type Department Care Team (Late st Contact Info) Description 08/07/2025 2:15 PM EDT Office Visit [facility] CARDIOLOGY [address] [facility] [address] [place] [address] Loco Levine IV, MD [address] [facility] [address] [place] [address] documented as of this encounter Visit Diagnoses Diagnosis Bilateral leg edema Edema documented in this encounter Care Teams Supervisory Geographer Relationship Specialty Start Date End Date Jose Patel MD [address] [facility] [address] [place], [place] [id number] PCP - General Adolescent Medicine 04/23/17 documented as of this encounter
--- OUTSIDE RECORDS SUMMARY | 2025-05-30 09:12 | XMS_ITS | Clinical Summary ---
Author Organization [facility] Address [address] [place] [address] Care Team Providers Care Director Digital Catalogue Name Role Phone Jose Patel MD Primary Care Provider [phone] Allergies Active Allergy Reactions Criticality Noted Date [...] Active Problems Problem Noted Date Diagnosed Date Derangement of lateral meniscus, right 5 Chronic pain of right knee 04/23/2025 Encounters Date Type Department Care Team Description 05/23/2025 Telephone Physical Medicine & Rehabilitation Clinic at [facility] [address] [place] [address] Edmond Hayden MD HCN - Patient Message 05/21/2025 11:40 AM EDT Office Visit [facility] at [facility] [address] [place] [address] Edmond Hayden MD Derangement of lateral meniscus, right (Primary Dx); Derangement of medial meniscus, right 05/21/2025 Travel 05/01/2025 Telephone [facility] at [facility] [address] [place] [address] Edmond Hayden MD HCN Status Update Call #1 04/26/2025 Telephone Physical [facility] at [facility] [address] [place] [address] Edmond Hyaden MD HCN Status Update Call #1 04/23/2025 1:00 PM EDT Office Visit [facility] at [facility] [address] [place] [address] Edmond Hayden MD Chronic pain of right [...] AM EDT Temperature - - Respiratory Rate 12 04/23/2025 12:45 PM EDT Oxygen Saturation 99% 05/21/2025 11:14 AM EDT Inhaled Oxygen Concentration - - Weight 64.4 kg (142 lb) 05/21/2025 11:14 AM EDT Height 157.5 cm (5' 2 ) 05/21/2025 11:14 AM EDT Body Mass Index 25.97 05/21/2025 11:14 AM EDT Plan of Treatment Upcoming Encounters Date Type Department Care Team (Late st Contact Info) Description 06/05/2025 1:20 PM EDT Office Visit [facility] Orthopaedic Surgery & Sports Medicine [address] [place] [address] Elvis Yost MD [address] [place] [address] 03/26/2026 2:00 PM EDT Ovarian Cancer Screening [facility] [address] [facility] [address] Health Maintenance Due Date Last Done Comments [facility]-Bone Density Scan 1944 [facility]-Medicare Annual Wellness (AWV) 1944 [facility]-/Child/Adol SDOH Screenings 1944 [facility]- SDOH Screenings 1962 [facility]-Adult SDOH Screenings 1962 [facility]-Pneumococcal Vaccine: 50+ Years (1 of 1 - PCV) 1994 [facility]-DTaP,Tdap,and Td Vaccines (1 - Tdap) 12/20/1996 12/19/1996 [id number] Vaccine (4 - 2023- season) 2024 09/08/2022, 12/10/2020, 11/14/2020 [facility]-Influenza Vaccine (#1) 06/18/202508/30, 08/26/2023, 07/03/2022, Additional history exists [facility]-Depression Screening 04/23/2026 04/23/2025 [facility]-Hepatitis A Vaccines Aged Out 09/28/2018 No longer eligible based on patient's age to complete this topic [facility]-Zoster Vaccines Completed 12/28/2018, 8 [facility]-Diabetes: Hemoglobin A1C Discontinued 03/25/2023, 07/08/2020 [facility]-RSV Vaccine: 60+ Years or Completed 09/01/2023 [facility]-Obesity Intervention Completed 05/21/2025, 04/2025 HPV Vaccines Aged Out No longer eligi [...] patient's age to complete this topic Insurance Care Teams Director Digital Catalogue Relationship Specialty Start Date End Date Jose Patel MD [address] [facility] [address] [place] [address] PCP - General 05/27/21
--- OUTSIDE RECORDS SUMMARY | 2025-05-30 09:12 | XMS_ITS | Encounter Summary ---
Author Organization [facility] ([place], [place], [place], [place]) Address [address] [place] [address] Care Team Providers Care Repairer Evaporator Name Role Phone Joes Patel MD Primary Care Provider [phone] Encounter Details Date Type Department Care Team (Late st Contact Info) Description 03/31/2019 Transcribed Document [facility] Family Medicine [facility] [place] [address] ProviderJudi MD [address] [place] [id number] Social History Tobacco Use Types Packs/Day Years [...] On: 03/31/2019 13:20 EDT by REBECCA ARAGON curator Documentation Discharge Date/Time : 03/31/2019 13:20 EDT [...] 03/31/2019 13:20 EDT Electronically signed by Valentina [facility] Conversion Sound Effects Person Cerner at 02/03/2023 6:34 PM CDT documented in this encounter Plan of Treatment Not on file documented as of this encounter Visit Diagnoses Not on filedocumented in this encounter Care Teams Repairer Evaporator Relationship Specialty Start Date End Date Jose Patel MD [address] [place] [address] PCP - General Adolescent Medicine 08/03/22 documented as of this encounter
[2025-05-30 09:39] VITALS: BP 148/92; BP 152/69; PULSE 75; RESP 14; O2SAT 98; BMI 25.7
--- NOTE | 2025-05-30 10:10 | EXP.PAIN.SOA ---
[facility] Disclaimer: The information contained in this section may have been updated after the patient was seen, as this information can be updated by other users. Medical History Sacroiliitis Sinusitis Encounter for laboratory testing for COVID-19 virus Canker sore Elevated d-dimer CAD in [place] artery Abnormal electrocardiogram [ECG] [EKG] Unstable angina Abnormal colonoscopy Arthritis Vitamin D deficiency Hyperlipemia Hypertension Primary osteoarthritis of left knee Chronic pain of left knee Primary osteoarthritis of right knee Chronic pain of right knee Bursitis Surgical History Hx of CABG H/O total shoulder replacement History of total hip replacement Family History Other No significant family history Social History Smoking Status: Never smoker alcohol intake: never substance use type: denies use current occupational status: other Travel in the last 8 weeks?: None household members: family housing: house current occupational exposures/hazards: No caffeine: No PM Subjective & Objective Subjective Subjective:: Patient is a pleasant 79 female who presents today for follow-up of her right bursa injection. Today she states that she did not notice any additional improvement following this injection. She states that she never really felt like she even got numb. Patient does state the pain is still all along the right side and more so just into her low back hip and buttocks. She denies any radiating symptoms into her legs. Patient does state the pain is worse when she is up walking and moving. Patient does make mention today that she is scheduled to see Dr. Otero's office tomorrow regarding her knee pain. Patient states that she ended up being sent to to see a specialist. They were recommending her see a surgeon there at that location however if she really would like to be here locally. Patient denies any other changes. She has gotten the compounded cream and states that it does seem to help some. Her Adrián has been reviewed and is appropriate. Review of Systems: General: No recent weight changes, no fever, no sleep disturbances Respiratory: No cough, no shortness of air, no recurring pulmonary infections Cardiovascular/peripheral vascular: No chest pain, no palpitations, no edema, no shortness of breath Gastrointestinal: No new onset incontinence, normal bowel movements reported Genitourinary: No new onset incontinence Musculoskeletal: Low back pain, right buttocks pain, right hip pain Psychiatric: [Normal mood/affect] Neurological: [Denies weakness in extremities], [denies balance issues] Pain at rest (0-10 scale): 8 Objective Objective:: Physical Exam: General: Alert and oriented x3, no acute distress, pleasant and cooperative Lungs: Respirations even and unlabored, symmetrical chest expansion Eyes: PERRL Musculoskeletal: Flexion and extension of lumbar [spine] somewhat guarded secondary to pain, [antalgic gait noted] point tenderness along right SI with positive right Helene's, Edgar's, Gaenslen's, compression and distraction exam Neurological: Speech clear, no gross sensory deficit Has patient had previous pain injection?: Yes Percent improvement in pain since last injection: Minimal Conservative treatment options previously tried: Home exercise plan Length of treatment: Longer than 12 weeks Meds Home Medications and Allergies Home Medications ?Medication ?Instructions ?Recorded ?Confirmed ?Type esomeprazole magnesium 40 mg 40 mg PO DAILY 90 days 01/24/18 05/30/25 History capsule,delayed release calcium carbonate 500 mg PO BID GERD 06/29/18 05/30/25 History cholecalciferol (vitamin D3) 25 1,000 unit PO DAILY Supplement 06/29/18 05/30/25 History mcg (1,000 unit) capsule ascorbic acid (vitamin C) 1,000 mg 1 g PO DAILY 09/22/23 05/30/25 History capsule aspirin 81 mg tablet,delayed 81 mg PO DAILY 09/22/23 05/30/25 History release (Adult Aspirin Regimen) furosemide 20 mg tablet 20 mg PO BIDP PRN Fluid 02/22/25 05/30/25 History hydroxyzine pamoate 25 mg capsule 25 mg PO TID 02/22/25 05/30/25 History levothyroxine 100 mcg tablet 100 mcg PO DAILY 02/22/25 05/30/25 History (Synthroid) milnacipran 50 mg tablet (Savella) 50 mg PO DAILY 02/22/25 05/30/25 History rosuvastatin 20 mg tablet 20 mg PO HS 02/22/25 05/30/25 History tramadol 50 mg tablet 50 mg PO Q6HP PRN Pain, Moderate 02/22/25 05/30/25 History carvedilol 12.5 mg tablet 12.5 mg PO BID 30 days #60 tabs 02/23/25 05/30/25 Rx doxycycline hyclate 100 mg tablet 100 mg PO BID 5 days #9 tabs 02/23/25 05/30/25 Rx baclofen 5 mg tablet 5 mg PO BID #28 tabs 05/30/25 Rx New Prescriptions to Start Prescriptions: baclofen Caren Otero Allergies Allergy/AdvReac Type Severity Reaction Status Date / Time hydrocodone Allergy Intermediate Hives Verified 05/01/25 14:42 milk (From MILK (FOOD/DRUG)) Allergy Intermediate I-HIVES Verified 05/01/25 14:42 strawberry (From Allergy Intermediate I-HIVES Verified 05/01/25 14:42 STRAWBERRIES (FOOD/DRUG)) tomato (From TOMATOES Allergy Intermediate I-HIVES Verified 05/01/25 14:42 (FOOD/DRUG)) oxycodone (OXYCODONE) Allergy Mild SHUT Verified 05/01/25 14:42 EVERYTHING DOWN egg Allergy Hives Verified 05/01/25 14:42 hydroxychloroquine (From Allergy Other Verified 05/01/25 14:42 Plaquenil) Milk Containing Products Allergy Hives Verified 05/01/25 14:42 (Dairy) pregabalin (From Lyrica) Allergy Swelling Verified 05/01/25 14:42 of Lip/Tongue/Throat prednisone AdvReac Intermediate ANXIOUS/EBEN Verified 05/01/25 14:42 EMILY clopidogrel AdvReac Migraine Verified 05/01/25 14:42 Assessment and Plan *Assessment and plan (1) Sacroiliitis: Status: Acute Category: Medical Code(s): M46.1 - Sacroiliitis, not elsewhere classified Plan I did review with the patient that her pain all does still seem to be stemming from her SI joint. Patient did have this injection prior to the bursa and did states she noticed some improvement however it was not a significant difference. I did discuss with her in future that it may be beneficial to repeat that prior injection. Today we did also review over certain movements in office and she had a negative Kemps test and no complaints of issues with bending, twisting or lifting. Patient will be given a 2-week dose of baclofen 5 mg twice daily and follow-up in our office in 3 weeks. Patient agrees with this plan of care. Patient has been instructed to contact the clinic with any concerns before the next appointment. Dr. Rodriguez has reviewed this note and agrees with this plan of care. This note was dictated using voice recognition software and make contain errors or omissions. All injections are used with Lidocaine, Bupivacaine and dexamethasone. Occasionally urine drug screen is needed to verify patient's compliance with our office pain contract. This is ordered based off specific treatments related to chronic pain with the potential to abuse certain medications.
== END 2025-05-30 23:59 | disposition home or self-care (01) ==
PROVIDERS: PCP Internal Medicine Adolescent Medicine; Visit Provider Nurse Practitioner Family
DX: M46.1 Sacroiliitis, not elsewhere classified (principal); Z79.899 Other long term (current) drug therapy
CPT/HCPCS: 99212; G0463

== ENCOUNTER 2025-07-23 13:22 | Outpatient (CLI) | payer MEDICARE, SELFPAY ==
--- NOTE | 2025-07-23 13:24 | XR_ITS ---
FINAL REPORT TECHNIQUE: Bone densitometry calculations of the lumbar spine and left hip were obtained. CLINICAL HISTORY: SCREENING COMPARISON: None FINDINGS: Using L1-4, the bone mineral density of the spine is 1.149 g/cm2, corresponding to T-score of 0.9 and a Z score of 3.6. This is within the range of normal limits. Using the left hip, the bone mineral density of the femoral neck is 0.613 g/cm2, corresponding to a T-score of -2.1 and a Z-score of 0.2. This is within the range of osteopenia. FRAX not reported because the patient is being treated for osteoporosis. NOTE: T-score: Standard deviation compared with peak bone mass of young adult mean. *Following the recommendations of the International Society of Bone densitometry, classification of hip BMD is based on the lower of two T-scores; total hip or femoral neck. IMPRESSION: 1. Bone mineral density of the lumbar spine within the range of normal limits. 2. Bone mineral density of the left femoral neck within the range of osteopenia. Reviewed, Interpreted and Dictated by Barbara Platt MD Transcribed by Dina Castillo Authenticated and [facility]
--- OUTSIDE RECORDS SUMMARY | 2025-07-23 13:25 | XMS_ITS | Encounter Summary ---
[facility] Address [address] [place] [address] Care Team Providers Care Baling Press Operator Name Role Phone Jose Patel MD Primary Care Provider [phone] Reason for Visit * Reason Comments Med Refill Encounter Details Date Type Department Care Team (Late st Contact Info) Description 07/03/2025 Refill [facility] CARDIOLOGY [address] [facility] [address] [place] [address] Loco Levine IV, MD [address] [facility] [address] [place] [address] Med Refill Social History Tobacco Use Types [...] Telephone Encounter - Tayla King RN - 07/03/2025 11:30 AM EDT Labs in media. documented in this encounter Plan of Treatment Upcoming Encounters Date Type Department Care Team (Late st Contact Info) Description 08/07/2025 2:15 PM EDT Office Visit [facility] CARDIOLOGY [address] [facility] [address] [place] [address] Loco Levine IV, MD [address] [facility] [address] [place] [address] documented as of this encounter Visit Diagnoses Diagnosis Hyperlipidemia LDL goal <70 Other and unspecified hyperlipidemia documented in this encounter Care Teams Baling Press Operator Relationship Specialty Start Date End Date Jose Patel MD [address] [facility] [address] [place] [address] PCP - General Adolescent Medicine 04/23/17 documented as of this encounter
--- OUTSIDE RECORDS SUMMARY | 2025-07-23 13:25 | XMS_ITS | Encounter Summary ---
Author Organization [employer] ([place], [place], [place], [place]) Address [address] [place] [address] Care Team Providers Care Port Engineer Name Role Phone Jose Patel MD Primary Care Provider [phone] Encounter Details Date Type Department Care Team (Late st Contact Info) Description 03/17/2019 Transcribed Document [facility] [place] Family Medicine [address] [place] [address] ProviderJudi MD [address] [place] [address] Social History Tobacco Use Types Packs/Day [...] on filedocumented in this encounter Care Teams Port Engineer Relationship Specialty Start Date End Date Jose Patel MD [address] [place] [address] PCP - General Adolescent Medicine 08/03/22 documented as of this encounter
--- OUTSIDE RECORDS SUMMARY | 2025-07-23 13:25 | XMS_ITS | Clinical Summary ---
Author Organization [facility] Address [address] [place] [address] Care Team Providers Care Automatic Thread Winder Name Role Phone Jose Patel MD Primary Care Provider [phone] Allergies Active Allergy Reactions Criticality Noted Date [...] Telephone Physical Medicine & Rehabilitation Clinic at [facility] [address] [place] [address] Edmond Hayden MD HCN - Patient Message 05/21/2025 11:40 AM EDT Office Visit [facility] at [facility] [address] [place] [address] Edmond Hayden MD Derangement of lateral meniscus, right (Primary Dx); Derangement of medial meniscus, right 05/21/2025 Travel 05/01/2025 Telephone Physical Medicine & [facility] Clinic at [facility] [address] [place] [address] Edmond Hayden MD HCN Status Update Call #1 04/26/2025 Telephone [facility] at [facility] [address] [place] [address] Edmond Hayden MD HCN Status Update Call #1 04/23/2025 1:00 PM EDT Office Visit [facility] at [facility] [address] [place] [address] Edomnd Hayden MD Chronic pain of right knee (Primary Dx) 04/23/2025 Travel from Last 3 Months Social History [...] 03/26/2026 2:00 PM EDT Ovarian Cancer Screening [facility] [address] [facility] [place] [address] Health Maintenance Due Date Last Done Comments [facility]-Bone Density Scan 1944 [facility]-Medicare Annual Wellness (AWV) 1944 [facility]-/Child/Adol SDOH Screenings 1944 [facility]- SDOH Screenings 1962 [facility]-Adult SDOH Screenings 1962 [facility]-Pneumococcal Vaccine: 50+ Years (1 of 1 - PCV) 1994 [facility]-DTaP,Tdap,and Td Vaccines (1 - Tdap) 12/20/1996 12/19/1996 [id number] Vaccine (4 - season) 2025 09/08/2022, 12/10/2020, 11/14/2020 [facility]-Influenza Vaccine (#1) 06/18/202508/30, [...] patient's age to complete this topic Insurance [facility] MEDICARE Care Teams Automatic Thread Winder Relationship Specialty Start Date End Date Jose Patel MD [address] [place] [address] [facility] - General 05/27/21
--- OUTSIDE RECORDS SUMMARY | 2025-07-23 13:25 | XMS_ITS | Encounter Summary ---
Author Organization [employer] ([place], [place], [place], [place]) Address [address] [place] [address] Care Team Providers Care Television Inspector Name Role Phone Jose Patel MD Primary Care Provider [phone] Encounter Details Date Type Department Care Team (Late st Contact Info) Description 03/17/2019 Transcribed Document [facility] [place] [address] [place] [address] ProviderJudi MD [address] [place] [address] Social History Tobacco Use Types [...] Oxygen Therapy Mode : Room air REBECCA ARAOGN RN - 03/17/2019 9:02 EDT Height and Weight, Clinical Dosing Height Source : Chart Height Entry Format : [place] Height, Feet : 5 ft(Converted to: 152 cm, 60 Inch) Height, Inches : 3 Inch(Converted to: 0 ft 3 Inch, 7.62 cm) Clinical Height : 160.02 cm Weight Source : Standing scale Weight Entry Format : [place] Clinical Dosing Weight : 65 kg Weight, Pounds : 143 lb Body Surface Area (BSA) : 1.68 m2 Body Mass Index : 25.4 kg/m2 (HI) [place] Body Weight : 52 kg REBECCA ARAGON [...] Scale Risk Level : 0-24 Low Risk [place] Fall Interventions : Adequate lighting, Assistive devices [...] on filedocumented in this encounter Care Teams Television Inspector Relationship Specialty Start Date End Date Jose Patel MD [address] [place] [address] PCP - General Adolescent Medicine 08/03/22 documented as of this encounter
--- OUTSIDE RECORDS SUMMARY | 2025-07-23 13:25 | XMS_ITS | Referral Summary ---
Author Organization [employer] ([place], [place], [place], [place]) Address [address] [place] [address] Care Team Providers Care Lawn Sprinkler Servicer Name Role Phone Jose Patel MD Primary Care Provider [phone] Allergies Active Allergy Reactions Criticality Noted Date [...] 60 tablet 4 Active Rinvoq 15 mg Nx14Vvbppymsoum:Oth er specified rheumatoid arthritis, multiple sites (HCC) [...] Date Tomasz rded Speak language other than Burkinan at home Not on file 10/28/2023 Want [...] of Treatment Not on file Insurance [address] MEDICARE PFFS [facility] MEDICARE PPO Care Teams Lawn Sprinkler Servicer Relationship Specialty Start Date End Date Jose Patel MD [address] [facility] [address] [place] [address] (work) PCP - General Adolescent Medicine 08/03/22
--- OUTSIDE RECORDS SUMMARY | 2025-07-23 13:25 | XMS_ITS | Encounter Summary ---
Author Organization [facility] Address [address] [place] [address] Care Team Providers Care Hotel Or Motel Manager Name Role Phone Jose Patel MD Primary Care Provider [phone] Reason for Visit * Reason Onset Date Comments HCN - Patient Message 05/23/2025 Encounter Details Date Type Department Care Team (Late st Contact Info) Description 05/23/2025 Telephone Physical Medicine & Rehabilitation Clinic at [facility] [address] [place] [address] Edmond Hayden MD [address] [place] [address] HCN - Patient Message Social [...] Please call to advise Best contact number: [phone] (mobile) Optimal time of day to reach [...] 03/26/2026 2:00 PM EDT Ovarian Cancer Screening [facility] [address] [facility] [place] [address] documented as of this encounter Visit Diagnoses Not on filedocumented in this encounter Additional Health Concerns Assessment Noted Time A fall risk assessment has been complete d for the patient 05/21/2025 11:15 AM EDT A Body Mass Index follow-up plan has been documented for the patient 05/21/2025 11:44 AM EDT documented as of this encounter Care Teams Hotel Or Motel Manager Relationship Specialty Start Date End Date Jose Patel MD [address] [place] [address] PCP - General 05/27/21 documented as of this encounter
--- OUTSIDE RECORDS SUMMARY | 2025-07-23 13:25 | XMS_ITS | Encounter Summary ---
Author Organization [employer] ([place], [place], [place], [place]) Address [address] [place] [address] Care Team Providers Care Network Specialist Name Role Phone Jose Patel MD Primary Care Provider [phone] Encounter Details Date Type Department Care Team (Late st Contact Info) Description 03/17/2019 Transcribed Document [facility] [place] [facility] [place] [address] ProviderJudi MD [address] [place] [id number] Social History Tobacco Use Types Packs/Day Years [...] REBECCA ARAGON RN - 03/17/2019 14:47 EDT Electronically signed by Jen Montgomery Conversion Timber Treatment Plant Operator Cerner at 02/03/2023 6:29 PM CDT documented in this encounter Plan of Treatment Not on file documented as of this encounter Visit Diagnoses Not on filedocumented in this encounter Care Teams Network Specialist Relationship Specialty Start Date End Date Jose Patel MD [address] [place] [address] PCP - General Adolescent Medicine 08/03/22 documented as of this encounter
--- OUTSIDE RECORDS SUMMARY | 2025-07-23 13:25 | XMS_ITS | Encounter Summary ---
Author Organization [employer] ([place], [place], [place], [place]) Address [address] [place] [address] Care Team Providers Care Violin Teacher Name Role Phone Jose Patel MD Primary Care Provider [phone] Encounter Details Date Type Department Care Team (Late st Contact Info) Description 03/31/2019 Transcribed Document [facility] [place] [facility] [place] [address] ProviderJudi MD [address] [place] [id number] Social History Tobacco Use Types Packs/Day Years [...] On: 03/31/2019 13:20 EDT by REBECCA ARAGON anime designer Documentation Discharge Date/Time : 03/31/2019 13:20 EDT [...] 03/31/2019 13:20 EDT Electronically signed by Valentina [facility] Conversion Machine Tool Operator Cerner at 02/03/2023 6:34 PM CDT documented in this encounter Plan of Treatment Not on file documented as of this encounter Visit Diagnoses Not on filedocumented in this encounter Care Teams Violin Teacher Relationship Specialty Start Date End Date Jose Patel MD [address] [place] [address] PCP - General Adolescent Medicine 08/03/22 documented as of this encounter
--- OUTSIDE RECORDS SUMMARY | 2025-07-23 13:25 | XMS_ITS | Encounter Summary ---
Author Organization [employer] ([place], [place], [place], [place]) Address [address] [place] [address] Care Team Providers Care Living Skills Advisor Name Role Phone Jose Patel MD Primary Care Provider [phone] Encounter Details Date Type Department Care Team (Late st Contact Info) Description 03/31/2019 Transcribed Document [facility] [place] Family Medicine [facility] [place] [address] ProviderJudi MD [address] [place] [address] Social History Tobacco Use Types Packs/Day [...] Source : Chart Height Entry Format : [place] Height, Feet : 5 ft(Converted to: 152 cm, 60 Inch) Height, Inches : 3 Inch(Converted to: 0 ft 3 Inch, 7.62 cm) Clinical Height : 160.02 cm Weight Source : Standing scale Weight Entry Format : [place] Clinical Dosing Weight : 64.55 kg Weight, Pounds : 142 lb Body Surface Area (BSA) : 1.67 m2 Body Mass Index : 25.2 kg/m2 (HI) [place] Body Weight : 52 kg REBECCA ARAGON [...] Scale Risk Level : 0-24 Low Risk [place] Fall Interventions : Adequate lighting, Bed in [...] 03/31/2019 8:34 EDT Electronically signed by Valentina [facility] Conversion Technology Applications Engineer Cerner at 02/03/2023 6:32 PM CDT documented in this encounter Plan of Treatment Not on file documented as of this encounter Visit Diagnoses Not on filedocumented in this encounter Care Teams Living Skills Advisor Relationship Specialty Start Date End Date Jose Patel MD [address] [place] [address] PCP - General Adolescent Medicine 08/03/22 documented as of this encounter
--- OUTSIDE RECORDS SUMMARY | 2025-07-23 13:25 | XMS_ITS | Encounter Summary ---
Author Organization [employer] ([place], [place], [place], [place]) Address [address] [place] [address] Care Team Providers Care Habilitation Training Specialist Name Role Phone Jose Patel MD Primary Care Provider [phone] Reason for Visit * Reason Comments Medication Refill Encounter Details Date Type Department Care Team (Late st Contact Info) Description 02/01/2024 Refill [facility] Rheumatology [address] [place] [address] Sheree Reese MD [address] [place] [address] [address] [place] [address] Fibromyalgia; Other osteoarthritis involving multiple joints Social [...] Date Tomasz rded Speak language other than Sri Lankan at home Not on file 10/28/2023 Want [...] joints documented in this encounter Care Teams Habilitation Training Specialist Relationship Specialty Start Date End Date Jose Patel MD [address] [place] [address] PCP - General Adolescent Medicine 08/03/22 documented as of this encounter
--- OUTSIDE RECORDS SUMMARY | 2025-07-23 13:25 | XMS_ITS | Clinical Summary ---
Author Organization [employer] ([place], [place], [place], [place]) Address [address] [place] [address] Care Team Providers Care Regulator Mechanic Name Role Phone Jose Patel MD Primary Care Provider [phone] Allergies Active Allergy Reactions Criticality Noted Date [...] 60 tablet 4 Active Rinvoq 15 mg [id number]:Oth er specified rheumatoid arthritis, multiple sites (HCC) [...] Date Tomasz rded Speak language other than Senegalese at home Not on file 10/28/2023 Want [...] or (1 - 1-dose 75+ series) 2019 Falls Risk Screening 10/18/2024 Tobacco Cessation Counseling and Screening (12+) 10/28/2024 10/28/2023 COVID-19 VACCINE (4 - 2024-2 6 season) 2025 09/08/2022, 12/10/2020, 11/14/2020 Influenza Vaccine (#1) 2025 3, 07/03/2022, 07/03/2022, Additional history exists Shingles Vaccine (Zoster) Completed 12/28/2018, 08/2018 Insurance [facility] MEDICARE PFFS [employer] MEDICARE PPO Care Teams Regulator Mechanic Relationship Specialty Start Date End Date Jose Patel MD [address] [facility] [address] [place] [address] PCP - General Adolescent Medicine 08/03/22
--- OUTSIDE RECORDS SUMMARY | 2025-07-23 13:25 | XMS_ITS | Clinical Summary ---
Author Organization [facility] Address [address] [place] [address] Care Team Providers Care Search Consultant Name Role Phone Jose Patel MD Primary Care Provider [phone] Allergies Active Allergy Reactions Criticality Noted Date Comments Amlodipine Nausea Only 06/01/2024 Hydrocodone Hallucinations High 07/28/2017 Pregabalin Swelling Medium 07/08/2020 Oxycodone Hives Medium 07/28/2017 Prednisone Mental Status Change Medium 07/28/2017 Medications esomeprazole (nexIUM) 40 MG capsule Take 1 capsule by mouth Daily. 07/24/20 17 Active meclizine (ANTIVERT) 25 MG tablet Take 1 tablet by mouth As Needed. 07/26/20 17 Active milnacipran (SAVELLA) 50 MG tablet tablet Take 1 tablet by mouth Daily. 07/27/20 17 Active levothyroxine (SYNTHROID, LEVOTHROID) 100 MCG tablet Take 1 tablet by mouth Daily. Active Cholecalciferol (VITAMIN D3) 3000 units tablet Take 3,000 Units by mouth Daily. Active acetaminophen (TYLENOL) 325 MG tablet Take 2 tablets by mouth Every 6 (Six) Hours As Needed for Mild Pain. Active traMADol (ULTRAM) 50 MG tabletIndication s:Status post reverse arthroplasty of right shoulder Take 1 tablet by mouth Every 4 (Four) Hours As Needed for Moderate Pain . 30 tablet 07/22/20 20 Active Rinvoq 15 MG tablet sustained-releas e 24 hour Daily. 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 4.9 g 5 05/23/20 24 Active aspirin 81 MG EC tabletIndication s:Coronary artery disease involving absentee-shawnee coronary artery of absentee-shawnee heart without angina pectoris Take 1 tablet by mouth Daily. 90 tablet 3 05/23/20 24 Active potassium chloride 10 MEQ CR tabletIndication s:Bilateral leg edema Take 1 tablet by mouth Daily. 90 tablet 1 06/21/20 24 Active gabapentin (NEURONTIN) 100 MG capsule Take 1 capsule by mouth 3 times a day. 10/04/20 24 Active amLODIPine (NORVASC) 2.5 MG tablet Take 1 tablet by mouth Daily. 30 tablet 1 01/31/20 25 Active furosemide (LASIX) 20 MG tabletIndication s:Bilateral leg edema TAKE ONE TABLET BY MOUTH TWICE DAILY 90 tablet 04/25/20 25 Active rosuvastatin (CRESTOR) 20 MG tabletIndication s:Hyperlipidemia LDL goal <70 TAKE ONE TABLET BY MOUTH EVERY DAY 90 tablet 07/03/20 25 Active rosuvastatin (CRESTOR) 20 MG tabletIndication s:Hyperlipidemia LDL goal <70 Take 1 tablet by mouth Daily. 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 by [...] stress test and her history of anterior HI With new and ongoing symptoms, I recommend cardiac catheterization to assess coronary and graft anatomy Continue aspirin, beta-reece, statin Resolved Problems Problem Noted Date Diagnosed Date Resolved Date Abnormal nuclear stress test 03/16/2023 03/25/2023 Encounters Date Type Department Care Team Description 07/03/2025 Refill [facility] [address] [facility] [address] [place] [id number] Loco Levine IV, MD Med Refill 04/25/2025 Refill [facility] [address] [facility] [address] [place] [address] Vero Stock APRN Med Refill [...] Description 08/07/2025 2:15 PM EDT Office Visit [facility] [address] [place] [address] Loco Levine IV, MD [address] [facility] [address] [place] [address] Health Maintenance Due Date Last Done Comments [...] 75+ series) 2019 LIPID PANEL 03/25/2024 03/25/2023 INFLUENZA VACCINE 05/18/2025 08/30/2024, , 07/03/2022, Additional history exists COVID-19 Vaccine (4 - 2024-2 6 season) 2025 09/08/2022, 12/10/2020, 11/14/2020 ZOSTER VACCINE Completed 12/28/2018, 08/28/2018 Medical Devices Implanted Type Area Operations Clerk Device Identifier Shelf Expiration Date Model / Serial / Lot Scrw Compr Equinoxe Lk 4.5x26mm - [id number] - [id number] Implanted:Qt y: 1 on 07/22/2020 by Orlando Valencia MD at [facility] Implant Right: Shoulder EXACTECH [id number] 11/06/2024 [id number] / [id number] / N/A Scrw Equinx Glenosphere Lk - [id number] Implanted:Qt y: 1 on 07/22/2020 by Orlando Valencia MD at [facility] Implant Right: Shoulder EXACTECH [id number] / / N/A Liner Hum Equinoxe Rev Shldr Pls0 36mm - [id number] - [id number] Implanted:Qt y: 1 on 07/22/2020 by Orlando Valencia MD at [facility] Implant Right: Shoulder EXACTECH [id number] 06/04/2025 [id number] / [id number] / N/A Try Hum Equinoxe Adpt Rev Shldr Pls0 - [id number] - [id number] Implanted:Qt y: 1 on 07/22/2020 by Orlando Valencia MD at [facility] Implant Right: Shoulder EXACTECH [id number] 04/21/2028 [id number] / [id number] / N/A Scrw Equinoxe Torq Define Rev Shldr Kt - [id number] - [id number] Implanted:Qt y: 1 on 07/22/2020 by Orlando Valencia MD at [facility] Implant Right: Shoulder EXACTECH [id number] 06/09/2025 [id number] / [id number] / N/A Totl Shldr Rev Aug - [id number] Implanted:Qt y: 1 on 07/22/2020 by Orlando Valencia MD at [facility] Implant Right: Shoulder EXACTECH CAPSHOULDREVAUGE X AC / / Sut Fw #2 W/Tpr Ndl /2 Cir 38in 97cm 26.5mm Geronimo - [id number] Implanted:Qt y: 1 on 07/22/2020 by Orlando Valencia MD at [facility] Implant Right: Shoulder ARTHREX 11/17/2024 [id number] / / [id number] Stem Hum Sanna Equinoxe Pressfit 12mm Sht - [id number] - [id number] Implanted:Qt y: 1 on 07/22/2020 by Orlando Valencia MD at [facility] Implant Right: Shoulder EXACTECH [id number] 09/14/2028 [id number] / [id number] / N/A Plt Aug Tyrone Equinoxe Post Rev 8deg Sm Rt - [id number] Implanted:Qt y: 1 on 07/22/2020 by Orlando Valencia MD at [facility] Implant Right: Shoulder EXACTECH 03/12/2030 [id number] / / [id number] Scrw Compr Equinoxe Lk 4.5x26mm - [id number] - [id number] Implanted:Qt y: 1 on 07/22/2020 by Orlando Valencia MD at [facility] Implant Right: Shoulder EXACTECH [id number] 04/24/2025 [id number] / [id number] / N/A Scrw Compr Equinoxe Lk 4.5x26mm - [id number] - [id number] Implanted:Qt y: 1 on 07/22/2020 by Orlando Valencia MD at [facility] Implant Right: Shoulder EXACTECH [id number] 04/08/2025 [id number] / [id number] / N/A Scrw Compr Equinoxe Lk 4.5x26mm - [id number] - [id number] Implanted:Qt y: 1 on 07/22/2020 by Orlando Valencia MD at [facility] Implant Right: Shoulder EXACTECH [id number] 11/06/2024 [id number] / [id number] / N/A Glenosphere Rev Shldr Equinoxe Sm - [id number] - [id number] Implanted:Qt y: 1 on 07/22/2020 by Orlando Valencia MD at [facility] Implant Right: Shoulder EXACTECH [id number] 04/11/2030 [id number] / [id number] / N/A Imiplant Description:BILATERAL CATARA CT LENS RIGHT HIP REPLACEMENT Stnt Cornry Rx Xience/Skypo int Rapdxng 4x18mm - [id number] Implanted:Qt y: 1 on 03/25/2023 by Loco Levine IV, MD at [facility] [id number] / / [id number] Procedures Procedure Name Priority Date/Time Associated Diagnosis Comments LIPID PANEL STAT 03/25/2023 9:25 AM EDT from Last 3 Months or Most Recently Relevant to Health Maintenance Results * Lipid Panel (03/25/2023 9:25 AM EDT) Total Cholesterol 166 0 - 200 mg/dL 03/25/2023 10:06 AM EDT [facility] Triglycerides 96 0 - 150 mg/dL 03/25/2023 10:06 AM EDT [facility] HDL Cholesterol 59 40 - 60 mg/dL 03/25/2023 10:06 AM EDT [facility] LDL Cholesterol 89 0 - 100 mg/dL 03/25/2023 10:06 AM EDT [facility] VLDL Cholesterol 18 5 - 40 mg/dL 03/25/2023 10:06 AM EDT [facility] LDL/HDL Ratio 1.49 03/25/2023 10:06 AM EDT [facility] Blood Line / Unknown 03/25/2023 9: 25 AM EDT 03/25/2023 9:38 AM EDT Narrative [facility] - 03/25/2023 10:06 AM EDT Cholesterol [...] MD LAB BLOOD ORDERA BLES Final Result [facility]
[address] [place] [address], from Last 3 Months or Most Recently Relevant to Health Maintenance Insurance [address] [facility] [address] [place] [id number] [facility] Medicare Advantage [employer] PPO Advance Directives Documents on File Type Date Recorded Patient Hospital Aides And Assistants Teacher Expl anation LIVING WILL - SCAN 07/24/2020 6:59 AM GURDEEP CABAN, 09/19/2014 POWER OF MEDICARE SALES EXECUTIVE - SCAN 07/24/2020 6:59 AM POWER OF MEDICARE SALES EXECUTIVEGURDEEP, 09/19/2014 * CPR (Attempt to Resuscitate) (Latest Code Status on File) Date Activated Date Inactivated Comments 03/25/2023 12:36 PM 03/25/2023 6:27 PM Question Answer Comments Code Status (Patient has no pulse and is not breathing): CPR (Attempt to Resuscitate) Medical Interventions (Patie nt has pulse or is breathing): Full Support Release to patient: Routine Release Care Teams Search Consultant Relationship Specialty Start Date End Date Jose Patel MD [address] [place] [facility] [address] [facility] [address] [facility] [place] [address] PCP - General Adolescent Medicine 04/23/17
--- OUTSIDE RECORDS SUMMARY | 2025-07-23 13:25 | XMS_ITS | Encounter Summary ---
Author Organization [facility] Address [address] [place] [address] Care Team Providers Care Armored Machine Operator Name Role Phone Jose Patel MD Primary Care Provider [phone] Reason for Visit * Reason Onset Date Comments HCN Status Update Call #1 05/01/2025 Encounter Details Date Type Department Care Team (Late st Contact Info) Description 05/01/2025 Telephone Physical Medicine & Rehabilitation Clinic at [facility] [address] [place] [address] Edmond Hayden MD [address] [place] [address] HCN Status Update Call #1 [...] of the initial request. Best contact number: [phone] (mobile) Optimal time of day to reach [...] call. No MRI results yet. Done at [facility]. Will call and have them faxed. Told patient Dr Hayden will call her as soon as he has results and reviews them * Telephone Encounter - Kaelyn Amador - 05/01/2025 3:51 PM EDT Clinical Concern/Question Reason for Call: Catr[place] patient calling regarding if her MRI results have been reviewed and if she is able to be scheduled for an ablation Best contact number: [phone] (mobile) Optimal time of day to reach [...] 03/26/2026 2:00 PM EDT Ovarian Cancer Screening [facility] [address] [facility] [place] [phone] documented as of this encounter Visit Diagnoses Not on filedocumented in this encounter Additional Health Concerns Assessment Noted Time A Body Mass Index follow-up plan has been documented for the patient 04/23/2025 1:18 PM EDT documented as of this encounter Care Teams Armored Machine Operator Relationship Specialty Start Date End Date Jose Patel MD [address] [place] [address] PCP - General 05/27/21 documented as of this encounter
--- OUTSIDE RECORDS SUMMARY | 2025-07-23 13:25 | XMS_ITS | Encounter Summary ---
Author Organization [facility] Address [address] [place] [address] Care Team Providers Care Tractor Trailer Operator Name Role Phone Jose Patel MD Primary Care Provider [phone] Reason for Visit * Reason Onset Date Comments HCN Status Update Call #1 04/26/2025 Encounter Details Date Type Department Care Team (Late st Contact Info) Description 04/26/2025 Telephone Physical Medicine & Rehabilitation Clinic at [facility] [address] [place] [address] Edmond Hayden MD [address] [place] [address] HCN Status Update Call #1 [...] of the initial request. Best contact number: [phone] (mobile) Optimal time of day to reach [...] or 04/24/25. Please advise. Best contact number: [phone] (mobile) Optimal time of day to reach caller: ANYTIME Additional comments/information from caller: None Note: Please do not reply to this message. Follow-up communication and further actions as a result of this message need to be communicated with the patient directly, if the patient is not active onMyChart. If the patient is active on MyChart, they will receive notification of the communication/outcome via [employer]. documented in this encounter Plan of Treatment Upcoming Encounters Date Type Department Care Team (Late st Contact Info) Description 03/26/2026 2:00 PM EDT Ovarian Cancer Screening [facility] [address] [facility] [place] [id number] documented as of this encounter Visit Diagnoses Not on filedocumented in this encounter Additional Health Concerns Assessment Noted Time A Body Mass Index follow-up plan has been documented for the patient 04/23/2025 1:18 PM EDT documented as of this encounter Care Teams Tractor Trailer Operator Relationship Specialty Start Date End Date Jose Patel MD [address] [place] [address] PCP - General 05/27/21 documented as of this encounter
== END 2025-07-23 23:59 | disposition home or self-care (01) ==
LOC: RAD 13:22
PROVIDERS: PCP Internal Medicine Adolescent Medicine; Visit Provider Internal Medicine Adolescent Medicine
DX: M85.88 Other specified disorders of bone density and structure, other site
CPT/HCPCS: 77080

== ENCOUNTER 2025-07-31 11:55 | Day surgery (SDC) | payer MEDICARE, SELFPAY ==
[2025-07-31 12:10] VITALS: BP 186/60; PULSE 65; RESP 16; O2SAT 92; BMI 25.2
[2025-07-31 12:11] VITALS: BP 168/72; PULSE 61; RESP 18; O2SAT 99
[2025-07-31 12:18] VITALS: BP 140/63; PULSE 64; RESP 16; O2SAT 99
--- NOTE | 2025-07-31 12:26 | EXP.PAIN.PRO ---
Procedure Date: 07/31/25 Time: 12:10 Anesthesiologist:: Ashu Light CRNA Complications:: None Pre-procedure Diagnosis:: DJD right knee. Chronic right knee pain. Post-procedure Diagnosis:: Same. Indications for Procedure:: Patient is a pleasant 80-year-old female who comes our clinic today for a right infrapatellar nerve block. Patient describes right knee pain as constant, dull, aching. She reports difficulty with ambulation due to right knee pain. Difficulty with flexion due to right knee pain. She rates her pain 7/10. Procedure Details:: Details of the procedure explained to the patient. The patient taken procedure and placed in the sitting position. The over the right knee was cleaned using chlorhexidine as a cleansing solution. Using a 25-gauge inch and half needle the right infrapatellar branch of the saphenous nerve was accessed with ease. After negative aspiration 4 cc of 1% lidocaine +4 cc of 0.25% Marcaine and 10 mg of dexamethasone was injected incrementally. Patient tolerated procedure without difficulty. Dental complications. Plan and Disposition:: Patient was discharged without incident.
[2025-07-31] MEDS: BUPIVACAINE 0.25% 10ML INJ 25 MG IJ (12:53)
[2025-07-31] MEDS: LIDOCAINE 1% 5ML PF VIAL 5 ML (12:54)
[2025-07-31] MEDS: DEXAMETHASONE 10MG/ML 1ML VIAL 10 MG (12:54)
== END 2025-07-31 12:18 | disposition home or self-care (01) ==
PROVIDERS: PCP Internal Medicine Adolescent Medicine; Visit Provider Nurse Anesthetist, Certified Registered
DX: M17.11 Unilateral primary osteoarthritis, right knee (principal); G89.29 Other chronic pain; I25.10 Atherosclerotic heart disease of native coronary artery without angina pectoris; E78.5 Hyperlipidemia, unspecified; I10 Essential (primary) hypertension; Z95.1 Presence of aortocoronary bypass graft; Z96.643 Presence of artificial hip joint, bilateral; Z96.611 Presence of right artificial shoulder joint; Z96.612 Presence of left artificial shoulder joint; Z88.5 Allergy status to narcotic agent; Z91.018 Allergy to other foods; Z91.0110 Allergy to milk products, unspecified; Z88.8 Allergy status to other drugs, medicaments and biological substances; Z79.82 Long term (current) use of aspirin; Z79.891 Long term (current) use of opiate analgesic; Z79.52 Long term (current) use of systemic steroids; Z79.899 Other long term (current) drug therapy
CPT/HCPCS: 64447; J0665; J1100; J2003

== ENCOUNTER 2025-08-14 09:48 | Outpatient (CLI) | payer MEDICARE, SELFPAY ==
--- OUTSIDE RECORDS SUMMARY | 2025-08-07 14:15 | XMS_ITS | Encounter Summary ---
[facility] Address [address] [place] [address] Care Team Providers Care Corrosion Control Engineer Name Role Phone Jose Patel MD Primary Care Provider [phone] Reason for Visit * Reason Comments Coronary artery disease involving [place] coronary artery of Encounter Details Date Type Department Care Team (Late st Contact Info) Description 08/07/2025 2:15 PM EDT Office Visit [facility] C[facility] [address] [place] [address] Loco Levine IV, MD [address] [facility] [address] [place] [address] Coronary artery disease involving [place] coronary artery of [place] heart with angina pectoris (Primary Dx); Hyperlipidemia LDL goal <70; Chronic heart failure with preserved ejection fraction (HFpEF); Raynaud's disease without gangrene; Essential hypertension Social History Tobacco Use Types Packs/Day Years [...] PM EDT documented as of this encounter Last Filed Vital Signs Vital Sign Reading Time Taken Comments Blood Pressure 134/86 08/07/2025 1:50 PM EDT Pulse 82 08/07/2025 1:50 PM EDT Temperature - - Respiratory Rate - - Oxygen Saturation 96% 08/07/2025 1:50 PM EDT Inhaled Oxygen Concentration - - Weight 62.2 kg (137 lb 3.2 oz) 08/07/2025 1:50 P M EDT Height 157.5 cm (5' 2 ) 08/07/2025 1:50 PM EDT Body Mass Index 25.09 08/07/2025 1:50 PM EDT documented in this encounter Progress Notes * Loco Levine IV, MD - 08/07/2025 5:13 PM EDTAssociated Problem(s): Raynaud's disease without gangrene Resume amlodipine 2.5 mg daily for Raynaud's * Loco Levine IV, MD - 08/07/2025 5:13 PM EDTAssociated Problem(s): Essential hypertension Continue Nebivolol Start amlodipine 2.5 mg daily * Loco Levine IV, MD - 08/07/2025 5:12 PM EDTAssociated Problem(s): Coronary artery disease involving [place] coronary artery of [place] heart with angina pectoris Recent hospitalization at [facility] in February for chest pain with reportedly unremarkable cardiac catheterization No chest pain since Continue aspirin, Nebivolol, statin * Loco Levine IV, MD - 08/07/2025 2:26 PM EDTAssociated Problem(s): Chronic heart failure with preserved ejection fraction (HFpEF) No dyspnea Intolerant to SGL 2 inhibitor Continue furosemide and potassium * Loco Levine IV, MD - 08/07/2025 2:15 PM EDT Images from the original note were not included. Cardiology Outpatient Visit Identification: Bibiana Dotson is a 80 y.o. female who resides in [place], [place]. Reason for visit: CAD Subjective History of Present Illness The patient is an 80-year-old female who presents for a routine follow-up. She is accompanied by her [id number]. She was hospitalized on 02/23/2025 due to severe chest pain, which was partially alleviated by 2 doses of nitroglycerin spray administered en route to the hospital. A heart catheterization performed at [facility] revealed no abnormalities, and she was discharged the following day. Since then, she has not experienced any further chest pain. She reports no history of hiatal hernia. She was previously prescribed amlodipine for blood pressure management but discontinued it due to aperceived decrease in heart rate. She has attempted to resume amlodipine twice but was advised against it by her physician. Her medication was subsequently switched to Bystolic. She expresses a desire to return to amlodipine, believing it may improve her circulation. She has some leftover amlodipine from her previous prescription. She reports poor circulation in her feet and legs, which frequently exhibit a purple or blue discoloration, even during the summer months. She experienced mild nausea when she first started amlodipine, but this symptom subsided upon reinitiation of the medication. However, she noticed a significantreduction in her heart rate during the second course of amlodipine. She is no longer taking Jardiance due to intolerance. Her respiratory symptoms are currently well-managed. She reports an improvement in her swelling, although it persists to some extent. She continues to maintain high water intake as recommended. Review of Systems Constitutional: Negative for malaise/fatigue. Eyes: Negative for vision loss in left eye and vision loss in right eye. Cardiovascular: Negative for chest pain, dyspnea on exertion, near-syncope, orthopnea, palpitations, paroxysmal nocturnal dyspnea and syncope. Musculoskeletal: Negative for myalgias. Neurological: Negative for brief paralysis, excessive daytime sleepiness, focal weakness, numbness,paresthesias and weakness. All other systems reviewed and are negative. Allergies[1] Current Outpatient Medications Medication Instructions acetaminophen (TYLENOL) 650 mg, Every 6 Hours PRN acetaminophen-codeine (TYLENOL with CODEINE #3) 300-30 MG per tablet 1 tablet, Every 4 Hours PRN amLODIPine (NORVASC) 2.5 mg, Oral, Daily aspirin 81 mg, Oral, Daily cetirizine (ZYRTEC) 10 mg, Daily esomeprazole (NEXIUM) 40 mg, Daily furosemide (LASIX) 20 mg, Oral, 2 Times Daily levothyroxine (SYNTHROID, LEVOTHROID) 100 mcg, Daily meclizine (ANTIVERT) 25 mg, As Needed milnacipran (SAVELLA) 50 mg, Daily nebivolol (BYSTOLIC) 20 mg, Oral, Daily nitroglycerin (Nitrolingual) 0.4 MG/SPRAY spray 1 spray, Sublingual, Every 5 Minutes PRN ondansetron ODT (ZOFRAN-ODT) 4 mg, Every 8 Hours PRN potassium chloride 10 MEQ CR tablet 10 mEq, Oral, Daily Rinvoq 15 MG tablet sustained-release 24 hour Daily rosuvastatin (CRESTOR) 20 mg, Oral, Nightly traMADol (ULTRAM) 50 mg, Oral, Every 4 Hours PRN Vitamin D3 3,000 Units, Daily Objective BP 134/86 (BP Location: Right arm, Patient Position: Sitting, Cuff Size: Adult) Pulse 82 Ht 157.5 cm (62 ) Wt 62.2 kg (137 lb 3.2 oz) SpO2 96% BMI 25.09 kg/m?? Constitutional: Appearance: Healthy appearance. Eyes: General: No scleral icterus. Neck: Thyroid: No thyroid mass. Vascular: No carotid bruit or JVD. JVD normal. Pulmonary: Effort: Pulmonary effort is normal. Breath sounds: Normal breath sounds. Cardiovascular: Normal rate. Regular rhythm. Murmurs: There is no murmur. No gallop. Edema: Peripheral edema absent. Skin: General: Skin is warm. There is no cyanosis. Neurological: General: No focal deficit present. Mental Status: Alert. Psychiatric: Attention and Perception: Attention normal. Result Review (reviewed with patient): Labs (02/12/2025): Glucose 82, creat 1.48, BUN 19, Na 143, K 4.4, AST 37, ALT 20 Assessment Diagnoses and all orders for this visit: 1. Coronary artery disease involving [place] coronary artery of [place] heart with angina pectoris (Primary) Overview: Anterior CO s/p PCI of LAD, 2002 CABG by Jamal Salamanca (2004): WALTON to LAD Nuclear stress test (10/16/2015): fixed defect involving the anterior and septal aspect of the apexconsistent with old infarction, no reversible defects. LVEF 61%. Nuclear stress test (02/25/2023): Large anterior wall defect which does not reverse however appears to be well beyond that of breat attenuation. Normal LVEF. Cardiac catheterization (03/25/2023): Severe 2-vessel CAD (proximal LAD ISR, mid RCA). Patent WALTON tomid LAD. Status post PCI of mid RCA requiring intravascular lithotripsy and placement of Xience 4 x18 mm JAY. Moderately elevated LV filling pressure (LVEDP 28 mmHg) Cardiac catheterization for unstable angina (02/2025): no culprit for CP Assessment & Plan: Recent hospitalization at [facility] in February for chest pain with reportedly unremarkable cardiac catheterization No chest pain since Continue aspirin, Nebivolol, statin Orders: - nitroglycerin (Nitrolingual) 0.4 MG/SPRAY spray; Place 1 spray under the tongue Every 5 (Five) Minutes As Needed for Chest Pain. Dispense: 4.9 g; Refill: 5 - aspirin 81 MG EC tablet; Take 1 tablet by mouth Daily. Dispense: 90 tablet; Refill: 3 - nebivolol (Bystolic) 20 MG tablet; Take 1 tablet by mouth Daily. Dispense: 90 tablet; Refill: 3 - amLODIPine (NORVASC) 2.5 MG tablet; Take 1 tablet by mouth Daily. Dispense: 90 tablet; Refill: 3 2. Hyperlipidemia LDL goal <70 Overview: High intensity statin therapy indicated given the presence of CAD Orders: - rosuvastatin (CRESTOR) 20 MG tablet; Take 1 tablet by mouth Every Night. Dispense: 90 tablet; Refill: 3 3. Chronic heart failure with preserved ejection fraction (HFpEF) Overview: NYHA III shortness of breath, 2022 Moderately elevated LV filling pressure (LVEDP 28 mmHg) on [facility], 03/25/2023 Cannot tolerate empagliflozin Assessment & Plan: No dyspnea Intolerant to SGL 2 inhibitor Continue furosemide and potassium Orders: - furosemide (LASIX) 20 MG tablet; Take 1 tablet by mouth 2 (Two) Times a Day. Dispense: 90 tablet;Refill: 3 - potassium chloride 10 MEQ CR tablet; Take 1 tablet by mouth Daily. Dispense: 90 tablet; Refill: 1 4. Raynaud's disease without gangrene Assessment & Plan: Resume amlodipine 2.5 mg daily for Raynaud's Orders: - amLODIPine (NORVASC) 2.5 MG tablet; Take 1 tablet by mouth Daily. Dispense: 90 tablet; Refill: 3 5. Essential hypertension Overview: Target blood pressure <130/80 mmHg Assessment & Plan: Continue Nebivolol Start amlodipine 2.5 mg daily Plan Resume amlodipine 2.5 mg twice daily Continue present medical therapy otherwise Follow-up Return in about 6 months (around 02/05/2026). Patient or patient compliance representative verbalized consent for the use of Ambient Listening during the visit with Loco Levine IV, MD for chart documentation. 08/07/2025 17:14 EDT Napoleon Levine MD, [facility] [place]07/[place] [1] Allergies Allergen Reactions Hydrocodone Hallucinations Lyrica [Pregabalin] Swelling Oxycodone Hives Prednisone Mental Status Change Amlodipine Nausea Only documented in this encounter Plan of Treatment Upcoming Encounters Date Type Department Care Team (Late st Contact Info) Description 02/05/2026 1:40 PM EDT Office Visit [facility] [address] [place] [address] Vero Stock, GUA[place] [address] [facility] [address] [facility] [address] [place] [address] documented as of this encounter Visit Diagnoses Diagnosis Coronary artery disease involving [place] coronary artery of [place] heart with angina pectoris- Primary Hyperlipidemia LDL goal <70 Other and unspecified hyperlipidemia Chronic heart failure with preserved ejection fraction (HFpEF) Raynaud's disease without gangrene Essential hypertension Unspecified essential hypertension documented in this encounter Care Teams Corrosion Control Engineer Relationship Specialty Start Date End Date Jose Patel MD [address] [facility] [address] [place] [address] PCP - General Adolescent Medicine 04/23/17 documented as of this encounter
--- OUTSIDE RECORDS SUMMARY | 2025-08-14 10:08 | XMS_ITS | Encounter Summary ---
[facility] Address [address] [place] [address] Care Team Providers Care Secondary Market Manager Name Role Phone Jose Patel MD Primary Care Provider [phone] Encounter Details Date Type Department Care Team (Latest Contact Info) Description 08/07/2025 Travel Social History Tobacco Use Types Packs/Day [...] PM EDT documented as of this encounter Plan of Treatment Upcoming Encounters Date Type Department Care Team (Late st Contact Info) Description 02/05/2026 1:40 PM EDT Office Visit [facility] [address] [place] [address] Vero Stock APRN [address] [place] [address] documented as of this encounter Visit Diagnoses Not on filedocumented in this encounter Care Teams Secondary Market Manager Relationship Specialty Start Date End Date Jose Patel MD [address] [facility] [address] [place] [address] PCP - General Adolescent Medicine 04/23/17 documented as of this encounter
--- OUTSIDE RECORDS SUMMARY | 2025-08-14 10:08 | XMS_ITS | Encounter Summary ---
[facility] [address] [place] [address] Care Team Providers Care White Lead Filterer Name Role Phone Jose Patel MD Primary Care Provider [phone] Reason for Visit * Reason Comments Med Refill Encounter Details Date Type Department Care Team (Late st Contact Info) Description 07/03/2025 Refill [facility] [address] [facility] [address] [place] [address] Loco Levine IV, MD [address] [facility] [address] [place] [address] Med Refill Social History Tobacco Use Types [...] Description 02/05/2026 1:40 PM EDT Office Visit [facility] [address] [facility] [address] [place] [address] Vero Stock APRN [address] [facility] [address] [place] [address] documented as of this encounter Visit Diagnoses Diagnosis Hyperlipidemia LDL goal <70 Other and unspecified hyperlipidemia documented in this encounter Care Teams White Lead Filterer Relationship Specialty Start Date End Date Jose Patel MD [address] [facility] [address] [place], [place] [id number] PCP - General Adolescent Medicine 04/23/17 documented as of this encounter
--- OUTSIDE RECORDS SUMMARY | 2025-08-14 10:08 | XMS_ITS | Encounter Summary ---
Author Organization [facility] Address [address] [place] [address] Care Team Providers Care Clinical Medical Transcriptionist Name Role Phone Jose Patel MD Primary Care Provider [phone] Reason for Visit * Reason Onset Date Comments HCN - Patient Message 05/23/2025 Encounter Details Date Type Department Care Team (Late st Contact Info) Description 05/23/2025 Telephone Physical Medicine & Rehabilitation Clinic at [facility] [address] [place] [address] Edmond Hayden MD [address] [place] [address] HCN - Patient Message Social [...] Please call to advise Best contact number: [phone] (mobile) Optimal time of day to reach [...] 03/26/2026 2:00 PM EDT Ovarian Cancer Screening [facility] [address] [facility] [place] [address] documented as of this encounter Visit Diagnoses Not on filedocumented in this encounter Additional Health Concerns Assessment Noted Time A fall risk assessment has been complete d for the patient 05/21/2025 11:15 AM EDT A Body Mass Index follow-up plan has been documented for the patient 05/21/2025 11:44 AM EDT documented as of this encounter Care Teams Clinical Medical Transcriptionist Relationship Specialty Start Date End Date Jose Patel MD [address] [place] [address] PCP - General 05/27/21 documented as of this encounter
--- OUTSIDE RECORDS SUMMARY | 2025-08-14 10:08 | XMS_ITS | Clinical Summary ---
Author Organization [facility] Address [address] [place] [address] Care Team Providers Care Engineering Technician Parking Name Role Phone Jose Patel MD Primary Care Provider [phone] Allergies Active Allergy Reactions Criticality Noted Date Comments Empagliflozin Other (See Comments) 08/07/2025 unknown Hydrocodone Hallucinations High 07/28/2017 Pregabalin Swelling Medium [...] for Moderate Pain . 30 tablet 07/22/20 Active Rinvoq 15 MG tablet sustained-release 24 hour Daily. 02/27/20 23 Active ondansetron ODT (ZOFRAN-ODT) 4 MG disintegrating tablet Take 1 tablet by mouth Every 8 (Eight) Hours As Needed. Active cetirizine (zyrTEC) 10 MG tablet Take 1 tablet by mouth Daily. Active acetaminophen-cod eine (TYLENOL with CODEINE #3) 300-30 MG per tablet Take 1 tablet by mouth Every 4 (Four) Hours As Needed. Active rosuvastatin (CRESTOR) 20 MG tabletIndications :Hyperlipidemia LDL goal <70 Take 1 tablet by mouth Every Night. 90 tablet 3 08/07/20 25 Active nitroglycerin (Nitrolingual) 0.4 MG/SPRAY sprayIndications: Coronary artery disease involving [place] coronary artery of [place] heart with angina pectoris Place 1 spray under the tongue Every 5 (Five) Minutes As Needed for Chest Pain. 4.9 g 5 08/07/20 25 Active aspirin 81 MG EC tabletIndications :Coronary artery disease involving [place] coronary artery of [place] heart with angina pectoris Take 1 tablet by mouth Daily. 90 tablet 3 08/07/20 25 Active furosemide (LASIX) 20 MG tabletIndications :Chronic heart failure with preserved ejection fraction (HFpEF) Take 1 tablet by mouth 2 (Two) Times a Day. 90 tablet 3 08/07/20 25 Active potassium chloride 10 MEQ CR tabletIndications :Chronic heart failure with preserved ejection fraction (HFpEF) Take 1 tablet by mouth Daily. 90 tablet 1 08/07/20 25 Active nebivolol (Bystolic) 20 MG tabletIndications :Coronary artery disease involving [place] cro[place] coronary artery of [place] heart with angina pectoris Take 1 tablet by mouth Daily. 90 tablet 3 08/07/20 25 Active amLODIPine (NORVASC) 2.5 MG tabletIndications :Coronary artery disease involving [place] coronary artery of [place] heart with angina pectoris,Raynaud' s disease without gangrene Take 1 tablet by mouth Daily. 90 tablet 3 08/07/20 25 Active nitroglycerin (Nitrolingual) 0.4 MG/SPRAY sprayIndications: Coronary artery disease involving [place] cro[place] coronary artery of [place] cro[place] heart without angina pectoris Place 1 spray under the tongue Every 5 (Five) Minutes As Needed for Chest Pain. 4.9 g 5 05/23/20 24 025 Discontinued(R eorder) aspirin 81 MG EC tabletIndications :Coronary artery disease involving [place] cro[place] coronary artery of [place] cro[place] heart without angina pectoris Take 1 tablet by mouth Daily. 90 tablet 3 05/23/20 24 025 Discontinued(R eorder) potassium chloride 10 MEQ CR tabletIndications :Bilateral leg edema Take 1 tablet by mouth Daily. 90 tablet 1 06/21/20 24 025 Discontinued(R eorder) gabapentin (NEURONTIN) 100 MG capsule Take 1 capsule by mouth 3 times a day. 10/04/20 24 025 Discontinued amLODIPine (NORVASC) 2.5 MG tablet Take 1 tablet by mouth Daily. 30 tablet 1 01/31/20 25 025 Discontinued furosemide (LASIX) 20 MG tabletIndications :Bilateral leg edema TAKE ONE TABLET BY MOUTH TWICE DAILY 90 tablet 04/25/20 025 Discontinued(R eorder) rosuvastatin (CRESTOR) 20 MG tabletIndications :Hyperlipidemia LDL goal <70 TAKE ONE TABLET BY MOUTH EVERY DAY 90 tablet 07/03/20 025 Discontinued(R eorder) Bystolic 20 MG tablet Take 1 tablet by mouth Daily. 025 Discontinued(R eorder) Active Problems Problem Noted Date Diagnosed Date Raynaud's disease without gangrene 05/23/2024 Assessment & Plan (08/07/2025 5:13 PM EDT): Resume amlodipine 2.5 mg daily for Raynaud's Assessment & Plan (01/30/2025 2:09 PM EDT): Raynaud's on toes bilaterally Discontinue Nebivolol and start amlodipine 2.5 mg daily Assessment & Plan (05/23/2024 3:28 PM EDT): Raynaud's appearing toes bilaterally Diltiazem is causing bradycardia. Will discontinue Start amlodipine 2.5 mg daily Stop nebivolol as this may be exacerbating Raynaud's Chronic heart failure with p reserved ejection fraction (HFpEF) 03/25/2023 Overview (08/07/2025): NYHA III shortness of breath, 2022 Moderately elevated LV filling pressure (LVEDP 28 mmHg) on [facility], 03/25/2023 Cannot tolerate empagliflozin Assessment & Plan (08/07/2025 5:13 PM EDT): No dyspnea Intolerant to SGL 2 inhibitor Continue furosemide and potassium Assessment & Plan (01/30/2025 2:11 PM EDT): Stable NYHA class I symptoms Continue Jardiance 10 mg daily Continue Lasix 20 mg twice daily Assessment & Plan (04/27/2023 2:41 PM EDT): Stable NYHA class I symptoms Continue Jardiance 10 mg daily Continue Bystolic 5 mg daily Essential hypertension 07/28/2017 Overview (03/16/2023): Target blood pressure <130/80 mmHg Assessment & Plan (08/07/2025 5:13 PM EDT): Continue Nebivolol Start amlodipine 2.5 mg daily Assessment & Plan (01/30/2025 2:10 PM EDT): [...] EDT): Obtain lipids at the time of [facility] Coronary artery disease invo lving [place] cro[place] coronary artery of [place] 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 by [...] (02/2025): no culprit for CP Assessment & Plan (08/07/2025 5:12 PM EDT): Recent hospitalization at [facility] in February for chest pain with reportedly unremarkable cardiac catheterization No chest pain since Continue aspirin, Nebivolol, statin Assessment & Plan (01/30/2025 2:10 PM EDT): [...] stress test and her history of anterior ME With new and ongoing symptoms, I recommend cardiac catheterization to assess coronary and graft anatomy Continue aspirin, beta-reece, statin Resolved Problems Problem Noted Date Diagnosed Date Resolved Date Abnormal nuclear stress test 03/16/2023 03/25/2023 Encounters Date Type Department Care Team Description 08/07/2025 2:15 PM EDT Office Visit [facility] [address] [place] [address] Loco Levine IV, MD Coronary artery disease involving [place] croix coronary artery of [place] croix heart with angina pectoris (Primary Dx); Hyperlipidemia LDL goal <70; Chronic heart failure with preserved ejection fraction (HFpEF); Raynaud's disease without gangrene; Essential hypertension 08/07/2025 Travel 07/03/2025 Refill [facility] [address] [place] [address] Loco Levine IV, MD Med Refill from Last 3 Months Family [...] Pulse 82 08/07/2025 1:50 PM EDT Temperature 36.4 C (97.5 F) 03/25/2023 9:09 AM EDT Respiratory Rate 12 03/25/2023 12:20 PM EDT Oxygen Saturation 96% 08/07/2025 1:50 PM EDT Inhaled Oxygen Concentration - - Weight 62.2 kg (137 lb 3.2 oz) 08/07/2025 1:50 P M EDT Height 157.5 cm (5' 2 ) 08/07/2025 1:50 PM EDT Body Mass Index 25.09 08/07/2025 1:50 PM EDT Plan of Treatment Upcoming Encounters Date Type Department Care Team (Late st Contact Info) Description 02/05/2026 1:40 PM EDT Office Visit [facility] [address] [place] [address] Vero Stock, GUANACO [address] [place] [address] Health Maintenance Due Date Last [...] , 07/03/2022, Additional history exists COVID-19 Vaccine (2024-2 6 season) 2025 09/08/2022, 12/10/2020, 11/14/2020 ZOSTER VACCINE Completed 12/28/2018, 08/28/2018 Medical Devices Implanted Type Area Warp Dresser Device Identifier Shelf Expiration Date Model / Serial / Lot Scrw Compr Equinoxe Lk 4.5x26mm - [id number] - [id number] Implanted:Qt y: 1 on 07/22/2020 by Orlando Valencia MD at [facility] Implant Right: Shoulder EXACTECH [id number] 11/06/2024 [id number] / [id number] / N/A Scrw Equinx Glenosphere Lk - [id number] Implanted:Qt y: 1 on 07/22/2020 by Orlando Valencia MD at [facility] Implant Right: Shoulder EXACTECH [id number] / / N/A Liner Hum Equinoxe Rev Shldr Pls0 36mm - [id number] - [id number] Implanted:Qt y: 1 on 07/22/2020 by Orlando Valencia MD at [facility] Implant Right: Shoulder EXACTECH [id number] 06/04/2025 [id number] / [id number] / N/A Try Hum Equinoxe Adpt Rev Shldr Pls0 - [id number] - [id number] Implanted:Qt y: 1 on 07/22/2020 by Orlando Valencia MD at [facility] Implant Right: Shoulder EXACTECH [id number] 04/21/2028 [id number] / [id number] / N/A Scrw Equinoxe Torq Define Rev Shldr Kt - [id number] - [id number] Implanted:Qt y: 1 on 07/22/2020 by Orlando Valencia MD at [facility] Implant Right: Shoulder EXACTECH [id number] 06/09/2025 [id number] / [id number] / N/A Totl Shldr Rev Aug - [id number] Implanted:Qt y: 1 on 07/22/2020 by Orlando Valencia MD at [facility] Implant Right: Shoulder EXACTECH CAPSHOULDREVAUGE X AC / / Sut Fw #2 W/Tpr Ndl 10/19 Cir 38in 97cm 26.5mm Geronimo - [id number] Implanted:Qt y: 1 on 07/22/2020 by Orlando Valencia MD at [facility] Implant Right: Shoulder ARTHREX 11/17/2024 [id number] / / [id number] Stem Hum Sanna Equinoxe Pressfit 12mm Sht - [id number] - [id number] Implanted:Qt y: 1 on 07/22/2020 by Orlando Valencia MD at [facility] Implant Right: Shoulder EXACTECH [id number] 09/14/2028 [id number] / [id number] / N/A Plt Aug Tyrone Equinoxe Post Rev 8deg Sm Rt - [id number] Implanted:Qt y: 1 on 07/22/2020 by Orlando Valencia MD at [facility] Implant Right: Shoulder EXACTECH 03/12/2030 [id number] / / [id number] Scrw Compr Equinoxe Lk 4.5x26mm - [id number] - [id number] Implanted:Qt y: 1 on 07/22/2020 by Orlando Valencia MD at [facility] Implant Right: Shoulder EXACTECH [id number] 04/24/2025 [id number] / [id number] / N/A Scrw Compr Equinoxe Lk 4.5x26mm - [id number] - [id number] Implanted:Qt y: 1 on 07/22/2020 by Orlando Valencia MD at [facility] Implant Right: Shoulder EXACTECH [id number] 04/08/2025 [id number] / [id number] / N/A Scrw Compr Equinoxe Lk 4.5x26mm - [id number] - [id number] Implanted:Qt y: 1 on 07/22/2020 by Orlando Valencia MD at [facility] Implant Right: Shoulder EXACTECH [id number] 11/06/2024 [id number] / [id number] / N/A Glenosphere Rev Shldr Equinoxe Sm - [id number] - [id number] Implanted:Qt y: 1 on 07/22/2020 by Orlando Valencia MD at [facility] Implant Right: Shoulder EXACTECH [id number] 04/11/2030 [id number] / [id number] / N/A Imiplant Description:BILATERAL CATARA CT LENS RIGHT HIP REPLACEMENT Stnt Cornry Rx Xience/Skypo int Rapdxng 4x18mm - [id number] Implanted:Qt y: 1 on 03/25/2023 by Loco Levine IV, MD at [facility] [id number] / / [id number] Procedures Procedure Name Priority Date/Time Associated Diagnosis Comments LIPID PANEL STAT 03/25/2023 9:25 AM EDT from Last 3 Months or Most Recently Relevant to Health Maintenance Results * Lipid Panel (03/25/2023 9:25 AM EDT) Total Cholesterol 166 0 - 200 mg/dL 03/25/2023 10:06 AM EDT [facility] Triglycerides 96 0 - 150 mg/dL 03/25/2023 10:06 AM EDT [facility] HDL Cholesterol 59 40 - 60 mg/dL 03/25/2023 10:06 AM EDT [facility] LDL Cholesterol 89 0 - 100 mg/dL 03/25/2023 10:06 AM EDT [facility] VLDL Cholesterol 18 5 - 40 mg/dL 03/25/2023 10:06 AM EDT [facility] LDL/HDL Ratio 1.49 03/25/2023 10:06 AM EDT [facility] Blood Line / Unknown 03/25/2023 9: 25 AM EDT 03/25/2023 9:38 AM EDT Narrative [facility] - 03/25/2023 10:06 AM [...] 160-189 mg/dL Very High >189 mg/dL Loco eLvine IV, MD LAB BLOOD ORDERA BLES Final Result [facility]
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 LIVING WILL - SCAN 07/24/2020 6:59 AM ZAHRAA GARCIA WILL, [facility], 09/19/2014 [employer]ON - SCAN 07/24/2020 6:59 AM [employer], [facility], 09/19/2014 * CPR (Attempt to Resuscitate) (Latest Code Status on File) Date Activated Date Inactivated Comments 03/25/2023 12:36 PM 03/25/2023 6:27 PM Question Answer Comments Code Status (Patient has no pulse and is not breathing): CPR (Attempt to Resuscitate) Medical Interventions (Patie nt has pulse or is breathing): Full Support Release to patient: Routine Release Care Teams Engineering Technician Parking Relationship Specialty Start Date End Date Jose Patel MD [address] [facility] [address] [place] [address] PCP - General Adolescent Medicine 04/23/17
--- OUTSIDE RECORDS SUMMARY | 2025-08-14 10:08 | XMS_ITS | Clinical Summary ---
Author Organization [facility] Address [address] [place] [address] Care Team Providers Care Transportation Aide Name Role Phone Jose Patel MD Primary Care Provider [phone] Allergies Active Allergy Reactions Criticality Noted Date [...] [facility] [address] [place] [address] Edmond Hayden MD HCN - Patient Message 05/21/2025 11:40 AM EDT Office Visit [facility] [address] [place] [place] [id number] Edmond Hayden MD Derangement of lateral meniscus, right (Primary Dx); Derangement of medial meniscus, right 05/21/2025 Travel from Last 3 Months Social History [...] 03/26/2026 2:00 PM EDT Ovarian Cancer Screening [facility] [address] [facility] [place] [address] Health Maintenance Due Date Last Done Comments [facility]-Bone Density Scan 1944 [facility]-Medicare Annual Wellness (AWV) 1944 [facility]-/Child/Adol SDOH Screenings 1944 [facility]- SDOH Screenings 1962 [facility]-Adult SDOH Screenings 1962 [facility]-Pneumococcal Vaccine: 50+ Years (1 of 1 - PCV) 1994 [facility]-DTaP,Tdap,and Td Vaccines (1 - Tdap) 12/20/1996 12/19/1996 [id number] Vaccine (4 - 2024- season) 2025 09/08/2022, 12/10/2020, 11/14/2020 [facility]-Influenza Vaccine [...] patient's age to complete this topic Insurance [facility] MEDICARE Care Teams Transportation Aide Relationship Specialty Start Date End Date Jose Patel MD [address] [place] [facility] [address] [place] [address] PCP - General 05/27/21
[2025-08-14 10:25] LABS: Hematocrit 32.7 % (37.0-47.0); Hemoglobin 10.6 g/dL (12.2-16.2); Immature Granulocytes % 0.3 %; Mean Corpuscular HGB Conc 32.4 g/dL (31.8-35.4); Mean Corpuscular Hemoglobin 28.9 pg (27.0-31.2); Mean Corpuscular Volume 89.1 fl (81-99); Nucleated Red Blood Cells % 0 %; Platelet Count 231 K/mm3 (142-424); Red Blood Count 3.67 M/mm3 (4.20-5.40); Red Cell Distribution Width-SD 47.8 fL; White Blood Count 6.8 K/mm3 (4.8-10.8)
[2025-08-14 11:11] LABS: Alanine Aminotransferase 24 U/L (12-78); Albumin Level 3.9 g/dl (3.5-5.0); Albumin/Globulin Ratio 1.9 (1.1-1.8); Alkaline Phosphatase 108 U/L (38-126); Anion Gap 10.0 mEq/L (5-15); Aspartate Amino Transferase 47 U/L (14-36); Bilirubin,Total 0.7 mg/dl (0.2-1.3); Blood Urea Nitrogen 19 mg/dl (7-17); Calcium 9.5 mg/dl (8.4-10.2); Carbon Dioxide 27 mmol/L (22.0-30.0); Chloride 103 mmol/L (98-107); Creatinine,Serum 1.20 mg/dl (0.52-1.04); Estimated Glomerular Filt Rate 43 ml/min (>60); GFR (African American) 52 ML/MIN (>60); Globulin 2.1 g/dL (1.3-3.2); Glucose 99 mg/dl (74-100); Potassium 4.0 mmoL/L (3.5-5.1); Sodium 136 mmol/L (136-145); Total Protein,Serum 6.0 g/dl (6.3-8.2)
[2025-08-14 11:18] LABS: C-Reactive Protein 0.5 mg/L (0-4)
[2025-08-14 11:42] LABS: Thyroid Stimulating Hormone 0.02 uIU/mL (0.465-4.68)
== END 2025-08-14 23:59 | disposition home or self-care (01) ==
LOC: LAB 09:49
PROVIDERS: PCP Internal Medicine Adolescent Medicine; Visit Provider Internal Medicine Rheumatology
DX: Z51.81 Encounter for therapeutic drug level monitoring (principal); M06.09 Rheumatoid arthritis without rheumatoid factor, multiple sites
CPT/HCPCS: 36415; 80053; 84443; 85025; 85651; 86140; 86480